=== PATIENT | female | born 1980 | race Caucasian/White ===

== ENCOUNTER 2021-11-17 14:45 | Emergency (ER) | payer BC, OTHER, SELFPAY ==
[2021-11-17 15:10] VITALS: BP 182/119; PULSE 78; RESP 16; TEMP 36.6; O2SAT 100; BMI 35.8
--- NOTE | 2021-11-17 17:30 | ED.GENADULT ---
HPI - General Adult General Time Seen by Provider: 17:30 Date Seen: 11/17/21 Chief complaint: High Blood Pressure Stated complaint: High blood pressure Time Seen by Provider: 11/17/21 17:27 Source: patient History of Present Illness HPI narrative: Kita is a 38-year-old female past medical history includes hypertension currently on spironolactone, occurred, migraine headaches, obesity, obstructive sleep apnea presents emerged department from clinic with elevated blood pressure reading. Patient was over in clinic for a gynecology appointment, patient's blood pressure was elevated, she denies any chest pain but has a mild headache which is typical for her. She denies any visual changes, no nausea vomiting or chest pain. She denies any focal weakness, numbness or tingling. She was put on spironolactone last year at 100 mg, she has not seen her primary since last year. She was tried on a diuretic and did not tolerate it. She has not seen her primary since last year, she has no cardiac or stroke history, no family history of strokes or heart attacks. She has some left lower back pain which is chronic she has had discectomy in the past. She has not had any blood work since last year. No [id number] medications, she denies any smoking or alcohol use. Related Data Home Medications Medication Instructions Recorded Confirmed cholecalciferol (vitamin D3) 25 1,000 unit PO DAILY tab 11/17/21 11/17/21 mcg (1,000 unit) tablet cyclobenzaprine 5 mg tablet 10 mg PO .Bedtime as needed PRN 11/17/21 11/17/21 tab ibuprofen 200 mg capsule 600 mg PO Q6H PRN 11/17/21 11/17/21 spironolactone 100 mg tablet mg PO DAILY 11/17/21 11/17/21 Previous Rx's Medication Instructions Recorded hydrochlorothiazide 12.5 mg tablet 12.5 mg PO DAILY #30 tab 11/17/21 Allergies Allergy/AdvReac Type Severity Reaction Status Date / Time No Known Allergies Allergy Unverified 11/17/21 13:11 Review of Systems Status of ROS: Reports: 10 or more systems reviewed and unremarkable except as noted in History and below [facility] Medical History (Updated 11/17/21 @ 20:16 by Mushtaq Loo MD) Encounter for postoperative care Mass of left side of neck Plantar fasciitis (11/13/12) Surgical History (Updated 11/15/21 @ 14:26 by Rakesh Marmolejo) History of cholecystectomy (11/13/12) History of discectomy Family History (Updated 11/02/21 @ 11:04 by Dyan Rey) Brother Hyperlipidemia Social History (Updated 11/02/21 @ 11:05 by Dyan Rey) Narrative: Does not drink alcohol Does not use illicit drugs Non-smoker Smoking Status: Never smoker Do you use any of these nicotine containing products: None Second hand tobacco smoke exposure: No How often do you have a drink containing alcohol: monthly or less How many standard drinks containing alcohol do you have on a typical day: 1 or 2 How often do you have six or more drinks on one occasion: Never AUDIT-C Alcohol total score: 1 Non-prescribed substance use: marijuana (any form) Non-prescribed substance use details: edibles Little interest or pleasure in doing things: not at all Feeling down, depressed, or hopeless: not at all service: No Exam Narrative: Exam Narrative: General: No obvious distress, sitting comfortably HEENT: Tympanic membranes within normal limits bilaterally oropharynx is clear and moist, pupils equal round reactive to light. Heart: S1-S2, regular rhythm Lungs were clear to auscultation bilaterally Abdomen: Soft nontender, bowel sounds present Muscle skeletal: +5 strength upper and lower extremities, mild tenderness to palpation in the left lower lumbar paraspinal musculature, no midline tenderness, no step-off, straight leg raise and crossover negative Neuro: Alert awake and oriented x3, cranial nerves 2-12 grossly intact, no focal deficits Psych: Mood and affect normal Const: Vital Signs, click to edit/add: Vital Signs - 24 hr 11/17/21 15:10 11/17/21 17:32 11/17/21 18:39 Temperature 97.8 F 98.4 F Pulse Rate [Right Radial] 78 75 72 Respiratory Rate 16 18 18 Blood Pressure [Ri ght Upper Arm] 182/119 H 176/113 H 151/114 H Pulse Oximetry 100 100 98 11/17/21 19:26 11/17/21 19:48 11/17/21 20:05 Temperature Pulse Rate [Right Radial] 74 78 77 Respiratory Rate Blood Pressure [Ri ght Upper Arm] 183/100 H 180/119 H 180/110 H Pulse Oximetry 100 97 100 Course Course Hospital Course: Vitals show elevated blood pressure reading 176/113, patient has no focal findings on exam, no signs of any hypertensive emergency or urgency, will obtain EKG, CBC and BMP, troponinI, may add another antihypertensive, she is maxed out on her spironolactone. Will start her back on hydrochlorothiazide 12.5 mg. Reevaluation(s) Reevaluation #1: Patient was updated on her EKG results, normal sinus rhythm, ppm 69, no ectopy or acute ST changes, no comparisons. Time: 18:44 Reevaluation #2: Troponin I negative, CBC showed mild leukocytosis otherwise normal, BMP showed a normal potassium and kidney function. Patient's blood pressure slowly lower, 176/110, she is asymptomatic at this time no signs of any hypertensive urgency or emergency, no end-organ damage, patient is under stress which could be contributing, she will be started back on her hydrochlorothiazide 12.5 mg daily with her spironolactone, followup appointment was made for Sunday after the weekend, at that time they can recheck blood pressure measurements adjust medications as needed. Return precautions given, all questions answered. She is stable for discharge Time: 20:19 Vital Signs Vital signs: Initial Vital Signs Temperature 97.8 F 11/17/21 15:10 Temperature Source Temporal Artery Scan 11/17/21 15:10 Pulse Rate 78 11/17/21 15:10 Respiratory Rate 16 11/17/21 15:10 Blood Pressure 182/119 H 11/17/21 15:10 Blood Pressure Mean 140 11/17/21 15:10 Blood Pressure Position Sitting 11/17/21 15:10 Pulse Oximetry 100 11/17/21 15:10 Oxygen Delivery Method 11/17/21 15:10 Vital Signs Temperature 97.8 F 11/17/21 15:10 Pulse Rate 78 11/17/21 15:10 Respiratory Rate 16 11/17/21 15:10 Blood Pressure 182/119 H 11/17/21 15:10 Pulse Oximetry 100 11/17/21 15:10 Temperature 98.4 F 11/17/21 18:39 Pulse Rate 77 11/17/21 20:05 Respiratory Rate 18 11/17/21 18:39 Blood Pressure 180/110 H 11/17/21 20:05 Pulse Oximetry 100 11/17/21 20:05 Medical Decision Making Lab Data Labs: Lab Results 11/17/21 11/17/21 Range/Units 18:18 18:18 WBC 11.08 H (4.50-11.00) K/uL RBC 4.31 (4.00-5.20) m/uL Hgb 13.0 (12.0-16.0) gm/dL Hct 38.3 (33.0-51.0) % MCV 89 (80-100) fL MCH 30 (26-34) pg MCHC 34 (32-36) gm/dL RDW Coeff of Real 12.8 (11.5-15.5) % Plt Count 356 (140-440) K/uL Neut % (Auto) 61.1 (42.0-72.0) % Lymph % (Auto) 29.7 (20-44) % Lamar % (Auto) 6.8 (0.0-11.0) % Eos % (Auto) 1.8 (0.0-7.0) % Baso % (Auto) 0.4 (0.0-3.0) % Neut # (Auto) 6.80 (1.7-7.0) K/uL Lymph # (Auto) 3.30 H (0.90-2.90) K/uL Lamar # (Auto) 0.80 (0.00-0.90) K/UL Eos # (Auto) 0.20 (0.00-0.50) K/uL Baso # (Auto) 0.00 (0.00-0.30) K/uL Abs Immat Gran (auto) 0.02 (0.00-0.30) K/uL Sodium 139 (135-149) mmol/L Potassium 4.2 (3.6-5.1) mmol/L Chloride 104 (96-114) mmol/L Carbon Dioxide 27 (20-32) mmol/L BUN 11 (5-24) mg/dL Creatinine 0.7 (0.5-1.5) mg/dL Estimated Creat Clear 93.25 Estimated GFR 110 ml/min Glucose 100 (60-115) mg/dL Calcium 9.3 (8.4-10.6) mg/dL Troponin I < 0.01 L (0.01-0.04) ng/mL Discharge Plan Discharge Clinical Impression: Elevated blood pressure reading, History of migraine Patient Disposition: Home, Self-Care Instructions: Hypertension (ED) Additional Instructions: To follow up with Dr. Olguin after the weekend on Sunday for blood pressure recheck and ED follow up. Return if worsening symptoms. Activity Level: Activity as Tolerated Prescriptions: New hydrochlorothiazide 12.5 mg tablet 12.5 mg PO DAILY Qty: 30 2RF No Action spironolactone 100 mg tablet PO DAILY 0RF cholecalciferol (vitamin D3) 25 mcg (1,000 unit) tablet 1,000 unit PO DAILY 0RF ibuprofen 200 mg capsule 600 mg PO Q6H PRN0RF cyclobenzaprine 5 mg tablet 10 mg PO .Bedtime as needed PRN0RF Follow Up/Referrals: Marga Olguin PA-C [Primary Care Provider] - Stand Alone Forms: appMobi Info Instructions
[2021-11-17 17:32] VITALS: BP 176/113; PULSE 75; RESP 18; O2SAT 100
[2021-11-17 18:34] LABS: Basophils Percent Auto 0.4 % (0.0-3.0); Eosinophils Percent Auto 1.8 % (0.0-7.0); Hematocrit 38.3 % (33.0-51.0); Immature Granulocytes Abs Auto 0.02 K/uL (0.00-0.30); Lymphocytes Percent Auto 29.7 % (20-44); Mean Corpuscular HGB Conc 34 gm/dL (32-36); Mean Corpuscular Hemoglobin 30 pg (26-34); Mean Corpuscular Volume 89 fL (80-100); Monocytes Percent Auto 6.8 % (0.0-11.0); Neutrophils Percent Auto 61.1 % (42.0-72.0); Platelet Count* 356 K/uL (140-440); RDW Coefficient of Variation % 12.8 % (11.5-15.5); Red Blood Count 4.31 m/uL (4.00-5.20); White Blood Count* 11.08 K/uL (4.50-11.00)
[2021-11-17 18:35] LABS: Slide Review Reflex No
[2021-11-17 18:37] LABS: Chloride* 104 mmol/L (96-114); Potassium* 4.2 mmol/L (3.6-5.1); Sodium* 139 mmol/L (135-149)
[2021-11-17 18:39] VITALS: BP 151/114; PULSE 72; RESP 18; TEMP 36.9; O2SAT 98
[2021-11-17 18:39] LABS: Creatinine* 0.7 mg/dL (0.5-1.5); Est. Creatinine Clearance* 93.25; Estimated Glomerular Filt Rate 110 ml/min
[2021-11-17 18:40] LABS: Blood Urea Nitrogen* 11 mg/dL (5-24); Calcium* 9.3 mg/dL (8.4-10.6); Carbon Dioxide* 27 mmol/L (20-32); Glucose* 100 mg/dL (60-115)
[2021-11-17 18:53] LABS: Troponin I* < 0.01 ng/mL (0.01-0.04)
[2021-11-17] MEDS: hydroCHLOROthiazide 12.5 MG CAPSULE PO (19:23)
[2021-11-17 19:26] VITALS: BP 183/100; PULSE 74; O2SAT 100
[2021-11-17 19:48] VITALS: BP 180/119; PULSE 78; O2SAT 97
[2021-11-17 20:05] VITALS: BP 180/110; PULSE 77; O2SAT 100
== END 2021-11-17 20:25 | disposition home or self-care (01) ==
PROVIDERS: Emergency Provider Student in an Organized Health Care Education/Training Program; PCP Physician Assistant Medical
DX: I10 Essential (primary) hypertension (principal)
CPT/HCPCS: 36415; 80048; 84484; 85025; 93005; 99283; A9270

== ENCOUNTER 2021-12-26 13:42 | Outpatient (CLI) | payer BC, OTHER, SELFPAY ==
--- NOTE | 2021-12-26 13:40 | CRLHL7_ITS ---
For Patients: As a result of the Century Cures Act, medical imaging exams and procedure reports are released immediately into your electronic medical record. You may view this report before your referring provider. If you have questions, please contact your health care provider. BILATERAL SCREENING MAMMOGRAM WITH COMPUTER-AIDED DETECTION AND TOMOSYNTHESIS TECHNIQUE: CC and MLO views were obtained. These mammographic images have been obtained using full-field digital technique. These mammographic images were interpreted with the benefit of computer-aided detection. Breast Tomosynthesis was used in this interpretation. COMPARISON FILM: 08/13/18. FINDINGS: There are scattered areas of fibroglandular density IMPRESSION: There is no radiographic evidence for malignancy. ASSESSMENT: BI-RADS Category 1: Negative RECOMMENDATION: Routine screening mammogram in 1 year. A lay language report of this examination will be provided to the patient. Robert Resendez M.D. Diagnostic Radiologist [email or web address] WENDI/Dictated by: Robert Resendez MD @ 12/27/2021 1:00:00 PM (Electronically Signed)
== END 2021-12-26 13:43 | disposition home or self-care (01) ==
LOC: MAMMO 13:43
PROVIDERS: PCP Physician Assistant Medical; Visit Provider Registered Nurse
DX: Z12.31 Encounter for screening mammogram for malignant neoplasm of breast
CPT/HCPCS: 77063; 77067

== ENCOUNTER 2021-12-27 14:01 | Outpatient (CLI) | payer BC, OTHER, SELFPAY ==
[2021-12-27 21:40] LABS: Chloride* 97 mmol/L (96-114); Potassium* 4.2 mmol/L (3.6-5.1); Sodium* 140 mmol/L (135-149)
[2021-12-27 21:42] LABS: Creatinine* 0.8 mg/dL (0.5-1.5); Estimated Glomerular Filt Rate 94 ml/min
[2021-12-27 21:43] LABS: Blood Urea Nitrogen* 12 mg/dL (5-24); Calcium* 10.2 mg/dL (8.4-10.6); Carbon Dioxide* 31 mmol/L (20-32); Glucose* 93 mg/dL (60-115)
== END 2021-12-27 14:02 | disposition home or self-care (01) ==
LOC: FRMREF 14:01
PROVIDERS: PCP Physician Assistant Medical; Visit Provider Physician Assistant Medical
DX: I10 Essential (primary) hypertension (principal)
CPT/HCPCS: 80048

== ENCOUNTER 2021-12-30 10:50 | Outpatient (CLI) | payer BC, OTHER, SELFPAY ==
[2021-12-30 11:09] LABS: HCG Qualitative* Negative (Negative)
== END 2021-12-30 10:51 | disposition home or self-care (01) ==
PROVIDERS: PCP Physician Assistant Medical; Visit Provider Registered Nurse
DX: N93.9 Abnormal uterine and vaginal bleeding, unspecified (principal)
CPT/HCPCS: 84443; 84703

== ENCOUNTER 2021-12-30 11:07 | Outpatient (CLI) | payer BC, OTHER, SELFPAY ==
--- NOTE | 2021-12-30 16:00 | CRLHL7_ITS ---
For Patients: As a result of the Century Cures Act, medical imaging exams and procedure reports are released immediately into your electronic medical record. You may view this report before your referring provider. If you have questions, please contact your health care provider. INDICATION: Irregular bleeding TECHNIQUE: Ultrasound pelvis transabdominal and transvaginal for better assessment or to better visualize the endometrium. Real time sonographic images with Spectral and color Doppler imaging of the ovaries were obtained. COMPARISON: None FINDINGS: Uterus: 0.7 centimeter x 4.8 centimeter 6.3 centimeter. Normal echotexture of the myometrium. No masses. Nabothian cysts. Endometrium: Transvaginal imaging was performed to better evaluate the endometrium. 13 millimeter in thickness. No sign of endometrial mass or fluid. Right ovary: 3.3 centimeter x 2.2 centimeter x 2.5 centimeter. No ovarian or adnexal masses. Normal arterial and venous blood flow. Left ovary: 0.7 centimeter x 1.8 centimeters x 2.6 centimeter. No ovarian or adnexal masses. Normal arterial and venous blood flow. Cul-de-sac: No significant free fluid. IMPRESSION: Nabothian cysts, otherwise unremarkable pelvic ultrasound. Dictated by Robert Peñaloza MD @ 12/30/2021 8:53:57 PM (Electronically Signed)
== END 2021-12-30 11:08 | disposition home or self-care (01) ==
PROVIDERS: PCP Physician Assistant Medical; Visit Provider Registered Nurse
DX: N93.9 Abnormal uterine and vaginal bleeding, unspecified (principal); N88.8 Other specified noninflammatory disorders of cervix uteri
CPT/HCPCS: 76830; 76856; 84443; 84703

== ENCOUNTER 2022-03-28 17:24 | Emergency (ER) | payer BC, OTHER, SELFPAY ==
[2022-03-28 17:55] VITALS: BP 121/74; PULSE 68; RESP 18; TEMP 36.2; O2SAT 99; BMI 33.3
--- NOTE | 2022-03-28 18:01 | CRLHL7_ITS ---
For Patients: As a result of the Cures Act, medical imaging exams and procedure reports are released immediately into your electronic medical record. You may view this report before your referring provider. If you have questions, please contact your health care provider. Indication: Fall. Technique: Left ankle, 3 views. Comparison: None. Findings: Bones: Mild cortical irregularity along the posterior tibia seen only on the lateral projection could be the result of prior trauma. Joint spaces: Unremarkable. Soft tissues: Diffuse soft tissue swelling about the ankle. Impression: Soft tissue swelling without acute fracture. Dictated by Frantz Camacho MD @ 03/28/2022 6:54:08 PM (Electronically Signed)
--- NOTE | 2022-03-28 18:02 | ED_ITS ---
HPI - Extremity Injury (Lower) General Chief Complaint: Extremity Pain/Injury, Lower Stated Complaint: Left Ankle Injury - Ice Time Seen by Provider: 03/28/22 17:38 History of Present Illness HPI Narrative: This 41-year-old female comes in with an injury to her left ankle. She slipped on some ice just prior to arrival and fell injuring her left ankle. She does not report any other injury. She did not hit her head or get knocked out. She has pain and swelling at the left ankle joint. The swelling is more on the lateral aspect. She did not ambulate on this leg after the injury. Related Data Home Medications Medication Instructions Recorded Confirmed cholecalciferol (vitamin D3) 25 1,000 unit PO DAILY 11/17/21 02/09/22 mcg (1,000 unit) tablet cyclobenzaprine 5 mg tablet 10 mg PO .Bedtime as needed PRN 11/17/21 02/09/22 ibuprofen 200 mg capsule 600 mg PO Q6H PRN 11/17/21 02/09/22 Previous Rx's Medication Instructions Recorded hydrochlorothiazide 12.5 mg tablet 12.5 mg PO DAILY #90 tabs 12/27/21 lisinopril 10 mg tablet 10 mg .Route .COMPLEX #90 tabs 12/27/21 Allergies Allergy/AdvReac Type Severity Reaction Status Date / Time No Known Allergies Allergy Verified 02/09/22 13:03 Review of Systems Status of ROS: Reports: 10 or more systems reviewed and unremarkable except as noted in History and below Narrative: Constitutional: No fevers, no weight gain or loss. Eyes: No discharge. No vision changes. HENT: No congestion, no sore throat, no ear pain. Cardiovascular: No chest pain, no palpitations. Respiratory: No shortness of breath, no wheezes, no cough. Gastrointestinal: No abdominal pain, no vomiting, no diarrhea. Genitourinary: No dysuria, no hematuria. Musculoskeletal: Left ankle injury as described above. Skin: No rashes, no pruritis. Neurological: No dizziness, weakness, sensory change, speech change. Endo/Heme/Allergies: No bruising or bleeding. No polydipsia. Pysch: no suicidality, no anxiety, no insomnia. All other systems reviewed and are negative. [facility] Medical History Mass of left side of neck Plantar fasciitis (11/13/12) Surgical History History of cholecystectomy (11/13/12) History of discectomy Family History Brother Hyperlipidemia Father High blood pressure Hyperlipidemia Social History Narrative: Does not drink alcohol Does not use illicit drugs Non-smoker Smoking Status: Never smoker Do you use any of these nicotine containing products: None Second hand tobacco smoke exposure: No How often do you have a drink containing alcohol: monthly or less How many standard drinks containing alcohol do you have on a typical day: 1 or 2 How often do you have six or more drinks on one occasion: Never AUDIT-C Alcohol total score: 1 Non-prescribed substance use: marijuana (any form) Non-prescribed substance use details: edibles Little interest or pleasure in doing things: not at all Feeling down, depressed, or hopeless: not at all service: No Exam Narrative: Exam Narrative: Constitutional: Well-developed, well-nourished, no acute distress. HEENT: Normocephalic, atraumatic. Neck: Normal range of motion. Nontender. Supple. Heart: Intact distal pulses. Lungs: No chest discomfort. No wheezes, rhonchi, or rales. Abdomen: Nontender. Back: Normal range of motion. Extremities: Left ankle has pain with swelling over the lateral malleolus. Decreased range of motion due to pain. There is no sign of instability or bruising. Skin: Intact. No rash. Warm. No erythema or pallor. Neurologic: No altered sensation. No weakness. Alert and oriented. Psychiatric: No suicidality. No anxiety or depression. No insomnia. Nursing notes and vitals signs are reviewed. Const: Vital Signs, click to edit/add: Vital Signs - 24 hr 03/28/22 17:55 Temperature 97.2 F L Pulse Rate [Right Pulse Oximeter] 68 Respiratory Rate 18 Blood Pressure [Ri ght Upper Arm] 121/74 Pulse Oximetry 99 Oxygen Delivery Me thod Room Air Course Vital Signs Vital signs: Initial Vital Signs Temperature 97.2 F L 03/28/22 17:55 Temperature Source Temporal Artery Scan 03/28/22 17:55 Pulse Rate 68 03/28/22 17:55 Respiratory Rate 18 03/28/22 17:55 Blood Pressure 121/74 03/28/22 17:55 Blood Pressure Mean 89 03/28/22 17:55 Blood Pressure Position Sitting 03/28/22 17:55 Pulse Oximetry 99 03/28/22 17:55 Oxygen Delivery Method 03/28/22 17:55 Vital Signs Temperature 97.2 F L 03/28/22 17:55 Pulse Rate 68 03/28/22 17:55 Respiratory Rate 18 03/28/22 17:55 Blood Pressure 121/74 03/28/22 17:55 Pulse Oximetry 99 03/28/22 17:55 Oxygen Delivery Method 03/28/22 17:55 Temperature 97.2 F L 03/28/22 17:55 Pulse Rate 68 03/28/22 17:55 Respiratory Rate 18 03/28/22 17:55 Blood Pressure 121/74 03/28/22 17:55 Pulse Oximetry 99 03/28/22 17:55 Oxygen Delivery Method 03/28/22 17:55 MDM - Extremity Injury (Lower) MDM Narrative Medical decision making narrative: This patient comes in with an injury to her left ankle. X-ray imaging shows no evidence of fracture. She does have an ankle sprain with some swelling on the lateral aspect of the ankle. The patient states that she does have crutches at home that can be used as needed. She does not have an unstable ankle and therefore I encouraged activity to increase as tolerated. She can use [id number] medicines as needed and directed also. Imaging Data X-ray left ankle: Radiologist's impression: Soft tissue swelling without acute fracture. Discharge Plan Discharge Clinical Impression: Left ankle sprain Patient Disposition: Home, Self-Care Condition: Stable Additional Instructions: Take [id number] medications as needed and indicated. Follow up with MD or return if worsening. Prescriptions: No Action cholecalciferol (vitamin D3) 25 mcg (1,000 unit) tablet 1,000 unit PO DAILY ibuprofen 200 mg capsule 600 mg PO Q6H PRN cyclobenzaprine 5 mg tablet 10 mg PO .Bedtime as needed PRN lisinopril 10 mg tablet 10 mg .ROUTE .COMPLEX Qty: 90 1RF Rx Instructions: 10 mg; hydrochlorothiazide 12.5 mg tablet 12.5 mg PO DAILY Qty: 90 1RF Follow Up/Referrals: Marga Olguin PA-C [Primary Care Provider] - Stand Alone Forms: [employer] Info Instructions
--- OUTSIDE RECORDS SUMMARY | 2022-03-28 18:25 | XMS_ITS | Encounter Summary ---
:1980 Author Organization [facility] Address [address] [place] [id number] Care Team Providers Name Role Phone Yomaira Gonsalves PA-C Primary Care Provider Encounter Details Date Type Department Care Team Description 10/20/2018 Travel Social History Tobacco Use Types Packs/Day Years Used Date Smoking Tobacco: Never Alcohol Use Standard Drinks/Week Comments Yes 0 (1 standard drink = 0.6 oz pure alcoho l) rarely Sex Assigned at Date Recorded Not on file documented as of this encounter Plan of Treatment Not on filedocumented as of this encounter Visit Diagnoses Not on filedocumented in this encounter Care Teams [employer] Relationship Specialty Start Date End Date Yomaira Gonsalves PA-C PCP - General Family Practice 05/13/12 05/09/20 [id number] [place] [address] documented as of this encounter
--- OUTSIDE RECORDS SUMMARY | 2022-03-28 18:25 | XMS_ITS | Encounter Summary ---
:1980 Author Organization [place] Address [address] [facility] [place] [address] Care Team Providers Name Role Phone Yomaira Gonsalves PA-C Primary Care Provider Reason for Visit Reason Comments Abdominal Pain Encounter Details Date Type Department Care Team Description 10/20/2018 Emergency [facility] Edis Singleton MD Acute abdominal pain; [facility] Hematuria, unspecified type [address] [place], [place] [address] [facility] [id number] [address] [address] [place] [address] (Wo rk) Social History Tobacco Use Types Packs/Day Years Used Date Smoking Tobacco: Never Alcohol Use Standard Drinks/Week Comments Yes 0 (1 standard drink = 0.6 oz pure alcoho l) rarely Sex Assigned at Date Recorded Not on file documented as of this encounter Last Filed Vital Signs Vital Sign Reading Time Taken Comments Blood Pressure 113/76 10/20/2018 3:43 AM CDT Pulse - - Temperature 36.3 ??C (97.4 ??F) 10/20/2018 12:48 AM CDT Respiratory Rate 18 10/20/2018 3:43 AM CDT Oxygen Saturation 100% 10/20/2018 3:43 AM CDT Inhaled Oxygen Concentration - - Weight 90.7 kg (200 lb) 10/20/2018 12:48 AM CDT Height - - Body Mass Index 33.28 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 Your evaluation today does not show the exact cause foryour pain. Your doctor today has decided that it is unlikely your pain is due to a life threatening problem, or a problem requiring surgery or hospital admission. Sometimes those problems cannot be found right away, so it is very important that you follow up as directed. Sometimes only the changes which occur over time allow the cause of your pain to be found. Return to the Emergency Department for a recheck in 8-12 hours if your pain continues. If your pain gets worse, changes in location, or feels different, return to the Emergency Department right away. ADULTS: Return to the Emergency Department right away if: You get an oral temperature above 102oF or as directed by your doctor. You have blood in your stools (bright red or black, tarry stools). You keep throwing up or can?t drink liquids. You see blood when you throw up. You can?t have a bowel movement or you can?t pass gas. Your stomach gets bloated or bigger. Your skin or the whites of your eyes look yellow. You faint. You have bloody, frequent or painful urination. You have new symptoms or anything that worries you. CHILDREN: Return to the Emergency Department right away if your child has any of the above-listed symptoms or the following: Pushes your hand away or screams/cries when his/her belly is touched. You notice your child is very fussy or weak. Your child is very tired and is too tired to eat or drink. Your child is dehydrated. Signs of dehydration can be: Your has had no wet diapers in 4-5 hours. Your older child has not passed urine in 6-8 hours. Your infant or child starts to have dry mouth and lips, or no saliva or tears. WOMEN: Return to the Emergency Department right away if you have any of the above-listed symptoms or the following: You have bleeding, leaking fluid or passing tissue from the vagina. You have worse pain or cramping, or pain in your shoulder or back. You have vomiting that will not stop. You have painful or bloody urination. You have a temperature of 100oF or more. Your baby is not moving as much as usual. You faint. You get a bad headache with or without eye problems and abdominal pain. You have a convulsion or seizure. You have unusual discharge from your vagina and abdominal pain. Abdominal pain is pretty common during . Your pain may or may not be related to your . You should follow-up closely with your OB doctor so they can evaluate you and your baby. Until you follow-up with your regular doctor, do the following: Avoid sex and do not put anything in your vagina. Drink clear fluids. Only take medications approved by your doctor. MORE INFORMATION: Appendicitis: A possible cause of abdominal pain in any person who still has their appendix is acuteappendicitis. Appendicitis is often hard to diagnose. Testing does not always rule out early appendicitis or other causes of abdominal pain. Close follow-up with your doctor and re-evaluations may be needed to figure out the reason for your abdominal pain. Follow-up: It is very important that you make an appointment with your clinic and go to the appointment. If you do not follow-up with your primary doctor, it may result in missing an important development which could result in permanent injury or disability and/or lasting pain. If there is any problemkeeping your appointment, call your doctor or return to the Emergency Department. Medications: Take your medications as directed by your doctor today. Before using [id number] medications, ask your doctor and make sure to take the medications as directed. If you have any questions about medications, ask your doctor. Diet: Resume your normal diet as much as possible, but do not eat fried, fatty or spicy foods while you have pain. Do not drink alcohol or have caffeine. Do not smoke tobacco. Probiotics: If you have been given an antibiotic, you may want to also take a probiotic pill or eat yogurt with live cultures. Probiotics have good bacteria to help your intestines stay healthy. Studies have shown that probiotics help prevent diarrhea and other intestine problems (including C. diff infection) when you take antibiotics. You can buy these without a prescription in the pharmacy section of the store. If you were given a prescription for medicine here today, be sure to read all of the information (including the package insert) that comes with your prescription. This will include important information about the medicine, its side effects, and any warnings that you need to know about. The pharmacist who fills the prescription can provide more information and answer questions you may have about the medicine. If you have questions or concerns that the pharmacist cannot address, please call or return to the Emergency Department. Opioid Medication Information Pain medications are among the most commonly prescribed medicines, so we are including this information for all our patients. If you did not receive pain medication or get a prescription for pain medicine, you can ignore it. You may have been given a prescription for an opioid (narcotic) pain medicine and/or have received apain medicine while here in the Emergency Department. These medicines can make you drowsy or impaired. You must not drive, operate dangerous equipment, or engage in any other dangerous activities whiletaking these medications. If you drive while taking these medications, you could be arrested for DUI, or driving under the influence. Do not drink any alcohol while you are taking these medications. Opioid pain medications can cause addiction. If you have a history of chemical dependency of any type, you are at a higher risk of becoming addicted to pain medications. Only take these prescribed medications to treat your pain when all other options have been tried. Take it for as short a time and asfew doses as possible. Store your pain pills in a secure place, as they are frequently stolen and provide a dangerous opportunity for children or visitors in your house to start abusing these powerful medications. We will not replace any lost or stolen medicine. As soon as your pain is better, you should flush all your remaining medication. Many prescription pain medications contain Tylenol?? (acetaminophen), including Vicodin??, Tylenol #3??, Loma??, Lortab??, and Percocet??. You should not take any extra pills of Tylenol?? if you are using these prescription medications or you can get very sick. Do not ever take more than 3000 mg of acetaminophen in any 24 hour period. All opioids tend to cause constipation. Drink plenty of water and eat foods that have a lot of fiber, such as fruits, vegetables, prune juice, apple juice and high fiber cereal. Take a laxative if you don?t move your bowels at least every other day. Miralax??, Milk of Magnesia, Colace??, or Senna?? can be used to keep you regular. Remember that you can always come back to the Emergency Department if you are not able to see your regular doctor in the amount of time listed above, if you get any new symptoms, or if there is anything that worries you. AttachmentsThe following attachments cannot be sent through Care Everywhere. Hematuria ([place] Island[place])documented in this encounter Medications at Time of Discharge Medication Sig Dispensed Refills Start Date End Date hydrochlorothiazide Take 1 tablet by 30 tablet 0 07/20/2011 (HYDRODIURIL) 25 MG mouth daily. tabletIndications: HTN (hypertension) omeprazole (PRILOSEC) 20 MG Take 20 mg by 0 capsule mouth daily. Verapamil HCl 240 MG (CO) Take by mouth. 0 TB24 ondansetron (ZOFRAN ODT) 4 MG Take 1 tablet (4 10 tablet 0 10/20/2018 10/23/2018 ODT tab mg) by mouth every 8 hours as needed for nausea trimethoprim-polymyxin b Place 1 drop 1 Bottle 0 3 07/03/2019 (POLYTRIM) ophthalmic into both eyes solutionIndications: every 4 hours. Conjunctivitis, acute documented as of this encounter ED Notes Christiana Macdonald RN - 10/20/2018 12:46 AM CDT A&Ox4. ABCs intact. Pt c/o RLQ pain that started around 2300 tonight. Called EMS. Pain 10/10, pt was in position. Received Toradol 30mg IM and Zofran 4mg PO. Pain 3/10 at this time. Denies nausea. No gall bladder, but still has her appendix. Edis Singleton MD - 10/20/2018 12:38 AM CDT History Chief Complaint: Abdominal Pain HPI Chery Osborne is a 38 year old female who presents with her to the ED for the evaluation of abdominal pain. The patient reports that at 2300 tonight she started to experience abdominal pain that she rates as a 10/10 on the pain scale causing her to lay in the position, prompting her to theED. The patient describes that she is not experiencing the abdominal pain now, but that it was very sharp and stabbing when it was present. EMS notes that the patient received 30 mg of Toradol and 4 mgof Zofran en route to the ED. The patient denies vomiting, dysuria, nausea, and other issues. Allergies: No known drug allergies Medications: Hydrodiuril Prilosec Polytrim Verpamil Past Medical History: Hypertension GERD Past Surgical History: History reviewed. No pertinent surgical history. Family History: History reviewed. No pertinent family history. Social History: Smoking status: Never Smoker Alcohol use: Yes Marital Status: [2] Review of Systems Gastrointestinal: Positive for abdominal pain. Negative for nausea and vomiting. Genitourinary: Negative for dysuria. All other systems reviewed and are negative. Physical Exam Patient Vitals for the past 24 hrs: BP Temp Temp src Heart Rate Resp SpO2 Weight 10/20/18 0343 113/76 -- -- 64 18 100 % -- 10/20/18 0048 124/82 97.4 ??F (36.3 ??C) Temporal 80 16 100 % 90.7 kg (200 lb) Physical Exam Constitutional: Oriented to person, place, and time. Well appearing. HENT: Head: Normocephalic. Mouth/Throat: Oropharynx is clear and moist. Eyes: EOM are normal. Pupils are equal, round, and reactive to light. Neck: Neck supple. Cardiovascular: Normal rate, regular rhythm and normal heart sounds. Exam reveals no gallop and no friction rub. No murmur heard. Pulmonary/Chest: Effort normal and breath sounds normal. No respiratory distress. No wheezes. No rales. No reproducible chest wall pain. Abdominal: Soft. No distension. RLQ tenderness. No rebound and no guarding. Musculoskeletal: Normal range of motion. Neurological: Alert and oriented to person, place, and time. Moves all 4 extremities spontaneously Skin: No rash noted. No pallor. Emergency Department Course Imaging: Radiographic findings were communicated with the patient and family who voiced understanding of the findings. CT Abdomen Pelvis without Contrast IMPRESSION: 1. No acute cause of pain identified. 2. Tiny nonobstructing right renal stone. As read by Radiology. Laboratory: ISTAT HCG Quantitative POCT (0150): <5.0 UA: Urineketon Trace, Bloo Moderate, RBC 36 (H), Squamous Epithelial 2 (H), Mucous Present, o/w Negative CBC: WBC 15.4 (H), WNL (HGB 12.6, PLT 353) CMP: Glucose 116 (H), WNL (Creatinine 0.75) Lipase: 182 Interventions: 0204, NS 1L IV Bolus 0204, Zofran, 4 mg, IV Emergency Department Course: Patient arrived via ambulance. Past medical records, nursing notes, and vitals reviewed. 0131: I performed an exam of the patient and obtained history, as documented above. IV inserted and blood drawn. The patient was sent for an abdomen CT while in the emergency department, findings above. 0320: Discussed with radiologist the patient's CT imaging results. I rechecked the patient. Findings and plan explained to the Patient. Patient discharged home with instructions regarding supportive care, medications, and reasons to return. The importance of close follow-up was reviewed. Impression & Plan Medical Decision Making: Chery Osborne is a 38 year old female who came in complaining of right lower quadrant abdominal pain. Differential includes renal colic, pyelonephritis, acute appendicitis, diverticulitis, ectopic , ovarian cyst, ovarian torsion, as well as other causes. Work up this far otherwise shows hematuria without obvious cause based on her CT imaging. Patient is currently pain free. My suspicion with her hematuria is that she likely passed a kidney stone. 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 There was no enlarged appendix, no inflammatory signs to suggest acute appendicitis. Symptoms would not be consistent with appendicitis. Patient was appropriate for discharge and had no pain any more. Told to continue with oral hydration and follow up with PCP. Return for any worsening abdominal pain, vomiting, or fever. Diagnosis: ICD-10-CM 1. Acute abdominal pain R10.9 2. Hematuria, unspecified type R31.9 Disposition: discharged to home Discharge Medications: Medication List Started ondansetron 4 MG ODT tab Commonly known as: ZOFRAN ODT 4 mg, Oral, EVERY 8 HOURS PRN Scribe Disclosure: Kal Bergman, am serving as a scribe at 2:32 AM on 10/20/2018 to document services personally performed by Edis Singleton MD based on my observations and the provider's statements to me. Kal Chang 10/20/2018 [facility] EMERGENCY DEPARTMENT Edis Singleton MD 10/20/18 0526 documented in this encounter Plan of Treatment Not on filedocumented as of this encounter Procedures Procedure Name Priority Date/Time Associated Comments Diagnosis CT ABDOMEN PELVIS W/O STAT 10/20/2018 2:58 AM Results for this CONTRAST CDT procedure are i n the results section. ISTAT HCG QUANTITATIVE Routine 10/20/2018 1:50 AM Results for this POCT CDT procedure are in the results section. CBC WITH PLATELETS & STAT 10/20/2018 1:44 AM R esults for this DIFFERENTIAL CDT procedure are i n the results section. ROUTINE UA WITH STAT 10/20/2018 1:44 AM Result s for this MICROSCOPIC CDT procedure are i n the results section. LIPASE STAT 10/20/2018 1:44 AM Results f or this CDT procedure are i n the results section. COMPREHENSIVE STAT 10/20/2018 1:44 AM Results for this METABOLIC PANEL CDT procedure ar e in the results section. documented in this encounter Results CT Abdomen Pelvis without Contrast (stone protocol) (10/20/2018 2:58 AM CDT) Anatomical Region Laterality Modality Abdomen/Pelvis, SUBRAD CT BODY, UMP CT ABDOMEN PELVIS, Computed Tomography RAD CT Specimen (Source) Anatomical Location Collection Method / Collectio n Time Received Time / Laterality Volume Impressions 10/20/2018 3:22 AM CDT IMPRESSION: 1. No acute cause of pain identified. 2. Tiny nonobstructing right renal stone . RAY VALDERRAMA MD Narrative 10/20/2018 3:[address] ABDOMEN/PELVIS WITHOUT CONTRAST ??10/20/2018 2:58 AM INDICATION: Right lower quadrant pain. ? ? TECHNIQUE: Thin axial images through the abdomen and pelvis without contrast. Coronal reformatted images. Ra diation dose for this scan was reduced using automated exposure control , adjustment of the mA and/or kV according to patient size, or iterati ve reconstruction technique. COMPARISON: 06/30/2010. FINDINGS: There is a 0.1 cm nonobstructi ng stone in the right mid kidney. No other renal stones or hydrone phrosis. Gallbladder is absent. Liver, spleen, pancreas, adrenal glands and kidneys are otherwise negative without contrast. Visualized lung bases are clear. Uterus is present. No suspicious adnexal masses. Adnexal surgical clip. No inflammatory changes demonstrat ed. No bowel obstruction, ascites or free air. Procedure Note Ray Valderrama MD - 10/20/2018F ormatting of this note might be different from the original. CT ABDOMEN/PELVIS WITHOUT CONTRAST 2018 2:58 AM INDICATION: Right lower quadrant pain. TECHNIQUE: Thin axial images through the abdomen and pelvis without contrast. Coronal reformatted images. Ra diation dose for this scan was reduced using automated exposure control , adjustment of the mA and/or kV according to patient size, or iterati ve reconstruction technique. COMPARISON: 06/30/2010. FINDINGS: There is a 0.1 cm nonobstructi ng stone in the right mid kidney. No other renal stones or hydrone phrosis. Gallbladder is absent. Liver, spleen, pancreas, adrenal glands and kidneys are otherwise negative without contrast. Visualized lung bases are clear. Uterus is present. No suspicious adnexal masses. Adnexal surgical clip. No inflammatory changes demonstrat ed. No bowel obstruction, ascites or free air. IMPRESSION: 1. No acute cause of pain identified. 2. Tiny nonobstructing right renal stone . RAY VALDERRAMA MD Edis Singleton MD IMG CT ORDERABLES ISTAT HCG Quantitative POCT (10/20/2018 1:50 AM CDT) athologist Signature HCG Quantitative <5.0 <5.0 IU/L 10/20/2018 POINT OF CAR E Serum 2:02 AM CDT TEST, HANDHELD METER Specimen Anatomical Collection Method Collection Time Receive d Time (Source) Location / / Volume Laterality 10/20/2018 1:50 AM 9 2:02 CDT AM CDT Edis Singleton MD LAB - BEAKER POCT Performing Organization Address City/State/ZIP Code Phon e Number [facility] POINT OF CARE TEST, HANDHELD METER POINT OF CARE TEST, HANDHELD METER (ABNORMAL) UA with Microscopic (10/20/2018 1:44 AM CDT) [facility] Method Time Signature Color Urine Yellow 10/20/2018 [facility] 2:13 AM CDT [facility] Appearance Urine Clear 10/20/2018 [facility] 2:13 AM CDT [facility] Glucose Urine Negative NEG^Negat 10/20/2018 [place] emiliano mg/dL 2:13 AM [facility] Bilirubin Urine Negative NEG^Negat 10/20/2018 [facility] emiliano 2:13 AM [facility] Ketones Urine Trace (A) NEG^Negat 10/20/2018 [place] emiliano mg/dL 2:13 AM [facility] Specific Steele 1.027 1.003 - 10/20/2018 [place] Urine 1.035 2:13 AM [facility] Blood Urine Moderate (A) NEG^Negat 10/20/2018 [facility] emiliano 2:13 AM [facility] pH Urine 7.0 5.0 - 7.0 10/20/2018 [place] pH 2:13 AM [facility] Protein Albumin 50 (A) NEG^Negat 10/20/2018 [place] Urine emiliano mg/dL 2:13 AM [facility] Urobilinogen Normal 0.0 - 2.0 10/20/2018 [place] mg/dL mg/dL 2:13 AM [facility] Nitrite Urine Negative NEG^Negat 10/20/2018 [place] emiliano 2:13 AM [facility] Leukocyte Negative NEG^Negat 10/20/2018 [place] Esterase Urine emiliano 2:13 AM [facility] Source Midstream 10/20/2018 [place] Urine 1:45 AM [facility] WBC Urine 4 0 - 5 10/20/2018 [facility] /HPF 2:13 AM [facility] RBC Urine 36 (H) 0 - 2 10/20/2018 [facility] /HPF 2:13 AM [facility] Squamous 2 (H) 0 - 1 10/20/2018 [facility] Epithelial /HPF /HPF 2:13 AM [facility] Mucous Urine Present (A) NEG^Negat 10/20/2018 [place] emiliano /LPF 2:13 AM [facility] Specimen (Source) Anatomical Collection Method Collection Time Re ceived Time Location / / Volume Laterality Examination of URINE SPECIMEN / 10/20/2018 1:44 2018 1:51 midstream urine Unknown AM [facility] specimen (procedure) Edis Singleton MD LAB - URINE ORDERABLES Performing Organization Address City/State/ZIP Code Phon e Number [facility] [address] [place], [place] [address] [facility] [address] [place], [place] [address] [phone] Lipase (10/20/2018 1:44 AM CDT) athologist Signature Lipase 182 73 - 393 10/20/[address] [facility] 2:13 AM CDT HOSPITAL Specimen Anatomical Collection Method Collection Time Receive d Time (Source) Location / / Volume Laterality Blood specimen 10/20/2018 1:44 AM 019 1:50 (specimen) CDT AM CDT Edis Singleton MD LAB - BLOOD ORDERABLES Performing Organization Address [facility] tia Colon [facility] [address] [place], [place] [address] [facility] [address] [place], [place] [address], [facility] [phone] (ABNORMAL) Comprehensive metabolic panel (10/20/2018 1:44 AM CDT) athologist Signature Sodium 137 133 - 144 10/20/2018 [facility] mmol/L 2:04 AM [facility] Potassium 3.7 3.4 - 5.3 10/20/2018 [facility] mmol/L 2:04 AM [facility] Chloride 103 94 - 109 10/20/2018 [place] mmol/L 2:04 AM [facility] Carbon Dioxide 27 20 - 32 10/20/2018 [facility] mmol/L 2:10 AM [facility] Anion Gap 7 3 - 14 10/20/2018 [facility] mmol/L 2:10 AM [facility] Glucose 116 (H) 70 - 99 10/20/2018 [place] mg/dL 2:10 AM [facility] Urea Nitrogen 15 7 - 30 10/20/2018 [place] mg/dL 2:10 AM [facility] Creatinine 0.75 0.52 - 10/20/2018 [place] 1.04 mg/dL 2:10 AM [facility] GFR Estimate >90 >60 10/20/2018 [place] mL/min/{1. 2:10 AM T [facility] 73_m2} HOSPITAL Comment: Non GFR Calc Starting 04/23/2018, serum creatinine ba sed estimated GFR (eGFR) will be calculated using the Chronic Kidney Dise [facility] Epidemiology Collaboration (CKD-EPI) equation. GFR Estimate If >90 >60 mL/min/{1.73_m2} 10/20/2018 2: 10 AM [facility] Comment: GFR Calc Starting 04/23/2018, serum creatinine ba sed estimated GFR (eGFR) will be calculated using the Chronic Kidney Dise [facility] Epidemiology Collaboration (CKD-EPI) equation. Calcium 8.8 8.5 - 10.1 mg/dL 10/20/2018 2:10 AM [facility] Bilirubin Total 0.6 0.2 - 1.3 mg/dL 10/20/2018 2:13 AM [facility] Albumin 3.9 3.4 - 5.0 g/dL 10/20/2018 2:13 AM [facility] Protein Total 8.0 6.8 - 8.8 g/dL 10/20/2018 2:[address] [facility] Alkaline Phosphatase 74 40 - 150 U/L 10/20/2018 2:13 AM [facility] ALT 44 0 - 50 U/L 10/20/2018 2:13 AM [facility] AST 38 0 - 45 U/L 10/20/2018 2:13 AM [facility] Specimen Anatomical Collection Method Collection Time Receive d Time (Source) Location / / Volume Laterality Blood specimen 10/20/2018 1:44 AM 019 1:50 (specimen) CD[facility] MD LAB - BLOOD ORDERABLES Performing Organization Address City/State/ZIP Code Phon e Number [place] [address] [address] [facility] [address] [address] [phone] (ABNORMAL) CBC with platelets differential (10/20/2018 1:44 AM CDT) Patholo gist Method Time Signature WBC 15.4 (H) 4.0 - 10/20/2018 [facility] 11.0 1:55 AM [facility] 10e9/L [facility] RBC Count 4.08 3.8 - 5.2 10/20/2018 [facility] 10e12/L 1:55 AM [facility] Hemoglobin 12.6 11.7 - 10/20/2018 [facility] 15.7 g/dL 1:55 AM [facility] Hematocrit 38.0 35.0 - 10/20/2018 [facility] 47.0 % 1:55 AM [facility] MCV 93 78 - 100 10/20/2018 [facility] fl 1:55 AM [facility] MCH 30.9 26.5 - 10/20/2018 [facility] 33.0 pg 1:55 AM [facility] MCHC 33.2 31.5 - 10/20/2018 [facility] 36.5 g/dL 1:55 AM [facility] RDW 12.9 10.0 - 10/20/2018 [facility] 15.0 % 1:55 AM [facility] Platelet Count 353 150 - 450 10/20/2018 [facility] 10e9/L 1:55 AM [facility] Diff Method Automated 10/20/2018 [facility] Method 1:55 AM [facility] % Neutrophils 72.4 % 10/20/2018 [facility] 1:55 AM [facility] % Lymphocytes 20.9 % 10/20/2018 [facility] 1:55 AM [facility] % Monocytes 5.0 % 10/20/2018 [facility] 1:55 AM [facility] % Eosinophils 0.9 % 10/20/2018 [facility] 1:55 AM [facility] % Basophils 0.3 % 10/20/2018 [facility] 1:55 AM [facility] % Immature 0.5 % 10/20/2018 [facility] Granulocytes 1:55 AM [facility] Nucleated RBCs 0 0 /100 10/20/2018 [facility] 1:55 AM [facility] Absolute 11.2 (H) 1.6 - 8.3 10/20/2018 [facility] Neutrophil 10e9/L 1:55 AM [facility] Absolute 3.2 0.8 - 5.3 10/20/2018 [facility] Lymphocytes 10e9/L 1:55 AM [facility] Absolute 0.8 0.0 - 1.3 10/20/2018 [facility] Monocytes 10e9/L 1:55 AM [facility] Absolute 0.1 0.0 - 0.7 10/20/2018 [facility] Eosinophils 10e9/L 1:55 AM [facility] Absolute 0.1 0.0 - 0.2 10/20/2018 [place] Basophils 10e9/L 1:55 AM [facility] Abs Immature 0.1 0 - 0.4 10/20/2018 [facility] Granulocytes 10e9/L 1:55 AM [facility] Absolute 0.0 10/20/2018 [facility] Nucleated RBC 1:55 AM [facility] Specimen Anatomical Collection Method Collection Time Receive d Time (Source) Location / / Volume Laterality Blood specimen 10/20/2018 1:44 AM 019 1:50 (specimen) CDT AM CDT Edis Singleton MD LAB - BLOOD ORDERABLES Performing Organization Address City/State/ZIP Code Phon e Number [place] [address] [phone] documented in this encounter Visit Diagnoses Diagnosis Acute abdominal pain Abdominal pain, unspecified site Hematuria, unspecified type documented in this encounter Administered Medications Inactive Administered Medications - up to 3 most recent administrations Medication Order MAR Action Action Date Dose Rate Site 0.9% sodium chloride BOLUS New Bag 10/20/2018 2:04 AM CDT 1,000 mLs 1000 mL/hr Intravenous, 1,000 mL, ONCE, at 1,000 mL/hr, Administer over 1 Hours, On 10/20/18 at 0135, For 1 dose ondansetron (ZOFRAN) injection 4 mg Given 10/20/2018 2:04 AM CDT 4 mg 4 mg, Intravenous, EVERY 30 MIN PRN, nausea, vomiting, Administer over 2-5 Minutes, Starting on 10/20/18 at 0134, For 3 doses, May repeat in 30 minutes as needed, up to 3 doses. Irritant. For ordered IV doses 0.1-4 mg, give IV Push undiluted over 2-5 minutes. sodium chloride 0.9% infusion at 125 mL/hr, Intravenous, CONTINUOUS, A dminister after the bolus., Starting on 10/20/18 at 0135, Until 10/20/18 at 0543 documented in this encounter Active and Recently Administered Medications Times are shown in CDT. Scheduled Medication Order 10/18/2018 10/19/2018 10/20/2018 0.9% sodium chloride BOLUS (COMPLETED) 0204 (New Bag - Provider: Arley De Souza, [id number] (Stopped - Provider: Arley De Souza RN) Intravenous, 1,000 mL, ONCE, at 1,000 mL /hr, Administer over 1 Hours, On 10/20/18 at 0135, For 1 dose Continuous Medication Order 10/18/2018 10/19/2018 10/20/2018 sodium chloride 0.9% infusion 01 35 (Canceled Entry - Provider: Orders Generic Provider - Comment: Automatically canceled at discontinue of medication order) at 125 mL/hr, Intravenous, CONTINUOUS, A dminister after the bolus., Starting 10/20/18 at 0135, Until 10/20/18 at 0543 PRN Medication Order 10/18/2018 10/19/2018 10/20/2018 ondansetron (ZOFRAN) injection 4 mg 0204 (Given - Provider: Arley De Souza RN) 4 mg, Intravenous, EVERY 30 MIN PRN, yolie sea, vomiting, Administer over 2-5 Minutes, Starting 10/20/18 at 0134, For 3 doses, May repeat in 30 minutes as needed, up to 3 doses. Irritant. For ordered IV doses 0.1-4 mg, give IV Push undiluted over 2-5 minutes. documented in this encounter Care Teams Plant Biology Professor Relationship Specialty Start Date End Date Fatmata-Yomaira Brito PA-C PCP - General Family Practice 05/13/12 05/09/20 [address] [place] [address] documented as of this encounter
--- OUTSIDE RECORDS SUMMARY | 2022-03-28 18:25 | XMS_ITS | Encounter Summary ---
:1980 Author Organization [place] Address [address] [facility] [place] [address] Care Team Providers Name Role Phone Joseluis Chao Reese Primary Care Provider Reason for Visit [facility] Physical Therapy (Routine) - Closed Specialty Diagnoses / Procedures Referred By Contact Refer red To Contact Physical Therapist / Diagnoses Spinal decompression DOS 03/23/20 /strengthening/ Dr Lam [facility] Sp[facility] Physical Therapy Procedures [facility] [address] [place] [address] Phone: Fax: Referral ID Status Reason Start Date Expiration Date Visits Requ ested Visits Authorized [id number] Closed 05/10/2020 05/06/2021 40 40 Encounter Details Date Type Department Care Team Description 05/24/2020 Therapy Visit [facility] Juan Teran, Status post lumbar Rehabilitation Services PT spine surgery [place] [address] [place] [address] [facility] [address] [place] [address] [phone] Social History Tobacco Use Types Packs/Day Years Used Date Smoking Tobacco: Never Alcohol Use Standard Drinks/Week Comments Yes 0 (1 standard drink = 0.6 oz pure alcoho l) rarely Sex Assigned at Date Recorded Not on file COVID-19 Exposure Response Date Recorded In the last month, have you been in contact with No / Unsure 05/24/2020 11:33 AM GUM MAKER someone who was confirmed or suspected to have Coronavirus / COVID-19? documented as of this encounter Progress Notes Juan Teran, PT - 05/24/2020 11:20 AM CST Subjective: HPI Physical Exam Objective: System Physical Exam General ROS Assessment/Plan: SUBJECTIVE Subjective changes as noted by pt: Pt reports pain is moving out of the leg up to the hip Current pain level: 3/10 Current Pain level: 3/10 Changes in function: Pt reported some pain last week walking with heavy boots. Pt usually does not have pain if using regular shoes. Adverse reaction to treatment or activity: None OBJECTIVE Changes in objective findings: Pt demonstrates improved hamstring flexibility and lower abdominal strength. ASSESSMENT Chery continues to require intervention to meet STG and LTG's: PT Patient's symptoms are resolving. Response to therapy has shown an improvement in flexibility and strength Progress made towards STG/LTG? Yes, PLAN Current treatment program is being advanced to more complex exercises. SATELLITE INSTRUCTION FACILITATOR/ATC plan: N/A Please refer to the daily flowsheet for treatment today, total treatment time and time spent performing 1:1 timed codes. MAKER Juan Teran, PT - 05/24/2020 11:20 AM CST Subjective:SUBJECTIVE Subjective changes as noted by pt: Pt reports pain is moving out of the leg up to the hip Current pain level: 3/10 Current Pain level: 3/10 Changes in function: Pt reported some pain last week walking with heavy boots. Pt usually does not have pain if using regular shoes. Adverse reaction to treatment or activity: None ?? OBJECTIVE Changes in objective findings: Pt demonstrates improved hamstring flexibility and lower abdominal strength. HPI Physical Exam Objective: System Physical Exam General ROS Assessment/Plan: ASSESSMENT/PLAN Updated problem list and treatment plan: Diagnosis 1: Post op lumbar Pain - hot/cold therapy, self management, education and home program Decreased ROM/flexibility - therapeutic exercise, therapeutic activity and home program Decreased strength - therapeutic exercise, therapeutic activities and home program Progress toward STG/LTGs have been made: Yes, Assessment of Progress: The patient's condition is improving. Self Management Plans: Patient has been instructed in a home treatment program. I have re-evaluated this patient and find that the nature, scope, duration and intensity of the therapy is appropriate for the medical condition of the patient. Chery continues to require the following intervention to meet STG and LT's: PT Recommendations: Pt has not returned for treatment since 05-24-20. Pt discharged at this time. Please refer to the daily flowsheet for treatment today, total treatment time and time spent performing 1:1 timed codes. MAKER documented in this encounter Plan of Treatment Not on filedocumented as of this encounter Procedures Procedure Name Priority Date/Time Associated Diagnosis Comme nts AR NEUROMUSCULAR Routine 05/24/2020 1:41 PM Status post lumbar REEDUCATION,1+ AREAS, EA GUM MAKER spine surgery fo r 15 MIN decompression of spinal cord AR THERAPEUTIC Routine 05/24/2020 1:41 PM Status post lumbar EXERCISES. EA 15 MIN GUM MAKER spine surgery for decompression of spinal cord documented in this encounter Visit Diagnoses Diagnosis Status post lumbar spine surgery for dec ompression of spinal cord documented in this encounter Care Teams Icu Staff Nurse Relationship Specialty Start Date End Date Chao Huggins PCP - General Family Medicine 05/10/20 [place] [address] documented as of this encounter
--- OUTSIDE RECORDS SUMMARY | 2022-03-28 18:25 | XMS_ITS | Encounter Summary ---
:1980 Author Organization [place] Address [address] [facility] [place] [address] Care Team Providers Name Role Phone Chao Huggins Primary Care Provider Encounter Details Date Type Department Care Team Description 05/10/2020 Travel Social History Tobacco Use Types Packs/Day Years Used Date Smoking Tobacco: Never Alcohol Use Standard Drinks/Week Comments Yes 0 (1 standard drink = 0.6 oz pure alcoho l) rarely Sex Assigned at Date Recorded Not on file COVID-19 Exposure Response Date Recorded In the last month, have you been in contact with No / Unsure 05/10/2020 8:01 AM HOUSEKEEPING LEAD someone who was confirmed or suspected to have Coronavirus / COVID-19? documented as of this encounter Plan of Treatment Not on filedocumented as of this encounter Visit Diagnoses Not on filedocumented in this encounter Care Teams Instructor Knitting Relationship Specialty Start Date End Date Chao Huggins PCP - General Family Medicine 05/10/[address] [address] documented as of this encounter
--- OUTSIDE RECORDS SUMMARY | 2022-03-28 18:25 | XMS_ITS | Clinical Summary ---
:1980 Author Organization [place] Address [address] [facility] [place] [address] Care Team Providers Name Role Phone Chao Huggins Primary Care Provider Allergies No known active allergies Medications Medication Sig Dispensed Refills Start Date End Date Status Verapamil HCl 240 MG (CO) Take by 0 Active TB24 mouth. omeprazole (PRILOSEC) 20 MG Take 20 mg by 0 Active capsule mouth daily. hydrochlorothiazide Take 1 tablet 30 tablet 0 07/20/2011 Active (HYDRODIURIL) 25 MG by mouth tabletIndications: HTN daily. (hypertension) Active Problems Problem Noted Date HTN (hypertension) 05/13/2012 GERD (gastroesophageal reflux disease) 05/13/2012 CARDIOVASCULAR SCREENING; LDL GOAL LESS THAN 130 05/13 Resolved Problems Problem Noted Date Resolved Date Status post lumbar spine surgery for decompression of spinal 05/10/2020 07/14/2020 cord Immunizations Name Administration Dates Next Due Influenza (IIV3) PF 01/12/2012 Family History Medical History Relation Comments Family History Negative Father Family History Negative Mother Relation Status Comments Father Alive Maternal Grandfather Maternal Grandmother Alive Mother Alive Paternal Grandfather Paternal Grandmother Social History Tobacco Use Types Packs/Day Years Used Date Smoking Tobacco: Never Alcohol Use Standard Drinks/Week Comments Yes 0 (1 standard drink = 0.6 oz pure alcoho l) rarely Sex Assigned at Date Recorded Not on file Last Filed Vital Signs Vital Sign Reading Time Taken Comments Blood Pressure 142/82 07/03/2019 6:04 AM TRACK LINER OPERATOR Pulse 72 07/03/2019 6:04 AM TRACK LINER OPERATOR Temperature 36.6 ??C (97.8 ??F) 07/03/2019 3:05 AM TRACK LINER OPERATOR Respiratory Rate 18 07/03/2019 3:05 AM TRACK LINER OPERATOR Oxygen Saturation 98% 07/03/2019 6:04 AM TRACK LINER OPERATOR Inhaled Oxygen Concentration - - Weight 90.7 kg (200 lb) 07/03/2019 3:05 AM TRACK LINER OPERATOR Height 167.6 cm (5' 6) 07/03/2019 3:05 AM TRACK LINER OPERATOR Body Mass Index 32.28 07/03/2019 3:05 AM TRACK LINER OPERATOR Plan of Treatment Health Maintenance Due Date Last Done Comments ADVANCE CARE PLANNING 1980 ANNUAL REVIEW OF HM ORDERS 1980 HEPATITIS B IMMUNIZATION (1 1978 of 3 - 3-dose series) YEARLY PREVENTIVE VISIT 1980 COVID-19 Vaccine (#1) 1980 HIV SCREENING 1993 HEPATITIS C SCREENING 1996 DTAP/TDAP/TD IMMUNIZATION 2003 (1 - Tdap) PHQ-2 (once per calendar 05/07/2021 year) PAP 07/12/2021 07/12/2018, 04/15/2012 INFLUENZA VACCINE (#1) 2022 02/07/2016, 02/22/2015, 02/11/2013, Additional history exists IPV IMMUNIZATION Aged Out No longer eligi ble based on patient 's age to complete this topic MENINGITIS IMMUNIZATION Aged Out No longe r eligible based on patient 's age to complete this topic Pneumococcal Vaccine: Aged Out No longer eligible Pediatrics (0 to 5 Years) based on patient's age and At-Risk Patients (6 to to co mplete this topic 64 Years) Insurance Payer Benefit Plan / Subscriber ID Effective Phone Address T ype Group Dates [place] [id number] 2017-Prese [phone] [address] [address] HMO ADVANTAGE nt [address] [place] [address] [place] [id number] 2018-Prese [phone] [place] [id number] [address] [place] [address] Care Teams Rehab Care Assistant Relationship Specialty Start Date End Date Chao Huggins PCP - General Family Medicine 05/10/20 [place] [address] [place] [address]
--- OUTSIDE RECORDS SUMMARY | 2022-03-28 18:25 | XMS_ITS | Encounter Summary ---
:1980 Author Organization [place] Address [address] [place] [address] Care Team Providers Name Role Phone Yomaira Gonsalves PA-C Primary Care Provider Reason for Visit Reason Comments Headache Encounter Details Date Type Department Care Team Description 07/03/2019 Emergency [facility] Escobar Sal MD Migraine without [place] Emergency Dep t [facility] status migrainosus, [address] [place] not intractable, [place], [place] [address] unspecified migraine [id number] [place] [address] type [phone] (Wo rk) Social History Tobacco Use Types Packs/Day Years Used Date Smoking Tobacco: Never Alcohol Use Standard Drinks/Week Comments Yes 0 (1 standard drink = 0.6 oz pure alcoho l) rarely Sex Assigned at Date Recorded Not on file documented as of this encounter Last Filed Vital Signs Vital Sign Reading Time Taken Comments Blood Pressure 142/82 07/03/2019 6:04 AM MEDICAL SECRETARY TEACHER Pulse 72 07/03/2019 6:04 AM MEDICAL SECRETARY TEACHER Temperature 36.6 ??C (97.8 ??F) 07/03/2019 3:05 AM MEDICAL SECRETARY TEACHER Respiratory Rate 18 07/03/2019 3:05 AM MEDICAL SECRETARY TEACHER Oxygen Saturation 98% 07/03/2019 6:04 AM MEDICAL SECRETARY TEACHER Inhaled Oxygen Concentration - - Weight 90.7 kg (200 lb) 07/03/2019 3:05 AM MEDICAL SECRETARY TEACHER Height 167.6 cm (5' 6) 07/03/2019 3:05 AM MEDICAL SECRETARY TEACHER Body Mass Index 32.28 07/03/2019 3:05 AM MEDICAL SECRETARY TEACHER documented in this encounter Discharge Instructions Discharge InstructionsEscobar Sal MD - 07/03/2019 3:31 AM CST Discharge Instructions Migraine You were seen today for a headache that your provider thinks is likely a migraine. At this time yourprovider does not find that your headache is a sign of anything dangerous or life-threatening. However, sometimes the signs of serious illness do not show up right away. Generally, every Emergency Department visit should have a follow-up clinic visit with either a primary or a specialty clinic/provider. Please follow-up as instructed by your emergency provider today. Return to the Emergency Department if: You get a fever of 100.4??F or higher. You get a stiff neck with your headache. You get a new headache that is different or worse than headaches you have had before. You are vomiting (throwing up) and cannot keep food or water down. You have blurry or double vision or other problems with your eyes. You have a new weakness on one side of your body. You have difficulty with balance which is new. You or your family thinks you are confused. You have a seizure. Treatment: Often, treatment for your migraine will take some time to make you headache stop. Going home to sleep can be very effective. Use your medications as directed; overuse of medications can actually cause headaches. Once your headache has gone away, avoid triggers such as certain foods, skipping meals, bright lights, changes in sleep, exercise and stress. Migraine headaches can have symptoms before the pain starts, like vision changes, funny smells/tastes, dizziness or other symptoms. Treating a headache as soon as the first symptoms come on is very important and gives the best chance of stopping the headache. If headaches are severe or frequent, you may need to start daily medication to prevent the headaches. Carbon monoxide can cause headaches, so not burning things in your home is important. Also get a carbon monoxide detector. Some medications for migraines may raise your blood pressure, so use with caution if you have high blood pressure or heart problems. If you were given a prescription for [...] call or return to the Emergency Department. Remember that you can always come back to the Emergency Department if you are not able to see your regular provider in the amount of time listed above, if you get any new symptoms, or if there is anything that worries you. CAL SECRETARY TEACHER documented in this encounter Medications at Time of Discharge Medication Sig Dispensed Refills Start Date End Date hydrochlorothiazide Take 1 tablet by 30 tablet 0 07/20/2011 (HYDRODIURIL) 25 MG mouth daily. tabletIndications: HTN (hypertension) omeprazole (PRILOSEC) 20 MG Take 20 mg by 0 capsule mouth daily. Verapamil HCl 240 MG (CO) TB24 Take by mouth. 0 documented as of this encounter ED Notes Jeanette De La Cruz RN - 07/03/2019 5:04 AM CST Pt reports she feels very sleepy and would like to sleep and metabolize medications for a bit beforegoing home. MD aware CAL SECRETARY TEACHER Arley De Souza RN - 07/03/2019 3:04 AM CST Here for migraine headache started around 11pm associated lightheadedness, light sensitivity, and nausea. Took zofran and ibuprofen at 11pm and not helping. ABCs intact. CAL SECRETARY TEACHER Escobar Sal MD - 07/03/2019 3:02 AM CST History Chief Complaint: Headache HPI Chery Osborne is a 39 year old female with a history of migraine who presents with headache. The patient developed a headache last night at 2300 that feels like her typical migraine that she gets every 6months. She reports having associated photophobia, sound sensitivity, and nausea. She denies any fevers, vomiting, or head trauma. Allergies: No Known Allergies Medications: hydrochlorothiazide omeprazole Verapamil HCl Past Medical History: GERD (gastroesophageal reflux disease) HTN (hypertension) Migraine Past Surgical History: Cholecystectomy Pilonidal cyst removal Family History: Family history reviewed. No pertinent family history. Social History: Smoking Status: Never Smoker Alcohol Use: Yes Drug Use: No PCP: Yomaira Gonsalves Review of Systems Constitutional: Negative for fever. Eyes: Positive for photophobia. Gastrointestinal: Positive for nausea. Negative for vomiting. Neurological: Positive for headaches. All other systems reviewed and are negative. Physical Exam Patient Vitals for the past 24 hrs: BP Temp Temp src Heart Rate Resp SpO2 Height Weight 07/03/19 0425 -- -- -- -- -- 100 % -- -- 07/03/19 0305 166/113 97.8 ??F (36.6 ??C) Oral 77 18 99 % 1.676 m (5' 6) 90.7 kg (200 lb) Physical Exam Nursing note and vitals reviewed. Constitutional: Cooperative. HENT: Mouth/Throat: Mucous membranes are normal. No neck rigidity. Cardiovascular: Normal rate, regular rhythm and normal heart sounds. No murmur. Pulmonary/Chest: Effort normal and breath sounds normal. No respiratory distress. No wheezes. Abdominal: Normal appearance Neurological: Alert. Oriented x4. Skin: Skin is warm and dry. Psychiatric: Normal mood and affect. Emergency Department Course Interventions: 0344 0.9% sodium chloride BOLUS 1000 mL IV 0345 Benadryl 25 mg IV 0346 Toradol 15 mg IV 0348 Decadron 10 mg IV 0351 reglan 10 mg IV Emergency Department Course: Past medical records, nursing notes, and vitals reviewed. 0327 I performed an exam of the patient as documented above. 0445 Patient rechecked and updated. She states that she is feeling a lot better and ready to go home. Findings and plan explained to the Patient. Patient discharged home with instructions regarding supportive care, medications, and reasons to return. The importance of close follow-up was reviewed. Impression & Plan Medical Decision Making: Chery Osborne is a 39 year old female who presents to the emergency department today with a headache consistent with her normal migraine. Evaluation in the emergency department has been negative. The patient has not had any fever, weakness, numbness, paresthesia, neck stiffness or confusion. Meningitis, subarachnoid hemorrhage, NIGHT MONITOR tumor, and stroke are considered as part of the differential, and considered unlikely. The patient's symptoms greatly improved with medication interventions as seen above. The patient should follow-up with her primary physician within 3 days. If the headache continues or the frequency increases, consultation with neurology will be indicated. Return if increasing pain, fever, vomiting, neck stiffness, syncope, or weakness. All questions were answered prior to the patient's discharge. She is in agreement with the plan stated above. Discharge Diagnosis: ICD-10-CM 1. Migraine without status migrainosus, not intractable, unspecified migraine type G43.909 Disposition: The patient is discharged to home. Scribe Disclosure: Mau Bergman am serving as a scribe at 3:27 AM on 07/03/2019 to document services personally performed by Escobar Sal MD based on my observations and the provider's statements to me. 07/03/2019 Escobar Sal MD Amdahl, John, MD 07/03/19 0517 CAL SECRETARY TEACHER documented in this encounter Plan of Treatment Not on filedocumented as of this encounter Visit Diagnoses Diagnosis Migraine without status migrainosus, not intractable, unspecified migraine type documented in this encounter Administered Medications Inactive Administered Medications - up to 3 most recent administrations Medication Order MAR Action Action Date Dose Rate Site 0.9% sodium chloride BOLUS New Bag 07/03/2019 3:44 AM MEDICAL SECRETARY TEACHER 1,000 mLs 1000 mL/hr Intravenous, 1,000 mL, ONCE, at 1,000 mL/hr, Administer over 1 Hours, On Pauline 07/03/19 at 0331, For 1 dose dexamethasone PF (DECADRON) injection 10 mg Given 07/03/2019 3:48 AM MEDICAL SECRETARY TEACHER 10 mg 10 mg, Intravenous, ONCE, Administer over 1 Minutes, On Pauline 07/03/19 at 0331, For 1 dose, For IV doses 1-20 mg, give IV Push undiluted over 1 minute. diphenhydrAMINE (BENADRYL) injection 25 mg Given 07/03/2019 3:45 AM MEDICAL SECRETARY TEACHER 25 mg 25 mg, Intravenous, ONCE, On Pauline 07/03/19 at 0331, For 1 dose, For ordered IV doses 1-50 mg, give IV Push undiluted. Give each 25mg over a minimum of 1 minute. Extend in non-emergency ketorolac (TORADOL) injection 15 mg Given 07/03/2019 3:46 AM MEDICAL SECRETARY TEACHER 15 mg 15 mg, Intravenous, ONCE, On Pauline 07/03/19 at 0331, For 1 dose, Can cause pain on injection. If ordered intravenously (IV) : administer through a running maintenance fluid over 1 minute followed by a flush. If patient complains of pain on injection, may dilute 15-30 mg in 5 mL and push over 1 to 2 minutes. metoclopramide (REGLAN) injection 10 mg Given 07/03/2019 3:51 AM MEDICAL SECRETARY TEACHER 10 mg 10 mg, Intravenous, Administer over 2 Minutes, ONCE, On Pauline 07/03/19 at 0331, For 1 dose, Avoid use if patient has full bowel obstruction or perforation. Irritant. For ordered IV doses 1-10 mg, give IV Push undiluted over 2 minutes. documented in this encounter Active and Recently Administered Medications Times are shown in MEDICAL SECRETARY TEACHER. Scheduled Medication Order 07/01/2019 07/02/2019 07/03/2019 0.9% sodium chloride BOLUS (COMPLETED) 034 (New Bag - Provider: Chao Londono RN)0450 (Stopped - Provider: Jeanette De La Cruz RN) Intravenous, 1,000 mL, ONCE, at 1,000 mL /hr, Administer over 1 Hours, Pauline 07/03/19 at 0331, For 1 dose dexamethasone PF (DECADRON) injection 10 mg (COMPLETED) 034 (Given - Provider: Chao Londono RN) 10 mg, Intravenous, ONCE, Administer ove r 1 Minutes, Pauline 07/03/19 at 0331, For 1 dose, For IV doses 1-20 mg, give IV Push undiluted over 1 minute. diphenhydrAMINE (BENADRYL) injection 25 mg (COMPLETED) 034 (Given - Provider: Chao Londono RN) 25 mg, Intravenous, ONCE, Pauline 07/03/19 at 0331, For 1 dose, For ordered IV doses 1-50 mg, give IV Push undiluted. Give each 25mg over a minimum of 1 minute. Extend in non-emergency ketorolac (TORADOL) injection 15 mg (COMPLETED) 034 (Given - Provider: Chao Londono, RN) 15 mg, Intravenous, ONCE, Pauline 07/03/19 at 0331, For 1 dose, Can cause pain on injection. If ordered intravenously (IV) : administer through a running maintenance fluid over 1 minute followed by a flush. If patient complains of pain on injectio n, may dilute 15-30 mg in 5 mL and push over 1 to 2 minutes. metoclopramide (REGLAN) injection 10 mg (COMPLETED) 350 (Given - Provider: Chao Londono RN) 10 mg, Intravenous, Administer over 2 Mi nutes, ONCE, Pauline 07/03/19 at 0331, For 1 dose, Avoid use if patient has full bowel obstruction or perforation. Irritant. For ordered IV doses 1-10 mg, give IV Push undiluted over 2 minutes. documented in this encounter Care Teams Gore Maker Relationship Specialty Start Date End Date Fatmata-Yomaira Brito PA-C PCP - General Family Practice 05/13/12 05/09/20 [address] [place] [address] documented as of this encounter
--- OUTSIDE RECORDS SUMMARY | 2022-03-28 18:25 | XMS_ITS | Encounter Summary ---
:1980 Author Organization [place] Address [address] [facility] [place] [address] Care Team Providers Name Role Phone Chao Huggins Primary Care Provider Encounter Details Date Type Department Care Team Description 05/17/2020 Travel Social History Tobacco Use Types Packs/Day Years Used Date Smoking Tobacco: Never Alcohol Use Standard Drinks/Week Comments Yes 0 (1 standard drink = 0.6 oz pure alcoho l) rarely Sex Assigned at Date Recorded Not on file COVID-19 Exposure Response Date Recorded In the last month, have you been in contact with No / Unsure 05/17/2020 8:07 AM PLATER HOT DIP someone who was confirmed or suspected to have Coronavirus / COVID-19? documented as of this encounter Plan of Treatment Not on filedocumented as of this encounter Visit Diagnoses Not on filedocumented in this encounter Care Teams Baggage Security Checker Relationship Specialty Start Date End Date Chao Huggins PCP - General Family Medicine 05/10/[address] [address] documented as of this encounter
--- OUTSIDE RECORDS SUMMARY | 2022-03-28 18:25 | XMS_ITS | Encounter Summary ---
:1980 Author Organization [place] Address [address] [place] [address] Care Team Providers Name Role Phone Chao Huggins Primary Care Provider Encounter Details Date Type Department Care Team Description 05/24/2020 Travel Social History Tobacco Use Types Packs/Day Years Used Date Smoking Tobacco: Never Alcohol Use Standard Drinks/Week Comments Yes 0 (1 standard drink = 0.6 oz pure alcoho l) rarely Sex Assigned at Date Recorded Not on file COVID-19 Exposure Response Date Recorded In the last month, have you been in contact with No / Unsure 05/24/2020 11:33 AM CONSULTING SOFTWARE ENGINEER someone who was confirmed or suspected to have Coronavirus / COVID-19? documented as of this encounter Plan of Treatment Not on filedocumented as of this encounter Visit Diagnoses Not on filedocumented in this encounter Care Teams Application Dba Relationship Specialty Start Date End Date Chao Huggins PCP - General Family Medicine 05/10/[address] [address] documented as of this encounter
--- OUTSIDE RECORDS SUMMARY | 2022-03-28 18:25 | XMS_ITS | Encounter Summary ---
:1980 Author Organization [place] Address [address] [facility] [place] [address] Care Team Providers Name Role Phone Joseluis Chao Reese Primary Care Provider Reason for Visit [facility]OTR Physical Therapy (Routine) - Closed Specialty Diagnoses / Procedures Referred By Contact Refer red To Contact Physical Therapist / Diagnoses Spinal decompression DOS 03/23/20 /strengthening/ Dr Lam TC [facility] Physical Therapy Procedures [facility] [address] [place] [address] Phone: Fax: Referral ID Status Reason Start Date Expiration Date Visits Requ ested Visits Authorized [id number] Closed 05/10/2020 05/06/2021 40 40 Encounter Details Date Type Department Care Team Description 05/17/2020 Therapy Visit [facility] Juan Teran, Status post lumbar Rehabilitation Services PT spine surgery [place] [address] [place] [address] [facility] [address] [place] [address] [phone] Social History Tobacco Use Types Packs/Day Years Used Date Smoking Tobacco: Never Alcohol Use Standard Drinks/Week Comments Yes 0 (1 standard drink = 0.6 oz pure alcoho l) rarely Sex Assigned at Date Recorded Not on file COVID-19 Exposure Response Date Recorded In the last month, have you been in contact with No / Unsure 05/17/2020 8:07 AM OUTBOUND CALL CENTER REPRESENTATIVE someone who was confirmed or suspected to have Coronavirus / COVID-19? documented as of this encounter Plan of Treatment Not on filedocumented as of this encounter Procedures Procedure Name Priority Date/Time Associated Diagnosis Comme nts WA NEUROMUSCULAR Routine 05/17/2020 4:05 PM Status post lumbar REEDUCATION,1+ AREAS, EA OUTBOUND CALL CENTER REPRESENTATIVE spine surgery fo r 15 MIN decompression of spinal cord WA THERAPEUTIC Routine 05/17/2020 4:05 PM Status post lumbar EXERCISES. EA 15 MIN OUTBOUND CALL CENTER REPRESENTATIVE spine surgery for decompression of spinal cord documented in this encounter Visit Diagnoses Diagnosis Status post lumbar spine surgery for dec ompression of spinal cord documented in this encounter Care Teams Ore Puncher Relationship Specialty Start Date End Date Chao Huggins PCP - General Family Medicine 05/10/20 [place] [id number] documented as of this encounter
--- OUTSIDE RECORDS SUMMARY | 2022-03-28 18:25 | XMS_ITS | Encounter Summary ---
:1980 Author Organization [place] Address [address] [facility] [place] [address] Care Team Providers Name Role Phone Joseluis Chao Reese Primary Care Provider Reason for Visit [facility]OTR Physical Therapy (Routine) - Closed Specialty Diagnoses / Procedures Referred By Contact Refer red To Contact Physical Therapist / Diagnoses Spinal decompression DOS 03/23/20 /strengthening/ Dr Lam TC Spine [facility] Physical Therapy Procedures [facility] [address] [place] [address] Phone: Fax: Referral ID Status Reason Start Date Expiration Date Visits Requ ested Visits Authorized [id number] Closed 05/10/2020 05/06/2021 40 40 Encounter Details Date Type Department Care Team Description 05/10/2020 Therapy Visit [facility] Juan Teran, Status post lumbar Rehabilitation Services PT spine surgery [place] [address] [place] [address] [facility] [address] [place] [address] [phone] Social History Tobacco Use Types Packs/Day Years Used Date Smoking Tobacco: Never Alcohol Use Standard Drinks/Week Comments Yes 0 (1 standard drink = 0.6 oz pure alcoho l) rarely Sex Assigned at Date Recorded Not on file COVID-19 Exposure Response Date Recorded In the last month, have you been in contact with No / Unsure 05/10/2020 8:01 AM FUNERAL PRE NEED CONSULTANT someone who was confirmed or suspected to have Coronavirus / COVID-19? documented as of this encounter Progress Notes Juan Teran, PT - 05/10/2020 8:00 AM CST [facility] Initial Evaluation Subjective: History of lumbar pain since 2013. Pt had previous surgery to the lumbar spine in 2013. Pt saw limited improvement with initial surgery. 03-23-2020 L5-S1 decompression surgery. The history is provided by the patient. No planner/scheduler was used. Therapist Generated HPI Evaluation Type of problem: Lumbar. This is a chronic condition. Condition occurred with: Insidious onset. Where condition occurred: for unknown reasons. Patient reports pain: Lumbar spine left. Pain is described as aching and burning and is intermittent. Pain radiates to: Gluteals left, thigh left, knee left, lower leg left and foot left. Pain is worse during the day. Since onset symptoms are gradually improving. Associated symptoms: Loss of motion/stiffness and loss of strength. Symptoms are exacerbated by sitting, standing, walking, lifting, bending and twisting and relieved by rest and muscle relaxants. Special tests included: X-ray and MRI. Previous treatment includes surgery (2013). There was mild improvement following previous treatment. Restrictions due to condition include: Working in normal job without restrictions. Barriers include: None as reported by patient. Patient Health History Pertinent medical history includes: high blood pressure, overweight and sleep disorder/apnea. Red flags: Severe headaches. Surgeries include: Orthopedic surgery (04/07/19 & 03/23 20). Current medications: High blood pressure medication and muscle relaxants (spironolactone 50 mg, flexerol at night). 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 Primary job tasks include: Computer work and prolonged sitting. Objective: Flexibility/Screens: Lower Extremity: Decreased left lower extremity flexibility:Hip Flexors and Hamstrings Decreased right lower extremity flexibility: Hip Flexors and Hamstrings Lumbar/SI Evaluation ROM: AROM Lumbar: Flexion: Moderate loss Ext: Maximum loss Side Bend: Left: Moderate loss Right: Moderate loss Rotation: Left: Right: Side Pimento: Left: Right: Strength: weak lower abdominals and pelvic stabilizers Neural Tension/Mobility: Left side: SLR positive. Right side: SLR positive. Lumbar Palpation: Palpation (lumbar): point tenderness L5 spinous process and adjacent lumbar paraspinals General ROS Assessment/Plan: Patient is a 40 year old female with lumbar complaints. Patient has the following significant findings with corresponding treatment plan. Diagnosis 1: Post op lumbar decompression L5-S1 Pain - hot/cold therapy, self management, education,directional preference exercise and home program Decreased ROM/flexibility - therapeutic exercise, therapeutic activity and home program Decreased joint mobility - therapeutic exercise, therapeutic activity and home program Decreased strength - therapeutic exercise, therapeutic activities and home program Therapy Evaluation Codes: 1) History comprised of: Personal factors that impact the plan of care: Time since onset of symptoms. Comorbidity factors that impact the plan of care are: High blood pressure, Migraines/headaches, Overweight and Sleep disorder/apnea. Medications impacting care: High blood pressure and Muscle relaxant. 2) Examination of Body Systems comprised of: Body structures and functions that impact the plan of care: Lumbar spine. Activity limitations that impact the plan of care are: Bathing, Bending, Lifting, Sitting, Standing, Walking and Sleeping. 3) Clinical presentation characteristics are: Stable/Uncomplicated. 4) Decision-Making Low complexity using standardized patient assessment instrument and/or measureable assessment of functional outcome. Cumulative Therapy Evaluation is: Low complexity. Previous and current functional limitations: (See Goal Flow Sheet for this information) Short term and retirement goals: (See Goal Flow Sheet for this information) Communication ability: Patient appears to be able to clearly communicate and understand verbal and written communication and follow directions correctly. Treatment Explanation - The following has been discussed with the patient: RX ordered/plan of care Anticipated outcomes Possible risks and side effects This patient would benefit from PT intervention to resume normal activities. Rehab potential is good. Frequency: 1 X week, once daily Duration: for 12 weeks Discharge Plan: Achieve all LTG. Independent in home treatment program. Reach maximal therapeutic benefit. Please refer to the daily flowsheet for treatment today, total treatment time and time spent performing 1:1 timed codes. RAL PRE NEED CONSULTANT documented in this encounter Plan of Treatment Not on filedocumented as of this encounter Procedures Procedure Name Priority Date/Time Associated Diagnosis Comme nts LA THERAPEUTIC Routine 05/10/2020 6:17 PM Status post lumbar s pine EXERCISES. EA 15 MIN FUNERAL PRE NEED CONSULTANT surgery for decompression of spinal cord documented in this encounter Visit Diagnoses Diagnosis Status post lumbar spine surgery for dec ompression of spinal cord documented in this encounter Care Teams Mechanical Systems Designer Relationship Specialty Start Date End Date Chao Huggins PCP - General Family Medicine 05/10/[address] [address] documented as of this encounter
--- OUTSIDE RECORDS SUMMARY | 2022-03-28 18:26 | XMS_ITS | Encounter Summary ---
:1980 Author Organization [place] Address [address] [facility] [place] [address] Care Team Providers Name Role Phone Yomaira Gonsalves PA-C Primary Care Provider [phone] Reason for Visit Reason Comments Conjunctivitis both eyes - crusty - since y Encounter Details Date Type Department Care Team Description 05/13/2012 Office Visit [facility] Nidhi Gonsalves (Primary Dx); [facility] [place] Yomaira Marsh PA-C Lipid screening; [address] Screening for unspecified disorder of bl ood and blood-forming organs; [place], [place] Screening for diabetes mellitus; [id number] HTN (hypertension); [phone] Viral illness; (Work) Conjunctivitis, acute Social History Tobacco Use Types Packs/Day Years Used Date Smoking Tobacco: Never Alcohol Use Standard Drinks/Week Comments Yes 0 (1 standard drink = 0.6 oz pure alcoho l) rarely Sex Assigned at Date Recorded Not on file documented as of this encounter Last Filed Vital Signs Vital Sign Reading Time Taken Comments Blood Pressure 118/78 05/13/2012 4:39 PM DIE CASTING MACHINE OPERATOR Pulse 73 05/13/2012 4:39 PM DIE CASTING MACHINE OPERATOR Temperature 36.7 ??C (98.1 ??F) 05/13/2012 4:39 PM DIE CASTING MACHINE OPERATOR Respiratory Rate - - Oxygen Saturation 99% 05/13/2012 4:39 PM DIE CASTING MACHINE OPERATOR Inhaled Oxygen Concentration - - Weight 91.7 kg (202 lb 3.2 oz) 05/13/2012 4:39 PM DIE CASTING MACHINE OPERATOR Height 165.1 cm (5' 5) 05/13/2012 4:39 PM DIE CASTING MACHINE OPERATOR Body Mass Index 33.65 05/13/2012 4:39 PM DIE CASTING MACHINE OPERATOR documented in this encounter Patient Instructions Patient InstructionsYomaira Gonsalves PA-C - 05/13/2012 5:02 PM DIE CASTING MACHINE OPERATOR Viral URI: The patient is advised to push fluids, rest, gargle warm salt water, use vaporizer or mist needed , use acetaminophen, ibuprofen as needed and Return office visit if symptoms persist or worsen. Also recommend saline nasal wash (Neti pot or SinuCleanse) Conjunctivitis What is eye inflammation? The clear membrane that lines the inside of the eyelids and covers the white of the eye (conjunctiva) can get red and swollen. This is called conjunctivitis. How does it occur? Conjunctivitis can be caused by many things, including infection by viruses or bacteria. Many kinds of bacteria can cause conjunctivitis. These include bacteria that cause strep, staph, and STD infections. Conjunctivitis caused by a virus is sometimes called pink eye. It can be spread easily to other people. The same viruses that cause the common cold can cause viral conjunctivitis. Viruses can be spreadby coughing or sneezing and can get in your eyes through contact with infected: hands washcloths or towels cosmetics false eyelashes soft contact lenses Avoid unnecessary contact with others so that you do not spread the disease. What are the symptoms? Symptoms may include: itchy or scratchy eyes redness painful sensitivity to light swelling of eyelids matting of eyelashes watery or pus discharge How is it diagnosed? Your healthcare provider will ask about your medical history and if you have been near someone who has conjunctivitis. Your provider will examine your eyes. He or she will also check for enlarged lymphnodes near your ear and jaw. Your provider may get lab tests of a sample of the pus to see what typeof germs are present. How is it treated? Like a cold, viral conjunctivitis will usually go away on its own without treatment. However, your healthcare provider may prescribe eyedrops to help control your symptoms. Antihistamine pills may alsorelieve the itching and redness. If you have bacterial conjunctivitis, your healthcare provider will prescribe antibiotic eyedrops. You can also help your eyes get better by washing them gently to remove any pus or crusts. Then dry them gently with a clean towel. For very severe forms of conjunctivitis, antibiotics may need to be given by mouth or with a shot olivia IV. If you wear contact lenses, you will need to stop wearing them until your eyes are healed. The combination of contacts and conjunctivitis may damage your cornea (the clear outer layer on the front of your eye) and cause severe vision problems. Your provider may ask you to throw away your current contact lenses and lens case. How long will the effects last? Viral conjunctivitis usually gets worse 5 to 7 days after the first symptoms. It can get better in 10 days to 1 month. If only one eye is affected at first, the other eye may become infected up to 2 weeks later. Usually, if both eyes are affected, the first eye has worse conjunctivitis than the second. Bacterial conjunctivitis should improve within 2 days after you begin using antibiotics. If your eyes are not better after 3 days of antibiotics, call your healthcare provider. How can I prevent conjunctivitis? To keep from getting conjunctivitis from someone who has it, or to keep from spreading it to others,follow these guidelines: Wash your hands often. Do not touch or rub your eyes. Never share eye makeup or cosmetics with anyone. When you have conjunctivitis, throw out eye makeup you have been using. Never use eye medicine that has been prescribed for someone else. Do not share towels, washcloths, pillows, or sheets with anyone. If one of your eyes is affected butnot the other, use a separate towel for each eye. Avoid swimming in swimming pools if you have conjunctivitis. Avoid close contact with people until your symptoms improve. Depending on your job, you may be askedto take some time off from work. When should I call my healthcare provider? Call your provider if: You have any severe eye pain. Your symptoms do not improve after you have used your medicine for 3 days (if you have bacterial conjunctivitis). Your symptoms do not improve after 2 weeks (if you have viral conjunctivitis). Your eyes get very sensitive to light, even after the redness is gone. Reviewed for medical accuracy by faculty at the [facility]. Web site: [email or web address] CASTING MACHINE OPERATOR documented in this encounter Progress Notes Yomaira Gonsalves PA-C - 05/13/2012 4:43 PM CST Images from the original note were not included. SUBJECTIVE: Chery Osborne is a 32 year old female who presents with the following concerns; Symptoms: cc Present Absent Comment Fever/Chills x unsure Fatigue x Muscle Aches x Eye Irritation x [place] eye Sneezing x Nasal Mark/Drg x Sinus Pressure/Pain x Loss of smell x Dental pain x Left side Sore Throat x Swollen Glands x Ear Pain/Fullness x Cough x rarely Wheeze x Chest Pain x Shortness of breath x Rash x Other Symptom duration: sore throat for 6 days Sympom severity: Treatments tried: Sudafed ibuprofen Contacts: Medications updated and reviewed. Past, family and surgical history is updated and reviewed in the record. ROS: Other than noted above, general, HEENT, respiratory, cardiac and gastrointestinal systems are negative. OBJECTIVE: GENERAL: Alert, no acute distress EYES: PERRL, EOM normal, conjunctiva and lids normal, crusting, mattering present bilateral HEENT: Ears and TMs normal, oral mucosa and posterior oropharynx normal RESP: Lungs clear to auscultation. CV: normal rate, regular rhythm, no murmur or gallop. Pharyngitis (primary encounter diagnosis) Comment: Plan: Strep, Rapid Screen, Beta strep group A culture Lipid screening Comment: Plan: Lipid panel reflex to direct LDL Screening for unspecified disorder of blood and blood-forming organs Comment: Plan: CBC with platelets Screening for diabetes mellitus Comment: Plan: Comprehensive metabolic panel HTN (hypertension) Comment: Plan: Comprehensive metabolic panel Viral illness Comment: Plan: The patient is advised to push fluids, rest, gargle warm salt water, use vaporizer or mist needed , use acetaminophen, ibuprofen, use OTC nasal saline spray two times a day for a week as needed and Return office visit if symptoms persist or worsen. Conjunctivitis, acute Comment: Plan: trimethoprim-polymyxin b (POLYTRIM) ophthalmic solution Patient Instructions Viral URI: The patient is advised to push fluids, rest, gargle warm salt water, use vaporizer or mist needed , use acetaminophen, ibuprofen as needed and Return office visit if symptoms persist or worsen. Also recommend saline nasal wash (Neti pot or SinuCleanse) Conjunctivitis What is eye inflammation? The clear membrane that lines the inside of the eyelids and covers the white of the eye (conjunctiva) can get red and swollen. This is called conjunctivitis. How does it occur? Conjunctivitis can be caused by many things, including infection by viruses or bacteria. Many kinds of bacteria can cause conjunctivitis. These include bacteria that cause strep, staph, and STD infections. Conjunctivitis caused by a virus is sometimes called pink eye. It can be spread easily to other people. The same viruses that cause the common cold can cause viral conjunctivitis. Viruses can be spreadby coughing or sneezing and can get in your eyes through contact with infected: hands washcloths or towels cosmetics false eyelashes soft contact lenses Avoid unnecessary contact with others so that you do not spread the disease. What are the symptoms? Symptoms may include: itchy or scratchy eyes redness painful sensitivity to light swelling of eyelids matting of eyelashes watery or pus discharge How is it diagnosed? Your healthcare provider will ask about your medical history and if you have been near someone who has conjunctivitis. Your provider will examine your eyes. He or she will also check for enlarged lymphnodes near your ear and jaw. Your provider may get lab tests of a sample of the pus to see what typeof germs are present. How is it treated? Like a cold, viral conjunctivitis will usually go away on its own without treatment. However, your healthcare provider may prescribe eyedrops to help control your symptoms. Antihistamine pills may alsorelieve the itching and redness. If you have bacterial conjunctivitis, your healthcare provider will prescribe antibiotic eyedrops. You can also help your eyes get better by washing them gently to remove any pus or crusts. Then dry them gently with a clean towel. For very severe forms of conjunctivitis, antibiotics may need to be given by mouth or with a shot olivia IV. If you wear contact lenses, you will need to stop wearing them until your eyes are healed. The combination of contacts and conjunctivitis may damage your cornea (the clear outer layer on the front of your eye) and cause severe vision problems. Your provider may ask you to throw away your current contact lenses and lens case. How long will the effects last? Viral conjunctivitis usually gets worse 5 to 7 days after the first symptoms. It can get better in 10 days to 1 month. If only one eye is affected at first, the other eye may become infected up to 2 weeks later. Usually, if both eyes are affected, the first eye has worse conjunctivitis than the second. Bacterial conjunctivitis should improve within 2 days after you begin using antibiotics. If your eyes are not better after 3 days of antibiotics, call your healthcare provider. How can I prevent conjunctivitis? To keep from getting conjunctivitis from someone who has it, or to keep from spreading it to others,follow these guidelines: Wash your hands often. Do not touch or rub your eyes. Never share eye makeup or cosmetics with anyone. When you have conjunctivitis, throw out eye makeup you have been using. Never use eye medicine that has been prescribed for someone else. Do not share towels, washcloths, pillows, or sheets with anyone. If one of your eyes is affected butnot the other, use a separate towel for each eye. Avoid swimming in swimming pools if you have conjunctivitis. Avoid close contact with people until your symptoms improve. Depending on your job, you may be askedto take some time off from work. When should I call my healthcare provider? Call your provider if: You have any severe eye pain. Your symptoms do not improve after you have used your medicine for 3 days (if you have bacterial conjunctivitis). Your symptoms do not improve after 2 weeks (if you have viral conjunctivitis). Your eyes get very sensitive to light, even after the redness is gone. Reviewed for medical accuracy by faculty at the [facility]. Web site: [email or web address] CASTING MACHINE OPERATOR documented in this encounter Nursing Notes 05/13/2012 4:30 PM CST >> [place] Mon May 13, 2012 4:44 PM Patient presents with: Conjunctivitis - both eyes - crusty - since yesterday Initial BP 118/78 Pulse 73 Temp(Src) 98.1 ??F (36.7 ??C) (Oral) Ht 5' 5 (1.651 m) Wt 202 lb3.2 oz (91.717 kg) BMI 33.65 kg/m2 SpO2 99% Estimated Body mass index is 33.65 kg/(m^2) as calculated from the following: Height as of this encounter: 5' 5(1.651 m). Weight as of this encounter: 202 lb 3.2 oz(91.717 kg).. BP completed using cuff size: large .T[place] CMA Health maintenance Pt. Had pap done at [facility] for pap apr 2012 [place] CMA documented in this encounter Plan of Treatment Not on filedocumented as of this encounter Procedures Procedure Name Priority Date/Time Associated Diagnosis Comme nts RAPID STREP SCREEN Routine 05/13/2012 4:48 PM Pharyngitis Res ults for this THROAT SWAB DIE CASTING MACHINE OPERATOR procedure are i n the results section. BETA HEMOLYTIC Routine 05/13/2012 4:48 PM Pharyngitis Results for this STREP GROUP A DIE CASTING MACHINE OPERATOR procedure are in CULTURE the results section. documented in this encounter Results Beta strep group A culture (05/13/2012 4:48 PM DIE CASTING MACHINE OPERATOR) Component Value Ref Test Analysis Performed At [facility] Range Method Time Signature Specimen Throat [facility] Culture Micro No Beta [place] Streptococcus [facility] Micro Report FINAL 05/15/2012 [place] Status [facility] Specimen Anatomical Collection Method Collection Time Receive d Time (Source) Location / / Volume Laterality Specimen from 05/13/2012 4:48 PM 05/13/19 13 4:54 throat DIE CASTING MACHINE OPERATOR PM DIE CASTING MACHINE OPERATOR (specimen) Yomaira Gonsalves PA-C LAB - MICRO GENERAL OR DERABLES Performing Organization Address City/State/ZIP Code Phon e Number [facility] [id number] [place] [address] [facility] Strep, Rapid Screen (05/13/2012 4:48 PM DIE CASTING MACHINE OPERATOR) Component Value Ref [facility] Method Time Signature Specimen Throat [facility] Rapid Strep A NEGATIVE: No Group A strepto coccal antigen detected by immunoassay, await [place] Screen culture report. [facility] Micro Report FINAL 05/13/2012 [place] Status [facility] Specimen Anatomical Collection Method Collection Time Receive d Time (Source) Location / / Volume Laterality Specimen from 05/13/2012 4:48 PM 05/13/19 13 4:54 throat DIE CASTING MACHINE OPERATOR PM DIE CASTING MACHINE OPERATOR (specimen) Yomaira Gonsalves PA-C LAB - MICRO GENERAL OR DERABLES Performing Organization Address City/State/ZIP Code Phon e Number [facility] [id number] [place] [address] [facility] documented in this encounter Visit Diagnoses Diagnosis Pharyngitis - Primary Acute pharyngitis Lipid screening Screening for lipoid disorders Screening for unspecified disorder of bl ood and blood-forming organs Screening for diabetes mellitus HTN (hypertension) Unspecified essential hypertension Viral illness Unspecified viral infection, in conditio ns classified elsewhere and of unspecified site Conjunctivitis, acute Acute conjunctivitis, unspecified documented in this encounter Care Teams Lamination Operator Relationship Specialty Start Date End Date Yomaira Gonsalves PA-C PCP - General Family Practice 05/13/12 05/09/20 [id number] [place] [address] documented as of this encounter
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
--- OUTSIDE RECORDS SUMMARY | 2022-03-28 18:26 | XMS_ITS | Encounter Summary ---
:1980 Author Organization [facility] Address [address] [facility] [place] [address] Care Team Providers Name Role Phone Doctor, None Primary Care Provider Unavailable Encounter Details Date Type Department Care Team Description 02/19/2008 Emergency room [facility] Shyam Rehman MD Hospital Results EMERG[facility]Y [facility] [address] [place], [place] [address] (Wo rk) Social History Tobacco Use Types Packs/Day Years Used Date Smoking Tobacco: Never Alcohol Use Standard Drinks/Week Comments Not Asked 0 (1 standard drink = 0.6 oz pure alcoho l) Sex Assigned at Date Recorded Not on file documented as of this encounter Progress Notes Shyam Rehman - 02/20/2008 4:13 PM CDT FINAL CHIEF COMPLAINT: Migraine. HISTORY OF PRESENT ILLNESS: Chery Mathis is a 27-year-old white female with a history of migraine who comes in for evaluation. She said this is her usual typical migraine. She has had about 5 days intermittently. She uses ibuprofen, Benadryl. She states she had it off and on, and does not really seem tostart until later in the afternoon. At around 1:00 p.m. she had it come on suddenly and on the left side mainly, but now it is generalized on the right side. She is photophobic, but no neck stiffness, has some nausea but no vomiting. She was given Imitrex today by a family friend, but she said it did not work. She said usually a lot of noise and humidity could make it act up. [place] with [place], there was a lot of noise, and she thinks that is what happened. She does not feel this is an unusual headache for her. She was unable to keep down the ibuprofen, so that is the reason why she is here. Otherwise, she describes it as 8/10 currently. REVIEW OF SYSTEMS: Please see HPI, all other systems negative. ALLERGIES: None. MEDICATIONS: Protonix, control. PAST MEDICAL PROBLEMS: Migraine. PAST SURGICAL HISTORY: None. SOCIAL HISTORY: She denies smoking, drugs or alcohol. She is . PHYSICAL EXAMINATION: VITAL SIGNS: Blood pressure 160/112, pulse 90, respirations 16, temperature 98, O2 sat 100% on roomair. GENERAL: The patient is alert and oriented x3. GCS 15. She is lying in a dark room quietly. SKIN: Normal, no rashes or petechia seen. HEENT: Normal. NECK: Soft and supple, no lymphadenopathy. LUNGS: Clear to auscultation bilaterally. HEART: Regular rate and rhythm, no murmurs, rubs or gallops. ABDOMEN: Soft, nontender, nondistended, good bowel sounds. EXTREMITIES: 2+ pulses, warm and well perfused. NEUROLOGIC: Cranial nerves II through XII intact. Strength is 5/5 in all 4 extremities. Gait is steady and normal. EMERGENCY DEPARTMENT EVALUATION: The patient did describe this as her usual headache with no unusual features and basically states that she has done well in the past with just Toradol, Compazine and Benadryl. I do not find any abnormal features on her exam at this point to suggest this is other than her usual migraine. She had an IV started, was given a liter of fluid over 30 minutes. She was also given 10 mg IV Compazine, 30 mg IV Toradol, 25 IV Benadryl and 20 of IV Decadron. Her headache subsided to be 1 to 2. When I rechecked on her, she was sitting up and doing much better. She was wanting togo home. She says she did not really want any medicine at home, since ibuprofen would usually take care of it. I asked her to start taking that and push fluids and follow up with her doctor as well. She had a little bit of high blood pressure which, in reviewing her previous records, she has had in her previous ER visits. She is not on any current medicines, so she was informed of this finding and asked to follow up with her doctor as well. Otherwise, if she has any worsening symptoms, severe intractable pain, vomiting, fever, then she needs to come back. EMERGENCY DEPARTMENT DIAGNOSIS: Acute migraine exacerbation. Electronically signed on 02/20/2008 16:12 by SHYAM REHMAN MD MT: [id number] Name: CHERY MATHIS MRN: [id number] Account: [id number] : 1980 Visit Date: 02/19/2008 Document: [id number] documented in this encounter Plan of Treatment Not on filedocumented as of this encounter Visit Diagnoses Not on filedocumented in this encounter Care Teams High Speed Operator Relationship Specialty Start Date End Date Doctor, MD Nigel PCP - General 06/21/01 07/19/11 documented as of this encounter
--- OUTSIDE RECORDS SUMMARY | 2022-03-28 18:26 | XMS_ITS | Encounter Summary ---
:1980 Author Organization [facility] Address [address], [place] [address] Care Team Providers Name Role Phone Unavailable Primary Care Provider Unavailable Reason for Visit Reason Comments BACK PAIN, LOW Encounter Details Date Type Department Care Team Description 12/09/2019 Notes/Orders Physicians Neck and Kim Jimenez, PT Mechanical low back pain (Primary Dx); [facility] Howie weber [address] [place] [address] [place] [address] [address] [place] [address] Social History Tobacco Use Types Packs/Day Years Used Date Smoking Tobacco: Never Assessed Sex Assigned at Date Recorded Not on file documented as of this encounter Progress Notes Kim Jimenez, PT - 12/09/2019 6:11 PM CDT Physical Therapy Discharge Summary Discharge Date: 12/09/19 Discharge type: informal Discharge Plans: Patient did not return for follow up to complete plan of care The patient has not returned to [facility] since COVID. Kim Jimenez PT 12/09/2019, 6:12 PM documented in this encounter Plan of Treatment Not on filedocumented as of this encounter Visit Diagnoses Diagnosis Mechanical low back pain - Primary Lumbago Weakness Other malaise and fatigue documented in this encounter
--- OUTSIDE RECORDS SUMMARY | 2022-03-28 18:26 | XMS_ITS | Encounter Summary ---
:1980 Author Organization [facility] Address [address] [facility] [place] [address] Care Team Providers Name Role Phone Yomaira Gonsalves PA-C Primary Care Provider [phone] Encounter Details Date Type Department Care Team Description 05/13/2012 Orders Only [facility] Major, Finesse ing for [facility] [place]omair[place] [address] [facility] [id number] [place] [address] the cervix (Primary [place], [place] Dx) [id number] Social History Tobacco Use Types Packs/Day Years Used Date Smoking Tobacco: Never Alcohol Use Standard Drinks/Week Comments Yes 0 (1 standard drink = 0.6 oz pure alcoho l) rarely Sex Assigned at Date Recorded Not on file documented as of this encounter Plan of Treatment Not on filedocumented as of this encounter Procedures Procedure Name Priority Date/Time Associated Diagnosis Comme nts PAP IMAGED THIN LAYER Routine 04/15/2012 Screening for Resul ts for this SCREEN malignant neoplasm of proced ure are in the the cervix results section . documented in this encounter Results PAP imaged thin layer screen (04/15/2012) P athologist Signature PAP Date MISYS PAP nil MISYS Comment: historical Specimen (Source) Anatomical Location Collection Method Collection Time Received Time / Laterality / Volume Cytologic material (specimen) Narrative This result has an attachment that is no t available. Yomaira Gonsalves PA-C LAB - [facility] Performing Organization Address City/State/ZIP Code Phon e Number MISYS documented in this encounter Visit Diagnoses Diagnosis Screening for malignant neoplasm of the cervix - Primary documented in this encounter Care Teams Buffer Chrome Relationship Specialty Start Date End Date Yomaira Gonsalves PA-C PCP - General Family Practice 05/13/12 05/09/20 [address] [place] [address] documented as of this encounter
--- OUTSIDE RECORDS SUMMARY | 2022-03-28 18:26 | XMS_ITS | Encounter Summary ---
:1980 Author Organization [place] Address [address] [place] [address] Care Team Providers Name Role Phone Trenton Motley MD Primary Care Provider Reason for Visit Reason Comments Chest Pain oonset of 5 minute episodes of epigastric/chest pain x 3 this am. No more episodes this afternoon. Encounter Details Date Type Department Care Team Description 03/03/2012 Emergency [facility] Emil Sharpe MD Chest pain, atypical [facility] (Primary Dx) [address] [place], [place] [address] [facility] [id number] [address] [place] [address] [place], [place] [id number] (Wo rk) Social History Tobacco Use Types Packs/Day Years Used Date Smoking Tobacco: Never Alcohol Use Standard Drinks/Week Comments No 0 (1 standard drink = 0.6 oz pure alcoho l) Sex Assigned at Date Recorded Not on file documented as of this encounter Last Filed Vital Signs Vital Sign Reading Time Taken Comments Blood Pressure 100/72 03/03/2012 3:21 PM CDT Pulse 64 03/03/2012 3:21 PM CDT Temperature 36.6 ??C (97.9 ??F) 03/03/2012 1:59 PM CDT Respiratory Rate 16 03/03/2012 3:21 PM CDT Oxygen Saturation 99% 03/03/2012 3:21 PM CDT Inhaled Oxygen Concentration - - Weight - - Height - - Body Mass Index - - documented in this encounter Discharge Instructions Discharge InstructionsPrabhu Sharpe MD - 03/03/2012 2:57 PM CDT Discharge Instructions Chest Pain You have been seen today for chest pain or discomfort. At this time, your doctor has found no signs that your chest pain is due to a serious or life-threatening condition, (or you have declined more testing and/or admission to the hospital). However, sometimes there is a serious problem that does not show up right away. Your evaluation today may not be complete and you may need further testing and evaluation. You need to follow-up with your regular doctor within 3 days. Return to the Emergency Department if: Your chest pain changes, gets worse, starts to happen more often, or comes with less activity. You are short of breath. You get very weak or tired. You pass out or faint. You have any new symptoms, like fever, cough, numb legs, or you cough up blood You have anything else that worries you. Until you follow-up with your regular doctor please do the following: Take one aspirin daily unless you have an allergy or are told not to by your doctor. If a stress test appointment has been made, go to the appointment. If you have questions, contact your regular doctor. If your doctor today has told you to follow-up with your regular doctor, it is very important that you make an appointment with your clinic and go to the appointment. If you do not follow-up with your primary doctor, it may result in missing an important development which could result in permanent injury or disability and/or lasting pain. If there is any problem keeping your appointment, call your doctor or return to the Emergency Department. Remember that you can always come back to the Emergency Department if you are not able to see your regular doctor in the amount of time listed above, if you get any new symptoms, or if there is anything that worries you. Take 600mg ibuprofen three times daily x 5 days Increase omeprazole to 40mg daily x 7 days AttachmentsThe following attachments cannot be sent through Care Everywhere. CHEST WALL PAIN, COSTOCHONDRITIS (MALDIVIAN)documented in this encounter Medications at Time of Discharge Medication Sig Dispensed Refills Start Date End Date hydrochlorothiazide Take 1 tablet by 30 tablet 0 07/20/2011 (HYDRODIURIL) 25 MG mouth daily. tabletIndications: HTN (hypertension) omeprazole (PRILOSEC) 20 MG Take 20 mg by 0 capsule mouth daily. Verapamil HCl 240 MG (CO) Take by mouth. 0 TB24 CEPHALEXIN 500 MG OR 1 tab po qid 28 0 02/26/2004 TABSIndications: Onychia and paronychia of toe hydrochlorothiazide Take 1 tablet by 90 tablet 3 07/20/2011 05/13/2012 (HYDRODIURIL) 25 MG mouth daily. tabletIndications: HTN (hypertension) hydrochlorothiazide Take 12.5 mg by 0 05/13/2012 (MICROZIDE) 12.5 MG capsule mouth daily. documented as of this encounter ED Notes Prabhu Sharpe MD - 03/03/2012 2:00 PM CDT History Chief Complaint: Chest Pain HPI Chery Osborne is a 31 year old female with a history of hypertension and esophageal reflux who presents to the ED for evaluation of chest pain. The patient states at 0600 this morning, while camping and laying on her back on a thin mat, she developed left sided cheat heaviness pain at a maximum severityof 7/10. She states this pain lasted for approximately four minutes then returned ten minutes later and has been intermittent since. The patient states her pain is now improved at a current severity of2/10 and this feels more like indigestion. She states the pain does radiate mildly to her right shoulder, but notes that she often has right shoulder pain so is unsure if this is related or not. The patient states her pain does worsen with deep breathing and therefore she feels she is breathing more shallow. She states she did take Aspirin at home with no relief. The patient states she has never had similar pain in the past. She notes that she has had a mid cough for four weeks which has improved, as well as had a few episodes of diarrhea three days ago, but none since. The patient states she did have two alcoholic drinks last night. The patient denies any diaphoresis, lightheadedness, shortness of breath, nausea, leg swelling or pain, or any other complications or concerns. Of note, the patient reports she had a negative stress test three years ago. Cardiac/PE/DVT Risk Factors: The patient has a history of hypertension, but no history of hyperlipidemia, diabetes, or smoking. She reports no family history of heart disease. The patient denies any personal or familial history ofPE, DVT, or clotting disorder. The patient reports no recent travel, surgery, or other immobilizations. Allergies: No Known Allergies Medications: Verapamil Microzide Prilosec Hydrodiuril Cephalexin Past Medical History: Hypertension Past Surgical History: Pilonidal Cyst Removal Laparoscopic Cholecystectomy Family History: The patient denies any family history of heart disease or blood clots. Social History: The patient was accompanied to the ED by her . Smoking Status: Never smoker Alcohol Use: No Marital Status: Review of Systems Constitutional: Negative for diaphoresis. Respiratory: Positive for cough. Negative for shortness of breath. Positive for shallow breathing. Cardiovascular: Positive for chest pain. Negative for leg swelling. Gastrointestinal: Positive for diarrhea (now resolved). Negative for nausea. Musculoskeletal: Positive for right shoulder pain. Negative for calf pain. Neurological: Negative for light-headedness. All other systems reviewed and are negative. Physical Exam First Vitals: BP: 121/91 mmHg Pulse: 68 Temp: 97.9 ??F (36.6 ??C) Resp: 18 SpO2: 100 % Physical Exam Constitutional: She is oriented to person, place, and time. HENT: Mouth/Throat: Oropharynx is clear and moist. Eyes: Conjunctivae and EOM are normal. Pupils are equal, round, and reactive to light. Cardiovascular: Normal rate, regular rhythm and normal heart sounds. Pulmonary/Chest: Effort normal and breath sounds normal. No respiratory distress. She has no wheezes. She has no rhonchi. She has no rales. Mild reproducible tenderness in the left costochondral junction. Abdominal: Soft. Bowel sounds are normal. There is no tenderness. There is no rebound and no guarding. Musculoskeletal: Normal range of motion. She exhibits no edema. No evidence of calf tenderness or swelling. Neurological: She is oriented to person, place, and time. She has normal strength. No sensory deficit. Skin: Skin is warm and dry. No rash noted. Emergency Department Course ECG read at 1402: Rate 64 bpm. NE interval 172. QRS duration 94. QT/QTc 410/422. P-R-T axes 23 18 15. Normal sinus rhythm with sinus arrhythmia. Imaging: CXR 2 Views: No acute cardiopulmonary process. Read by Dr. Sharpe. Laboratory: CBC: WNL (WBC 8.5, HGB 12.7, Platelets 367) BMP: WNL (Creatinine 0.74) D-Dimer: 0.5 Troponin POCT: 0.06 Interventions: 1415 GI Cocktail 30 mL PO 1506 Tramadol 30 mg IV Emergency Department Course: Examined the patient and discussed the plan of care. IV inserted and blood drawn. The patient was placed on oxygen via nasal cannula and continuous cardiac monitoring and pulse oximetry. The patient was sent for a chest x-ray while in the emergency department, results above. The patient reported good relief after the above interventions. Rechecked the patient, findings and plan explained to the patient. Patient discharged home, status improved, with instructions regarding supportive care, medications, and reasons to return as well as the importance of close follow-up was reviewed. Impression & Plan Medical Decision Making: The patient is a pleasant 31 year old female who presents to the emergency department with intermittent sternal chest pain since 0600 this morning. On examination she has no specific findings to suggest an obvious cause for her pain, except she did have mild tenderness to the costochondral area along the left sternal boarder where she described her pain. She had no reproducible epigastric or abdominal pulsatile mass noted. I did obtained a chest x-ray that was unremarkable as well as an ECG, d-dimer, and troponin that were all within normal limits. GI Cocktail was tried to see if this would help her symptoms. It did not really seem to change much. She was also given Tramadol for likely musculoskeletal pain. I suspect the way she slept last night, as she does tend to sleep on her side, on the ground while camping, this is likely more of a chest wall costochondral inflammation type pain. She has had no recent exertional chest pain or shortness of breath that would suggest an anginal equivalent. With the negative troponin after several hours of intermittent pain and normal ECG, I felt it is very unlikely she has acute coronary artery disease causing her symptoms. However, if she developed exertional chest pain, shortness of breath, or worsening pain she is to return here for reevaluation. Otherwise, follow up with her primary care provider in two days. She is to use Ibuprofen 600 mg three times per day for five days and increase her Omeprazole from 20 mg to 40 mg for the next week. She understands the plan and has no questions. She understands the reasons to return. Diagnosis: 1. Chest wall pain. I, Nena Mobleyjuliocesarcha, am serving as a scribe on 03/03/2012 at 2:00 PM to personally document services performed by Dr. Sharpe based on my observations and the provider's statements to me. Prabhu Sharpe MD 03/03/12 1532 Lela Yuen - 03/03/2012 1:58 PM CDT Alert and oriented x 3. ABCD intact. Pt states she has had recent indigestion and diarrhea starting Sunday. documented in this encounter Plan of Treatment Not on filedocumented as of this encounter Procedures Procedure Name Priority Date/Time Associated Comments Diagnosis XR CHEST 2 VIEWS STAT 03/03/2012 2:34 PM Resul ts for this CDT procedure are i n the results section. TROPONIN POCT Routine 03/03/2012 2:18 PM Results for this CDT procedure are i n the results section. CBC WITH PLATELETS & STAT 03/03/2012 2:13 PM R esults for this DIFFERENTIAL CDT procedure are i n the results section. D DIMER QUANTITATIVE STAT 03/03/2012 2:13 PM R esults for this CDT procedure are i n the results section. BASIC METABOLIC PANEL STAT 03/03/2012 2:13 PM Results for this CDT procedure are i n the results section. EKG 12-LEAD, TRACING STAT 03/03/2012 2:00 PM R esults for this ONLY CDT procedure are i n the results section. HIM ECG SCAN STAT 03/03/2012 documented in this encounter Results X-ray Chest 2 vws* (03/03/2012 2:34 PM CDT) Anatomical Region Laterality Modality Chest Other Specimen (Source) Anatomical Collection Method Collection Time Re ceived Time Location / / Volume Laterality 03/03/2012 2:34 PM CDT Impressions 03/03/2012 2:41 PM CDT CHEST TWO VIEWS ?? 03/03/2012 2:34 PM HISTORY: ??Chest pain. COMPARISON: ??None. FINDINGS: ??The heart size is normal. No mediastinal pathology is seen. The lungs are clear. The pulmonary vasculature is normal. No pneumothorax or pleural effusion is seen . IMPRESSION: ??Unremarkable chest. Authorizing Provider Result Frank Sharpe MD IMG DIAGNOSTIC IMAGING ORDER AYANNA Troponin POCT (03/03/2012 2:18 PM CDT) athologist Signature Troponin I 0.06 0.00 - 0.10 POINT OF CARE ug/L TEST, HANDHELD METER Specimen Anatomical Collection Method Collection Time Receive d Time (Source) Location / / Volume Laterality 03/03/2012 2:18 PM 2 2:45 CDT PM CDT Prabhu Sharpe MD LAB - ENTER/EDIT POCT Performing Organization Address City/[facility]/ZIP Code Phon e Number [facility] POINT OF CARE TEST, HANDHELD METER POINT OF CARE TEST, HANDHELD METER D dimer quantitative (03/03/2012 2:13 PM CDT) athologist Signature D Dimer 0.5 0.0 - 0.50 [facility] ug/ml [facility] LAB Specimen Anatomical Collection Method Collection Time Receive d Time (Source) Location / / Volume Laterality Blood specimen 03/03/2012 2:13 PM 012 2:24 (specimen) CDT PM CDT Authorizing Provider Result Frank Sharpe MD LAB - BLOOD ORDERABLES Performing Organization Address City/[facility]/ZIP [facility] Phon e Number [facility] [address] [address] [facility] Basic metabolic panel (03/03/2012 2:13 PM CDT) athologist Signature Sodium 136 133 - 144 [place] mmol/L [facility] LAB Potassium 3.5 3.4 - 5.3 [place] mmol/L [facility] Chloride 97 94 - 109 [place] mmol/L [facility] Carbon Dioxide 31 20 - 32 [place] mmol/L [facility] Anion Gap 8 6 - 17 [place] mmol/L [facility] Glucose 86 60 - 99 [place] mg/dL [facility] Urea Nitrogen 9 5 - 24 [place] mg/dL [facility] Creatinine 0.74 0.52 - [facility] 1.04 mg/dL [facility] LAB GFR Estimate >90 >60 [place] mL/min/[address] [place] [address] LAB GFR Estimate If >90 >60 [place] Black mL/min/1.[address] [place] [address] LAB Calcium 9.1 8.5 - 10.4 [place] mg/dL [facility] LAB Specimen Anatomical Collection Method Collection Time Receive d Time (Source) Location / / Volume Laterality Blood specimen 03/03/2012 2:13 PM 012 2:24 (specimen) CDT PM CDT Prabhu Sharpe MD LAB - BLOOD ORDERABLES Performing Organization Address City/State/ZIP Code Phon e Number [address] [place] [address] [address] [place], [place] [address] [facility] LAB CBC with platelets differential (03/03/2012 2:13 PM CDT) [facility] gist Method Time Signature WBC 8.5 4.0 - [place] 11.0 [facility] 10e9/L [facility] LAB RBC Count 4.24 3.8 - 5.2 [place] 10e12/L [facility] Hemoglobin 12.7 11.7 - [place] 15.7 g/dL [facility] LAB Hematocrit 38.1 35.0 - [place] 47.0 % [facility] MCV 90 78 - 100 [facility] LAB MCH 30.0 26.5 - [place] 33.0 pg [facility] LAB MCHC 33.3 31.5 - [place] 36.5 g/dL [facility] LAB RDW 13.5 10.0 - [facility] 15.0 % [facility] Platelet Count 367 150 - 450 [place] 10e9/L [facility] LAB Diff Method Automated [facility] LAB % Neutrophils 57.8 40 - 75 % [facility] LAB % Lymphocytes 33.3 20 - 48 % [facility] % Monocytes 7.3 0 - 12 % [facility] % Eosinophils 1.2 0 - 6 % [facility] % Basophils 0.2 0 - 2 % [facility] % Immature 0.2 0 - 0.4 % [place] Granulocytes [facility] Absolute 4.9 1.6 - 8.3 [place] Neutrophil 10e9/L [facility] Absolute 2.8 0.8 - 5.3 [place] Lymphocytes 10e9/L [facility] Absolute 0.6 0.0 - 1.3 [place] Monocytes 10e9/L [facility] Absolute 0.1 0.0 - 0.7 [place] Eosinophils 10e9/L [facility] Absolute 0.0 0.0 - 0.2 [place] Basophils 10e9/L [facility] Abs Immature 0.0 0 - 0.03 [place] Granulocytes 10e/[facility] LAB Specimen Anatomical Collection Method Collection Time Receive d Time (Source) Location / / Volume Laterality Blood specimen 03/03/2012 2:13 PM 012 2:24 (specimen) CDT PM CDT Prabhu Sharpe MD LAB - BLOOD ORDERABLES Performing Organization Address City/State/ZIP Code Phon e Number [facility] [address] [address] [facility] LAB EKG 12 lead (03/03/2012 2:00 PM CDT) Component Value Ref Range Test Analysis Performed Pathologis t Method Time At Signature Ventricular Rate 64 BPM RADIOLOGY RESULTS Atrial Rate 64 BPM RADIOLOGY RESULTS NE Interval 172 ms RADIOLOGY RESULTS QRS Duration 94 ms RADIOLOGY RESULTS QT 410 ms RADIOLOGY RESULTS QTc 422 ms RADIOLOGY RESULTS P [place] 23 degrees RADIOLOGY RESULTS R AXIS 18 degrees RADIOLOGY RESULTS T [place] 15 degrees RADIOLOGY RESULTS Interpretation Sinus rhythm with RADIOLO GY ECG sinus arrhythmia RESULTS Interpretation Normal ECG RADIOLOGY ECG RESULTS Interpretation Unconfirmed report - interpr etation of this ECG is computer generated - see RADIOLOGY ECG medical record for final interpretation RESULTS Specimen (Source) Anatomical Collection Method Collection Time Re ceived Time Location / / Volume Laterality 03/03/2012 2:00 PM CDT Prabhu Sharpe MD ECG ORDERABLES Performing Organization Address City/State/ZIP Code Phon e Number RADIOLOGY RESULTS ECG - HIM ECG Scan (03/03/2012) Narrative This result has an attachment that is no t available. Prabhu Sharpe MD ECG ORDERABLES documented in this encounter Visit Diagnoses Diagnosis Chest pain, atypical - Primary Other chest pain documented in this encounter Administered Medications Inactive Administered Medications - up to 3 most recent administrations Medication Order MAR Action Action Date Dose Rate Site alum & mag hydroxide-simethicone Given 03/03/2012 2:15 PM CDT 15 mLs (MYLANTA ES/MAALOX ES) suspension 15 mL 15 mL, Oral, ONCE, On 03/03/12 at 1415, For 1 dose, Mix 15 mL Maalox ES with 15 mL viscous Lidocaine 2%. ketorolac (TORADOL) injection 30 mg Given 03/03/2012 3:06 PM CDT 30 mg 30 mg, Intravenous, ONCE, On 03/03/12 at 1500, For 1 dose lidocaine (XYLOCAINE) 2 % mouth solution 15 Given 03/03/2012 2:15 PM CDT 15 mLs mL 15 mL, Mouth/Throat, ONCE, On 03/03/12 at 1415, For 1 dose, Mix 15 mL Maalox ES with 15 mL viscous Lidocaine 2%. documented in this encounter Active and Recently Administered Medications Times are shown in CDT. Scheduled Medication Order 03/01/2012 03/02/2012 03/03/2012 alum & mag hydroxide-simethicone (MYLANT A ES/MAALOX ES) suspension 15 mL (COMPLETED) 1415 (Given - Provid er: Dane Sanchez RN) 15 mL, Oral, ONCE, 03/03/12 at 1415, For 1 dose, Mix 15 mL Maalox ES with 15 mL viscous Lidocaine 2%. ketorolac (TORADOL) injection 30 mg (COMPLETED) 1506 (Given - Provider: Dane Sanchez RN) 30 mg, Intravenous, ONCE, 03/03/12 at 1500, For 1 dose lidocaine (XYLOCAINE) 2 % mouth solution 15 mL (COMPLETED) 1415 (Given - Provider: Dane Sanchez RN) 15 mL, Mouth/Throat, ONCE, 03/03/12 at 1415, For 1 dose, Mix 15 mL Maalox ES with 15 mL viscous Lidocaine 2%. documented in this encounter Care Teams Investment Strategist Relationship Specialty Start Date End Date Trenton Motley MD PCP - General Internal Medicine 03/03/12 05/12/[address] [address] documented as of this encounter
--- OUTSIDE RECORDS SUMMARY | 2022-03-28 18:26 | XMS_ITS | Encounter Summary ---
:1980 Author Organization [place] Address [facility] [place] [place] [address] Care Team Providers Name Role Phone Trenton Motley MD Primary Care Provider Reason for Visit Reason Comments Hypertension Encounter Details Date Type Department Care Team Description 07/20/2011 Office Visit Consultants-Internal Trenton Motley HT N (hypertension) Medicine (Primary Dx) [address] MED[facility] [address] [place] [address] [place] [address] [place] [address] Social History Tobacco Use Types Packs/Day Years Used Date Smoking Tobacco: Never Alcohol Use Standard Drinks/Week Comments No 0 (1 standard drink = 0.6 oz pure alcoho l) Sex Assigned at Date Recorded Not on file documented as of this encounter Last Filed Vital Signs Vital Sign Reading Time Taken Comments Blood Pressure 132/94 07/20/2011 4:26 PM CDT Pulse - - Temperature - - Respiratory Rate - - Oxygen Saturation - - Inhaled Oxygen Concentration - - Weight 93.4 kg (206 lb) 07/20/2011 4:26 PM CDT Height - - Body Mass Index - - documented in this encounter Progress Notes Trenton Motley MD - 07/20/2011 4:40 PM CDT Chery presents today for her bp fu. BP 132/94 Wt 93.441 kg (206 lb) 401.9AE HTN (hypertension) (primary encounter diagnosis) Comment: at this point, i would increase hctz to 25, fu prn, go to 50 if need be. Plan: hydrochlorothiazide (HYDRODIURIL) 25 MG tablet, hydrochlorothiazide (HYDRODIURIL) 25 MG tablet documented in this encounter Plan of Treatment Not on filedocumented as of this encounter Visit Diagnoses Diagnosis HTN (hypertension) - Primary Unspecified essential hypertension documented in this encounter Care Teams Conservation Engineer Relationship Specialty Start Date End Date Trenton Motley MD PCP - General Internal Medicine 07/20/11 03/02/[address] [address] documented as of this encounter
--- OUTSIDE RECORDS SUMMARY | 2022-03-28 18:26 | XMS_ITS | Encounter Summary ---
:1980 Author Organization [place] Address [address] [place] [address] Care Team Providers Name Role Phone Doctor, None MD Primary Care Provider Unavailable Encounter Details Date Type Department Care Team Description 06/30/2010 Emergency room [facility] Results EMERGENCY PHYSI [facility] [place] [address] [place], [place] [address] Social History Tobacco Use Types Packs/Day Years Used Date Smoking Tobacco: Never Alcohol Use Standard Drinks/Week Comments Not Asked 0 (1 standard drink = 0.6 oz pure alcoho l) Sex Assigned at Date Recorded Not on file documented as of this encounter Progress Notes Interface, Incident Response Engineer - 06/30/2010 6:28 AM ASSISTANT SOFTBALL COACH FINAL Chief Complaint - History of Present Illness - MD Time:: 03:16 - Chief Complaint: Abdominal pain - HPI: Chery Osborne is a 30 y. o. female who presents at 0044 to the ED for evaluation of abdominal pain. The patient states she developed a constant right lower abdominal pain that was sudden in onset at approximately 1700 this evening. She explains the pain becomes sharp with movement or deep inspiration and radiates around to the right side of her back. Upon her examination here in the emergency department the patient also reports a subjective fever and chills. She denies any nausea, vomiting, diarrhea or other physical complaints. Medications - Medications: Verapamil HCTZ Omeprazole Minocycline Allergies No Known Drug; None Past Medical/Family History - PMH is positive for: Hypertension, GERD - Family History: No family history of health problems in her parents or siblings. Social History - Is positive for Alcohol use, Socially - Is negative for Tobacco use, Illicit drug use Review of Systems - - All other systems negative except - General Positive for fever, Positive for chills, Negative for malaise/fatigue - Gastrointestinal Negative for nausea, Negative for vomiting, Positive for abdominal pain, Negative for diarrhea - Musculoskeletal Negative for back pain Vital Signs-Triage Temp F: 97.5 degrees F Temp C: 36.3 degrees C Temp site: Oral Heart Rate: 99 bpm Resp Rate: 16 Pulse Oximetry: 99 Cuff Systolic BP mmH Cuff Diastolic BP mmH Physical Exam - HENT atraumatic, right external ear normal, left external ear normal, nose normal - Eyes pupils equal, round, and reactive to light, conjunctiva normal, extraocular movements normal, no scleral icterus present - Neck range of motion normal - Cardiovascular normal rate, regular rhythm, heart sounds normal - Pul/Chest Wall breath sounds normal, no wheezes present, no rales present, no chest tenderness present - Abdominal soft, no distention present, no mass present, tenderness across the low abdomen without guarding, no organomegaly - Musculoskeletal normal range of motion, no deformity present, no edema present - Neurologic alert, oriented x3, no cranial nerve deficit present, normal strength, normal sensory - Skin warm, dry, no rash present, normal color present - Psychiatric not suicidal, homicidal, psychotic or delusional, affect normal, judgment normal - Heme/Lymph no lymphadenopathy Laboratory information - -: CBC: WBC 15.5 high, o/w WNL (HGB 11.7, Platelets 323) BMP: WNL (Creatinine 0.74) Type: A Positive Antibody Screen: Negative UA: Protein 10, Blood moderate, LE moderate, WBC 3 high, RBC's 34 high, Bacteria few, Epithelial 8 high, Mucus present, o/w Negative UPT: Negative Diagnostic information - -: Imaging: US Pelvic with Transvaginal: 5.5 cm right ovarian cyst. No ovarian torsion. IUD in place. No free fluid, per radiology. CT Abdomen & Pelvis: Pending ED Course: Interventions/Consultations/Procedures - -: Interventions: Gastroview 10 ml PO Gastroview 5 ml PO ED Course: IV inserted and blood drawn. The patient was placed on continuous blood pressure monitoring and pulse oximetry. The patient was sent for a pelvic US and CT of her abd/pelvis while in the emergency department, findings above. Medical Decision Making - -: 30 year old female with low abdominal pain, which was fairly abrupt in onset. In the end this may be secondary to moderate sized right sided ovarian cyst, but the ultrasound is showing no evidence of apparent rupture. I've elected to proceed with further evaluation via CT scan of the abdomen and pelvis with IV and oral contrast. This would certainly be a highly atypical presentation for appendicitis. The tenderness argues against kidney stone. Diverticulitis and other GI pathology would also be a bit unusual with the abrupt onset. Her care will be signed over to my colleague to follow up and appropriately dispositioned pending CT report. I would anticipate that should that be negative she will be able to go home with a prescription for pain medication and follow up with PUBLIC AFFAIRS DIRECTOR. Diagnosis - -: 1. Abdominal pain. 2. 5.5 right sided ovarian cyst. Scribe Disclosure I, Christiana Arana, am serving as a scribe to document services personally performed by Dr. Sarmiento, based on my observations and the provider's statements to me. Electronically signed on 06/30/2010 06:28 by DIPTI SARMIENTO MD As dictated by CHRISTIANA ARANA MT: MS Name: CHERY OSBORNE MRN: [id number] Account: [id number] : 1980 Visit Date: 06/30/2010 Document: [id number] STANT SOFTBALL COACH documented in this encounter Plan of Treatment Not on filedocumented as of this encounter Visit Diagnoses Not on filedocumented in this encounter Care Teams Electric Welder Relationship Specialty Start Date End Date Nigel Myers MD PCP - General 06/21/01 07/19/11 documented as of this encounter
--- OUTSIDE RECORDS SUMMARY | 2022-03-28 18:26 | XMS_ITS | Encounter Summary ---
:1980 Author Organization [place] Address [address] [facility] [place] [address] Care Team Providers Name Role Phone Doctor, None MD Primary Care Provider Unavailable Encounter Details Date Type Department Care Team Description 11/24/2009 Results Only [facility] Robert Rogel MD Hospital Results [address] [place], [place] [address] (Wo rk) Social History Tobacco Use Types Packs/Day Years Used Date Smoking Tobacco: Never Alcohol Use Standard Drinks/Week Comments Not Asked 0 (1 standard drink = 0.6 oz pure alcoho l) Sex Assigned at Date Recorded Not on file documented as of this encounter Plan of Treatment Not on filedocumented as of this encounter Procedures Procedure Name Priority Date/Time Associated Diagnosis Comme [facility] US ABDOMEN Routine 11/24/2009 9:35 AM Results for this LIMITED CDT procedure are i n the results section. documented in this encounter Results SONO ABDOMEN LIMITED (11/24/2009 9:35 AM CDT) Anatomical Region Laterality Modality Other Specimen (Source) Anatomical Collection Method Collection Time Re ceived Time Location / / Volume Laterality 11/24/2009 9:35 AM CDT Impressions 11/24/2009 10:31 AM CDT US ABDOMEN LIMITED Nov 24, 2009 9:35:00 AM CLINICAL INFORMATION: Lithiasis. ? FINDINGS: ?? Liver: ??Normal. ?? Biliary system: ??No biliary dilitation. ? Gallbladder: ??There are multiple shadow ing gallstones in the gallbladder. No gallbladder wall thicken ing. No sonographic Reyes's sign. Pancreas: ??Visualized portions are norm al. Kidneys: ??The right kidney is normal. Visualized proximal aorta and IVC within normal limits. ?? IMPRESSION: ??Gallstones without cholecy stitis. Robert Rogel MD SPECIAL IMAGING STUDIES documented in this encounter Visit Diagnoses Not on filedocumented in this encounter Care Teams Merchandiser Retail Representative Relationship Specialty Start Date End Date Doctor, None, PCP - General 06/21/01 07/19/11 documented as of this encounter
--- OUTSIDE RECORDS SUMMARY | 2022-03-28 18:26 | XMS_ITS | Encounter Summary ---
:1980 Author Organization [place] Address [address] [facility] [place] [address] Care Team Providers Name Role Phone Doctor, None Primary Care Provider Unavailable Encounter Details Date Type Department Care Team Description 12/01/2009 Operative Report [facility] Hattie Jameson MD (Repairer Auto Clocks) [facility] [address] [facility] Results [address] [place] [address] (Wo rk) Social History Tobacco Use Types Packs/Day Years Used Date Smoking Tobacco: Never Alcohol Use Standard Drinks/Week Comments Not Asked 0 (1 standard drink = 0.6 oz pure alcoho l) Sex Assigned at Date Recorded Not on file documented as of this encounter Progress Notes Hattie Jameson - 12/21/2009 4:33 PM CDT FINAL PREOPERATIVE DIAGNOSIS: Cholelithiasis. POSTOPERATIVE DIAGNOSIS: Cholelithiasis. PROCEDURE: Cholecystectomy (laparoscopic). SURGEON: Hattie Jameson MD ASSET CARD CLERK: Yolanda Reynoso INTRAOPERATIVE CONSULTATION: Babs Lugo MD INDICATION: Chery Osborne is a 29-year-old female with episodic upper abdominal pain consistent with biliary colic. Ultrasound reveals gallstones and normal ducts. She now presents for cholecystectomy after discussion of the procedure, its risks, benefits, complications, convalescence, postop limitations, the risk of bleeding, infection with post-cholecystectomy syndromes and their treatment as well as the possibility that her symptoms will not be relieved by the surgery. All her questions have been answered and she is ready to proceed. DESCRIPTION OF PROCEDURE: The patient was brought to the operating room, placed supine on the tableand after induction of anesthetic, the abdomen was prepped and draped in sterile manner. As she has had a previous panniculectomy surgery, transverse incision was made slightly above the umbilicus to avoid any injury to its blood supply. The incision is extended down to the midline fascia. Four sutures were identified, presumably from plication/imbrication of the midline at the time of her panniculectomy. The midline fascia was carefully traversed into the preperitoneal fat. The peritoneum was opened. Nickie trocar was inserted, gas was insufflated, 10 mm straight-viewing laparoscope was advanced and secondary trocars were placed with laparoscopic guidance. There was no evidence for underlying bowel or tissue injuries. The patient was placed in reverse Trendelenburg position. The fundus of the gallbladder was grasped and retracted cephalad. A second grasper was placed near the infundibulum. The fatty tissue was stripped from the region of the cystic duct gallbladder junction. The cystic artery appears to run on the anterior surface of the gallbladder and cystic duct, presumably from a replacedright hepatic artery. This was carefully dissected. This tethering by the artery produced an atypical fold at the junction of the cystic duct and the gallbladder. This area was completely dissected. The region behind the infundibulum was also completely dissected and there were no aberrant ducts. The cystic duct and common hepatic duct junction was identified as well. Dr. Lugo was available and alsoconcurred in the identification of the ducts. The cystic duct was then milked retrograde towards thegallbladder and a clip placed on the infundibulum. Two additional clips were placed on the cystic duct and the cystic duct was divided. Prior to this, the cystic artery was clipped and divided as well.There was a very small artery behind the cystic duct and this was also clipped with a single clip and then divided. The gallbladder was then removed from its hepatic fossa, placed in an Endocatch pouchand removed through the supraumbilical incision without spillage of bile or stones. The operative site was inspected and hemostasis was complete with all clips in place. Marcaine was placed for postop pain control and the trocars were sequentially removed and viewed from within to be sure no bleeding was present. The final (supraumbilical) trocar was then removed after venting as much gas as possiblefrom the abdomen and the fascia was specifically closed with 0 Vicryl sutures. Subcuticular skin closure was then performed at each site followed by placement of Steri-Strips and sterile dressings. The patient was returned to the recovery room in excellent condition with all sponge and needle counts correct, having tolerated the procedure well. Intraoperative findings include mild to moderate chronic cholecystitis, normal- appearing liver and anterior wall of the stomach and duodenum, normal-appearing appendix, terminal ileum and all other visible portions of large and small bowel. Electronically signed on 12/21/2009 16:32 by HATTIE JAMESON MD MT: [id number] Name: CHERY OSBORNE MRN: [id number] Account: [id number] : 1980 Procedure Date: 12/01/2009 Document: [id number] documented in this encounter Plan of Treatment Not on filedocumented as of this encounter Visit Diagnoses Not on filedocumented in this encounter Care Teams Pulpwood Buyer Relationship Specialty Start Date End Date Nigel Myers MD PCP - General 06/21/01 07/19/11 documented as of this encounter
--- OUTSIDE RECORDS SUMMARY | 2022-03-28 18:26 | XMS_ITS | Encounter Summary ---
:1980 Author Organization [place] Address [address] [facility] [place] [address] Care Team Providers Name Role Phone Doctor, None MD Primary Care Provider Unavailable Encounter Details Date Type Department Care Team Description 12/01/2009 Hospital Pathology [facility] Damien Jameson MD [facility] Results [address] [place], [place] [address] (Wo rk) Social History [...] Name Priority Date/Time Associated Diagnosis Comme nts CL AFF SURGICAL Routine 12/01/2009 12:00 AM Resul ts for this PATHOLOGY CDT procedure are i n the results section. documented in this encounter Results Hospital - SURGICAL PATHOLOGY (12/01/2009 12:00 AM CDT) Component Value Ref Test Analysis Performed At [facility] Range Method Time Signature Copath Report Patient Name: CHERY OSBORNE MR#: [id number] Specimen #: [id number] Collected: 12/01/2009 Received: 12/01/2009 Reported: 12/02/2009 14:11 Ordering Phy(s): HATTIE JAMESON SPECIMEN(S): Gallbladder and contents FINAL DIAGNOSIS: Gallbladder, cholecystectomy - Chronic cholecystitis. ??Chol esterolosis. Cholelithiasis. ??No evidence of dysplasia or malignancy. Electronically signed out by: Honorio Collins M.D. CLINICAL HISTORY: Cholelithiasis. GROSS: The specimen is labeled gallbladder and contents and it co nsists of an 8 x 4 cm gallbladder. ??The serosal surface is smooth. ??the wall is uniform ranging from 0.2 to 0.1 cm in thickness. ??The mucos a is smooth. Cholesterolosis is present. ??No suspicious masses are ident ified. ??There are numerous yellow cholesterol stones present aggregating t o 3.5 x 3 x 1 cm. ??Tobacco Cutter sections submitted. ??SADE/herson MICROSCOPIC: Microscopic evaluation was performed. SADE/herson 12-02-09 TESTING LAB LOCATION: [address] ??[id number] COLLECTION SITE: Client: [facility] Location: SDS (R) Specimen (Source) Anatomical Collection Method Collection Time Re ceived Time Location / / Volume Laterality 12/01/2009 12/01/2009 12:3 6 PM CDT Hattie Jameson MD LABORATORY Performing Organization Address City/State/ZIP Code Phon e Number COPATH documented in this encounter Visit Diagnoses Not on filedocumented in this encounter Care Teams Dog Day Care Attendant Relationship Specialty Start Date End Date Doctor, Nigel, PCP - General 06/21/01 07/19/11 documented as of this encounter
--- OUTSIDE RECORDS SUMMARY | 2022-03-28 18:26 | XMS_ITS | Encounter Summary ---
:1980 Author Organization [place] Address [address] [facility] [place] [address] Care Team Providers Name Role Phone Doctor, None Primary Care Provider Unavailable Encounter Details Date Type Department Care Team Description 09/08/2005 Delivery Summary Audie Douglas MD (Housing Installer) [facility] [address] [facility] [address] [address] [address] [place], [place] [phone] (Wo rk) Social History Tobacco Use Types Packs/Day Years Used Date Smoking Tobacco: Never Alcohol Use Standard Drinks/Week Comments Not Asked 0 (1 standard drink = 0.6 oz pure alcoho l) Sex Assigned at Date Recorded Not on file documented as of this encounter Progress Notes Audie Douglas MD - 09/09/2005 9:26 AM CDT PRELIMINARY HISTORY: Chery Osborne is a 25-year-old, 2, para 1-0-0-1, at 39+4 weeks, who presented to Laborand Delivery on the morning of 09/08/2005 for elective induction of labor. The patient's has been followed by myself, Dr. Douglas, and has been uncomplicated. The patient's labs are all within normal limits, and her group B strep status is negative. FIRST STAGE OF LABOR: The patient was admitted to the hospital on the morning of 09/08/2005. Initially, the patient's cervix was 2 cm dilated. Pitocin was started intravenously for augmentation of contractions. The patient's membranes were eventually artificially ruptured at 1100 with clear fluid. The patient's cervix was 3 cm at that time. The patient received an epidural for pain control, and reached complete cervical dilatation at 1320. SECOND STAGE OF LABOR: The patient's second stage of labor lasted a total of 46 minutes. The patient only pushed for approximately the last 15 minutes. The patient delivered a viable female infant from an OA position. Once the head was delivered, the mouth and nares were bulb suctioned. A nuchal cordwas noticed, and clamped and cut. The remainder of the was delivered and placed on the maternal abdomen. The infant's weight was 8 pounds 0 ounces, and Apgars were 8 and 9. THIRD STAGE OF LABOR: The placenta was delivered intact with a three-vessel cord at 1408. There wasa small second-degree laceration that was just inside the vagina, and this was repaired with 3-0 Vicryl in the usual standard fashion. There was also a skin laceration on the right labia, but this was hemostatic and was not repaired. Estimated blood loss was less than 500 cc, and there were no complications. FINAL DIAGNOSES: 1.Normal spontaneous vaginal delivery of a viable female on 09/08/2005. 2.Elective inductionof labor. 3.Epidural anesthesia. AUDIE DOUGLAS JR, MD MT: gena Name: CHERY OSBORNE MRN: [id number] Account: [id number] : 1980 Delivery Date: 09/08/2005 Document: [id number] documented in this encounter Plan of Treatment Not on filedocumented as of this encounter Visit Diagnoses Not on filedocumented in this encounter Care Teams Interior Design Consultant Relationship Specialty Start Date End Date Nigel Myers MD PCP - General 06/21/01 07/19/11 documented as of this encounter
--- OUTSIDE RECORDS SUMMARY | 2022-03-28 18:26 | XMS_ITS | Encounter Summary ---
:1980 Author Organization [place] Address [facility] [facility] [place] [address] Care Team Providers Name Role Phone Doctor, None Primary Care Provider Unavailable Reason for Visit Reason Comments Foot Problems toe pain Encounter Details Date Type Department Care Team Description 02/26/2004 Office Visit [facility] Maciel hernandez ToensBrandyn de MD ONYCHIA OF TOE; [address] [place] [address] [place] [address] (Wo rk) Social History Tobacco Use Types Packs/Day Years Used Date Smoking Tobacco: Never Alcohol Use Standard Drinks/Week Comments Not Asked 0 (1 standard drink = 0.6 oz pure alcoho l) Sex Assigned at Date Recorded Not on file documented as of this encounter Last Filed Vital Signs Vital Sign Reading Time Taken Comments Blood Pressure 104/70 02/26/2004 2:26 PM CDT Pulse 58 02/26/2004 2:26 PM CDT Temperature - - Respiratory Rate - - Oxygen Saturation - - Inhaled Oxygen Concentration - - Weight 92.5 kg (204 lb) 02/26/2004 2:26 PM CDT Height - - Body Mass Index - - documented in this encounter Progress Notes 02/26/2004 2:00 PM CDT SUBJECTIVE: Chery Osborne, a 23 year old female, presents for evaluation of pain in the great toe of the left foot. She had stubbed her toe several weeks ago and broken the nail. She has had increasing pain in the great toe over that time. She now has pain with walking and a very tender just on the tip of the great toe. There is redness and swelling on the tip of the toe and along the lateral surface. OBJECTIVE: M/SKEL: there is no bony tenderness of the feet or toes. FROM of all joints on the left foot SKIN: the great toe on the left is ingrowing; along the lateral edge of the nail bed there is redness, swelling and tenderness that extends to the tip of the toe ASSESSMENT/PLAN: 681.11 ONYCHIA OF TOE Plan: CEPHALEXIN 500 MG OR TABS 703.0 INGROWING NAIL Note: Patient instructed on trimming techniques to minimize ingrowth. Brandyn Dela Cruz MD documented in this encounter Nursing Notes 02/26/2004 2:00 PM CDT >> OLIVA POLO 02/26/2004 2:26 pm Chery Osborne presents for toe pain. Initial BP 104/70 Pulse 58 Wt 204 lbs (92.5kg). BP completed using cuff size: large. documented in this encounter Plan of Treatment Not on filedocumented as of this encounter Visit Diagnoses Diagnosis Onychia and paronychia of toe Ingrowing nail documented in this encounter Care Teams Cement Finisher Apprentice Relationship Specialty Start Date End Date Doctor, Nigel, PCP - General 06/21/01 07/19/11 documented as of this encounter
--- OUTSIDE RECORDS SUMMARY | 2022-03-28 18:26 | XMS_ITS | Encounter Summary ---
:1980 Author Organization [place] Address [address] [facility] [place] [address] Care Team Providers Name Role Phone DoctorNigel MD Primary Care Provider Unavailable Reason for Visit Reason Comments Refill Request Encounter Details Date Type Department Care Team Description 05/20/2002 Refill [facility] Anabela Almeida MD Refill Request [place] [address] [facility] [address] [place] [address] [place] [address] [phone] Social History Tobacco Use Types Packs/Day Years Used Date Smoking Tobacco: Never Assessed Sex Assigned at Date Recorded Not on file documented as of this encounter Miscellaneous Notes Telephone Encounter - 05/20/2002 11:59 PM TRAINMAN >> SARINA Carpenter May 22, 2002 9:19 AM 2nd request. The chart has been requested. >> SARINA Bedoya May 20, 2002 8:33 AM >> CALL RECEIVED. Contact: documented in this encounter Plan of Treatment Not on filedocumented as of this encounter Visit Diagnoses Not on filedocumented in this encounter Care Teams Inside Sales Advisor Relationship Specialty Start Date End Date Nigel Myers MD PCP - General 06/21/01 07/19/11 documented as of this encounter
--- OUTSIDE RECORDS SUMMARY | 2022-03-28 18:26 | XMS_ITS | Encounter Summary ---
:1980 Author Organization [facility] Address [address] [place] [address] Care Team Providers Name Role Phone Unavailable Primary Care Provider Unavailable Reason for Visit Reason Comments Patient Care Coordination home treatments Encounter Details Date Type Department Care Team Description 07/29/2019 Telephone Physicians Jaison and Ananth Orourke, PT Patient Care Back [address] Coordination ([place], [place], [place] treatment s) [address] [address] [place], [place] [id number] Social History Tobacco Use Types Packs/Day Years Used Date Smoking Tobacco: Never Assessed Sex Assigned at Date Recorded Not on file documented as of this encounter Nursing Notes Ananth Orourke, PT - 07/30/2019 2:47 PM CDT Called patient to discuss home exercise program while sheltering in place d/t COVID-19 pandemic. Email containing details sent with patient's consent. Ananth Orourke, PT 07/30/2019, 2:49 PM Sonam Venegas - 07/29/2019 2:59 PM CDT Patient would like to have information sent to her for home exercises. Please contact patient. Will send to Ananth Orourke PT documented in this encounter Plan of Treatment Not on filedocumented as of this encounter Visit Diagnoses Not on filedocumented in this encounter
--- OUTSIDE RECORDS SUMMARY | 2022-03-28 18:26 | XMS_ITS | Encounter Summary ---
:1980 Author Organization [place] Address [address] [facility] [place] [address] Care Team Providers Name Role Phone Doctor, Nigel CASILLAS Primary Care Provider Unavailable Encounter Details Date Type Department Care Team Description 10/22/2001 [facility] [place] [address] (Primary Dx) Laboratory [address] [place], [place] [address] [place], [place] [phone] (Wo rk) [id number] [phone] Social History Tobacco Use Types Packs/Day Years Used Date Smoking Tobacco: Never Assessed Sex Assigned at Date Recorded Not on file documented as of this encounter Plan of Treatment Not on filedocumented as of this encounter Visit Diagnoses Diagnosis DIAGNOSIS NOT YET DEFINED - Primary documented in this encounter Care Teams Fitness Professional Relationship Specialty Start Date End Date Nigel Myers MD PCP - General 06/21/01 07/19/11 documented as of this encounter
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
--- OUTSIDE RECORDS SUMMARY | 2022-03-28 18:26 | XMS_ITS | Encounter Summary ---
:1980 Author Organization [place] Address formerly [facility] [place] [address] Care Team Providers Name Role Phone DoctorNigel MD Primary Care Provider Unavailable Encounter Details Date Type Department Care Team Description 07/09/2006 Historic Results INTERFACED REPORT Brandyn Silva MD [facility] [address] [place] [address] (Wo rk) Social History Tobacco [...] Procedure Name Priority Date/Time Associated Comments Diagnosis HCG QUALITATIVE STAT 07/09/2006 7:00 PM Result s for this FOLDING MACHINE OPERATOR procedure are i n the results section. documented in this encounter Results HCG qualitative (07/09/2006 7:00 PM FOLDING MACHINE OPERATOR) [facility] gist Method Time Signature HCG Qualitative Negative NEG MISYS Serum Specimen Anatomical Collection Method Collection Time Receive d Time (Source) Location / / Volume Laterality 07/09/2006 7:00 PM 7 6:55 FOLDING MACHINE OPERATOR PM FOLDING MACHINE OPERATOR Brandyn Silva MD LAB - BLOOD ORDERABLES Performing Organization Address City/State/ZIP Code Phon e Number MISYS documented in this encounter Visit Diagnoses Not on filedocumented in this encounter Care Teams Behavior Interventionist Relationship Specialty Start Date End Date Nigel Myers MD PCP - General 06/21/01 07/19/11 documented as of this encounter
--- OUTSIDE RECORDS SUMMARY | 2022-03-28 18:26 | XMS_ITS | Encounter Summary ---
:1980 Author Organization [place] Address [address] [facility] [place] [address] Care Team Providers Name Role Phone Doctor, None Primary Care Provider Unavailable Encounter Details Date Type Department Care Team Description 11/24/2003 Delivery Summary [facility] OB Transcripti on Audie Douglas (Inspector Timers) [address] [facility] [place] [address] FREDI ESCOBEDO WRESTLING COACH [phone] CLINIC [address] [facility] [address] [place] [address] (Wo rk) Social History Tobacco Use Types Packs/Day Years Used Date Smoking Tobacco: Never Assessed Sex Assigned at Date Recorded Not on file documented as of this encounter Miscellaneous Notes L&D Delivery Note - Audie Douglas MD - 11/24/2003 12:00 AM CDT HISTORY: Chery Osborne is a 23-year-old, 1, para 0, at 40+5 weeks, who was admitted the evening prior to delivery, on 11/23/2003, with -induced hypertension. The patient has been followed by myself, Dr. Douglas. Her has been complicated by elevated blood pressures over the last two weeks of her . Her preeclamptic labs were all within normal limits on 11/20/2003. On her most recent visit, her blood pressure was still up, and with her nearing postdates gestation, we decided to proceed with induction of labor. HOSPITAL COURSE: The patient was admitted to the hospital on the evening of 11/23/2003, and her cervix was 2 cm dilated. She received one dose of Cytotec overnight, and was julio too actively for any further doses. On the morning of 11/24/2003, artificial rupture of membranes was performed with clear fluid at 7:45 a.m. The patient's cervix at that time was 21/2 cm dilated. The patient received Pitocin augmentation for her labor. She eventually received an epidural for pain control. The patient made quick progress to complete dilatation at 11:30 a.m. The patient's second stage of labor lasted a total of 1 hour 40 minutes. Towards the end of her second stage of labor, there was no further progress of the station. The station was at approximately +3. At this point, vacuum-assisted delivery was discussed with the patient, and she agreed to proceed. The Mity I mushroom vacuum was placed, and over six minutes, with no popoffs, a viable male was delivered at 1:10 p.m. A midline episiotomy had been performed with slight extension. Once the head was delivered, the mouth and nares were bulb suctioned. There was a nuchal cord that was clamped and cut. The remainder of the was then delivered and placed on the maternal abdomen. The Apgars were 8 and 9, and weight was 7 pounds 12 ounces. The placenta was delivered intact with a three-vessel cord at 1:24 p.m. The vaginal laceration was repaired with 3-0 Vicryl in the usual standard fashion. There were no complications. Estimated blood loss was less than 500 cc. FINAL DIAGNOSES: 1. Vacuum-assisted vaginal delivery of a viable male on 11/24/2003. 2. Epidural anesthesia. 3. Induction of labor for -induced hypertension. AUDIE DOUGLAS MD MT: sb Document: [id number] [place], [place] Name: CHERY OSBORNE DELIVERY SUMMARY Page 2 of 2 LCN: OB DSC: [place], [place] Name: CHERY OSBORNE MR#: : Delivery Date: -59 1980 11/24/2003 Doctor: AUDIE DOUGLAS MD DELIVERY SUMMARY Page 1 of 2 documented in this encounter Plan of Treatment Not on filedocumented as of this encounter Visit Diagnoses Not on filedocumented in this encounter Care Teams Strategic Buyer Relationship Specialty Start Date End Date Doctor, None, PCP - General 06/21/01 07/19/11 documented as of this encounter
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
--- OUTSIDE RECORDS SUMMARY | 2022-03-28 18:26 | XMS_ITS | Encounter Summary ---
:1980 Author Organization [place] Address [facility] [facility] [place] [address] Care Team Providers Name Role Phone Nigel Myers MD Primary Care Provider Unavailable Encounter Details Date Type Department Care Team Description 12/01/2009 Historic Results INTERFACED REPORT Robert Rogel MD [address] [place], [place] [address] (Wo rk) Social History [...] Name Priority Date/Time Associated Diagnosis Comme nts POTASSIUM Routine 12/01/2009 10:30 AM Results for this CDT procedure are i n the results section . documented in this encounter Results Potassium (12/01/2009 10:30 AM CDT) P athologist Signature Potassium 4.2 3.4 - 5.3 MISYS mmol/L Specimen Anatomical Collection Method Collection Time Receive d Time (Source) Location / / Volume Laterality 12/01/2009 10:30 12/01/2009 AM CDT 10:40 AM CDT Robert Rogel MD LAB - BLOOD ORDERABLES Performing Organization Address City/State/ZIP Code Phon e Number MISYS documented in this encounter Visit Diagnoses Not on filedocumented in this encounter Care Teams Inspector Boiler Relationship Specialty Start Date End Date Nigel Myers MD PCP - General 06/21/01 07/19/11 documented as of this encounter
--- OUTSIDE RECORDS SUMMARY | 2022-03-28 18:26 | XMS_ITS | Clinical Summary ---
:1980 Author Organization [facility] Address [address] [place] [address] Care Team Providers Name Role Phone Unavailable Primary Care Provider Unavailable Source Comments You are receiving this document as you are listed as the primary care provider,follow-up provider, or the patient has been referred to you for consultation.This is in compliance with the Medicare and Medicaid EHR Incentive Program,which states Providers who transition their patient to another setting of careor provider of care or refers their patient to another provider of care shouldprovide summarycare record for each transition of care or referral. Waterfall Medications Medication Sig Dispensed Refills Start Date End Date Status cyclobenzaprine Take 1 Tab by 30 Tab 1 10/24/2017 Active (FLEXERIL) 5 MG mouth at bedtime tabletIndications: as needed for Lumbar radiculitis Muscle Spasms. Resolved Problems Problem Noted Date Resolved Date Mechanical low back pain 06/11/2019 12/09/2019 Weakness 06/11/2019 12/09/2019 Lumbar radiculopathy 09/03/2017 12/10/2017 Social History Tobacco Use Types Packs/Day Years Used Date Smoking Tobacco: Never Assessed Sex Assigned at Date Recorded Not on file Plan of Treatment Health Maintenance Due Date Last Done Comments Cervical Cancer Screening 1980 Due Hep C Screening (Preventive 1980 Services) HepB (1) 1980 COVID-19 Vaccine (#1) 1980 HIV Screening (Preventive 1994 Services) Adult Preventive Visit 1996 Influenza (#1) 2022 03/18/2019, 02/10/2019, 02/07/2016, Additional history exists Zoster/Shingles (1 of 2) 2028 DTaP/Tdap/Td (3 - Tdap) 08/27/2028 08/27/2018, 03/31/2008 HPV Vaccine Aged Out No longer eligib le based on patient 's age to complete this topic HepA Aged Out No longer eligib le based on patient 's age to complete this topic Hib Aged Out No longer eligib le based on patient 's age to complete this topic IPV (Polio) Aged Out No longer eligib le based on patient 's age to complete this topic MCV4 Aged Out No longer eligib le based on patient 's age to complete this topic Pneumococcal Aged Out No longer eligib le based on patient 's age to complete this topic Insurance Payer Benefit Plan / Subscriber ID Effective Phone Address T ype Group Dates BCBS BCBS BLUE [id number] 2017-Pres [address] [employer] COMMERCIAL 1 ent [id number] [place] [address] SHEET METAL SHEET METAL [id number] 2017-Pres [phone] PO [id number] 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
--- OUTSIDE RECORDS SUMMARY | 2022-03-28 18:26 | XMS_ITS | Encounter Summary ---
:1980 Author Organization [place] Address [address] [facility] [place] [address] Care Team Providers Name Role Phone Doctor, None Primary Care Provider Unavailable Encounter Details Date Type Department Care Team Description 07/09/2006 Emergency room Edna Silva MD EMERGENCY PHYSIC [facility] [address] [place], [place] [id number] (Wo rk) Social History Tobacco Use Types Packs/Day Years Used Date Smoking Tobacco: Never Alcohol Use Standard Drinks/Week Comments Not Asked 0 (1 standard drink = 0.6 oz pure alcoho l) Sex Assigned at Date Recorded Not on file documented as of this encounter Progress Notes Interface, Physician Ophthalmologist - 08/24/2006 10:01 AM CDT FINAL CHIEF COMPLAINT: Having a headache. HISTORY OF PRESENT ILLNESS: 26-year-old woman comes to emergency department complaining of headachethat she says is like her previous headaches. It is the worst that she has had in quite a while. It began around noon and got much worse around 4. 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 This is one of her triggers from before. In the past she has also dealt a lot with just regular tension headaches. She says it has been quite a while since her last migraine. Yesterday she had slight headache, today it is bifrontal, left greater than right, does not change with position. She denies any trauma, no fevers, no runny nose. It is worse with light and noise and with rapid movements. It slightly decreased with Motrin, no change with Tylenol. She rates an 8/10 and is severe achy pain and she has had some nausea with dry heaving. No other complaints. No concerns for , she has been on Nova Ring for about 3 weeks, does not remember a hormonal component previously. MEDICATIONS: Tylenol, ibuprofen, Nova Ring. ALLERGIES: None. PAST MEDICAL HISTORY: Unremarkable. FAMILY HISTORY: Noncontributory. No reported aneurysms. SOCIAL HISTORY: Stable. REVIEW OF SYSTEMS: As discussed above pertinent things. All other systems are negative. PHYSICAL EXAMINATION: VITAL SIGNS: Blood pressure 154/100, pulse is 76, respiratory rate 12, temperature 96.1, sats 100%,recheck blood pressure 122/69. GENERAL: She is alert, oriented, in [id number] amount of distress when I see her, covering her eyes. HEENT: Her pupils are equal round and react to light. Extraocular movements are full and intact. There is no icterus or pallor. Nose, mouth and oropharynx normal. Sinus is nontender. TMs and teeth are normal. NECK, SPINE AND BACK: Without meningeal signs and no stridor or adenopathy. CHEST: Rise equal. LUNGS: Sounds are clear. HEART: Sounds normal S1, S2. I do not hear any murmurs, rubs or gallops. Pulses are symmetric and strong. ABDOMEN: Soft and nontender. Bowel sounds are present. There is no mass or organomegaly. GENITOURINARY AND RECTAL: Not examined. EXTREMITIES: Extremities x4 normal. NEUROLOGIC: Moves everything equally. PSYCHIATRIC/SKIN: Normal. LYMPH: Normal. NEUROLOGIC: Includes normal and symmetric cranial nerves. No pronator drift. Good fine motor skillsand normal neurologic exam. EMERGENCY DEPARTMENT COURSE: A 26-year-old woman with a history migraines and tension headaches presents now with one of her migraine headaches. Differential included infection or aneurysm which I think is all unlikely based on her history and presentation. In the department she has Reglan, Benadryl,Depacon and Toradol given. Depacon and Toradol are second line medications and the combination results in much decreased headache and currently her pain is a 2/10. She should follow with primary care in the next couple of days if not improving and Neurology as needed. She has seen a neurologist beforebeen on atenolol but went off this and has been having good luck with a body work for her tension typ e headaches. EMERGENCY DEPARTMENT DISPOSITION: To home. Return if worse. Follow with primary as needed in 2-3 days if not better. Follow up with the neurologist as needed, Motrin, Tylenol and migraine headache information is given. EMERGENCY DEPARTMENT FINAL IMPRESSION: Headache, acute exacerbation migraine. Electronically signed on 08/24/2006 10:01 by EDNA SILVA MD MT: KARLEN[facility]#[id number] Name: CHERY OSBORNE Account: [id number] : 1980 Visit Date: 07/09/2006 Document: [id number] documented in this encounter Plan of Treatment Not on filedocumented as of this encounter Visit Diagnoses Not on filedocumented in this encounter Care Teams Staff Technologist Relationship Specialty Start Date End Date Doctor, Nigel, PCP - General 06/21/01 07/19/11 documented as of this encounter
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
--- OUTSIDE RECORDS SUMMARY | 2022-03-28 18:26 | XMS_ITS | Encounter Summary ---
:1980 Author Organization [place] Address [address] [facility] [place] [address] Care Team Providers Name Role Phone Doctor, None MD Primary Care Provider Unavailable Encounter Details Date Type Department Care Team Description 06/30/2010 Historic Results INTERFACED REPORT Maria Teresa Adam MD EMERGENCY PHYSIC [facility] [address] [place] [address] (Wo rk) Social History Tobacco Use Types Packs/Day Years Used Date Smoking Tobacco: Never Alcohol Use Standard Drinks/Week Comments Not Asked 0 (1 standard drink = 0.6 oz pure alcoho l) Sex Assigned at Date Recorded Not on file documented as of this encounter Plan of Treatment Not on filedocumented as of this encounter Procedures Procedure Name Priority Date/Time Associated Comments Diagnosis CBC WITH PLATELETS & STAT 06/30/2010 1:00 AM R esults for this DIFFERENTIAL STRUCTURAL WELDER procedure are i n the results section. ABO/RH TYPE AND STAT 06/30/2010 1:00 AM Result s for this SCREEN STRUCTURAL WELDER procedure are i n the results section. BASIC METABOLIC PANEL STAT 06/30/2010 1:00 AM Results for this STRUCTURAL WELDER procedure are i n the results section. HCG QUALITATIVE URINE STAT 06/30/2010 12:53 Re sults for this AM STRUCTURAL WELDER procedure are i n the results section. ROUTINE UA WITH STAT 06/30/2010 12:53 Results for this MICROSCOPIC AM STRUCTURAL WELDER procedure are i n the results section. documented in this encounter Results (ABNORMAL) CBC with platelets differential (06/30/2010 1:00 AM STRUCTURAL WELDER) Patholo gist Method Time Signature MCV 86 78 - 100 [facility] fl MCH 28.9 26.5 - [facility] 33.0 pg MCHC 33.5 31.5 - [facility] 36.5 g/dL RDW 13.9 10.0 - [facility] 15.0 % WBC 15.5 (H) 4.0 - [facility] 11.0 10e9/L RBC Count 4.05 3.8 - 5.2 [facility] 10e12/L Hemoglobin 11.7 11.7 - M[facility] 15.7 g/dL Hematocrit 34.9 (L) 35.0 - M[facility] 47.0 % % Neutrophils 72.0 40 - 75 % MIS[facility] % Lymphocytes 23.3 20 - 48 % MIS[facility] % Monocytes 3.8 0 - 12 % MIS[facility] % Eosinophils 0.7 0 - 6 % [facility] % Basophils 0.2 0 - 2 % [facility] Platelet Count 323 150 - 450 [facility] 10e9/L Absolute 11.1 (H) 1.6 - 8.3 [facility] Neutrophil 10e9/L Absolute 3.6 0.8 - 5.3 [facility] Lymphocytes 10e9/L Absolute 0.6 0.0 - 1.3 [facility] Monocytes 10e9/L Absolute 0.1 0.0 - 0.7 [facility] Eosinophils 10e9/L Absolute 0.0 0.0 - 0.2 [facility] Basophils 10e9/L Diff Method Automated [facility] Method Specimen Anatomical Collection Method Collection Time Receive d Time (Source) Location / / Volume Laterality 06/30/2010 1:00 AM 1 1:08 STRUCTURAL WELDER AM STRUCTURAL WELDER James Adam MD LAB - BLOOD ORDERABLES Performing Organization Address City/State/ZIP Code Phon e Number [facility] Basic metabolic panel (06/30/2010 1:00 AM STRUCTURAL WELDER) P athologist Signature Sodium 139 133 - 144 [facility] mmol/L Potassium 3.8 3.4 - 5.3 [facility] mmol/L Chloride 104 94 - 109 [facility] mmol/L Carbon Dioxide 26 20 - 32 [facility] mmol/L Glucose 92 60 - 99 [facility] mg/dL Urea Nitrogen 13 5 - 24 [facility] mg/dL Creatinine 0.74 0.52 - 1.04 [facility] mg/dL Comment: New IDMS-traceable calibration beginning 09/05/07 GFR Estimate >90 >60 mL/min/1.7m2 [facility] GFR Estimate If Black >90 >60 mL/min/1.7m2 [facility] Calcium 9.1 8.5 - 10.4 mg/dL [facility] Anion Gap 9 6 - 17 mmol/L [facility] Specimen Anatomical Collection Method Collection Time Receive d Time (Source) Location / / Volume Laterality 06/30/2010 1:00 AM 1 1:08 STRUCTURAL WELDER AM STRUCTURAL WELDER James Adam MD LAB - BLOOD ORDERABLES Performing Organization Address City/State/ZIP Code Phon e Number [facility] ABO/Rh type and screen (06/30/2010 1:00 AM STRUCTURAL WELDER) Analysis Performed At Patho logist Time Signature ABO A [facility] RH(D) Pos [facility] Antibody Neg [facility] Screen Specimen 07/03/2010 [facility] Expires Specimen Anatomical Collection Method Collection Time Receive d Time (Source) Location / / Volume Laterality 06/30/2010 1:00 AM 1 1:08 STRUCTURAL WELDER AM STRUCTURAL WELDER James Adam MD LAB - BLOOD BANK TEST ORDER Performing Organization Address City/State/ZIP Code Phon e Number [facility] (ABNORMAL) Routine UA with microscopic (06/30/2010 12:53 AM STRUCTURAL WELDER) Patholo gist Method Time Signature Source Midstream [facility] Urine Color Urine Yellow [facility] Appearance Urine Clear [facility] Glucose Urine Negative NEG mg/dL [facility] Bilirubin Urine Negative NEG [facility] Ketones Urine Negative NEG mg/dL [facility] Specific [place] 1.017 1.003 - [facility] Urine 1.035 Blood Urine Moderate (A) NEG [facility] pH Urine 7.0 5.0 - 7.0 [facility] pH Protein Albumin 10 (A) NEG mg/dL [facility] Urine Urobilinogen 2.0 0.0 - 2.0 [facility] mg/dL mg/dL Nitrite Urine Negative NEG [facility] Leukocyte Moderate (A) NEG [facility] Esterase Urine WBC Urine 3 (H) 0 - 2 [facility] /HPF RBC Urine 34 (H) 0 - 2 [facility] /HPF Squamous 8 (H) 0 - 1 [facility] Epithelial /HPF /HPF Urine Bacteria Urine Few (A) NEG /HPF [facility] Mucous Urine Present (A) NEG /LPF [facility] Specimen Anatomical Collection Method Collection Time Receive d Time (Source) Location / / Volume Laterality 06/30/2010 12:53 06/30/2010 1:08 AM STRUCTURAL WELDER AM STRUCTURAL WELDER James Adam MD LAB - URINE ORDERABLES Performing Organization Address City/State/ZIP Code Phon e Number M[facility] HCG qualitative urine (06/30/2010 12:53 AM STRUCTURAL WELDER) P athologist Signature HCG Qual Urine Negative NEG [facility] Specimen Anatomical Collection Method Collection Time Receive d Time (Source) Location / / Volume Laterality 06/30/2010 12:53 06/30/2010 1:08 AM STRUCTURAL WELDER AM STRUCTURAL WELDER James Adam MD LAB - URINE ORDERABLES Performing Organization Address City/State/ZIP Code Phon e Number M[facility] documented in this encounter Visit Diagnoses Not on filedocumented in this encounter Care Teams Roll Forger Relationship Specialty Start Date End Date Doctor, Nigel, PCP - General 06/21/01 07/19/11 documented as of this encounter
--- OUTSIDE RECORDS SUMMARY | 2022-03-28 18:26 | XMS_ITS | Encounter Summary ---
:1980 Author Organization [place] Address [address] [facility] [place] [address] Care Team Providers Name Role Phone DoctorNigel MD Primary Care Provider Unavailable Encounter Details Date Type Department Care Team Description 05/21/2002 Abstract M [facility] [place], Samra [address] [place] [address] Social History Tobacco Use Types Packs/Day Years Used Date Smoking Tobacco: Never Assessed Sex Assigned at Date Recorded Not on file documented as of this encounter Plan of Treatment Not on filedocumented as of this encounter Procedures Procedure Name Priority Date/Time Associated Diagnosis Comme nts ABSTRACT [facility] REPORT Routine 05/21/2002 documented in this encounter Results ABSTRACT [facility] REPORT (05/21/2002) Narrative This result has an attachment that is no t available. [facility] documented in this encounter Visit Diagnoses Not on filedocumented in this encounter Care Teams Quality Measurement Specialist Relationship Specialty Start Date End Date Nigel Myers MD PCP - General 06/21/01 07/19/11 documented as of this encounter
--- OUTSIDE RECORDS SUMMARY | 2022-03-28 18:26 | XMS_ITS | Encounter Summary ---
:1980 Author Organization [place] Address [address] [facility] [place] [address] Care Team Providers Name Role Phone Doctor, None MD Primary Care Provider Unavailable Encounter Details Date Type Department Care Team Description 06/30/2010 Results Only [facility] James Mcnamara MD Hospital Results EM[facility]ENCY [facility] [address] [place] [address] (Wo rk) Social History Tobacco [...] Date/Time Associated Comments Diagnosis CT ABDOMEN PELVIS W Routine 06/30/2010 6:07 AM Re sults for this CONTRAST BLUEPRINT ENGINEER procedure are i n the results section. US PELVIC Routine 06/30/2010 4:11 AM Results f or this TRANSABDOMINAL AND BLUEPRINT ENGINEER procedure are in TRANSVAGINAL the results section. documented in this encounter Results CT Abdomen pelvis w contrast* (06/30/2010 6:07 AM BLUEPRINT ENGINEER) Anatomical Region Laterality Modality Abdomen/Pelvis, SUBRAD CT BODY, UMP CT ABDOMEN PELVIS Computed Tomography Specimen (Source) Anatomical Collection Method Collection Time Re ceived Time Location / / Volume Laterality 06/30/2010 6:07 AM BLUEPRINT ENGINEER Impressions 07/01/2010 4:[address] ABDOMEN AND PELVIS WITH CONTRAST ??Fe b 2010 6:07 AM HISTORY: Midabdominal pain. History of g allbladder surgery. TECHNIQUE: Volumetric acquisition throug h abdomen and pelvis with oral and IV contrast. 100 mL of Optiray 350. COMPARISON: None. FINDINGS: The liver and spleen are negat emiliano. The gallbladder is absent. The pancreas, adrenal glands and kidneys are negative. No hydronephrosis. The uterus is present. There is an IUD i n place. Right adnexal/ovarian cyst measuring 5.9 x 4.7 x 6.2 cm. There is also a small left ovarian cyst measuring 1.2 cm which is likely ph ysiologic. No free fluid, bowel obstruction or other acute finding s. No evidence of appendicitis. IMPRESSION: 1. Approximately 6 cm right ovarian/adne xal cyst. This could be further characterized with ultrasound. 2. At a minimum, short-term followup ult rasound in 2 months is recommended to ensure resolution. 3. No other acute findings. Cholecystect sofia. A preliminary report was relayed to refe rring physician by radiologist electrical automation engineer. James Adam MD IMG CT ORDERABLES US Pel W/Trans* (06/30/2010 4:11 AM BLUEPRINT ENGINEER) Anatomical Region Laterality Modality Abdomen/Pelvis Other Specimen (Source) Anatomical Collection Method Collection Time Re ceived Time Location / / Volume Laterality 06/30/2010 4:11 AM BLUEPRINT ENGINEER Impressions 06/30/2010 10:33 PM BLUEPRINT ENGINEER PELVIC ULTRASOUND WITH TRANSVAGINAL IMAG ING ? Jun 30, 2010 4:11:00 AM HISTORY: Abdominal pain. TECHNIQUE: Transvaginal images were perf ormed to better evaluate the patient's uterus, ovaries and endometria l stripe. COMPARISON: None. FINDINGS: The uterus is measured at 9.7 x 6 x 4.7 cm. No fibroids are evident. An IUD appears to be in good po sition within the endometrial cavity. Endometrial stripe is not well s een due to the presence of the IUD, but measures up to 1.4 cm. The righ t ovary contains a simple-appearing cyst measuring 5.5 cm. The right ovary itself is measured at 6 x 5.3 x 5.3 cm. The left o vary is seen transabdominally only, due to its lateral positioning. Th e left ovary appears unremarkable where seen, and is measured at 2.3 x 2 x 1.6 cm. No solid adnexal masses are identified. No free p elvic fluid is present. The right ovary demonstrates normal color Do ppler flow. Color Doppler flow was not attempted on the transabdominal views of the left ovary. IMPRESSION: 1. Simple-appearing right ovarian cyst m easures 5.5 cm. Followup ultrasound could be performed in 3-6 mon ths to ensure resolution. 2. IUD appears to be in good position wi thin the endometrial cavity. 3. The endometrium is not well seen, but measures up to 1.4 cm in thickness. The preliminary report was provided by Douglas Hobson at 4:15 a.m. James Adam MD IMG US ORDERABLES documented in this encounter Visit Diagnoses Not on filedocumented in this encounter Care Teams Golf Course Assistant Relationship Specialty Start Date End Date Doctor, None, PCP - General 06/21/01 07/19/11 documented as of this encounter
--- OUTSIDE RECORDS SUMMARY | 2022-03-28 18:26 | XMS_ITS | Encounter Summary ---
:1980 Author Organization [facility] Address [address] [facility] [place] [address] Care Team Providers Name Role Phone Doctor, None Primary Care Provider Unavailable Encounter Details Date Type Department Care Team Description 12/01/2009 Admission [facility] Juan Moon (Informatics Consultant) [facility] MD Royce Results [address] [facility] [address] [place], [place] [id number] Social History Tobacco Use Types Packs/Day Years Used Date Smoking Tobacco: Never Alcohol Use Standard Drinks/Week Comments Not Asked 0 (1 standard drink = 0.6 oz pure alcoho l) Sex Assigned at Date Recorded Not on file documented as of this encounter Progress Notes Juan Moon - 12/03/2009 8:40 AM CDT FINAL CHIEF COMPLAINT: Chery Osborne is a very pleasant 29-year-old female scheduled for laparoscopic cholecystectomy. I have been asked to see her and clear her for the procedure. HISTORY OF PRESENT ILLNESS: The patient notes feeling of GI upset that has been going on for quite some time. I saw her on 10/12/2009 at which time she noted a feeling of the stomach material on the back of her throat for some time. Prior to this in August of this year she had an upper GI endoscopy that was normal with a biopsy that was done showing question of celiac disease. She was placed on a proton pump inhibitor and noted to be better but still some complaints. When I saw on 10/12/2009 she noted epigastric discomfort, few episodes off and on. It would last 5 hours and nothing would effect it including antacids. She would go to bed and then she would be fine. Prior evaluation for hypertensionshowed an MRA that showed gallstones. She was not having weight loss. She also felt bloated and gassy. At that time it was my recommendation that she see GI again if they agree to see surgery for gallstone removal. She did not see GI but saw Dr. Rogel and is now scheduled for laparoscopic cholecystectomy. PAST MEDICAL HISTORY: 1. Abdominal discomfort with upper endoscopy and biopsy as noted above. 2. Pilonidal cyst resection and college. 3. Benign microhematuria. 4. Hypertension. 5. Prior MRA renogram 2008 showing gallstones and otherwise normal. 6. Migraines. 7. Tummy tuck 2008. MEDICATIONS: 1. Verapamil 240 a day. 2. Hydrochlorothiazide 12.5 a day. 3. Omeprazole. 4. Minocycline for acne. ALLERGIES: None. HABITS: Smoke: never. Alcohol: 1 a week. SOCIAL HISTORY: The patient is , two kids. 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 FAMILY HISTORY: No history of bleeding difficulty or difficulty with anesthesia or blood clots. REVIEW OF SYSTEMS: The patient herself has no history of bleeding difficulty, difficulty with anesthesia or blood clots. HEENT: Negative. CARDIOVASCULAR: Negative. RESPIRATORY: Negative. GASTROINTESTINAL: Occasional indigestion, gurgly stomach. No nausea, vomiting. No diarrhea. Bowel movements are normal. No fevers or unexplained weight loss. GENITOURINARY: Negative. GENERAL AND NEUROLOGIC: All negative. She did have some low back pain for the last 24 hours on the left side, not radiating. No leg symptoms. PHYSICAL EXAMINATION: VITAL SIGNS: Blood pressure 110/82, pulse and respirations normal. SKIN: Normal. HEENT: Mouth is normal. Eyes are normal. NECK: Normal. Thyroid not enlarged, no supraclavicular, cervical or axillary nodes. LUNGS: Clear. CARDIOVASCULAR: Regular rate and rhythm, no murmur, rub or gallop. No jugular venous pressure or edema. Carotids are normal, no bruits. ABDOMEN: Soft, nontender, no masses. LABORATORY DATA: None were done, I would not have had any results back by the time of surgery. ASSESSMENT: 1. Intermittent abdominal discomfort, possibly gallstone but certainly cannot say for sure and the patient understands this. 2. Hypertension, good control on therapy. Chemistries in March were normal. 3. Musculoskeletal back pain. RECOMMENDATIONS: 1. Proceed with procedure as planned. 2. The patient to take her pills with a small sip of water. Electronically signed on 12/03/2009 08:39 by JUAN MOON MD MT: [id number] Name: CHERY OSBORNE Account: [id number] : 1980 Admitted: [id number] Document: [id number] cc: Robert Rogel MD documented in this encounter Plan of Treatment Not on filedocumented as of this encounter Visit Diagnoses Not on filedocumented in this encounter Care Teams Day Care Aide Relationship Specialty Start Date End Date Doctor, Nigel, PCP - General 06/21/01 07/19/11 documented as of this encounter
--- OUTSIDE RECORDS SUMMARY | 2022-03-28 18:26 | XMS_ITS | Encounter Summary ---
:1980 [facility] Address [address], [place] [address] Care Team Providers Name Role Phone Unavailable Primary Care Provider Unavailable Reason for Visit Reason Comments BACK PAIN, LOW Consult/Transfer Care (Routine) - Closed Specialty Diagnoses / Procedures Referred By Contact Refer red To Contact Physical Therapy Diagnoses LOW BACK PAIN L5-S1 Dakota Butler MD [address] [place] [address] Phone: Fax: Referral ID Status Reason Start Date Expiration Date Visits Requ ested Visits Authorized [id number] Closed 06/06/2019 09/04/[phone] Encounter Details Date Type Department Care Team Description 07/09/2019 Therapy [facility] and Kim Jimenez, PT Mechanical low back pain (Primary Dx); Back Center [address] [place] [address] Drive,[address] [place] [address] [phone] Social History Tobacco Use Types Packs/Day Years Used Date Smoking Tobacco: Never Assessed Sex Assigned at Date Recorded Not on file documented as of this encounter Progress Notes Kim Jimenez PT - 07/09/2019 10:00 AM CST 07/09/2019 Visit # 8 Protocol: Back and Disc Start: 10:15am End: 10:53am (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 Cervical Not performed today. Objective Tests & Measures: 80% LExt d/t c/o increase LAZARO following heavy Lext days. No increase aux d/t recent c/o HAs. Tests performed today (see [facility] for score and outcomes): : Range of Motion See daily exercise. Warm Up: Movement Specific Training: Completed Treadmill: Minutes 5 Intensity walk ICE: Back Lumbar Lumbar & Torso 07/09/2019 Set 1 Ext % Max 80 Set 1 Ext ROM 0-42 Set 1 Ext Wgt 80 Set 1 Ext Reps 30 Set 1 Ext Tul 151 Set 1 Ext Zina RPE 5 Set 2 Ext % Max 80 Set 2 Ext ROM 0-42 Set 2 Ext Wgt 80 Set 2 Ext Reps 20 Set 2 Ext Tul 89 Set 2 Zina RPE 10 cramping Left Rot % Max 60 Left Rot ROM 30 Left Rot Wgt 30 Left Rot Reps 30 Left Rot Abilio RPE 3 Right Rot % Max 60 Right Rot ROM 30 Right Rot Wgt 30 Right Rot Reps 30 Right Rot Zina RPE 3 Therapeutic Exercise (29 min): Patient performed isolated lumbar extension exercise and auxillary exercises to improve muscle strength, to improve muscle endurance and to improve range of motion to increase tolerance for sitting, standing, walking and lifting PT set-up of all exercises. Monitored for symptoms, tolerance, and technique. Cues for position withGH - required for improved muscle performance and recruitment. good follow-through with cueing. Neuromuscular Re-Education (9 min): Patient performed isolated torso rotation to improve coordination and movement quality and decrease substitution patterns and normalize movement patterns to increase tolerance for personal care tasks, household tasks and work activities. PT set-up of all exercises. Monitored for symptoms, tolerance, and technique. No cues required today- good form noted with exercise(s). Auxillary Auxillary 07/09/2019 Abs Wgt Set 1 70 Abs Reps Set 1 30 Abs Wgt Set 2 70 Abs Reps Set 2 20 Glute Wgt Set 1 120 Glute Reps Set 1 28 Glute Wgt Set 2 120 Glute Reps Set 2 29 Leg Press Wgt Set 1 260 Leg Press Reps Set 1 25 Leg Press Wgt Set 2 260 Leg Press Reps Set 2 30 Other - HEP - Therapeutic Activities (0 min): Not performed today. Patient Education: Plan for today. Reviewed pt's strength gains - wt progression, progression towards target goals, or visual graph. Good understanding of info provided today. Assessment: The patient tolerated today's session well with no adverse effects. Good fatigue on Lext- higher fatigue than anticipated. No c/o increase LAZARO following session. Pt was encouraged to use ice, move, and utilize passive treatment as she sees fit for her HAs - and if does not improve, she maybe a candidate for PT here for her neck. Minimal-no improvement in LE symptoms thus far - anticipated slower progress, but pt may schedule f/u with surgeon soon to discuss lack of progress. Goals: Target Weight Goals: 120-150ft# per PT [...] stand >??20 minutes without increase symptoms. ?? Nurse Manager Goals (>6 weeks): 1. Patient will be [...] Fitness; planning to return to her boot [employer] classes; possibly buying a Jovany Chair for home use. ?? [employer] access code: [email or web address] - previous code ?? Precautions/Other Information:??Disc. ??L [...] at80% until LAZARO symptoms have improved. Recommendations/Communication: 80-90% Troto; 60% LExt; increase aux as tolerated. 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
--- OUTSIDE RECORDS SUMMARY | 2022-03-28 18:26 | XMS_ITS | Encounter Summary ---
:1980 Author Organization [facility] Address [facility] [place] [address] Care Team Providers Name Role Phone Trenton Motley MD Primary Care Provider Reason for Visit Reason Onset Date Comments Refill Request 01/16/2012 verapamil Encounter Details Date Type Department Care Team Description 01/16/2012 Refill [facility] Trenton Motley MD Refill Request [facility] (verapamil) [address] [facility] [address] [place] [phone] [place], [place] [address] (Wo rk) Social History Tobacco Use Types Packs/Day Years Used Date Smoking Tobacco: Never Alcohol Use Standard Drinks/Week Comments No 0 (1 standard drink = 0.6 oz pure alcoho l) Sex Assigned at Date Recorded Not on file documented as of this encounter Miscellaneous Notes Telephone Encounter - Concepción Cintron - 01/18/2012 12:10 PM CDT Unable to fill per standing order. Routed to Jessica Guerra. Reason: Patient has never been seen at our clinic. Mindy Cintron RN, BS, PHN documented in this encounter Plan of Treatment Not on filedocumented as of this encounter Visit Diagnoses Not on filedocumented in this encounter Care Teams Boom Operator Relationship Specialty Start Date End Date Trenton Motley MD PCP - General Internal Medicine 07/20/11 03/02/[address] [address] documented as of this encounter
--- OUTSIDE RECORDS SUMMARY | 2022-03-28 18:27 | XMS_ITS | Encounter Summary ---
:1980 Author Organization [facility] Address [address] [place] [address] Care Team Providers Name Role Phone Unavailable Primary Care Provider Unavailable Reason for Visit Reason Comments BACK PAIN, LOW Consult/Transfer Care (Routine) - Closed Specialty Diagnoses / Procedures Referred By Contact Refer red To Contact Physical Therapy Diagnoses LOW BACK PAIN Chao Huggins, [employer] [facility] [address] [place] [address] [address] [place] [address] [place] [address] Fax: Referral ID Status Reason Start Date Expiration Date Visits Requ ested Visits Authorized [id number] Closed 08/30/2017 11/29/2018 40 40 Encounter Details Date Type Department Care Team Description 10/03/2017 Therapy [facility] Back Halie Burks PTA [facility] [place] [address] [place] [address],[address] [place] [address] Social History Tobacco Use Types Packs/Day Years Used Date Smoking Tobacco: Never Assessed Sex Assigned at Date Recorded Not on file documented as of this encounter Progress Notes Halie Burks PTA - 10/03/2017 10:00 AM CDT 10/03/2017 Visit # 7 Protocol: Back Start: 10:20 End: 10:53 (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 Increased sx after mowing lawn. Rode bike x 12 miles without increased sx. Sleeping about 6 hrs/ PM now. Cervical Not performed today. Objective Tests & Measures: + 12 ft lbs with L-ext to 90 ft lbs Tests performed today (see reviewflowsheet for score and outcomes): : None Performed Today Warm Up: Movement Specific Training: Completed Treadmill: Minutes 5 Intensity mod ICE: Back Lumbar Lumbar & Torso 10/03/2017 Set 1 Ext % Max 100% Set 1 Ext ROM 0-42 Set 1 Ext Wgt 90 Set 1 Ext Reps 23 Set 1 Ext Tul 101 Set 1 Ext Zina RPE 7 Set 2 Ext % Max 100% Set 2 Ext ROM 0-42 Set 2 Ext Wgt 90 Set 2 Ext Reps 20 Set 2 Ext Tul 90 Set 2 Zina RPE 8 Left Rot % Max 60% Left Rot ROM 30 Left Rot Wgt 26 Left Rot Reps 20 Left Rot Abilio RPE 3 Right Rot % Max 60% Right Rot ROM 30 Right Rot Wgt 26 Right Rot Reps 20 Right Rot Zina RPE 3 Therapeutic Exercise (23 min): Patient performed isolated lumbar extension exercise, auxillary exercises and movement specific training to improve muscle strength, to improve muscle endurance and to strengthen postural muscles to decrease stresses on the spine to increase tolerance for sitting, sleeping and commute to/ from work. Verbal cues given to ensure slow & controlled mvmt through full ROM. Reminders for breathing given. Assessed and progressed wts with aux ex to more fatiguing level Neuromuscular Re-Education (10 min): Patient performed movement specific training and isolated torso rotation to retrain muscles for proper sequencing and decrease substitution patterns and normalize movement patterns to increase tolerance for sitting, sleeping and commute to/ from work. Reminded pt to pull back vs push with T-roto. Auxillary Auxillary 10/03/2017 Abs Wgt Set 1 55 Abs Reps Set 1 20 Abs Wgt Set 2 55 Abs Reps Set 2 20 Glute Wgt Set 1 100 Glute Reps Set 1 20 Glute Wgt Set 2 110 Glute Reps Set 2 20 Leg Press Wgt Set 1 210 Leg Press Reps Set 1 20 Leg Press Wgt Set 2 220 Leg Press Reps Set 2 20 HEP - Therapeutic Activities ( min): Not performed today. Patient Education: Patient was instructed in pain/time scale to increase their understanding of the benefits related tocompleting the PNBC Rehab program POC for rx today Assessment: Max fatigue with L-ext. Min fatigue with T-roto. Increased aux ex/wts felt challenging. STG #1 met subjectively. Progressing toward LTG #2. Cont to make good obj gains with strengthening. Pt would benefit from further strengthening to achieve unmet goals. Appropriate for cont strengtheningto improve strength deficits that decrease functional activity levels. Worked hard with rx Goals: Short Term Goals (4-6 weeks): 1. Pt will report able to have improved sleep, without need for medication sleep 6-7 hours without interruption of back/le symptoms MET 10/03/17 2. Pt will report able to have improved mobility in morning no left le symptoms while getting out bed to walk/stand most mornings 3. Pt will report commute tolerance improved, able to drive to/from work with no greater than mild le/low back symptoms ? Longterm Goals (>6 weeks): 1. Patient will be independent with home exercise program after discontinued from Physical Therapy. 2. Pt will be able to ride her bike 15 miles/1hour without any low back or le symptoms other than slight Progressing 12 miles 10/03/17 3. Pt will bel able to sit in her car 1-2 hours with no greater than slight symptoms 4. Pt will be able to sleep uninterrupted by low back le symptoms other than slight and infrequentlyless often than weekly Precautions/Other Information: disc monitor left le symptoms ? Recommendations/Communication: Try 95 ft lbs with next 100% L-ext. Try to slow rep speed as able. Work with bill chair as time permits Total timed code min: 33 Total treatment time: 33 Halie Burks PTA 10/03/2017, 10:59 AM documented in this encounter Plan of Treatment Not on filedocumented as of this encounter Visit Diagnoses Diagnosis Lumbar radiculopathy Thoracic or lumbosacral neuritis or radi culitis, unspecified documented in this encounter
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
--- OUTSIDE RECORDS SUMMARY | 2022-03-28 18:27 | XMS_ITS | Encounter Summary ---
:1980 Author Organization [employer] Address [address] [place] [address] Care Team Providers Name Role Phone Unavailable Primary Care Provider Unavailable Reason for Visit Reason Onset Date Comments BACK PAIN 08/31/2017 Consult/Transfer Care (Routine) - Closed Specialty Diagnoses / Procedures Referred By Contact Refer red To Contact Physical Therapy Diagnoses LOW BACK PAIN Chao Huggins, [employer] P[facility] CASILLAS [address] [place] [address] BRAEDEN VILLAR [facility],[address] [place] [address] [place] [address] Fax: Referral ID Status Reason Start Date Expiration Date Visits Requ ested Visits Authorized [id number] Closed 08/30/2017 11/29/2018 40 40 Encounter Details Date Type Department Care Team Description 08/31/2017 Office Visit Physicians Neck and Twin Syed Lumb ar radiculitis; Back Center Muscular decond itions[place] [address] [place] [address],[address] [place] [address] Social History Tobacco Use Types Packs/Day Years Used Date Smoking Tobacco: Never Assessed Sex Assigned at Date Recorded Not on file documented as of this encounter Progress Notes Twin Syed MD - 08/31/2017 1:26 PM CDT History The patient is here for initial evaluation of back pain with pain in the left leg to the ankle. Symptoms been present since December 05, 2013. Patient reports having MRI scan reportedly showing disc pressing on a nerve root. No history of spinal surgery. She has tried passive treatments. 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 She is working without restrictions. Oswestry score 24, pain scale 4. She is otherwise healthy. Exam All range of motion measurements done with inclinometer. Posture upright, body habitus slightly overweight. No kyphosis or scoliosis. No pelvis her shoulder deformity. Patient moves about the room without difficulty. Toe and heel walking normal without increased symptoms. Skin warm and dry. Respiratory no shortness of breath at rest or with exertion. Affect normal. Alert and oriented ??3. No lymphadenopathy. Lumbar range of motion flexion 50??, extension 30??, bending symmetric 44??, right straight leg raise 82??, left straight leg raise 92??. Motor, sensation and reflex examinations symmetric and normal lower extremities. Maximal tenderness lumbar spine. Negative nonorganic findings. Assessment Left lumbar radiculitis Deconditioning syndrome I recommend standard lumbar disc protocol twice a week for estimated 18-24 sessions with follow up after 12 sessions Plan History was reviewed with the patient. Physical exam performed. I reviewed the imaging findings,where available, with the patient in detail. I explained the anatomy and pathophysiology using the spine model. I explained the program in detail We discussed the difference between active and passive treatment.I outlined the natural course of treatment. I reviewed the treatment plan. We discussed the benefit\necessity of a home maintenance program after completion of active rehab.I answered questions. Information packet given.given the history and physical exam the patient likely has a deconditioning syndrome. Therefore, a short-term, active rehabilitation program is recommended. Average time for completion 18-24 sessions. A program of progressive resistance and mobility exercises combined with aerobic conditioning and body mechanics instruction will be used. Instruction in a maintenance home exercise program will be given. Treatment will continue until maximal medical improvement from therapy have been met. I spent 45 minutes on patient care over half of which was spent on counseling and education. Twin Syed MD 08/31/2017 1:26 PM Voice recognition software was used to create this note, please excuse any small errors that occur while using this. documented in this encounter Plan of Treatment Not on filedocumented as of this encounter Visit Diagnoses Diagnosis Lumbar radiculitis Thoracic or lumbosacral neuritis or radi culitis, unspecified Muscular deconditioning Muscular wasting and disuse atrophy, not elsewhere classified documented in this encounter
--- OUTSIDE RECORDS SUMMARY | 2022-03-28 18:27 | XMS_ITS | Encounter Summary ---
:1980 Author Organization [facility] Address [address] [place] [address] Care Team Providers Name Role Phone Unavailable Primary Care Provider Unavailable Reason for Visit Outpatient (Routine) - Closed Specialty Diagnoses / Procedures Referred By Contact Refer red To Contact Otorhinolaryngology Diagnoses Kumar Milan M.D. [facility] [address] [place] [phone] Referral ID Status Reason Start Date Expiration Date Visits Requ ested Visits Authorized [id number] Closed 08/17/2020 08/17/2021 1 1 Encounter Details Date Type Department Care Team Description 10/05/2020 Office Visit Department of Kumar Milan Salivary Gland Otorhinolaryngology alaina Pace M.D. (Primary Dx) [place], [place] [address] [place] [address] [place] [phone] Social History Tobacco Use Types Packs/Day Years Used Date Smoking Tobacco: Never Smokeless Tobacco: Never Alcohol Use Standard Drinks/Week Comments Never 0 (1 standard drink = 0.6 oz pure alcoho l) Alcohol Habits Answer Date Recorded How often do you have a drink containing alcohol? Monthly or less 10/01/2020 How many drinks containing alcohol do you have on a 1 or 2 10/01/2020 typical day when you are drinking? How often do you have six or more drinks on one Never 10/01/2020 occasion? Social Isolation Answer Date Recorded In a typical week, how many times do you More than three augustine es a week 10/01/2020 talk on the phone with family, friends, or neighbors? How often do you get together with friends Three times a wee k 10/01/2020 or relatives? How often do you attend scientology or Never 2020 zoroastrian services? Do you belong to any clubs or Yes 10/01/2020 organizations such as scientology groups, unions, fraternal or athletic groups, or school groups? How often do you attend meetings of the More than 4 times pe r year 10/01/2020 clubs or organizations you belong to? Are you now , , , 10/01/2020 , never or living with a partner? Physical Activity Answer Date Recorded On average, how many days per week do you engage in moderate to 5 days 10/01/2020 strenuous exercise (like walking fast, running, jogging, dancing, swimming, biking, or other activities that cause a light or heavy sweat)? On average, how many minutes do you engage in exercise at th is 40 min 10/01/2020 level? Stress Answer Date Recorded Do you feel stress - tense, restless, nervous, or anxious, N ot at all 10/01/2020 or unable to sleep at night because your mind is troubled all the time - these days? Financial Resource Strain Answer Date Recorded How hard is it for you to pay for the very basics like Not h k[place] at all 10/01/2020 food, housing, medical care, and heating? Food Insecurity Answer Date Recorded Within the past 12 months, you worried that your food would Never true 10/01/2020 run out before you got money to buy more. Within the past 12 months, the food you bought just didn't N ever true 10/01/2020 last and you didn't have money to get more. Transportation Needs Answer Date Recorded In the past 12 months, has lack of transportation kept you f rom No 10/01/2020 medical appointments or from getting medications? In the past 12 months, has lack of transportation kept you f rom No 10/01/2020 meetings, work, or getting things needed for daily living? Housing Stability Answer Date Recorded In the last 12 months, was there a time when you were not ab le No 10/01/2020 to pay the mortgage or rent on time? In the last 12 months, how many places have you lived? 1 10/01/2020 In the last 12 months, was there a time when you did not hav e a No 10/01/[address] or slept in a fci (including now)? Education Answer Date Recorded What is the highest level of Professional school degree (e.g ., , 10/01/2020 school you have completed or the DDS, DVM, LUDA) highest degree you have received? Sex Assigned at Date Recorded Not on file documented as of this encounter Progress Notes Kumar Milan M.D. - 10/05/2020 8:15 AM CDT CHIEF COMPLAINT/REASON FOR VISIT Followup lymph node. HISTORY OF PRESENT ILLNESS Ms. Osborne returns today for followup of her submandibular submental lymph node. She has not noted anysignificant change in this. We had previously biopsied this, and it was consistent with a reactive lymph node. OBJECTIVE PHYSICAL EXAMINATION General: Ms. Osborne is awake, alert, oriented, appropriate. She is in no acute distress. ENT: Palpation of the parotid, neck, and thyroid reveals a persistent left submental lymph node which is mobile. DIAGNOSTICS I reviewed the imaging, compared it to her previous February imaging, as well as confirmed pathology. ASSESSMENT / PLAN #1 Followup lymph node PLAN: Discussed again our findings and options. I think it would be reasonable to remove this node, thoughit has been present for several years. It certainly is outside the normal morphology and size range but that may be in part related to multiple procedures. All of her questions we answered to the best of my ability. documented in this encounter Plan of Treatment Not on filedocumented as of this encounter Visit Diagnoses Diagnosis Mass Salivary Gland - Primary documented in this encounter Additional Health Concerns Infection Onset Date Last Indicated Resolved Time COVID19 Pending 10/05/2020 10/05/2020 10/05/2020 1:16 PM CDT documented as of this encounter
--- OUTSIDE RECORDS SUMMARY | 2022-03-28 18:27 | XMS_ITS | Encounter Summary ---
:1980 Author Organization [employer] Address [address] [place] [address] Care Team Providers Name Role Phone Unavailable Primary Care Provider Unavailable Reason for Visit Reason Comments BACK PAIN, LOW Consult/Transfer Care (Routine) - Closed Specialty Diagnoses / Procedures Referred By Contact Refer red To Contact Physical Therapy Diagnoses LOW BACK PAIN Chao Huggins, [employer] Paz CASILLAS [address] [facility],[address] [place] [address] [place] [address] Fax: Referral ID Status Reason Start Date Expiration Date Visits Requ ested Visits Authorized [id number] Closed 08/30/2017 11/29/2018 40 40 Encounter Details Date Type Department Care Team Description 11/02/2017 Therapy Physicians Neck and Back William Mandujano, PT Lumbar radiculopathy [place] [address] [address] [facility],[address] [address] [place], [place] [id number] [phone] Social History Tobacco Use Types Packs/Day Years Used Date Smoking Tobacco: Never Assessed Sex Assigned at Date Recorded Not on file documented as of this encounter Progress Notes Dennis Mandujano, PT - 11/02/2017 12:00 PM CDT 11/02/2017 Visit # 14 Protocol: Back and Disc Start: 12:11 End: 12:50 (VISUAL PRESENTATION MANAGER Visit # 2 Subjective: Pt reports overall improvements in back/LE pain and function. She reports she is recovering from her recent flare up and symptoms are improving. Cervical Not performed today. Objective Tests & Measures: Kept L-ext weight the same because pt did not make it to 20 reps on last hard day Tests performed today (see reviewfloweet for score and outcomes): : None Performed Today Warm Up: Movement Specific Training: Completed Mat Exercises Completed Bike: Minutes 5 Intensity ICE: Declined Lumbar Lumbar & Torso 11/02/2017 Set 1 Ext % Max 100 Set 1 Ext ROM 0-42 Set 1 Ext Wgt 100 Set 1 Ext Reps 20 Set 1 Ext Tul 121 Set 1 Ext Zina RPE 8 Set 2 Ext % Max 100 Set 2 Ext ROM 0-42 Set 2 Ext Wgt 100 Set 2 Ext Reps 20 Set 2 Ext Tul 109 Set 2 Zina RPE 9 Left Rot % Max 60 Left Rot ROM 30 Left Rot Wgt 30 Left Rot Reps 20 Left Rot Abilio RPE 2 Right Rot % Max 60 Right Rot ROM 30 Right Rot Wgt 30 Right Rot Reps 20 Right Rot Zina RPE 2 Therapeutic Exercise (31 min): Pt performed L-ext and AUX to improve functional strength and endurance to improve ability to sleep,get out of bed, drive, bike, sit in car painfree. Verbal cues provided on L-ext to control eccentricphase, on Abs to contract abs, Neuromuscular Re-Education (8 min): Pt performed TROTO to improve muscle activation patterning to improve ability to sleep, get out of bed, drive, bike, sit in car painfree. Verbal cues provided on TROTO to exercise through full ROM. Auxillary Auxillary 11/02/2017 Abs Wgt Set 1 65 Abs Reps Set 1 20 Abs Wgt [...] 20 Other - HEP - Therapeutic Activities ( min): Not performed today. Patient Education: POC Assessment: Pt reports overall improvements in back/LE Pain and function. She tolerated all interventions without adverse effects. She can benefit from further PT to improve functional deficits. She reports being able to sleep painfree. She still has pain driving and sitting for prolonged periods. Shecan bike painfree. Goals: Short Term Goals (4-6 weeks): 1. Pt will report able to have improved sleep, without need for medication sleep 6-7 hours without interruption of back/LE??symptoms MET 10/03/17 2. Pt will report able to have improved mobility in morning no left LE??symptoms while getting out bed to walk/stand most mornings (overall improved 20% but still not consistant 10-26-17) 3. Pt will report commute tolerance improved, able to drive to/from work with no greater than mild LE/low back symptoms Improving again 10/23/17 ? Senior Living Goals (>6 weeks): 1. Patient will be independent with home exercise program after discontinued from Physical Therapy 2. Pt will be able to ride her bike 15 miles/1hour without any low back or LE??symptoms other than slight??Progressing 10-15 miles 3. Pt will shan able to sit in her car 1-2 hours with no greater than slight symptoms Can tolerate 10-15 min and then pain increases; 10/12/17 4. Pt will be able to sleep uninterrupted by low back/LE??symptoms other than slight and less often than weekly Precautions/Other Information: Disc monitor left le symptoms. ??Flare 10/15 Recommendations/Communication: 60% L-ext, 100% TROTO, progress AUX as tolerated, review bill chair when able Total timed code min: 39 Total treatment time: 39 Dennis Mandujano, PT 11/02/2017, 12:56 PM documented in this encounter Plan of Treatment Not on filedocumented as of this encounter Visit Diagnoses Diagnosis Lumbar radiculopathy Thoracic or lumbosacral neuritis or radi culitis, unspecified documented in this encounter
--- OUTSIDE RECORDS SUMMARY | 2022-03-28 18:27 | XMS_ITS | Encounter Summary ---
:1980 Author Organization [facility] Address [address] [place] [address] Care Team Providers Name Role Phone Unavailable Primary Care Provider Unavailable Encounter Details Date Type Department Care Team Description 08/17/2020 Ancillary Procedure Department of Otorhinolaryngology Social History Tobacco Use Types Packs/Day Years [...] or relatives? How often do you attend jewish or Never 2020 pentecostalism services? Do you belong to any clubs or Yes 10/01/2020 organizations such as jewish groups, unions, fraternal or athletic groups, or [...] place to sleep or slept in a skilled nursing (including now)? Education Answer Date Recorded What is the highest level of school Master's degree (e.g., M A, MS, 08/17/2020 you have completed or the highest Elmer, MEd, CULTURE MEDIA LABORATORY ASSISTANT, MARIE) degree you have received? Sex Assigned at Date Recorded Not on file documented as of this encounter Plan of Treatment Not on filedocumented as of this encounter Procedures Procedure Name Priority Date/Time Associated Comments Diagnosis OTORHINOLARYNGOLOGY IMAGE Routine 08/17/2020 9:00 Results for this EXAM AM CDT procedure are i n the results section. documented in this encounter Results Direct Laryngoscopy-Otorhinolaryngology Image Exam (08/17/2020 9:00 AM CDT) Specimen (Source) Anatomical Collection Method Collection Time Re ceived Time Location / / Volume Laterality 08/17/2020 8:57 AM CDT Narrative [facility] - 08/17/2020 9:31 AM CDT This order has been created and auto-finalized to support the import of images acquired without order. The clini elder documentation to support these images can be found on the encounter ruben t produced images. Provider Not In System IMG NON RAD IMAGING PROCEDUR ES Performing Organization Address City/State/ZIP Code Phon e Number IINC IINC NA documented in this encounter Visit Diagnoses Not on filedocumented in this encounter Additional Health Concerns Infection Onset Date Last Indicated Resolved Time COVID19 Pending 08/17/2020 08/17/2020 08/17/2020 11:18 AM CDT documented as of this encounter
--- OUTSIDE RECORDS SUMMARY | 2022-03-28 18:27 | XMS_ITS | Encounter Summary ---
:1980 [facility] Address [address], [place] [address] Care Team Providers Name Role Phone Unavailable Primary Care Provider Unavailable Reason for Visit Reason Comments BACK PAIN, LOW Consult/Transfer Care (Routine) - Closed Specialty Diagnoses / Procedures Referred By Contact Refer red To Contact Physical Therapy Diagnoses LOW BACK PAIN L5-S1 Dakota Butler MD [address] [place] [address] [address] [place] [address] Phone: Fax: Referral ID Status Reason Start Date Expiration Date Visits Requ ested Visits Authorized [id number] Closed 06/06/2019 09/04/2020 999 [id number] Encounter Details Date Type Department Care Team Description 06/11/2019 Therapy Physicians Neck and Kim Jimenez PT Mechanical low back pain (Primary Dx); [facility] [address] [place] [address] [address] [place], [place] [id number] [phone] Social History Tobacco Use Types Packs/Day Years Used Date Smoking Tobacco: Never Assessed Sex Assigned at Date Recorded Not on file documented as of this encounter Progress Notes Kim Jimenez PT - 06/11/2019 12:00 PM CST PHYSICAL THERAPY EVALUATION Referring Provider: Dakota Butler MD Eval and treat - L5-S1 decompression - surgery date 04/08/19 Patient Report Symptoms: L buttock pain to calf; buzzing sensation in heel (new since surgery) Onset: Original onset 12/2013; surgery 04/07/19 Previous PNBC - 2018 Imaging: None in record. Hx: None. No current facility-administered medications for this visit. Medications reviewed with patient: yes No past medical history on file. No past surgical history on file. 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 Exercise habits: Walking, yoga; wants to get back to [employer] classes FUNCTION Oswestry Disability Index: 32% Personal Care: Stiffness/tightness with getting ready in AM Lifting: Okay with groceries/laundry Walkin/2-1 mile - will feel worse the next day Sittin minutes is the most she would want to sit - but able to go longer Standing: Wouldn't want to stand longer than 10 minutes - but able to go longer; increase pain with cooking/dishes Sleeping: Usually only sleeps 6 hours - then gets pretty stiff Driving: Spends 2-3 hours in car everyday to get to/from work - knows she will be worse after driving any distance Other Limitations: Would like to return to [employer] type classes; is able to do most things in yoga, but sometimes less balance noted on the L leg - some weakness Pain Characteristics: See patient PAIN DIAGRAM and PAIN CHARACTERISTICS on QUESTIONNAIRE form. Pain Level: Pain at worst in the last 48 hours: 4/10 Improved by: Yoga, stretching, massage Aggravated by: Sitting, standing Description/Quality: Achy and Buzzing EXAMINATION: Tests and measures: Lumbar ROM Lumbar ROM 06/11/2019 Flexion WFL - feels good/strtech/tight Extension Min dec Side Bend Left Min dec Side Bend Right Min-mod dec - stiffness Trunk Rotation Left Mod dec Trunk Rotation Right Mod dec Neurologic Testing: Dermatomes LLE RLE L2-S2 Intact to light touch Intact to light touch Myotomes LLE RLE L2:Hip Flex 4+/5 and discomfort 5/5 L3:Knee Ext Knee Flex 5/5 5/5 5/5 5/5 L4:Dorsiflexion 5/5 5/5 L5:Toe Ext 5/5 5/5 S1:Plantarflexion 5/5 5/5 Reflexes not tested: Not indicated. Special Testing: Lumbar Special Test Result RAYMUNDO R:Negative L: Negative Passive SLR R: Negative L: Positive FADIR R:Negative L: Negative Prone PA Not Tested Pain with passive hip flexion L - pain in low back - Slump testing - no pain in slumped position, pain with extended position Posture: Min-moderate RSFH; normal lumbar lordosis Palpation: Tenderness to L gluteals Mobility: Nil-mild guarding Gait: Dec trunk rotation Heel Walk: Okay Toe Walk: Okay Other: Mild dec hamstring and hip flexibility P.T. DIAGNOSIS: ICD-10-CM 1. Mechanical low back pain (HRC) M54.5 2. Weakness R53.1 PROGNOSIS: good Risk factors/potential barriers: None ASSESSMENT The patient presents to PT with symptoms of L LE pain. Dec ROM, pain with ROM, and dec strength (likely decrease d/t decrease in activity level, lack of focused exercise and noted [facility]) - limiting function. The patient will benefit from PT services to address deficits and promote improved pain and function. PLAN OF CARE Frequency: 2 visits/week. Duration: 90 days (90 days max for Medicare and [place] patients). Target Weight Goals: 120-150ft# per PT (2018 was able to get to 120ft#) Short Term Goals (4-6 weeks): 1. The patient will be able to report she no longer has stiffness/tightness when getting ready in AMs. 2. The patient will be able to walk > 1 mile without increase pain during or following. 3. The patient will be able to sit > 20 minutes without increase symptoms. 4. The patient will be able to stand > 20 minutes without increase symptoms. Making Department Preparer Goals (>6 weeks): 1. Patient will be [...] boot camp with no increase in symptoms. Anticipate normal progression per typical PNBC protocol (16-24 visits). 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 [email or web address] access code: [email or web address] - previous code Planned Interventions: Therapeutic Exercise for increase AROM, strength and endurance; NeuromuscularRe-Education for increase muscle activation and sequencing; Therapeutic Activity for improved ADL performance and tolerance. Discharge Plan: [place] in strength maintenance home exercise program TODAY'S INTERVENTIONS: See daily note. Kim Jimenez, PT 06/11/2019, 12:59 PM FERING MACHINE OPERATOR Kim Jimenez, PT - 06/11/2019 12:00 PM CST 06/11/2019 Visit # 1 Protocol: Back and Disc Start: 12:07pm End: 1:00pm (CORRECTIONAL NURSE Visit # 0 Subjective: See eval. Cervical Not performed today. Objective Tests & Measures: See eval. Started aux and Lext at 60% - for improved strength and fatigue; per protocol. Adjusted ROM for comfort and per protocol. Tests performed today (see reviewflowsheet for score and outcomes): : Oswestry and Range of Motion Warm Up: Movement Specific Training: Completed Treadmill: Minutes 5 Intensity walk ICE: Declined Lumbar Lumbar & Torso 06/11/2019 Set 1 Ext % Max 60 Set 1 Ext ROM 0-42 Set 1 Ext Wgt 60 Set 1 Ext Reps 30 Set 1 Ext Tul 180 Set 1 Ext Zina RPE 2-3 Set 2 Ext % Max - Set 2 Ext ROM - Set 2 Ext Wgt - Set 2 Ext Reps - Set 2 Ext Tul - Set 2 Zina RPE - Left Rot % Max 60 Left Rot ROM 30 Left Rot Wgt 25 Left Rot Reps 20 Left Rot Abilio RPE 3-4 Right Rot % Max 60 Right Rot ROM 30 Right Rot Wgt 25 Right Rot Reps 20 Right Rot Zina RPE 3-4 Therapeutic Exercise (9 min): Patient performed auxillary exercises to improve muscle strength, to improve muscle endurance and toimprove range of motion to increase tolerance for personal care tasks, household tasks and work activities Reviewed instruction and set-up of aux with cues for proper performance and speed. Monitored for symptoms, tolerance, and technique. good follow-through with cueing. Neuromuscular Re-Education (28 min): Patient performed movement specific training, isolated lumbar extension and isolated torso rotation to improve coordination and movement quality and decrease substitution patterns and normalize movement patterns to increase tolerance for sitting, standing, walking and lifting. Reviewed instruction and set-up of Lext and Troto with cues for proper performance and speed. Monitored for symptoms, tolerance, and technique. good follow-through with cueing. Brief review of previous movement specific training exercises. Auxillary Auxillary 06/11/2019 Abs Wgt Set 1 45 Abs Reps Set 1 20 Abs Wgt Set 2 - Abs Reps Set 2 - Glute Wgt Set 1 90 Glute Reps Set 1 20 Glute Wgt Set 2 - Glute Reps Set 2 - Leg Press Wgt Set 1 200 Leg Press Reps Set 1 20 Leg Press Wgt Set 2 - Leg Press Reps Set 2 - Other - HEP [id number] - previous code - reviewed MSTs Therapeutic Activities (0 min): Not performed today. Patient Education: Plan for today. Reviewed protocol, DOMS. Good understanding of info provided today. Assessment: See eval. The patient tolerated today's session well with no adverse effects. Goals: Target Weight Goals: 120-150ft# per PT (2018 was able to get to 120ft#) Short Term Goals (4-6 weeks): 1. The patient will be able to report she no longer has stiffness/tightness when getting ready in AMs. 2. The patient will be able to walk > 1 mile without increase pain during or following. 3. The patient will be able to sit > 20 minutes without increase symptoms. 4. The patient will be able to stand > 20 minutes without increase symptoms. Residential Goals (>6 weeks): 1. Patient will be [...] boot camp with no increase in symptoms. Anticipate normal progression per typical PNBC protocol (16-24 visits). 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 [email or web address] access code: [email or web address] - previous code Precautions/Other Information: Disc. L LE symptoms > back. PNBC 2018 - surgery (L5-S1 decompression) 04/07/19. Direct referral - PT Kim. Recommendations/Communication: 80% LExt; increase aux as tolerated; add 2nd set. Total timed code min: 37 Total treatment time: 53 Kim Jimenez, PT 06/12/2019, 12:49 PM FERING MACHINE OPERATOR documented in this encounter Plan of Treatment Not on filedocumented as of this encounter Visit Diagnoses Diagnosis Mechanical low back pain - Primary Lumbago Weakness Other malaise and fatigue documented in this encounter
--- OUTSIDE RECORDS SUMMARY | 2022-03-28 18:27 | XMS_ITS | Encounter Summary ---
:[address] [facility] Address [address] [place] [address] Care Team Providers Name Role Phone Unavailable Primary Care Provider Unavailable Reason for Referral Outpatient (Routine) - Modified Order Specialty Diagnoses / Procedures Referred By Contact Refer red To Contact Diagnoses Mass Salivary Gland Kumar Milan M.D. [facility] Procedures US Superficial Tissue Fine Needle Aspiration US Lymph Node Biopsy [address] [place] [address] Referral ID Status Reason Start Date Expiration Date Visits V isits Requested Authorized [id number] Modified 08/17/2020 08/16/2021 1 1 Order utpatient (Routine) - Closed Specialty Diagnoses / Procedures Referred By Contact Refer austin To Contact Otorhinolaryngology Diagnoses Kumar Milan M.D. [facility] [address] [place] [address] Referral ID Status Reason Start Date Expiration Date Visits Requ ested Visits Authorized [id number] Closed 08/17/2020 08/17/2021 1 1 Reason for Visit Outpatient (Routine) - Closed Specialty Diagnoses / Procedures Referred By Contact Refer red To Contact Otorhinolaryngology Diagnoses Mass Salivary Gland Tanner White [place] M.D. [address] [place] [address] Referral ID Status Reason Start Date Expiration Date Visits Requ ested Visits Authorized [id number] Closed 08/03/2020 08/03/2021 1 1 Encounter Details Date Type Department Care Team Description 08/17/2020 Comprehensive Visit Department of Eugene Milan Sa Otorhinolaryngology in [place], [place] [address] [place] [address] [place] [address] Social History Tobacco Use Types Packs/Day Years [...] or relatives? How often do you attend anabaptism or Never 2020 jewish services? Do you belong to any clubs or Yes 10/01/2020 organizations such as anabaptism groups, unions, fraternal or athletic groups, or [...] place to sleep or slept in a alf (including now)? Education Answer Date Recorded What is the highest level of school Master's degree (e.g., M A, MS, 08/17/2020 you have completed or the highest Elmer, MEd, CRISIS MENTAL HEALTH THERAPIST, MARIE) degree you have received? Sex Assigned at Date Recorded Not on file documented as of this encounter Consult Notes Amy Valverde APRN, C.N.P. - 08/17/2020 8:30 AM CDT REF PROVIDER: Tanner Boyd M.D. [address], [place] [address] CHIEF COMPLAINT/PURPOSE OF VISIT: 1. Lump left submandibular palpable lump 2. Left throat globus sensation 3. Left ear pressure/fullness HISTORY OF PRESENT ILLNESS: Ms. Osborne is a 40-year-old female who presents to the clinic with the following history. She reports in 2016 she saw her dentist who noted a lump in the left submandibular region. She was then seen and evaluated by Dr. White who completed CT imaging of the neck and was concerned regarding lymphadenopathy. He took her to the operating room December 29, 2016 and removed part of her subman dibular gland and noted no abnormal lymphadenopathy in the OR. Pathology revealed submandibular gland tissue without abnormality. No lymph node tissue identified. In the summer she saw her dentist again who noted a lump in the left side of the neck. She was seen by Dr. White in the fall who obtain CT imaging without any significant findings,per her recollection. She continued to endorse a lump in the left neck and developed halitosis, and a globus sensation in her left throat. She return to Dr. White who completed CT imaging in July,. He referred her to [facility] for further evaluation. She obtained a left deltoid COVID vaccine July 18, 2020 and noted edema of the left neck following the vaccine that has since subsided. In the past few weeks she has also identified left ear pressure/fullness She denies sore throat, dysphagia, odynophagia, hemoptysis or hematemesis. She denies dysphonia. She is a lifelong nonsmoker, no tobacco use, and rarely consumes alcohol. She works for the [employer] she has 2 teenage children and is . CURRENT MEDICATIONS: Reviewed and updated in the EMR. ALLERGIES: No Known Allergies. PAST MEDICAL HISTORY: Past Medical History: Diagnosis Date ??? Gallbladder Disorder Removed ??? Headache Unspecified ??? Hypertension NOS 2009 ??? Migraine Headache 1994 ??? Sleep Apnea 2009 SURGICAL HISTORY: Past Surgical History: Procedure Laterality Date ??? GALLBLADDER SURGERY ? ? SPINE SURGERY 04/2019,& 03/2020 SOCIAL HISTORY: Social History Socioeconomic History ??? Marital status: Spouse name: Not on file ??? Number of children: Not on file ??? Years of education: Not on file ??? Highest education level: Master's degree (e.g., MA, MS, Elmer, MEd, CRISIS MENTAL HEALTH THERAPIST, MARIE) Occupational History ??? Not on file Social Needs ??? Financial resource strain: Not hard at all ??? Food insecurity Worry: Never true Inability: Never true ??? Transportation needs Medical: No Non-medical: No Tobacco Use ??? Smoking status: Never Smoker ??? Smokeless tobacco: Never Used Substance and Sexual Activity ??? Alcohol use: Never Frequency: Monthly or less Drinks per session: 1 or 2 Binge frequency: Never ??? Drug use: Never ??? Sexual activity: Yes Partners: Male control/protection: Vasectomy Lifestyle ??? Physical activity Days per week: 3 days Minutes per session: 30 min ??? Stress: Only a little Relationships ??? Social connections Talks on phone: More than three times a week Gets together: Once a week Attends jewish service: Never Active member of club or organization: Yes Attends meetings of clubs or organizations: More than 4 times per year Relationship status: ??? Intimate partner violence Fear of current or ex partner: Not on file Emotionally abused: Not on file Physically abused: Not on file Forced sexual activity: Not on file Other Topics Concern ??? Not on file Social History Narrative ??? Not on file FAMILY HISTORY: Family History Problem Relation Age of Onset ??? Hyperlipidemia Father ??? Migraines Mother PHYSICAL EXAM: General: 40 y.o. year old female, in no acute distress. Skin warm and dry. Breathing easy and unlabored. Ears: Bilateral external auditory canals and TM's normal, no cerumen or middle ear effusion Nose: Marydel and moist. Septum midline Oral Cavity: Marydel and moist. Tongue protrudes midline. Soft palate rises symmetrically.[place] dentition noted. Clear saliva from bilateral Stensen's ducts and Meena's ducts. Bimanual examination of the bilateral submandibular glands reveals no significant pain. Can not palpate a lymph node anterior to the submandibular gland on the left side. The left submandibular gland does feel more firm than the right. Neck: Firmness in the left submandibular gland compared to the right. Palpable node anterior to the submandibular gland appreciated. PROCEDURE NOTE Procedure: Flexible laryngoscopy, fiberoptic, diagnostic Details: After verbal consent obtained, topical anesthesia with lidocaine and phenylephrine was applied. The flexible laryngoscope was inserted on the right side. The nasal cavity, nasopharynx, oropharynx, and hypopharynx were normal. At the level of the larynx, the epiglottis, false vocal folds, true vocal folds, arytenoids, and pyriform sinuses are without masses or lesions. The true vocal folds move freelybilaterally. The patient tolerated the procedure well. DIAGNOSTICS: I reviewed the imaging studies and the interpretation as recorded. I reviewed the pertinent laboratory and diagnostic data. Dr. Milan and I reviewed the CT imaging from February 2020 and July 2020. reviewed the imaging with the patient and showed her lymph node that was identified anterior to the submandibular gland. IMPRESSION/ REPORT/ PLAN: #1 Left neck lymphadenopathy anterior to the left submandibular gland #2 Left throat globus sensation #3 Left ear pressure/fullness x2 weeks Plan: Dr. Milan and I had a thorough in thoughtful discussion with the patient. We recommend proceeding with an ultrasound-guided biopsy of the lymph node identified near the submandibular gland on theleft side. We will call her with results. If the lymph node is identified as a benign lymph node, which we suspect, we will reassess somewhere in the range of 6-12 weeks due to symptomatology. She thought this was a reasonable plan. I will call her with results of the ultrasound-guided FNA after it is completed. It is our pleasure to be involved in the care of Ms. Osborne . PATIENT EDUCATION Ready to learn, no apparent learning barriers were identified; learning preferences include listening. Explained diagnosis and treatment plan; patient expressed understanding of the content. Associated attestation - Kumar Milan M.D. - 08/17/2020 10:02 AM CDT This is a supervisory note of Amy Valverde. I have reviewed her history, physical and impression, report and plan and agree. In addition I have interviewed and examined the patient. Ms. Osborne is incredibly nice and has an enlarged but relatively stable submandibular node. We will get an US guided lymph node biopsy. I suspect it will be benign - we reviewed the CT and while large, is has only grown minimally and has a fatty hilum. If benign we discussed potential next steps. Conside ration could be given to submandibular gland removal - I don't see clear pathology, but it is firm. documented in this encounter Plan of Treatment Scheduled Referrals Name Type Priority Associated Order Schedule Diagnoses Otorhinolaryngology office Outpatient Routine E xpected: visit (clinic) Referral 09/28/2020 (Approximate), Expires: 08/18/2023 documented as of this encounter Results US Superficial Tissue Fine Needle Aspiration (08/30/2020 8:48 AM CDT) Anatomical Region Laterality Modality Body, Ultrasound RST LOS, Musculoskeletal ARZ LOS, Ultrasoun d N/A Ultrasound ARZ LOS, Ultrasound FLA LOS, Procedure FLA LOS, Muskuloskele josee FLA LOS, Abdominal FLA LOS, Procedural Specimen (Source) Anatomical Collection Method Collection Time Re ceived Time Location / / Volume Laterality 08/30/2020 10:08 AM CDT Impressions 08/30/2020 10:09 AM CDT Ultrasound-guided left level 1 submandibular lymph node FNA. NR Narrative 08/30/2020 10:09 AM CDT EXAM: US SUPERFICIAL TISSUE FINE NEEDLE ASPIRATION PRE-PROCEDURE: Patient seen and evaluate d. Allergies, pertinent medications, and history reviewed. Discussed risks, benef its, alternatives for procedure, and obtained informed consent. Patient under stands information and questions answered. Immediately prior to starting the procedure, in the presence of the assisting personnel, procedural pause wa s conducted to verify correct patient identity and verification of procedure t o be performed, and as applicable, correct side and site, correct patient p osition, availability of implants, special equipment, or special requiremen ts, and all image and specimen identification data. The roles and respo nsibilities of care team members, residents, and fellows were discussed. TECHNIQUE: Sterile. 1% lidocaine for loc al anesthesia. Location: Left level 1 submandibular lym ph node. Needle size: 25-gauge Number of passes: 6 Complication: None. Blood loss: None. PATIENT INSTRUCTIONS: Patient may be dis missed from the radiology department when dismissal criteria met. POST-PROCEDURE DIAGNOSIS: Prominent left level 1 submandibular lymph node. Procedure Note Gavin Gray M.D. - 08/30/2020Fo rmatting of this note might be different from the original. EXAM: US SUPERFICIAL TISSUE FINE NEEDLE ASPIRATION PRE-PROCEDURE: Patient seen and evaluate d. Allergies, pertinent medications, and history reviewed. Discussed risks, benef its, alternatives for procedure, and obtained informed consent. Patient under stands information and questions answered. Immediately prior to starting the procedure, in the presence of the assisting personnel, procedural pause wa s conducted to verify correct patient identity and verification of procedure t o be performed, and as applicable, correct side and site, correct patient p osition, availability of implants, special equipment, or special requiremen ts, and all image and specimen identification data. The roles and respo nsibilities of care team members, residents, and fellows were discussed. TECHNIQUE: Sterile. 1% lidocaine for loc al anesthesia. Location: Left level 1 submandibular lym ph node. Needle size: 25-gauge Number of passes: 6 Complication: None. Blood loss: None. PATIENT INSTRUCTIONS: Patient may be dis missed from the radiology department when dismissal criteria met. POST-PROCEDURE DIAGNOSIS: Prominent left level 1 submandibular lymph node. IMPRESSION: Ultrasound-guided left level 1 submandib ular lymph node FNA. NR Kumar Milan M.D. [facility] US PROCEDURES documented in this encounter Visit Diagnoses Diagnosis Mass Salivary Gland Mass Salivary Gland documented in this encounter Additional Health Concerns Infection Onset Date Last Indicated Resolved Time COVID19 Pending 08/17/2020 08/17/2020 08/17/2020 11:18 AM CDT documented as of this encounter
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
--- OUTSIDE RECORDS SUMMARY | 2022-03-28 18:27 | XMS_ITS | Encounter Summary ---
:1980 Author Organization [employer] Address [address] [place] [address] Care Team Providers Name Role Phone Unavailable Primary Care Provider Unavailable Reason for Visit Reason Comments BACK PAIN, LOW Consult/Transfer Care (Routine) - Closed Specialty Diagnoses / Procedures Referred By Contact Refer red To Contact Physical Therapy Diagnoses LOW BACK PAIN Chao Huggins, [facility] [facility] [address] [facility] [address] [place] [address] [place] [address] Fax: Referral ID Status Reason Start Date Expiration Date Visits Requ ested Visits Authorized [id number] Closed 08/30/2017 11/29/2018 40 40 Encounter Details Date Type Department Care Team Description 10/12/2017 Therapy Physicians Neck and Back Rosalie Camp, PT Lumbar radiculopathy [facility] [address] [place] [address] [address] [place] [address] [place] [address] [phone] Social History Tobacco Use Types Packs/Day Years Used Date Smoking Tobacco: Never Assessed Sex Assigned at Date Recorded Not on file documented as of this encounter Progress Notes Rosalie Camp, PT - 10/12/2017 12:30 PM CDT 10/12/2017 Visit # 9 Protocol: Back and Disc Start: 12:45 End: 1:16 (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 Left leg symptoms have gotten a little worse this week after increased driving. Pt gets pain after riding in car 10-15 minutes. Bike rides up to 12 miles going good Pt gets increased pain after 10-15 min of sitting. She hopes to get a sit/stand desk s oon. Cervical Not performed today. Objective Tests & Measures: 100% L-Ext and 60% T-Roto Tests performed today (see reviewfloweet for score and outcomes): : None Performed Today Warm Up: Movement Specific Training: Completed Treadmill: Minutes 5 Intensity mod ICE: Back Lumbar Lumbar & Torso 10/12/2017 Set 1 Ext % Max 100 Set 1 Ext ROM 0-45 Set 1 Ext Wgt 96 Set 1 Ext Reps 21 Set 1 Ext Tul 109 Set 1 Ext Zina RPE 8 Set 2 Ext % Max 100 Set 2 Ext ROM 0-45 Set 2 Ext Wgt 96 Set 2 Ext Reps 20 Set 2 Ext Tul 99 Set 2 Zina RPE 10 Left Rot % Max 60 Left Rot ROM 30 Left Rot Wgt 24 Left Rot Reps 20 Left Rot Abilio RPE 3 Right Rot % Max 60 Right Rot ROM 30 Right Rot Wgt 24 Right Rot Reps 20 Right Rot Zina RPE 3 Therapeutic Exercise (16 min): Patient performed isolated lumbar extension exercise and auxillary exercises to improve muscle strength, to improve muscle endurance and to improve muscle flexibility to increase tolerance for sitting,sleeping and bed mobility Verbal cues for correct breathing on L-Ext Neuromuscular Re-Education (7 min): Patient performed postural exercises and isolated torso rotation to decrease substitution patterns present with chronic pain, to retrain muscles for proper sequencing and improve muscle recruitment patterns to increase tolerance for sitting, sleeping, bed mobility and ride bike and commute to/from work. Verbal cues for postural correction of low back Auxillary Auxillary 10/12/2017 Abs Wgt Set 1 60 Abs Reps Set 1 34 Abs Wgt Set 2 - Abs Reps Set 2 - Glute Wgt Set 1 110 Glute Reps Set 1 30 Glute Wgt Set 2 - Glute Reps Set 2 - Leg Press Wgt Set 1 230 Leg Press Reps Set 1 30 Leg Press Wgt Set 2 - Leg Press Reps Set 2 - HEP - Therapeutic Activities (8 min): Therapeutic Activities 10/12/2017 SITTING POSTURE Independent STANDING POSTURE Independent SLEEP POSTURE Independent BASE OF SUPPORT Independent WEIGHT SHIFT Independent PIVOT VS TWIST Independent OBJECT CLOSE VS FAR AWAY Independent PUSH VS PULL Independent SQUAT Independent LIFT FROM FLOOR Needs further training LIFT OVERHEAD Needs further training CORE EDUCATION Independent OTHER ACTIVITY Instructed pt in proper body mechanics with the following activities (verbal and visual cues given for correct form): lifting 20 #'s from floor to waist and back to floor; golfer's pick-up; sitting and standing postures; brushing teeth; sweeping; vac uuming; CORE education Patient Education: Patient was instructed in specific review of patients progress to increase their understanding of the benefits related to completing the [facility] Rehab program Assessment: Max fatigue L-ext. No target goal set yet for Med X weight. Min fatigue T-Roto. Good fatigue on aux machines. Good objective strength gains. Pt having some increased symptoms in LB and L leg. Goals: Short Term Goals (4-6 weeks): 1. Pt will report able to have improved sleep, without need for medication sleep 6-7 hours without interruption of back/LE symptoms MET 10/03/17 2. Pt will report able to have improved mobility in morning no left LE symptoms while getting out bed to walk/stand most mornings Improving 10/12/17 3. Pt will report commute tolerance improved, able to drive to/from work with no greater than mild LE/low back symptoms Improving 10/08 ? [facility] Goals (>6 weeks): 1. Patient will be independent with home exercise program after discontinued from Physical Therapy. 2. Pt will be able to ride her bike 15 miles/1hour without any low back or LE symptoms other than slight??Progressing 12 miles 10/03/17 3. Pt will shan able to sit in her car 1-2 hours with no greater than slight symptoms (can tolerate 10-15 min and then pain increases; 10/12/17) 4. Pt will be able to sleep uninterrupted by low back/LE symptoms other than slight and less often than weekly ? Precautions/Other Information: disc monitor left le symptoms Recommendations/Communication: 60% L-Ext and 100% T-Roto. Advance aux wts as tolerated. Total timed code min: 31 Total treatment time: 31 Rosalie Camp, PT 10/12/2017, 1:14 PM documented in this encounter Plan of Treatment Not on filedocumented as of this encounter Visit Diagnoses Diagnosis Lumbar radiculopathy Thoracic or lumbosacral neuritis or radi culitis, unspecified documented in this encounter
--- OUTSIDE RECORDS SUMMARY | 2022-03-28 18:27 | XMS_ITS | Encounter Summary ---
:1980 Author Organization [facility] Address [address] [place] [address] Care Team Providers Name Role Phone Unavailable Primary Care Provider Unavailable Reason for Visit Reason Comments BACK PAIN, LOW Consult/Transfer Care (Routine) - Closed Specialty Diagnoses / Procedures Referred By Contact Refer red To Contact Physical Therapy Diagnoses LOW BACK PAIN L5-S1 Dakota Butler MD [facility] [address] [address] [place], [place] [address] [place] [address] Phone: Fax: Referral ID Status Reason Start Date Expiration Date Visits Requ ested Visits Authorized [id number] Closed 06/06/2019 09/04/[phone] Encounter Details Date Type Department Care Team Description 06/20/2019 Therapy Physicians Jaison and Amy Billingsley low back pain (Primary Dx); Back Center Howie Pace [facility] 3050 [facility] [address] [place] [address] [place] [address] [phone] Social History Tobacco Use Types Packs/Day Years Used Date Smoking Tobacco: Never Assessed Sex Assigned at Date Recorded Not on file documented as of this encounter Progress Notes Amy Billingsley PTA - 06/20/2019 2:15 PM CST 06/20/2019 Visit # 3 Protocol: Back and Disc Start: 232 End: 306 (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 Pt thinks all the reps she did with the heavier weight may have irritated her leg Cervical Not performed today. Objective Tests & Measures: Monitored pt's ROM and increased/decreased as appropriate, 60% weights Tests performed today (see reviewfloweet for score and outcomes): : None Performed Today Warm Up: Movement Specific Training: Completed Mat Exercises Completed Treadmill: Minutes 5 Intensity mod ICE: Back Lumbar Lumbar & Torso 06/20/2019 Set 1 Ext % Max 60% Set [...] Left Rot Wgt 25 Left Rot Reps 30 Left Rot Abilio RPE 4 Right Rot % Max 60% Right Rot ROM 30 Right Rot Wgt 25 Right Rot Reps 30 Right Rot Zina RPE 4 Therapeutic Exercise (26 min): Aux wts to improve walking sitting standing by increasing strength and endurance of ancillary muscles. Pt was monitored for speed and form and given verbal cues for safe and effective reps. Neuromuscular Re-Education (8 min): ROM was assessed and machines were set specifically for pt for 60% workout Isolated lumbar and thoracic spine exercises to improve movement patterns of the lumbar and thoracicspine and to improve disc hydration. Pt was monitored for speed and form with lumbar extension and thoracic rotation and given verbal cues for safe and effective reps. Auxillary Auxillary 06/20/2019 Abs Wgt Set 1 50 Abs Reps Set 1 30 Abs Wgt Set 2 55 Abs Reps Set 2 20 Glute Wgt Set 1 100 Glute Reps Set 1 20 Glute Wgt Set 2 100 Glute Reps Set 2 20 Leg Press Wgt Set 1 220 Leg Press Reps Set 1 30 Leg Press Wgt Set 2 220 Leg Press Reps Set 2 30 Other [...] Rehab program Assessment: pt tolerated the 60% weights well. No change in the leg sx today. tolerted all the increases well. Pt denies any changes in her functional goals. Pt would benefit from further [...] stand > 20 minutes without increase symptoms. ?? [facility] Goals (>6 weeks): 1. Patient will be [...] patient will be able to return to [employer] with no increase in symptoms. ?? Anticipate normal progression per typical [facility] protocol (16-24 visits). ?? 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 ?? [facility] access code: [email or web address] - previous code ?? Precautions/Other Information: Disc. L LE symptoms > back. PN 2018 - surgery (L5-S1 decompression) 04/07/19. Direct referral - PT Kim. Recommendations/Communication: 100% lext, 60% troto Continue to follow PT plan of care, home programinstruct/ review when appropriate. Total timed code min: 34 Total treatment time: 34 Amy Billingsley PTA 06/20/2019, 6:19 PM HAND documented in this encounter Plan of Treatment Not on filedocumented as of this encounter Visit Diagnoses Diagnosis Mechanical low back pain - Primary Lumbago Weakness Other malaise and fatigue documented in this encounter
--- OUTSIDE RECORDS SUMMARY | 2022-03-28 18:27 | XMS_ITS | Encounter Summary ---
:1980 Author Organization [facility] Address [address] [place] [address] Care Team Providers Name Role Phone Unavailable Primary Care Provider Unavailable Reason for Visit Reason Comments BACK PAIN, LOW LEG PAIN Consult/Transfer Care (Routine) - Closed Specialty Diagnoses / Procedures Referred By Contact Refer red To Contact Physical Therapy Diagnoses LOW BACK PAIN Chao Huggins, [employer] [facility] [address] [facility],[address] [place] [address] [place] [address] Fax: Referral ID Status Reason Start Date Expiration Date Visits Requ ested Visits Authorized [id number] Closed 08/30/2017 11/29/2018 40 40 Encounter Details Date Type Department Care Team Description 09/12/2017 Therapy Physicians Neck and Back William Mandujano PT Lumbar radiculopathy [place] [address] [address] [facility],[address] [address] [place] [address] [phone] Social History Tobacco Use Types Packs/Day Years Used Date Smoking Tobacco: Never Assessed Sex Assigned at Date Recorded Not on file documented as of this encounter Progress Notes Dennis Mandujano, PT - 09/12/2017 12:15 PM CDT 09/12/2017 Visit # 3 Protocol: Back and Disc Start: 12:33 End: 1:04 (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 Cervical Not performed today. Objective Tests & Measures: Started TROTO at 60% Tests performed today (see reviewflowsheet for score and outcomes): : None Performed Today Warm Up: Movement Specific Training: Completed Mat Exercises Completed Treadmill: Minutes 5 Intensity ICE: Declined Lumbar Lumbar & Torso 09/12/2017 Set 1 Ext % Max 60 Set 1 Ext ROM 0-42 Set 1 Ext Wgt 50 Set 1 Ext Reps 30 Set 1 Ext Tul 142 Set 1 Ext Zina RPE 3 Set 2 Ext % Max - Set 2 Ext ROM - Set 2 Ext Wgt - Set 2 Ext Reps - Set 2 Ext Tul - Set 2 Zina RPE - Left Rot % Max 60 Left Rot ROM 30 Left Rot Wgt 20 Left Rot Reps 20 Left Rot Abilio RPE 4 Right Rot % Max 60 Right Rot ROM 30 Right Rot Wgt 20 Right Rot Reps 22 Right Rot Zina RPE 5 Therapeutic Exercise (8 min): Pt performed AUX to improve functional strength and endurance to improve ability to sleep, walk/stand, drive, ride her bike, and sit in car painfree. Verbal cues provided on Abs to contract abs, on G/Hto push through heels, on leg press to slow pace Neuromuscular Re-Education (23 min): Pt performed L-ext and TROTO to improve muscle activation patterning to improve ability to sleep, walk/stand, drive, ride her bike, and sit in car painfree. Verbal cues provided on L-ext to control eccentric phase, on TROTO to exercise through full ROM Auxillary Auxillary 09/12/2017 Abs Wgt Set 1 40 Abs Reps Set 1 20 Abs Wgt Set 2 40 Abs Reps Set 2 20 Glute Wgt Set 1 70 Glute Reps Set 1 20 Glute Wgt Set 2 80 Glute Reps Set 2 20 Leg Press Wgt Set 1 160 Leg Press Reps Set 1 20 Leg Press Wgt Set 2 170 Leg Press Reps Set 2 20 HEP PT reviewed bill chair in sagittal plane. PT demo'd proper technique. Pt performed bill chair in sagittal plane for 1 set, 15 reps, without UE support. Therapeutic Activities ( min): Not performed today. Patient Education: POC, DOMS, ice Assessment: Pt reports no recent significant changes in back/LE pain or function. She tolerated all interventions without adverse effects. She can benefit from further PT to improve functional deficits. She reports being able to lift painfree and walk mostly painfree. She reports having occasional pain with sleeping and has muscle relaxants. She reports having the most pain with sitting. Goals: Short Term Goals (4-6 weeks): 1. Pt will report able to have improved sleep, without need for medication sleep 6-7 hours without interruption of back/le symptoms 2. Pt will report able to have improved mobility in morning no left le symptoms while getting out bed to walk/stand most mornings 3. Pt will report commute tolerance improved, able to drive to/from work with no greater than mild le/low back symptoms ? Custodial Goals (>6 weeks): 1. Patient will be independent with home exercise program after discontinued from Physical Therapy. 2. Pt will be able to ride her bike 15 miles/1hour without any low back or le symptoms other than slight 3. Pt will bel able to sit in her car 1-2 hours with no greater than slight symptoms 4. Pt will be able to sleep uninterrupted by low back le symptoms other than slight and infrequentlyless often than weekly ? Precautions: disc monitor left le symptoms Recommendations/Communication: 100% L-ext, 60% TROTO, progress AUX as tolerated Total timed code min: 31 Total treatment time: 31 Dennis Mandujano, PT 09/12/2017, 1:06 PM documented in this encounter Plan of Treatment Not on filedocumented as of this encounter Visit Diagnoses Diagnosis Lumbar radiculopathy Thoracic or lumbosacral neuritis or radi culitis, unspecified documented in this encounter
--- OUTSIDE RECORDS SUMMARY | 2022-03-28 18:27 | XMS_ITS | Encounter Summary ---
:1980 Author Organization [employer] Address [address] [place] [address] Care Team Providers Name Role Phone Unavailable Primary Care Provider Unavailable Reason for Visit Reason Comments BACK PAIN, LOW Consult/Transfer Care (Routine) - Closed Specialty Diagnoses / Procedures Referred By Contact Refer red To Contact Physical Therapy Diagnoses LOW BACK PAIN Chao Huggins, Pnbc Paz CASILLAS [address] [facility],[address] [place] [address] [place] [address] Fax: Referral ID Status Reason Start Date Expiration Date Visits Requ ested Visits Authorized [id number] Closed 08/30/2017 11/29/2018 40 40 Encounter Details Date Type Department Care Team Description 11/30/2017 Therapy Physicians Neck and Back Jenn Shaffer, LIVIA Lumbar radiculopathy [address] [place] [address] [address] [place] [address] [phone] Social History Tobacco Use Types Packs/Day Years Used Date Smoking Tobacco: Never Assessed Sex Assigned at Date Recorded Not on file documented as of this encounter Progress Notes Jenn Shaffer PTA - 11/30/2017 7:30 AM CDT 11/30/2017 Visit # 20 Protocol: Back and Disc Start: 738 End: 812 (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 When she sits it bothers her immediately.Her left hip feels stiffer.Sitting and driving increases her Sx's.She feels in the last week she has gone backwards a bit. Cervical Not performed today. Objective Tests & Measures: Tests performed today (see reviewflowsheet for score and outcomes): : Oswestry 28% Warm Up: Movement Specific Training: Completed Treadmill: Minutes 5 Intensity 3.5 ICE: Back Lumbar Lumbar & Torso 11/28/2017 Set 1 Ext % Max 100 Set 1 Ext ROM 0-42 Set 1 Ext Wgt 120 Set 1 Ext Reps 21 Set 1 Ext Tul 85 Set 1 Ext Zina RPE 8 Set 2 Ext % Max 100 Set 2 Ext ROM 0-42 Set 2 Ext Wgt 120 Set 2 Ext Reps 14 Set 2 Ext Tul 63 Set 2 Zina RPE 10 Left Rot % Max 60 Left Rot ROM 30 Left Rot Wgt 36 Left Rot Reps 20 Left Rot Abilio RPE 3 Right Rot % Max 60 Right Rot ROM 30 Right Rot Wgt 36 Right Rot Reps 21 Right Rot Zina RPE 3 Therapeutic Exercise (11 min): Patient performed auxillary exercises to improve muscle strength, to improve muscle endurance, to improve muscle flexibility and to improve range of motion to increase tolerance for sitting, lifting, driving and work activities Verbal cues to push thru her heels on Glutes/Hams. Neuromuscular Re-Education (23 min): Patient performed movement specific training, isolated lumbar extension and isolated torso rotation to retrain muscles for proper sequencing, improve muscle recruitment patterns and decrease substitution patterns and normalize movement patterns to increase tolerance for sitting, lifting, driving and work activities.Verbal cues for pace in L-Ext today.Press-ups with legs shifted for left leg Sx's today Auxillary Auxillary 11/28/2017 Abs Wgt Set 1 70 Abs Reps Set 1 30 Abs Wgt Set 2 70 Abs Reps Set 2 30 Glute Wgt Set 1 130 Glute Reps Set 1 30 Glute Wgt Set 2 130 Glute Reps Set 2 30 Leg Press Wgt Set 1 250 Leg Press Reps Set 1 30 Leg Press Wgt Set 2 270 Leg Press Reps Set 2 30 Other - HEP declined bill chair review Therapeutic Activities (0 min): Not performed today. Patient Education: Patient was instructed in pain/time scale to increase their understanding of the benefits related tocompleting the [facility] Rehab program Assessment:Held too sub weight in T-Roto due 2 increased leg Sx's this week. Pt. Will benefit from further supervised therapy to achieve goals for increased spinal strength and daily function. Load andROM were adjusted today as needed to improve motion and muscle fatigue. Goals: Short Term Goals (4-6 weeks): 1. Pt will report able to have improved sleep, without need for medication sleep 6-7 hours without interruption of back/LE??symptoms Not met, uses meds 11/28 2. Pt will report able to have improved mobility in morning no left LE??symptoms while getting out bed to walk/stand most mornings Partially MET 11/28 3. Pt will report commute tolerance improved, able to drive to/from work with no greater than mild LE/low back symptoms Was better, now has leg pain 11/28 ? Transition Of Care Specialist Goals (>6 weeks): 1. Patient will be independent with home exercise program after discontinued from Physical Therapy Core trial and then bill chair at the gym or home 11/28 2. Pt will be able to ride her bike 15 miles/1hour without any low back or LE??symptoms other than slight?? Met 11/28 3. Pt will able to sit in her car 1-2 hours with no greater than slight symptoms Can tolerate 20' 11/28/17 4. Pt will be able to sleep uninterrupted by low back/LE??symptoms other than slight and less often than weekly Sleeping and taking Flexeril; doesn't wake up 11/28 ? Precautions/Other Information: Disc monitor left LE??symptoms. ??Flare 10/15 Recommendations/Communication:100% L-Ext and 60% T-Roto next Rx.increase auxiliaries as patient tolerates.Increase T-Roto back to 100% next week if leg Sx's are getting better. Total timed code min: 34 Total treatment time: 34 Jenn Shaffer PTA 11/30/2017, 7:32 AM documented in this encounter Plan of Treatment Not on filedocumented as of this encounter Visit Diagnoses Diagnosis Lumbar radiculopathy Thoracic or lumbosacral neuritis or radi culitis, unspecified documented in this encounter
--- OUTSIDE RECORDS SUMMARY | 2022-03-28 18:27 | XMS_ITS | Encounter Summary ---
:1980 Author Organization [facility] Address [address] [address] Care Team Providers Name Role Phone Unavailable Primary Care Provider Unavailable Reason for Visit Reason Comments BACK PAIN, LOW Consult/Transfer Care (Routine) - Closed Specialty Diagnoses / Procedures Referred By Contact Refer red To Contact Physical Therapy Diagnoses LOW BACK PAIN L5-S1 Dakota Butler MD [address] [place] [address] Phone: Fax: Referral ID Status Reason Start Date Expiration Date Visits Requ ested Visits Authorized [id number] Closed 06/06/2019 09/04/2020 999 [id number] Encounter Details Date Type Department Care Team Description 06/24/2019 Therapy Physicians Neck and Kim Jimenez, PT Mechanical low back pain (Primary Dx); Back Center [address] [place] [address] Drive,[address] [place], [place] [address] [phone] Social History Tobacco Use Types Packs/Day Years Used Date Smoking Tobacco: Never Assessed Sex Assigned at Date Recorded Not on file documented as of this encounter Progress Notes Kim Jimenez PT - 06/24/2019 12:15 PM CST 06/24/2019 Visit # 4 Protocol: Back and Disc Start: 12:37pm End: 1:14pm (SUPERVISOR BIT AND SHANK DEPARTMENT Visit # 1 Subjective: [place] okay after last session. A little tired from a busy weekend. Cervical Not performed today. Objective Tests & Measures: Inc LExt to 90%; increase GH 10#; increase abs 5#; increase leg press 10#+10# - for improved strength and fatigue; per protocol. Adjusted ROM for comfort and per protocol. Tests performed today (see reviewfloweet for score and outcomes): : Range of Motion See daily exercise. Warm Up: Movement Specific Training: Completed Treadmill: Minutes 5 Intensity walk ICE: Back Lumbar Lumbar & Torso 06/24/2019 Set 1 Ext % Max 90 Set 1 Ext ROM 0-42 Set 1 Ext Wgt 90 Set 1 Ext Reps 30 Set 1 Ext Tul 136 Set 1 Ext Zina RPE 8 Set 2 Ext % Max 90 Set 2 Ext ROM 0-42 Set 2 Ext Wgt 90 Set 2 Ext Reps 21 Set 2 Ext Tul 115 Set 2 Zina RPE 10 Left Rot % Max 60 Left Rot ROM 30 Left Rot Wgt 25 Left Rot Reps 30 Left Rot Abilio RPE 3 Right Rot % Max 60 Right Rot ROM 30 Right Rot Wgt 25 Right Rot Reps 30 Right Rot Zina RPE 3 Therapeutic Exercise (28 min): Patient performed isolated lumbar extension exercise and auxillary exercises to improve muscle strength, to improve muscle endurance and to improve range of motion to increase tolerance for sitting, standing, walking and lifting PT set-up of all exercises. Monitored for symptoms, tolerance, and technique. Cues for speed with Lext; cues for technique with GH, abs - required for improved muscle performance [...] good form noted with exercise(s). Auxillary Auxillary 06/24/2019 Abs Wgt Set 1 55 Abs Reps Set 1 30 Abs Wgt Set 2 60 Abs Reps Set 2 20 Glute Wgt Set 1 100 Glute Reps Set 1 30 Glute Wgt Set 2 110 Glute Reps Set 2 23 Leg Press Wgt Set 1 230 Leg Press Reps Set 1 30 Leg Press Wgt Set 2 240 Leg Press Reps Set 2 20 Other - HEP - Therapeutic Activities (0 min): Not performed today. Pt independent. Patient Education: Plan for today. Reviewed pt's strength gains - wt progression, progression towards target goals, or visual graph. Good understanding of info provided today. Assessment: The patient tolerated today's session well with no adverse effects. Some soreness of LE on leg press today during initial set - kept to 20 reps for 2nd set to improve tolerance. Good restart to program. Goals: Target Weight Goals: 120-150ft# per PT [...] stand >??20 minutes without increase symptoms. ?? Cleaner Industrial Goals (>6 weeks): 1. Patient will be [...] Fitness; planning to return to her [employer] classes; possibly buying a Jovany Chair for home use. ?? [email or web address] access code: [email or web address] - previous code ?? Precautions/Other Information:??Disc. ??L LE symptoms >??back. ??PNBC 2018 - surgery (L5-S1 decompression) 04/07/19. ??Direct referral - PT Kim. Recommendations/Communication: 80% Troto; 60% LExt; increase aux as tolerated. How did pt feel aftertoday's session? - had increase leg pain following last heavier LExt day - unsure if it will become a pattern - if so, may need to be more cautious with Lext increases. Total timed code min: 37 Total treatment time: 37 Kim Jimenez, PT 06/24/2019, 1:13 PM OMER ENGAGEMENT REPRESENTATIVE documented in this encounter Plan of Treatment Not on filedocumented as of this encounter Visit Diagnoses Diagnosis Mechanical low back pain - Primary Lumbago Weakness Other malaise and fatigue documented in this encounter
--- OUTSIDE RECORDS SUMMARY | 2022-03-28 18:27 | XMS_ITS | Encounter Summary ---
:1980 Author Organization [employer] Address [address] [place] [address] Care Team Providers Name Role Phone Unavailable Primary Care Provider Unavailable Reason for Visit Reason Comments BACK PAIN, LOW Consult/Transfer Care (Routine) - Closed Specialty Diagnoses / Procedures Referred By Contact Refer red To Contact Physical Therapy Diagnoses LOW BACK PAIN Chao Huggins, Pnbc Paz CASILLAS [address] [facility],[address] [place] [address] [place] [address] Fax: Referral ID Status Reason Start Date Expiration Date Visits Requ ested Visits Authorized [id number] Closed 08/30/2017 11/29/2018 40 40 Encounter Details Date Type Department Care Team Description 09/18/2017 Therapy Physicians Neck and Back Sil Sesay PTA Lumbar radiculopathy [address] [place] [address] [place] [address] [phone] Social History Tobacco Use Types Packs/Day Years Used Date Smoking Tobacco: Never Assessed Sex Assigned at Date Recorded Not on file documented as of this encounter Progress Notes Sil Sesay PTA - 09/18/2017 11:45 AM CDT 09/18/2017 Visit # 4 Protocol: Back and Disc Start: 1200 End: 1240 (TESTER ARMATURE OR FIELDS Visit # 2 Subjective: slightly less less LE sx since last rx, felt good p last rx Cervical Not performed today. Objective Tests & Measures: +10% wts in L-ext Tests performed today (see reviewflowsheet for score and outcomes): : None Performed Today Warm Up: Movement Specific Training: Completed Mat Exercises Completed Treadmill: Minutes 5 Intensity 3.8 ICE: Back Lumbar Lumbar & Torso 09/18/2017 Set 1 Ext % Max 100 Set 1 Ext ROM 0-42 Set 1 Ext Wgt 71 Set 1 Ext Reps 22 Set 1 Ext Tul 118 Set 1 Ext Zina RPE 4 Set 2 Ext % Max 100 Set 2 Ext ROM 0-42 Set 2 Ext Wgt 71 Set 2 Ext Reps 27 Set 2 Ext Tul 152 Set 2 Zina RPE 4-5 Left Rot % Max 60 Left Rot ROM 30 Left Rot Wgt 20 Left Rot Reps 20 Left Rot Abilio RPE 3 Right Rot % Max 60 Right Rot ROM 30 Right Rot Wgt 20 Right Rot Reps 20 Right Rot Zina RPE 4 Therapeutic Exercise (24 min): Patient performed isolated lumbar extension exercise and auxillary exercises to improve muscle strength, to improve muscle endurance and increase strength and endurance levels of supporting spinal muscle groups to increase tolerance for functional goals listed below VC to go slow, use full ROM and work MM to fatigue in L-ext, use belt and push with heels in GHs, Neuromuscular Re-Education (8 min): Patient performed isolated torso rotation to improve ability to direct and regulate movement with decreased compensation to increase tolerance for functional goals listed below. VC to go slow and use full ROM in t-roto Auxillary Auxillary 09/18/2017 Abs Wgt Set 1 40 Abs Reps Set 1 30 Abs Wgt Set 2 - Abs Reps Set 2 - Glute Wgt Set 1 80 Glute Reps Set 1 30 Glute Wgt Set 2 - Glute Reps Set 2 - Leg Press Wgt Set 1 170 Leg Press Reps Set 1 30 Leg Press Wgt Set 2 - Leg Press Reps Set 2 - HEP - Therapeutic Activities (8 min): Therapeutic Activities 09/18/2017 SITTING POSTURE Independent SLEEP POSTURE - CORE EDUCATION Needs further training OTHER ACTIVITY Verbal and visual instructions for proper sitting posture and computer height, takingbreak from sitting every hour to walk and do shoulder rolls to the back for spine alignment. Correctsitting posture in car and getting in and out of car using SCHUYLER. Pt declined written info in sitting posture and car posture/getting in and out of car. Discuss COREprogram. Pt verbalized understanding of info provided Patient Education: Sitting posture and getting in and out of car, 3 for Free at CORE Assessment: pt ethan rx well, good fatigue, good control, pt cont to make objective progress and wouldbenefit from further rehab for increase strength and decrease functional limitations Goals: Short Term Goals (4-6 weeks): 1. [...] greater than mild le/low back symptoms ? 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 Patient will be [...] Precautions: disc monitor left le symptoms Recommendations/Communication: 60% L-ext, 100% t-roto, increase aux as pt ethan Total timed code min: 40 Total treatment time: 40 Sil Sesay PTA 09/18/2017, 1:13 PM documented in this encounter Plan of Treatment Not on filedocumented as of this encounter Visit Diagnoses Diagnosis Lumbar radiculopathy Thoracic or lumbosacral neuritis or radi culitis, unspecified documented in this encounter
--- OUTSIDE RECORDS SUMMARY | 2022-03-28 18:27 | XMS_ITS | Encounter Summary ---
:1980 Author Organization [facility] Address [address] [place] [address] Care Team Providers Name Role Phone Unavailable Primary Care Provider Unavailable Reason for Visit Reason Comments BACK PAIN, LOW Consult/Transfer Care (Routine) - Closed Specialty Diagnoses / Procedures Referred By Contact Refer red To Contact Physical Therapy Diagnoses LOW BACK PAIN Chao Huggins, Pnbc Paz CASILLAS [address] [address] [address] [place] [address] [place] [address] Fax: Referral ID Status Reason Start Date Expiration Date Visits Requ ested Visits Authorized [id number] Closed 08/30/2017 11/29/2018 40 40 Encounter Details Date Type Department Care Team Description 11/21/2017 Therapy Physicians Neck and Back Macy Curiel , Lumbar radiculopathy Center [facility] [address] [facility],[address] [place] [address] Social History Tobacco Use Types Packs/Day Years Used Date Smoking Tobacco: Never Assessed Sex Assigned at Date Recorded Not on file documented as of this encounter Progress Notes Macy Curiel, SITE ACQUISITION MANAGER - 11/21/2017 1:30 PM CDT 11/21/2017 Visit # 18 Protocol: Back and Disc Start: 1:46 End: 2:34 (SITE ACQUISITION MANAGER Visit # 6 sent Subjective: Sx's persist overall, per pt. Cervical Not performed today. Objective Tests & Measures: Increased wt to 115# on L-ext. No change in ROM today. Tests performed today (see reviewflowsheet for score and outcomes): : None Performed Today Warm Up: Movement Specific Training: Completed Treadmill: Minutes 5 Intensity mod ICE: Back Lumbar Lumbar & Torso 11/21/2017 Set 1 Ext % Max 100 Set 1 Ext ROM 0-42 Set 1 Ext Wgt 112 Set 1 Ext Reps 30 Set 1 Ext Tul 148 Set 1 Ext Zina RPE 7 Set 2 Ext % Max 100 Set 2 Ext ROM 0-42 Set 2 Ext Wgt 115 Set 2 Ext Reps 24 Set 2 Ext Tul ---- Set 2 Zina RPE 9 Left Rot % Max 60 Left Rot ROM 30 Left Rot Wgt 30 Left Rot Reps 20 Left Rot Abilio RPE 3-4 Right Rot % Max 60 Right Rot ROM 30 Right Rot Wgt 30 Right Rot Reps 20 Right Rot Zina RPE 3-4 Therapeutic Exercise (37 min): Patient performed isolated lumbar extension exercise and auxillary exercises to improve muscle strength and to improve muscle endurance to increase tolerance for sitting, sleeping, personal care tasks and household tasks. Monitored for safe rep speed and proper form on all exercises. No cues needed today. Neuromuscular Re-Education (11 min): Patient performed isolated torso rotation decrease substitution patterns and normalize movement patterns and to improve movement patterns in an isolated plane to increase tolerance for personal care tasks. Max assist required for shell machine operator to ensure proper isolation of torso rotators. Auxillary Auxillary 11/21/2017 Abs Wgt Set 1 70 Abs Reps Set 1 25 Abs Wgt Set 2 70 Abs Reps Set 2 27 Glute Wgt Set 1 130 Glute Reps Set 1 30 Glute Wgt Set 2 130 Glute Reps Set 2 30 Leg Press Wgt Set 1 240 Leg Press Reps Set 1 30 Leg Press Wgt Set 2 240 Leg Press Reps Set 2 30 Other - HEP - Therapeutic Activities (0 min): Not performed today. Patient Education: Patient was instructed in POC. Assessment: Sleeping through the night with Flexeril. Good fatigue on L-ext. Pt will benefit from further supervised therapy to achieve goals for increased spinal strength and daily function. Goals: Short Term Goals (4-6 weeks): ? 1. Pt will report able to have improved sleep, without need for medication sleep 6-7 hours without interruption of back/LE??symptoms MET 10/03/17 2. Pt will report able to have improved mobility in morning no left LE??symptoms while getting out bed to walk/stand most mornings Overall improved 20% but still not consistant 10-26-17 3. Pt will report commute tolerance improved, able to drive to/from work with no greater than mild LE/low back symptoms Improving again 10/23/17 ? Grounding Engineer Goals (>6 weeks): ? 1. Patient will be independent with home exercise program after discontinued from Physical Therapy 2. Pt will be able to ride her bike 15 miles/1hour without any low back or LE??symptoms other than slight??Progressing 12-20 miles 11/14/17 3. Pt will able to sit in her car 1-2 hours with no greater than slight symptoms Can tolerate 20' 11/21/17 4. Pt will be able to sleep uninterrupted by low back/LE??symptoms other than slight and less often than weekly Sleeping and taking Flexeril 11/21/17 ? Precautions/Other Information: Disc monitor left LE symptoms. ??Flare 10/15 Recommendations/Communication: 100% T-roto, 60% L-ext. HEP as needed. Total timed code min: 48 Total treatment time: 48 Macy Curiel PTA 11/21/2017, 2:56 PM Associated attestation - Kim Jimenez, PT - 11/21/2017 3:44 PM CDT HEP review soon. Update STGs soon. Observed treatment. Goals/Plan of Care discussed with SITE ACQUISITION MANAGER. Treatment progressing and appropriate. documented in this encounter Plan of Treatment Not on filedocumented as of this encounter Visit Diagnoses Diagnosis Lumbar radiculopathy Thoracic or lumbosacral neuritis or radi culitis, unspecified documented in this encounter
--- OUTSIDE RECORDS SUMMARY | 2022-03-28 18:27 | XMS_ITS | Encounter Summary ---
:1980 Author Organization [facility] Address [address], [place] [address] Care Team Providers Name Role Phone Unavailable Primary Care Provider Unavailable Reason for Visit Reason Comments BACK PAIN, LOW LEG PAIN Consult/Transfer Care (Routine) - Closed Specialty Diagnoses / Procedures Referred By Contact Refer red To Contact Physical Therapy Diagnoses LOW BACK PAIN Chao Huggins, Pnbc Paz CASILLAS [address] [place] [address] [facility],[address] [place] [address] [place] [address] Fax: Referral ID Status Reason Start Date Expiration Date Visits Requ ested Visits Authorized [id number] Closed 08/30/2017 11/29/2018 40 40 Encounter Details Date Type Department Care Team Description 09/24/2017 Therapy Physicians Neck and Back William Mandujano PT Lumbar radiculopathy [address] [address] [address] [facility],[address] [address] [place] [address] [phone] Social History Tobacco Use Types Packs/Day Years Used Date Smoking Tobacco: Never Assessed Sex Assigned at Date Recorded Not on file documented as of this encounter Progress Notes Interface, In Hp Conv Problem List - 09/24/2017 12:15 PM CDT Visit For: Screening Exam For Malignant Neoplasm Cervix; Screening for malignant neoplasm of the cervix documented in this encounter Plan of Treatment Not on filedocumented as of this encounter Visit Diagnoses Diagnosis Lumbar radiculopathy Thoracic or lumbosacral neuritis or radi culitis, unspecified documented in this encounter
--- OUTSIDE RECORDS SUMMARY | 2022-03-28 18:27 | XMS_ITS | Encounter Summary ---
:1980 Author Organization [facility] Address [address] [place] [address] Care Team Providers Name Role Phone Unavailable Primary Care Provider Unavailable Reason for Visit Reason Comments BACK PAIN, LOW Consult/Transfer Care (Routine) - Closed Specialty Diagnoses / Procedures Referred By Contact Refer red To Contact Physical Therapy Diagnoses LOW BACK PAIN Chao Huggins, Pnbc Paz CASILLAS [address] [place] [address] [place] [address] Fax: Referral ID Status Reason Start Date Expiration Date Visits Requ ested Visits Authorized [id number] Closed 08/30/2017 11/29/2018 40 40 Encounter Details Date Type Department Care Team Description 11/12/2017 Therapy Physicians Neck and Back Jenn Shaffer PTA Lumbar radiculopathy [address] [address] [address] [place] [address] [address] [place] [address] [phone] Social History Tobacco Use Types Packs/Day Years Used Date Smoking Tobacco: Never Assessed Sex Assigned at Date Recorded Not on file documented as of this encounter Progress Notes Jenn Shaffer PTA - 11/12/2017 12:45 PM CDT 11/12/2017 Visit # 16 Protocol: Back and Disc Start: 1 End:1 43 (TIG WELDER Visit # 4 Subjective: Pt states she is doing well with the Rx's. She has not had much muscle soreness after the workouts. Cervical Not performed today. Objective Tests & Measures: Repeated T-Roto weight due 2 a long while Tests performed today (see reviewflowsheet for score and outcomes): : None Performed Today Warm Up: Movement Specific Training: Completed Treadmill: Minutes 5 Intensity 4 ICE: Back Lumbar Lumbar & Torso 11/12/2017 Set 1 Ext % Max 60 Set 1 Ext ROM 0-42 Set 1 Ext Wgt 60 Set 1 Ext Reps 21 Set 1 Ext Tul 130 Set 1 Ext Zina RPE 3 Set 2 Ext % Max - Set 2 Ext ROM - Set 2 Ext Wgt - Set 2 Ext Reps - Set 2 Ext Tul - Set 2 Zina RPE - Left Rot % Max 100 Left Rot ROM 30 Left Rot Wgt 48 Left Rot Reps 20/20 Left Rot Abilio RPE 4/6 Right Rot % Max 100 Right Rot ROM 30 Right Rot Wgt 48 Right Rot Reps 20/20 Right Rot Zina RPE 5/8 Therapeutic Exercise (33 min): Patient performed isolated torso rotation exercise and auxillary exercises to improve muscle strength, to improve muscle endurance, to improve muscle flexibility and to improve range of motion to increase tolerance for sitting, sleeping, bed mobility and drivingVerbal cues for not using her hands to help push from side to side in T-Roto. Neuromuscular Re-Education 10 min): Patient performed movement specific training and isolated lumbar extension to retrain muscles for proper sequencing, improve muscle recruitment patterns and decrease substitution patterns and normalizemovement patterns to increase tolerance for sitting, sleeping, bed mobility, lifting and work activit ies.Verbal cues for pace in L-Ext Auxillary Auxillary 11/12/2017 Abs Wgt Set 1 70 Abs Reps Set 1 30 Abs Wgt Set 2 70 Abs Reps Set 2 25 Glute Wgt Set 1 130 Glute Reps Set 1 30 Glute Wgt Set 2 130 Glute Reps Set 2 30 Leg Press Wgt Set 1 240 Leg Press Reps Set 1 20 Leg Press Wgt Set 2 240 Leg Press Reps Set 2 20 Other - HEP - Therapeutic Activities (0 min): Patient Education: Patient was instructed in pain/time scale to increase their understanding of the benefits related tocompleting the PNBC Rehab program Assessment: Sitting in her car this morning increased her left leg Sx's.Biking has been tolerated well. Sleep is fairly Good. Sitting at work can increase her Sx's.Moderate fatigue in T-Roto today. Goals: Short Term Goals (4-6 weeks): ?? 1. Pt will report able to have [...] LE/low back symptoms Improving again 10/23/17 ? Facility Coordinator Goals (>6 weeks): ?? 1. Patient will be independent with home [...] less often than weekly ? Precautions/Other Information: Disc monitor left le symptoms. ??Flare 10/15 Recommendations/Communication: 100% L-Ext and 60% T-Roto next Rx.Increase auxiliaries as patient tolerates. Total timed code min: 43 Total treatment time: 43 Jenn Shaffer PTA 11/12/2017, 1:43 PM documented in this encounter Plan of Treatment Not on filedocumented as of this encounter Visit Diagnoses Diagnosis Lumbar radiculopathy Thoracic or lumbosacral neuritis or radi culitis, unspecified documented in this encounter
--- OUTSIDE RECORDS SUMMARY | 2022-03-28 18:27 | XMS_ITS | Encounter Summary ---
:1980 Author Organization [facility] Address [address] [place] [address] Care Team Providers Name Role Phone Unavailable Primary Care Provider Unavailable Reason for Visit Reason Comments BACK PAIN, LOW Consult/Transfer Care (Routine) - Closed Specialty Diagnoses / Procedures Referred By Contact Refer red To Contact Physical Therapy Diagnoses LOW BACK PAIN Chao Huggins, Pnbc [place] MD [address] [facility] [address] [place] [address] [place] [address] Fax: Referral ID Status Reason Start Date Expiration Date Visits Requ ested Visits Authorized [id number] Closed 08/30/2017 11/29/2018 40 40 Encounter Details Date Type Department Care Team Description 10/26/2017 Therapy Physicians Neck and Back Luis Billingsley, Lumbar radiculopathy [facility] [address] [facility] [address] [facility],[address] [place] [address] [place] [address] [phone] Social History Tobacco Use Types Packs/Day Years Used Date Smoking Tobacco: Never Assessed Sex Assigned at Date Recorded Not on file documented as of this encounter Progress Notes Amy Billingsley, HEAD GIRLS GOLF COACH - 10/26/2017 12:00 PM CDT 10/26/2017 Visit # 13 Protocol: Back and Disc Start: 1219 End: 1256 (HEAD GIRLS GOLF COACH Visit # 2 Subjective: pt reports last session was tough. Had a bit of a flair up session but feeling better. Pt can tell the weihgts are getting heavier.Overall about 50% better Cervical Not performed today. Objective Tests & Measures: Kept lumbar and thoracic weights at 60%, monitored ROM Tests performed today (see [facility] for score and outcomes): : None Performed Today Warm Up: Movement Specific Training: Completed Mat Exercises Completed Treadmill: Minutes 5 Intensity mod ICE: Back Lumbar Lumbar & Torso 10/26/2017 Set 1 Ext % Max 60% Set [...] Right Rot Zina RPE 4 Therapeutic Exercise (21 min): Aux wts to improve sitting, standing, walking and sleep and getting up in the morningsby increasing strength and endurance of ancillary muscles. Pt was monitored for speed and form and given verbal cues for safe and effective reps. Neuromuscular Re-Education (16 min): Isolated lumbar and thoracic spine exercises to improve movement patterns of the lumbar and thoracicspine and to improve disc hydration. Pt was monitored for speed and form with lumbar extension and thoracic rotation and given verbal cues for safe and effective reps. Auxillary Auxillary 10/26/2017 Abs Wgt Set 1 65 Abs Reps Set 1 25 Abs Wgt Set 2 65 Abs Reps Set 2 30 Glute Wgt Set 1 120 Glute Reps Set 1 20 Glute Wgt Set 2 120 Glute Reps Set 2 20 Leg Press Wgt Set 1 260 Leg Press Reps Set 1 20 Leg Press Wgt Set 2 260 Leg Press Reps Set 2 20 Other - HEP - Therapeutic Activities (0min): Not performed today. Patient Education: Pt was advised on using ice, mst ex's for symptom management. Pt advised on progression of program. Patient was instructed in correlation of strength and function to increase their understanding of the benefits related to completing the PNBC Rehab program Assessment: pt feels she is mostly recovered from the flair up she had last session. Did well with the 60%, opted to keep the rotation at 60% for motion today Goals: Short Term Goals (4-6 weeks): 1. [...] LE/low back symptoms Improving again 10/23/17 ? Jail Goals (>6 weeks): 1. Patient will be [...] Disc monitor left le symptoms. ??Flare 10/15 ?? Recommendations/Communication: 100% lext and 60% troto per disc protocol, continue to monitor leg sx Total timed code min: 33 Total treatment time: 33 Amy Billingsley PTA 10/26/2017, 12:49 PM documented in this encounter Plan of Treatment Not on filedocumented as of this encounter Visit Diagnoses Diagnosis Lumbar radiculopathy Thoracic or lumbosacral neuritis or radi culitis, unspecified documented in this encounter
--- OUTSIDE RECORDS SUMMARY | 2022-03-28 18:27 | XMS_ITS | Encounter Summary ---
:1980 Author Organization [employer] Address [address] [place] [address] Care Team Providers Name Role Phone Unavailable Primary Care Provider Unavailable Reason for Visit Reason Comments BACK PAIN, LOW Consult/Transfer Care (Routine) - Closed Specialty Diagnoses / Procedures Referred By Contact Refer red To Contact Physical Therapy Diagnoses LOW BACK PAIN Chao Huggins, Pnbc Paz CASILLAS [address] [place] [address] [address] [place] [address] [place] [address] Fax: Referral ID Status Reason Start Date Expiration Date Visits Requ ested Visits Authorized [id number] Closed 08/30/2017 11/29/2018 40 40 Encounter Details Date Type Department Care Team Description 11/09/2017 Therapy Physicians Neck and Back Jai Darden PTA Lumbar radiculopathy [facility] [place] [address] [place] [address],[address] [place] [address] Social History Tobacco Use Types Packs/Day Years Used Date Smoking Tobacco: Never Assessed Sex Assigned at Date Recorded Not on file documented as of this encounter Progress Notes Jai Darden PTA - 11/09/2017 2:45 PM CDT 11/09/2017 Visit # 15 Protocol: Back and Disc Start: 3:05 End: 3:44 (HUMAN RESOURCES COMPLIANCE MANAGER Visit # 3 Subjective: Pt reports ethan last Tx without ill effect, no change with function, compliant with HEP Cervical Not performed today. Objective Tests & Measures: Increased wt with L-EXTN, T-ROTO, abs, LP Tests performed today (see reviewflowsheet for score and outcomes): : None Performed Today Warm Up: Movement Specific Training: Completed Treadmill: Minutes 5 Intensity 4 mph ICE: Back Lumbar Lumbar & Torso 11/09/2017 Set 1 Ext % Max 100 Set 1 Ext ROM 0-42 Set 1 Ext Wgt 110 Set 1 Ext Reps 20 Set 1 Ext Tul 0 Set 1 Ext Zina RPE 7 Set 2 Ext % Max 100 Set 2 Ext ROM 0-42 Set 2 Ext Wgt 110 Set 2 Ext Reps 16 Set 2 Ext Tul 87 Set 2 Zina RPE 10 Left Rot % Max 60 Left Rot ROM 30 Left Rot Wgt 33 Left Rot Reps 20 Left Rot Abilio RPE 3 Right Rot % Max 60 Right Rot ROM 30 Right Rot Wgt 33 Right Rot Reps 20 Right Rot Zina RPE 3 Therapeutic Exercise (31 min): HUMAN RESOURCES COMPLIANCE MANAGER monitored pt L-Extn for correct rep speed, ROM, form, for strengthening lumbar spine to increase function with sleeping. Pt demos proper technique (No VC required), 7/10 and 10/10 RPE, making obj improvement with strength. Post extension cues given for postural correction HUMAN RESOURCES COMPLIANCE MANAGER monitored pt auxiliary exercises for correct rep speed, ROM, form, for strengthening LE, AB muscles to facilitate increased function with all STG/LTG functional activities. Pt required VC for: Pt used seatbelt on G/H for safety Neuromuscular Re-Education (8 min): HUMAN RESOURCES COMPLIANCE MANAGER supervised patient T-Roto for correct rep speed, ROM, form, for neuro movement training of thoracic spine to increase function with sleeping. Pt demos proper technique (No VC required), 3/10 RPE, making objective improvement with strength. Auxillary Auxillary 11/09/2017 Abs Wgt Set 1 70 Abs Reps Set 1 30 Abs Wgt Set 2 70 Abs Reps Set 2 30 Glute Wgt Set 1 130 Glute Reps Set 1 30 Glute Wgt Set 2 130 Glute Reps Set 2 24 Leg Press Wgt Set 1 270 Leg Press Reps Set 1 30 Leg Press Wgt Set 2 270 Leg Press Reps Set 2 30 Other - HEP - Therapeutic Activities (0 min): Not performed today. Patient Education: Patient was instructed in specific review of patients progress to increase their understanding of the benefits related to completing the PNBC Rehab program POC, post extn postural correction, max mm fatigue. Pt vocalizes and demos understanding of info Assessment: Pt tolerated all progressions without ill effect, making progress with both strength andfunction. See goals below. Goals: Short Term Goals (4-6 weeks): 1. [...] LE/low back symptoms Improving again 10/23/17 ? Front Desk Administrator Goals (>6 weeks): 1. Patient will be [...] than slight and less often than weekly ?? Precautions/Other Information: Disc monitor left le symptoms. ??Flare 10/15 ?Recommendations/Communication: L-EXTN 60%, T-ROTO 100%, increase wt with all aux total timed code min: 39 Total treatment time: 39 Jai Darden PTA 11/09/2017, 3:44 PM documented in this encounter Plan of Treatment Not on filedocumented as of this encounter Visit Diagnoses Diagnosis Lumbar radiculopathy Thoracic or lumbosacral neuritis or radi culitis, unspecified documented in this encounter
--- OUTSIDE RECORDS SUMMARY | 2022-03-28 18:27 | XMS_ITS | Encounter Summary ---
:1980 Author Organization [facility] Address [address] [place] [address] Care Team Providers Name Role Phone Unavailable Primary Care Provider Unavailable Reason for Visit Auth/Cert Specialty Diagnoses / Procedures Referred By Contact Refer red To Contact Diagnoses Mass Salivary Gland Procedures US LYMPH NODE BIOPSY OP Referral ID Status Reason Start Date Expiration Date Visits Requ ested Visits Authorized [id number] 1 1 Encounter Details Date Type Department Care Team Description 08/30/2020 Hospital Encounter Department of [place], Kumar Pace M.D. [address] [place] [phone] Mass Salivary Gland Radiology, Gavin Rodriguez M.D. [address] [place] [phone] [facility], in [place], [place] [address] [place] [address] Social History Tobacco Use Types Packs/Day Years [...] or relatives? How often do you attend rastafari or Never 2020 latter day services? Do you belong to any clubs or Yes 10/01/2020 organizations such as rastafari groups, unions, fraternal or athletic groups, or [...] place to sleep or slept in a correction (including now)? Education Answer Date Recorded What is the highest level of school Master's degree (e.g., Anabela Mock , 08/17/2020 you have completed or the highest Elmer, MEd, FARM MACHINERY [employer]SEMBLER, MARIE) degree you have received? Sex Assigned at Date Recorded Not on file documented as of this encounter Medications at Time of Discharge Medication Sig Dispensed Refills Start Date End Date cholecalciferol, vitamin D3, Daily 0 25 mcg (1,000 Unit) tablet cyclobenzaprine (FLEXERIL) 5 Bedtime as needed 0 10/24/2017 mg tablet hydroCHLOROthiazide Take 25 mg by 0 07/20/2011 (HYDRODIURIL) 25 mg tablet mouth. ibuprofen (ADVIL,MOTRIN) 600 Every 6 Hours as 0 mg tablet needed multivitamin capsule Daily 0 omeprazole (PriLOSEC) [address] Daily 0 12/16 capsule spironolactone (ALDACTONE) 100 Daily 0 09/02 mg tablet documented as of this encounter Miscellaneous Notes Result Encounter Note - Kumar Milan M.D. - 08/31/2020 8:36 AM CDT Called, discussed. Will follow up as planned documented in this encounter Plan of Treatment Not on filedocumented as of this encounter Procedures Procedure Name Priority Date/Time Associated Comments Diagnosis US SUPERFICIAL RAD - Routine 08/30/2020 8:48 Mass Salivary Results for this TISSUE FINE NEEDLE (most inpatients AM CDT Gland proce dure are in ASPIRATION and all the results outpatients) section. CYTOLOGY FINE Timed 08/30/2020 8:19 Results for this NEEDLE ASPIRATION AM CDT procedure are in (INCLUDES CORE the results BIOPSIES section. documented in this encounter Results US Superficial Tissue Fine [...] lymph node FNA. NR Kumar Milan M.D. IMG US PROCEDURES Cytology Fine Needle Aspiration (including core biopsies) (08/30/2020 8:19 AM CDT) Component Value Ref Test Analysis Performed At [facility] gist Range Method Time Signature 08/30/2020 DTL 1:57 PM CDT Report Charley Howard M.D. [id number] 08/30/2020 DTL electronically 1:57 PM CDT signed by I verify that I have examined all relevant slides/materials for the specimen(s) and rendered or confirmed the diagnosis. Seen in consultation with: ??Hilda Quinones M.D. [id number] Gross Description Received 12 08/30/2020 DTL alcohol-fixed 1:57 PM CDT smears. Source A. Lymph node, 08/30/2020 DTL Left 1:57 PM CDT submandibular, fine needle aspiration Interpretation A. Lymph node, Left submandibular, fine needle aspir ation 08/30/2020 DTL (smears): ??Negative for malignancy. ??Mixed lymphoid 1:57 PM CDT population, most consistent with reactive lymph node. Specimen Anatomical Collection Method Collection Time Receive d Time (Source) Location / / Volume Laterality Varies (Lymph 08/30/2020 8:19 AM 08/31/19 21 Node) CDT 11:49 AM CDT Narrative This result has an attachment that is no t available. Kumar Milan M.D. LAB SURG PATH ORDERABLES Performing Organization Address City/State/ZIP Code Phon e Number [facility] - [address] [place], [place] [address] [facility] [place] [address] [facility] [address] documented in this encounter Visit Diagnoses Diagnosis Mass Salivary Gland documented in this encounter Administered Medications Inactive Administered Medications - up to 3 most recent administrations Medication Order MAR Action Action Date Dose Rate Site lidocaine 10 mg/mL (1 %) Given 08/30/2020 8:38 AM CDT 2 mL Left Neck injection (XYLOCAINE) Code/trauma/sedation medication, Starting on Sun08/30/20 at 0838 documented in this encounter Active and Recently Administered Medications Times are shown in CDT. PRN Medication Order 08/28/2020 08/29/2020 08/30/2020 lidocaine 10 mg/mL (1 %) injection (XYLOCAINE) (CANCELED) 0838 (Given - Provider: Gavin Gray M.D.) Code/trauma/sedation medication, Starting on Sun08/30/20 at 0838 documented in this encounter
--- OUTSIDE RECORDS SUMMARY | 2022-03-28 18:27 | XMS_ITS | Encounter Summary ---
:1980 Author Organization [employer] Address [address] [place] [address] Care Team Providers Name Role Phone Unavailable Primary Care Provider Unavailable Reason for Visit Reason Comments BACK PAIN, LOW Consult/Transfer Care (Routine) - Closed Specialty Diagnoses / Procedures Referred By Contact Refer red To Contact Physical Therapy Diagnoses LOW BACK PAIN Chao Huggins, Pnbc Paz CASILLAS [address] [facility] [address] [facility],[address] [place] [address] [place] [address] Fax: Referral ID Status Reason Start Date Expiration Date Visits Requ ested Visits Authorized [id number] Closed 08/30/2017 11/29/2018 40 40 Encounter Details Date Type Department Care Team Description 10/17/2017 Therapy Physicians Neck and Back Leidy Stuart, Lumbar radiculopathy Center [facility] [address] [place] [address] [place] [address] [phone] (Wo rk) Social History Tobacco Use Types Packs/Day Years Used Date Smoking Tobacco: Never Assessed Sex Assigned at Date Recorded Not on file documented as of this encounter Progress Notes Jackie Stuart, LIGHTING FIXTURE INSTALLER - 10/17/2017 12:00 PM CDT 10/17/2017 Visit # 11 Protocol: Back and Disc Start: 12:05 End: 12:54 (LIGHTING FIXTURE INSTALLER Visit # 6 Subjective: Pt states that her right glut iszinging. Cervical Not performed today. Objective Tests & Measures: Tests performed today (see reviewflowsheet for score and outcomes): : None Performed Today Warm Up: Movement Specific Training: Completed Mat Exercises Completed Treadmill: Minutes 5 Intensity mod ICE: Back Lumbar Lumbar & Torso 10/17/2017 Set 1 Ext % Max 100% Set 1 Ext ROM 0-42 Set 1 Ext Wgt 96 Set 1 Ext Reps 20 Set 1 Ext Tul 125 Set 1 Ext Zina RPE 9 Set 2 Ext % Max 100% Set 2 Ext ROM 0-42 Set 2 Ext Wgt 96 Set 2 Ext Reps 14 Set 2 Ext Tul 103 Set 2 Zina RPE 10 p Left Rot % Max 60 Left Rot ROM 30 Left Rot Wgt 26 Left Rot Reps 25 Left Rot Abilio RPE 4 Right Rot % Max 60 Right Rot ROM 30 Right Rot Wgt 26 Right Rot Reps 25 Right Rot Zina RPE 4 Therapeutic Exercise 31 min): Patient performed isolated lumbar extension exercise and auxillary exercises to improve muscle strength, to improve muscle endurance, to improve muscle flexibility, to improve range of motion and increase strength and endurance levels of supporting spinal muscle groups to increase tolerance for sitting, sleeping and driving Analyzed data from previous treatment to determine changes in range of motion and weight capacity for today's RX. Cued pt for correct body alignment and form during the exercises. Advised on optimal pace to achieve most benefits of the exercise. See Daily Exercise flow sheet for numeric details. Neuromuscular Re-Education (10 min): Patient performed isolated torso rotation to retrain muscles for proper sequencing and improve muscle recruitment patterns to increase tolerance for sitting, sleeping and driving. Analyzed data from previous treatment to determine changes in range of motion and weight capacity for today's RX. Cued pt for correct body alignment and form during the exercises. Advised on optimal pace to achieve most benefits of the exercise. See Daily Exercise flow sheet for numeric details. Auxillary Auxillary 10/17/2017 Abs Wgt Set 1 60 Abs Reps Set 1 30 Abs Wgt Set 2 65 Abs Reps Set 2 20 Glute Wgt Set 1 120 Glute Reps Set 1 25 Glute Wgt Set 2 130 Glute Reps Set 2 20 Leg Press Wgt Set 1 250 Leg Press Reps Set 1 20 Leg Press Wgt Set 2 250 Leg Press Reps Set 2 20 Other Instruction in prone directional preference exercise. HEP - Therapeutic Activities (8 min): Therapeutic Activities 10/17/2017 SITTING POSTURE Independent STANDING POSTURE - SLEEP POSTURE - BASE OF SUPPORT - WEIGHT SHIFT - PIVOT VS TWIST - OBJECT CLOSE VS FAR AWAY - PUSH VS PULL - SQUAT - LIFT FROM FLOOR - LIFT OVERHEAD - CORE EDUCATION - OTHER ACTIVITY Instruction as it relates to seated car positioning. Use of lumbar roll adjusting seat postions. Patient Education: Patient was instructed in specific review of patients progress to increase their understanding of the benefits related to completing the [facility] Rehab program Assessment: Because of persistent flare, 0pted to repeat last max lumbar ex weight of 96# Reached full muscle fatilure on 2nd set with some pain so stoppped and pain resolved. Able to perform all exercises per plan of care today without exacerbation of Sx. Gave prone directional preference exercise instruction and discussed sitting posture in car. Goals: Short Term Goals (4-6 weeks): 1. Pt will report able to have improved sleep, without need for medication sleep 6-7 hours without interruption of back/LE??symptoms MET 10/03/17 2. Pt will report able to have improved mobility in morning no left LE??symptoms while getting out bed to walk/stand most mornings Improving 10/12/17 Worse 10/17 3. Pt will report commute tolerance improved, able to drive to/from work with no greater than mild LE/low back symptoms Improving 10/08 worse 10/17 ? Custodial Goals (>6 weeks): 1. Patient will be independent with home exercise program after discontinued from Physical Therapy. 2. Pt will be able to ride her bike 15 miles/1hour without any low back or LE??symptoms other than slight??Progressing 12 miles 10/03/17 3. Pt will shan able to sit in her car 1-2 hours with no greater than slight symptoms (can tolerate 10-15 min and then pain increases; 10/12/17) 4. Pt will be able to sleep uninterrupted by low back/LE??symptoms other than slight and less often than weekly ? Precautions/Other Information: disc monitor left le symptoms. Flare 10/15 Recommendations/Communication: 60% Lumbar Ext 60-80% T-roto depending on right glut sx. Total timed code min: 49 Total treatment time: 49 Jackie Stuart PTA 10/17/2017, 2:04 PM Associated attestation - Dennis Mandujano, PT - 10/19/2017 11:30 AM CDT Observed treatment. Goals/Plan of Care discussed with LIGHTING FIXTURE INSTALLER. Treatment progressing and appropriate. Dennis Mandujano, PT 10/19/2017, 11:30 AM documented in this encounter Plan of Treatment Not on filedocumented as of this encounter Visit Diagnoses Diagnosis Lumbar radiculopathy Thoracic or lumbosacral neuritis or radi culitis, unspecified documented in this encounter
--- OUTSIDE RECORDS SUMMARY | 2022-03-28 18:27 | XMS_ITS | Encounter Summary ---
:1980 Author Organization [facility] Address [address] [place] [address] Care Team Providers Name Role Phone Unavailable Primary Care Provider Unavailable Reason for Visit Reason Comments BACK PAIN, LOW Consult/Transfer Care (Routine) - Closed Specialty Diagnoses / Procedures Referred By Contact Refer red To Contact Physical Therapy Diagnoses LOW BACK PAIN Chao Huggins, Pnbc Paz CASILLAS [address] [place] [address] [place] [address] Fax: Referral ID Status Reason Start Date Expiration Date Visits Requ ested Visits Authorized [id number] Closed 08/30/2017 11/29/2018 40 40 Encounter Details Date Type Department Care Team Description 12/07/2017 Therapy Physicians Neck and Back Jessica Tirado PTA Lumbar radiculopathy [place] [address] [address] [place] [address] [place] [address] [phone] Social History Tobacco Use Types Packs/Day Years Used Date Smoking Tobacco: Never Assessed Sex Assigned at Date Recorded Not on file documented as of this encounter Progress Notes Jessica Tirado PTA - 12/07/2017 12:45 PM CDT 12/07/2017 Visit # 22 Protocol: Back and Disc Start: 1:00 End: 1:43 (PROMOTIONS COORDINATOR Visit # 4 Subjective: Patient reports she can sleep well but still takes Flexeril. Sitting tolerance has not changed since starting program. Cervical Not performed today. Objective Tests & Measures: 90% T-roto for one set only since she hadn't had a heavy load for a few weeks. Tests performed today ([facility] score and outcomes): : None Performed Today Warm Up: Movement Specific Training: Completed Mat Exercises Completed Treadmill: Minutes 5 Intensity mod ICE: Back Lumbar Lumbar & Torso 12/07/2017 Set 1 Ext % Max 60 Set 1 Ext ROM 0-42 Set 1 Ext Wgt 72 Set 1 Ext Reps 30 Set 1 Ext Tul 140 Set 1 Ext Zina RPE 3 Set 2 Ext % Max - Set 2 Ext ROM - Set 2 Ext Wgt - Set 2 Ext Reps - Set 2 Ext Tul - Set 2 Zina RPE - Left Rot % Max 100 Left Rot ROM 30 Left Rot Wgt 45 Left Rot Reps 30 Left Rot Abilio RPE 5 Right Rot % Max 100 Right Rot ROM 30 Right Rot Wgt 45 Right Rot Reps 30 Right Rot Zina RPE 5 Therapeutic Exercise (32 min): Patient performed isolated torso rotation exercise and auxillary exercises to improve muscle strength and to improve muscle endurance to increase tolerance for goals listed below. Cues given to slow pace and to exercise through full ROM. Neuromuscular Re-Education (11 min): Patient performed isolated lumbar extension to decrease substitution patterns present with chronic pain to increase tolerance for goals listed below. Patient needed max assist for set up of equipment today. Monitored patient for safe, effective reps. Demo and had patient practice bill chair in extension, rotation and lateral flexion. Cues given forkeeping hips relaxed, to limit pelvic motion and to limit motion to lumbar spine. Auxillary Auxillary 12/07/2017 Abs Wgt Set 1 75 Abs Reps Set 1 25 Abs Wgt Set 2 75 Abs Reps Set 2 25 Glute Wgt Set 1 130 Glute Reps Set 1 30 Glute Wgt Set 2 130 Glute Reps Set 2 30 Leg Press Wgt Set 1 270 Leg Press Reps Set 1 30 Leg Press Wgt Set 2 270 Leg Press Reps Set 2 30 Other - HEP bill chair in all planes Therapeutic Activities (0 min): Not performed today. Patient Education: Patient was instructed in specific review of patients progress and correlation of strength and function to increase their understanding of the benefits related to completing the [facility] program. Patient educated in plan for today. Patient verbalized understanding of plan. Instructed in bill chair use for home maintenance of spinal strength. Assessment: Patient had moderate fatigue with T-roto today. Loads and range of motion were adjusted today as needed to improve technique and increase level of muscular fatigue. Goals were addressed andchanges documented under Goal section as needed. Goals: Short Term Goals (4-6 weeks): 1. Pt will report able to have improved sleep, without need for medication sleep 6-7 hours without interruption of back/LE??symptoms Partially met 8/3 2. Pt will report able to have improved mobility in morning no left LE??symptoms while getting out bed to walk/stand most mornings Partially MET 8/3 3. Pt will report commute tolerance improved, able to drive to/from work with no greater than mild LE/low back symptoms Not met 8/3 ? Retirement Goals (>6 weeks): 1. Patient will be independent with home exercise program after discontinued from Physical Therapy Core trial and then bill chair at the gym or home 12/07 2. Pt will be able to ride her bike 15 miles/1hour without any low back or LE??symptoms other than slight?? MET 8/3 3. Pt will able to sit in her car 1-2 hours with no greater than slight symptoms Not met /3 4. Pt will be able to sleep uninterrupted by low back/LE??symptoms other than slight and less often than weekly Met /3 ? Precautions/Other Information: Disc monitor left LE??symptoms. ??Flare 10/15 Recommendations/Communication: Patient plans to transition to Core program for now and may get a bill chair for home. Jessica Tirado PTA 12/07/2017, 1:42 PM Riana Singh, PT - 12/07/2017 12:45 PM CDT Physical Therapy Discharge Summary Discharge Date: 12/07/17 Discharge type: formal Patient completed 22 sessions of physical therapy from 09/03/17 to 12/07/17. Short Term Goals (4-6 weeks): 1. Pt will report able to have improved sleep, without need for medication sleep 6-7 hours without interruption of back/LE??symptoms Partially met 8/3 2. Pt will report able to have improved mobility in morning no left LE??symptoms while getting out bed to walk/stand most mornings Partially MET 12/07 3. Pt will report commute tolerance improved, able to drive to/from work with no greater than mild LE/low back symptoms Not met 12/07 ? Retirement Goals (>6 weeks): 1. Patient will be independent with home exercise program after discontinued from Physical Therapy Core trial and then bill chair at the gym or home 12/07 2. Pt will be able to ride her bike 15 miles/1hour without any low back or LE??symptoms other than slight?? MET??12/07 3. Pt will able to sit in her car 1-2 hours with no greater than slight symptoms Not met 12/07 4. Pt will be able to sleep uninterrupted by low back/LE??symptoms other than slight and less often than weekly Met atient has been instructed in and demonstrated proficiency and safe body mechanics with the following tasks: Neutral sitting position Standing posture Full and partial squat/half kneel/golfer's lift Wide base of support Weight shift Pivot vs twist Hold object close vs away Floor <> waist lift Other status update/follow up recommendations: f/u with primary provider for other options as pt notas improved as expected Discharge Plans: CORE Riana Singh, MARINA 12/10/2017, 9:34 AM documented in this encounter Plan of Treatment Not on filedocumented as of this encounter Visit Diagnoses Diagnosis Lumbar radiculopathy Thoracic or lumbosacral neuritis or radi culitis, unspecified documented in this encounter
--- OUTSIDE RECORDS SUMMARY | 2022-03-28 18:27 | XMS_ITS | Encounter Summary ---
:1980 Author Organization [facility] Address [address] [place] [address] Care Team Providers Name Role Phone Unavailable Primary Care Provider Unavailable Reason for Visit Reason Comments BACK PAIN, LOW Consult/Transfer Care (Routine) - Closed Specialty Diagnoses / Procedures Referred By Contact Refer red To Contact Physical Therapy Diagnoses LOW BACK PAIN Chao Huggins, Pnbc Paz CASILLAS [address] [address] [address] [place] [address] [place] [address] Fax: Referral ID Status Reason Start Date Expiration Date Visits Requ ested Visits Authorized [id number] Closed 08/30/2017 11/29/2018 40 40 Encounter Details Date Type Department Care Team Description 11/14/2017 Therapy Physicians Neck and Back Macy Curiel , Lumbar radiculopathy Center [facility] [address] [facility],[address] [place] [address] Social History Tobacco Use Types Packs/Day Years Used Date Smoking Tobacco: Never Assessed Sex Assigned at Date Recorded Not on file documented as of this encounter Progress Notes Macy Curiel, CONSULTING PRACTICE DIRECTOR - 11/14/2017 12:45 PM CDT 11/14/2017 Visit # 17 Protocol: Back and Disc Start: 1:07 End: 1:48 (CONSULTING PRACTICE DIRECTOR Visit # 5 Subjective: No new sx's, per pt, it is constant. Sx's in hip and butt - not down leg, per pt. Cervical Not performed today. Objective Tests & Measures: Increased wt by 2# on L-ext. Tests performed today (see reviewflowsheet for score and outcomes): : None Performed Today Warm Up: Movement Specific Training: Completed Treadmill: Minutes 5 Intensity mod ICE: Back Lumbar Lumbar & Torso 11/14/2017 Set 1 Ext % Max 100 Set 1 Ext ROM 0-42 Set 1 Ext Wgt 112 Set 1 Ext Reps 20 Set 1 Ext Tul 105 Set 1 Ext Zina RPE 8 Set 2 Ext % Max 100 Set 2 Ext ROM 0-42 Set 2 Ext Wgt 112 Set 2 Ext Reps 22 Set 2 Ext Tul 109 Set 2 Zina RPE 10 Left Rot % Max 60 Left Rot ROM 30 Left Rot Wgt 30 Left Rot Reps 20 Left Rot Abilio RPE 3 Right Rot % Max 60 Right Rot ROM 30 Right Rot Wgt 30 Right Rot Reps 20 Right Rot Zina RPE 3 Therapeutic Exercise (31 min): Patient performed isolated lumbar extension exercise and auxillary exercises to improve muscle strength and to improve muscle endurance to increase tolerance for sitting, sleeping, personal care tasks and household tasks. Monitored for safe rep speed and proper form on all exercises. No cues needed today. Neuromuscular Re-Education (10 min): Patient performed isolated torso rotation decrease substitution patterns and normalize movement patterns to increase tolerance for personal care tasks. 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 Auxillary Auxillary 11/14/2017 Abs Wgt Set 1 70 Abs Reps Set 1 30 Abs Wgt Set 2 70 Abs Reps Set 2 30 Glute Wgt Set 1 130 Glute Reps Set 1 25 Glute Wgt Set 2 130 Glute Reps Set 2 20 Leg Press Wgt Set 1 240 Leg Press Reps Set 1 20 Leg Press Wgt Set 2 240 Leg Press Reps Set 2 20 Other - HEP - Therapeutic Activities (0 min): Not performed today. Patient Education: Patient was instructed in POC. Assessment: Sx's remain constant overall, but do not go down leg now (in hip and glut). Pt challenged on L-ext today. Pt will benefit from further supervised therapy [...] LE/low back symptoms Improving again 10/23/17 ? 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 1. Patient will be independent with home exercise program after discontinued from Physical Therapy 2. Pt will be able to ride her bike 15 miles/1hour without any low back or LE??symptoms other than slight??Progressing 12-20 miles 11/14/17 3. Pt will shan able to sit in her car 1-2 hours with no greater than slight symptoms Can tolerate 10-15 min and then pain increases 10/12/17 4. Pt will be able to sleep uninterrupted by low back/LE??symptoms other than slight and less often than weekly ? Precautions/Other Information: Disc monitor left le symptoms. ??Flare 10/15 Recommendations/Communication: 100% T-roto, 60% L-ext. HEP as needed. Total timed code min: 41 Total treatment time: 41 Macy Curiel PTA 11/14/2017, 2:29 PM documented in this encounter Plan of Treatment Not on filedocumented as of this encounter Visit Diagnoses Diagnosis Lumbar radiculopathy Thoracic or lumbosacral neuritis or radi culitis, unspecified documented in this encounter
--- OUTSIDE RECORDS SUMMARY | 2022-03-28 18:27 | XMS_ITS | Clinical Summary ---
:1980 Author Organization [facility] Address [address] [place] [address] Care Team Providers Name Role Phone Unavailable Primary Care Provider Unavailable Source Comments Patient records contain information from all sites at [facility]. For routine questions regarding patient records, call [phone] during business hours, M-F 8:00 AM - 5:00 PM Central Time. Record requests for emergency care only can be directed to [phone] at any time.[facility] Allergies No known active allergies Medications Medication Sig Dispensed Refills Start Date End Date Status ibuprofen (ADVIL,MOTRIN) Every 6 Hours 0 Active 600 mg tablet as needed cholecalciferol, vitamin Daily 0 Active D3, 25 mcg (1,000 Unit) tablet spironolactone (ALDACTONE) Daily 0 09/03/2019 Active 100 mg tablet omeprazole (PriLOSEC) 40 Daily 0 12/17/[address] capsule multivitamin capsule Daily 0 Active cyclobenzaprine (FLEXERIL) Bedtime as 0 10/24/2017 Active 5 mg tablet needed hydroCHLOROthiazide Take 25 mg by 0 07/20/2011 Active (HYDRODIURIL) 25 mg tablet mouth. Family History Medical History Relation Name Comments Hyperlipidemia Father Robert Migraines Mother Melba Relation Name Status Comments Father Robert Mother Melba Social History Tobacco Use Types Packs/Day Years [...] or relatives? How often do you attend gnosticism or Never 2020 temple services? Do you belong to any clubs or Yes 10/01/2020 organizations such as gnosticism groups, unions, fraternal or athletic groups, or [...] place to sleep or slept in a care home (including now)? Education Answer Date Recorded What is the highest level of Professional school degree (e.g ., , 10/01/2020 school you have completed or the DDS, DVM, LUDA) highest degree you have received? Sex Assigned at Date Recorded Not on file Plan of Treatment Health Maintenance Due Date Last Done Comments Cervical Cancer Screening 1980 HIV Screening 1980 Hepatitis B Vaccines (1 of 1980 3 - 3-dose series) Hepatitis C Screening 1980 Lipid (Cholesterol) 1980 Screening Mammogram 1980 Creatinine Level 10/21/2019 10/20/2018 Potassium Level 10/21/2019 10/20/2018 Sodium Level 10/21/2019 10/20/2018 COVID-19 Vaccine (3 - 10/17/2020 08/22/2020, 07/25/2020 Booster for Moderna series) Depression Screening 05/07/2021 (Annual PHQ-2) DTaP,Tdap,and Td Vaccines 08/27/2028 08/27/2018, 03/31/2008 (3 - Td or Tdap) Influenza Vaccine Completed 12/28/2021, 06/26/2021, 03/18/2019, Additional history exists Pneumococcal vaccine (0-64 Aged Out No lo nger eligible years) based on patient 's age to complete this topic Insurance Payer Benefit Plan / Subscriber ID Effective Phone Address T ype Group Dates [employer]UE [employer] BLUE BCBS [facility] [id number] 2017-Pre [phone] HMO SHIELD ADVANTAGE SEGIP sent 1999 [id number] [address] [id number] [facility] [id number] 2020-Pr [phone] PPO ACHIEVE esent [id number] [place] G[place] [id number]
--- OUTSIDE RECORDS SUMMARY | 2022-03-28 18:27 | XMS_ITS | Encounter Summary ---
:1980 Author Organization [employer] Address [address], [place] [address] Care Team Providers Name Role Phone Unavailable Primary Care Provider Unavailable Reason for Visit Reason Comments BACK PAIN, LOW Consult/Transfer Care (Routine) - Closed Specialty Diagnoses / Procedures Referred By Contact Refer red To Contact Physical Therapy Diagnoses LOW BACK PAIN L5-S1 Dakota Butler MD [address] [facility] [address] [place] [address] [place] [address] Phone: Fax: Referral ID Status Reason Start Date Expiration Date Visits Requ ested Visits Authorized [id number] Closed 06/06/2019 09/04/[phone] Encounter Details Date Type Department Care Team Description 06/16/2019 Therapy Physicians Neck and Ananth Orourke, PT Mechanical low back pain (Primary Dx); Back Center [address] [place] [address] [address] [place], [place] [id number] [phone] Social History Tobacco Use Types Packs/Day Years Used Date Smoking Tobacco: Never Assessed Sex Assigned at Date Recorded Not on file documented as of this encounter Progress Notes Ananth Orourke, PT - 06/16/2019 12:00 PM CST 06/16/2019 Visit # 2 Protocol: Back and Disc Start: 1214 End: 1243 (ARCHITECT NAVAL Visit # 0) Subjective: Patient reports no issues after last session, actually felt a little better leaving. Home exercise program going well. Cervical Not performed today. Objective Tests & Measures: Increased L-Ext to 80ft#, abs to 50#, GH to 100#, leg press to 220# Tests performed today (see [facility] for score and outcomes): : None Performed Today Warm Up: Movement Specific Training: Not Completed Mat Exercises Completed Treadmill: Minutes 7' Intensity min ICE: Back Lumbar Lumbar & Torso 06/16/2019 Set 1 Ext % Max 80 Set 1 Ext ROM 0-42 Set 1 Ext Wgt 80 Set 1 Ext Reps 30 Set 1 Ext Tul 116 Set 1 Ext Zina RPE 7 Set 2 Ext % Max 80 Set 2 Ext ROM 0-42 Set 2 Ext Wgt 80 Set 2 Ext Reps 30 Set 2 Ext Tul 124 Set 2 Zina RPE 8 Left Rot % Max - Left Rot ROM - Left Rot Wgt - Left Rot Reps - Left Rot Abilio RPE - Right Rot % Max - Right Rot ROM - Right Rot Wgt - Right Rot Reps - Right Rot Zina RPE - Therapeutic Exercise (21 min): Patient performed isolated lumbar extension exercise and auxillary exercises to improve muscle strength, to improve muscle endurance and to improve range of motion to increase tolerance for sitting, standing, walking and household tasks with cues for posture and technique with abs and to reach full ROM with GH and L-Ext. Neuromuscular Re-Education (0 min): None performed today. Auxillary Auxillary 06/16/2019 Abs Wgt Set 1 45 Abs Reps Set 1 30 Abs Wgt Set 2 50 Abs Reps Set 2 30 Glute Wgt Set 1 90 Glute Reps Set 1 30 Glute Wgt Set 2 100 Glute Reps Set 2 30 Leg Press Wgt Set 1 200 Leg Press Reps Set 1 30 Leg Press Wgt Set 2 220 Leg Press Reps Set 2 30 Other body mechanics training HEP - Therapeutic Activities (8 min): Therapeutic Activities 06/16/2019 SITTING POSTURE - STANDING POSTURE - SLEEP POSTURE - BASE OF SUPPORT Independent WEIGHT SHIFT Independent PIVOT VS TWIST Independent OBJECT CLOSE VS FAR AWAY Independent PUSH VS PULL Independent SQUAT Independent LIFT FROM FLOOR Independent LIFT OVERHEAD - CORE EDUCATION - OTHER ACTIVITY 20# crate-good technique from previous training Pt given demo with instruction of proper body mechanics with lifting objects floor to waist using squat, golfer's lift, and half kneel techniques to decrease risk of injury while lifting with return demo by pt and cues for technique and posture. Educated pt on importance of maintaining alignment of spine with shoveling and vacuuming. Patient Education: rehab protocols, goals, HEP, ice DOMS, POC, benefits of exercising to fatigue Assessment: Patient tolerated treatment well, excellent effort to push herself with exercises today.No adverse effects with rehab. Good start to therapy. Goals: Target Weight Goals: 120-150ft# per [...] > 20 minutes without increase symptoms. ?? 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 Patient will be [...] patient will be able to return to [employer] with no increase in symptoms. ?? Anticipate normal progression per typical [facility] protocol (16-24 visits). ?? Strength Maintenance Plan: Has membership to [employer]; planning to return to her [employer] classes; possibly buying a Jovany Chair for home use. ?? [employer] access code: [email or web address] - previous code ?? Precautions/Other Information: Disc. L LE symptoms > back. PN 2018 - surgery (L5-S1 decompression) 04/07/19. Direct referral - PT Kim. 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
--- OUTSIDE RECORDS SUMMARY | 2022-03-28 18:27 | XMS_ITS | Encounter Summary ---
:1980 Author Organization [employer] Address [address] [place] [address] Care Team Providers Name Role Phone Unavailable Primary Care Provider Unavailable Reason for Visit Reason Comments BACK PAIN, LOW Consult/Transfer Care (Routine) - Closed Specialty Diagnoses / Procedures Referred By Contact Refer red To Contact Physical Therapy Diagnoses LOW BACK PAIN Chao Huggins, [facility] [facility] [address] [place] [address] [place] [address] Fax: Referral ID Status Reason Start Date Expiration Date Visits Requ ested Visits Authorized [id number] Closed 08/30/2017 11/29/2018 40 40 Encounter Details Date Type Department Care Team Description 11/28/2017 Therapy Physicians Neck and Back Jessica Tirado PTA Lumbar radiculopathy [address] [address] [address] [place] [address] [place] [address] [phone] Social History Tobacco Use Types Packs/Day Years Used Date Smoking Tobacco: Never Assessed Sex Assigned at Date Recorded Not on file documented as of this encounter Progress Notes Jessica Tirado PTA - 11/28/2017 12:45 PM CDT 11/28/2017 Visit # 19 Protocol: Back and Disc Start: 12:55 End: 1:36 (ENT PHYSICIAN Visit # 1) Subjective: Patient states her left hip is sore today. Cervical Not performed today. Objective Tests & Measures: Increased L-ext load 5 ft#. Tests performed today (see reviewflowsheet for score and outcomes): : None Performed Today Warm Up: Movement Specific Training: Completed Mat Exercises Completed Treadmill: Minutes 5 Intensity mod ICE: Back Lumbar Lumbar & Torso 11/28/2017 [...] Right Rot Zina RPE 3 Therapeutic Exercise (33 min): Patient performed isolated lumbar extension exercise and auxillary exercises to improve muscle strength and to improve muscle endurance to increase tolerance for goals listed below. Cues given to slow pace and to exercise through full ROM. Neuromuscular Re-Education (8 min): Patient performed isolated torso rotation to decrease substitution patterns present with chronic pain to increase tolerance for goals listed below. Cues given to slow pace and to exercise through full ROM. Auxillary Auxillary 11/28/2017 Abs Wgt Set 1 [...] min): Not performed today. Patient Education: Patient educated in plan for today. Patient verbalized understanding of plan. Assessment: Patient had very good fatigue with exercises today. Loads and range of motion were adjusted today as needed to improve technique and increase level of muscular fatigue. Goals were addressedand changes documented under Goal section as needed. Would benefit from continued supervised therapyto improve spinal strength and overall function. Goals: Short Term Goals (4-6 weeks): 1. [...] better, now has leg pain 11/28 ? Halfway Goals (>6 weeks): 1. Patient will be [...] 11/28 ? Precautions/Other Information: Disc monitor left LE symptoms. ??Flare 10/15 Recommendations/Communication: 100% Rivka-ariana. Practice bill chair as needed. Jessica Tirado PTA 11/28/2017, 1:36 PM documented in this encounter Plan of Treatment Not on filedocumented as of this encounter Visit Diagnoses Diagnosis Lumbar radiculopathy Thoracic or lumbosacral neuritis or radi culitis, unspecified documented in this encounter
--- OUTSIDE RECORDS SUMMARY | 2022-03-28 18:27 | XMS_ITS | Encounter Summary ---
:1980 Author Organization [facility] Address [address] [place] [address] Care Team Providers Name Role Phone Unavailable Primary Care Provider Unavailable Reason for Visit Reason Comments Core Initial Visit Encounter Details Date Type Department Care Team Description 12/12/2017 Education Physicians Neck and Back Center [facility] [address] [facility],[address] [place] [address] Social History Tobacco Use Types Packs/Day Years Used Date Smoking Tobacco: Never Assessed Sex Assigned at Date Recorded Not on file documented as of this encounter Progress Notes Darline Gonzalez - 12/12/2017 1:15 PM CDT Member was instructed in exercise program today. Please see scanned exercise flow sheet for machines and exercise parameters. Member understood education as demonstrated by her ability to perform exercises with moderate cues Member unable to perform exercises due na. Member struggled with na. Recommend member start core membership. Darline Gonzalez 12/12/2017, 3:22 PM documented in this encounter Plan of Treatment Not on filedocumented as of this encounter Visit Diagnoses Not on filedocumented in this encounter
--- OUTSIDE RECORDS SUMMARY | 2022-03-28 18:27 | XMS_ITS | Encounter Summary ---
:1980 Author Organization [facility] Address [address] [place] [address] Care Team Providers Name Role Phone Unavailable Primary Care Provider Unavailable Reason for Visit Reason Comments BACK PAIN, LOW Consult/Transfer Care (Routine) - Closed Specialty Diagnoses / Procedures Referred By Contact Refer red To Contact Physical Therapy Diagnoses LOW BACK PAIN Chao Huggins, [employer] [facility] [address] [place] [address] [place] [address] Fax: Referral ID Status Reason Start Date Expiration Date Visits Requ ested Visits Authorized [id number] Closed 08/30/2017 11/29/2018 40 40 Encounter Details Date Type Department Care Team Description 10/15/2017 Therapy Physicians Neck and Back Jessica Tirado PTA Lumbar radiculopathy [address] [address] [address] [place] [address] [place] [address] [phone] Social History Tobacco Use Types Packs/Day Years Used Date Smoking Tobacco: Never Assessed Sex Assigned at Date Recorded Not on file documented as of this encounter Progress Notes Jessica Tirado PTA - 10/15/2017 12:00 PM CDT 10/15/2017 Visit # 10 Protocol: Back and Disc Start: 12:22 End: 1:00 (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 More sore in herback. Yesterday she spent at a baseball tournament and was more sore by the night. Did not have timeto ice her back. Cervical Not performed today. Objective Tests & Measures: Increased T-roto load 8 ft#. Tests performed today (see [facility] for score and outcomes): : Oswestry 4 points improved Warm Up: Movement Specific Training: Completed Mat Exercises Completed Treadmill: Minutes 5 Intensity mod ICE: Back Lumbar Lumbar & Torso 10/15/2017 Set 1 Ext % Max 60 Set 1 Ext ROM 0-45 Set 1 Ext Wgt 60 Set 1 Ext Reps 20 Set 1 Ext Tul 138 Set 1 Ext Zina RPE 3 Set 2 Ext % Max - Set 2 Ext ROM - Set 2 Ext Wgt - Set 2 Ext Reps - Set 2 Ext Tul - Set 2 Zina RPE - Left Rot % Max 100 Left Rot ROM 30 Left Rot Wgt 48 Left Rot Reps 30/22 Left Rot Abilio RPE 5/10 Right Rot % Max 100 Right Rot ROM 30 Right Rot Wgt 48 Right Rot Reps 30/13 Right Rot Zina RPE 7/10 Therapeutic Exercise (30 min): Patient performed isolated torso rotation exercise and auxillary exercises to improve muscle strength and to improve muscle endurance to increase tolerance for goals listed below. Cued to loosen machine coil assembler on handles with T-roto and push with scapular area. Neuromuscular Re-Education (8 min): Patient performed isolated lumbar extension to decrease substitution patterns present with chronic pain to increase tolerance for goals listed below. Cues given to slow pace and to exercise through full ROM. Auxillary Auxillary 10/15/2017 Abs Wgt Set 1 60 Abs Reps Set 1 20 Abs Wgt Set 2 60 Abs Reps Set 2 20 Glute Wgt Set 1 120 Glute Reps Set 1 20 Glute Wgt Set 2 120 Glute Reps Set 2 20 Leg Press Wgt Set 1 24 Leg Press Reps Set 1 25 Leg Press Wgt Set 2 240 Leg Press Reps Set 2 20 HEP - Therapeutic [id number] (0 min): Not performed today. Patient Education: Patient was instructed in plan for today. Assessment: Patient had very good fatigue with T-roto today. No changes with goals. Loads and range of motion were adjusted today as needed to improve technique and increase level of muscular fatigue. Would benefit from continued supervised therapy to improve spinal strength and overall function. Goals: [...] mild LE/low back symptoms Improving 10/08 ? Nursing Home Goals (>6 weeks): 1. Patient will [...] Information: disc monitor left le symptoms Recommendations/Communication: 100% L-ext if able. Advance loads with auxiliary exercises as needed/able. Jessica Tirado PTA 10/15/2017, 1:02 PM documented in this encounter Plan of Treatment Not on filedocumented as of this encounter Visit Diagnoses Diagnosis Lumbar radiculopathy Thoracic or lumbosacral neuritis or radi culitis, unspecified documented in this encounter
--- OUTSIDE RECORDS SUMMARY | 2022-03-28 18:27 | XMS_ITS | Encounter Summary ---
:1980 Author Organization [employer] Address [address] [place] [address] Care Team Providers Name Role Phone Unavailable Primary Care Provider Unavailable Reason for Visit Reason Comments BACK PAIN, LOW Consult/Transfer Care (Routine) - Closed Specialty Diagnoses / Procedures Referred By Contact Refer red To Contact Physical Therapy Diagnoses LOW BACK PAIN Chao Huggins, [employer] [facility] [address] [place] [address] [place] [address] Fax: Referral ID Status Reason Start Date Expiration Date Visits Requ ested Visits Authorized [id number] Closed 08/30/2017 11/29/2018 40 40 Encounter Details Date Type Department Care Team Description 10/08/2017 Therapy Physicians Neck and Back Jessica Tirado PTA Lumbar radiculopathy [address] [place] [address] [address] [place] [address] [place] [address] [phone] Social History Tobacco Use Types Packs/Day Years Used Date Smoking Tobacco: Never Assessed Sex Assigned at Date Recorded Not on file documented as of this encounter Progress Notes Jessica Tirado PTA - 10/08/2017 12:00 PM CDT 10/08/2017 2 Visit # 8 Protocol: Back and Disc Start: 12:16 End: 1:00 (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 Also credits muscle relaxers. She ran out of pills and noted increased discomfort. Notes she can walk and bike without as much discomfort lately. Cervical Not performed today. Objective Tests & Measures: Increased T-roto load 5 ft#. Tests performed today (see reviewflowsheet for score and outcomes): : None Performed Today Warm Up: Movement Specific Training: Completed Mat Exercises Completed Treadmill: Minutes 5 Intensity mod ICE: Back Lumbar Lumbar & Torso 10/08/2017 Set 1 Ext % Max 60 Set 1 Ext ROM 0-45 Set 1 Ext Wgt 54 Set 1 Ext Reps 30 Set 1 Ext Tul 227 Set 1 Ext Zina RPE 3 Set 2 Ext % Max - Set 2 Ext ROM - Set 2 Ext Wgt - Set 2 Ext Reps - Set 2 Ext Tul - Set 2 Zina RPE - Left Rot % Max 100 Left Rot ROM 30 Left Rot Wgt 40 Left Rot Reps 30/30 Left Rot Abilio RPE 5/10 Right Rot % Max 100 Right Rot ROM 30 Right Rot Wgt 40 Right Rot Reps 30/30 Right Rot Zina RPE 10/10 Therapeutic Exercise (36 min): Patient performed isolated torso rotation exercise and auxillary exercises to improve muscle strength and to improve muscle endurance to increase tolerance for work activities goals listed below. Cues given to slow pace and to exercise through full ROM. Cued to loosen stumper feller on handles with T-roto. Neuromuscular Re-Education (8 min): Patient performed isolated lumbar extension to decrease substitution patterns present with chronic pain to increase tolerance for goals listed below. Patient needed max assist for set up of equipment today. Monitored patient for safe, effective reps. Auxillary Auxillary 10/08/2017 Abs Wgt Set 1 55 Abs Reps Set 1 30 Abs Wgt Set 2 55 Abs Reps Set 2 26 Glute Wgt Set 1 110 Glute Reps Set 1 30 Glute Wgt Set 2 110 Glute Reps Set 2 30 Leg Press Wgt Set 1 230 Leg Press Reps Set 1 30 Leg Press Wgt Set 2 230 Leg Press Reps Set 2 30 HEP - Therapeutic Activities (0 min): Not performed today. Patient Education: Patient was instructed in plan for today. Assessment: Patient had very good fatigue with above exercises. Goals: Short Term Goals (4-6 weeks): 1. Pt will report able to have improved sleep, without need for medication sleep 6-7 hours without interruption of back/LE symptoms MET 10/03/17 2. Pt will report able to have improved mobility in morning no left LE symptoms while getting out bed to walk/stand most mornings Improving 10/08 3. Pt will report commute tolerance improved, able to drive to/from work with no greater than mild LE/low back symptoms Improving 10/08 ? Assisted Goals (>6 weeks): 1. Patient will be independent with home exercise program after discontinued from Physical Therapy. 2. Pt will be able to ride her bike 15 miles/1hour without any low back or LE symptoms other than slight Progressing 12 miles 10/03/17 3. Pt will shan able to sit in her car 1-2 hours with no greater than slight symptoms 4. Pt will be able to sleep uninterrupted by low back/LE symptoms other than slight and less often than weekly ?? Precautions/Other Information: disc monitor left le symptoms Recommendations/Communication: 100% L-ext next time. Jessica Tirado PTA 10/08/2017, 1:01 PM documented in this encounter Plan of Treatment Not on filedocumented as of this encounter Visit Diagnoses Diagnosis Lumbar radiculopathy Thoracic or lumbosacral neuritis or radi culitis, unspecified documented in this encounter
--- OUTSIDE RECORDS SUMMARY | 2022-03-28 18:27 | XMS_ITS | Encounter Summary ---
:1980 Author Organization [facility] Address [address] [place] [address] Care Team Providers Name Role Phone Unavailable Primary Care Provider Unavailable Reason for Visit Reason Comments BACK PAIN, LOW Consult/Transfer Care (Routine) - Closed Specialty Diagnoses / Procedures Referred By Contact Refer red To Contact Physical Therapy Diagnoses LOW BACK PAIN Chao Huggins, [employer] [facility] [facility] [address] [address] [address] [place] [address] [place] [address] Fax: Referral ID Status Reason Start Date Expiration Date Visits Requ ested Visits Authorized [id number] Closed 08/30/2017 11/29/2018 40 40 Encounter Details Date Type Department Care Team Description 10/23/2017 Therapy Physicians Neck and Back Macy Curiel , Lumbar radiculopathy Center [facility] [address] [facility],[address] [place] [address] Social History Tobacco Use Types Packs/Day Years Used Date Smoking Tobacco: Never Assessed Sex Assigned at Date Recorded Not on file documented as of this encounter Progress Notes 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 Riding bike more. She does feel like sx's will still increase if she sits too long, per pt. Cervical Not performed today. Objective Tests & Measures: Opted 100% wt on L-ext d/t 6 days since last Rx. Tests performed today (see reviewflowsheet for score and outcomes): : None Performed Today Warm Up: Movement Specific Training: Completed Treadmill: Minutes 5 Intensity mod ICE: Back Lumbar Lumbar & Torso 10/23/2017 Set 1 Ext % Max 100 Set 1 Ext ROM 0-42 Set 1 Ext Wgt 100 Set 1 Ext Reps 20 Set 1 Ext Tul 114 Set 1 Ext Zina RPE 10 Set 2 Ext % Max 100 Set 2 Ext ROM 0-42 Set 2 Ext Wgt 100 Set 2 Ext Reps 13 Set 2 Ext Tul 84 Set 2 Zina RPE 10 Left Rot % Max 60 Left Rot ROM 30 Left Rot Wgt 26 Left Rot Reps 20 Left Rot Abilio RPE 3 Right Rot % Max 60 Right Rot ROM 30 Right Rot Wgt 26 Right Rot Reps 20 Right Rot Zina RPE 3 Therapeutic Exercise (30 min): Patient performed isolated lumbar extension exercise and auxillary exercises to improve muscle strength and to improve muscle endurance to increase tolerance for sitting, sleeping, driving and personalcare tasks. Monitored for safe rep speed and proper form on all exercises. Cued heel push on g/h forform. Neuromuscular Re-Education (10 min): Patient performed isolated torso rotation decrease substitution patterns and normalize movement patterns to increase tolerance for personal care tasks. 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 Auxillary Auxillary 10/23/2017 Abs Wgt Set 1 65 Abs Reps Set 1 30 Abs Wgt Set 2 65 Abs Reps Set 2 30 Glute Wgt Set 1 120 Glute Reps Set 1 30 Glute Wgt Set 2 120 Glute Reps Set 2 30 Leg Press Wgt Set 1 250 Leg Press Reps Set 1 30 Leg Press Wgt Set 2 250 Leg Press Reps Set 2 30 Other - HEP - Therapeutic Activities (0 min): Not performed today. Patient Education: Patient was instructed in POC. Assessment: STG's 2 and 3 improving again, as pt is mostly recovered from recent flare. Very good fatigue on L-ext. No LE or glut sx's today. Pt will benefit from further supervised [...] out bed to walk/stand most mornings Improving again 10/23/17 3. Pt will report commute tolerance improved, able to drive to/from work with no greater than mild LE/low back symptoms Improving again 10/23/17 ? [facility] Goals (>6 weeks): 1. Patient [...] Precautions/Other Information: Disc monitor left le symptoms. Flare 10/15 Recommendations/Communication: Consider light wts on T-roto d/t pt flared up after 100% wts on it, and monitor LE sx's. 60% L-ext. Total timed code min: 40 Total treatment time: 40 Macy Curiel PTA 10/23/2017, 2:30 PM documented in this encounter Plan of Treatment Not on filedocumented as of this encounter Visit Diagnoses Diagnosis Lumbar radiculopathy Thoracic or lumbosacral neuritis or radi culitis, unspecified documented in this encounter
--- OUTSIDE RECORDS SUMMARY | 2022-03-28 18:27 | XMS_ITS | Encounter Summary ---
:1980 Author Organization [employer] Address [address] [place] [address] Care Team Providers Name Role Phone Unavailable Primary Care Provider Unavailable Reason for Visit Reason Comments BACK PAIN, LOW Consult/Transfer Care (Routine) - Closed Specialty Diagnoses / Procedures Referred By Contact Refer red To Contact Physical Therapy Diagnoses LOW BACK PAIN Chao Huggins, Pnbc Paz CASILLAS [address] [place] [address] [place] [address] Fax: Referral ID Status Reason Start Date Expiration Date Visits Requ ested Visits Authorized [id number] Closed 08/30/2017 11/29/2018 40 40 Encounter Details Date Type Department Care Team Description 09/05/2017 Therapy Physicians Neck and Back Jenn Shaffer PTA Lumbar radiculopathy [address] [address] [address] [place] [address] [address] [place] [address] [phone] Social History Tobacco Use Types Packs/Day Years Used Date Smoking Tobacco: Never Assessed Sex Assigned at Date Recorded Not on file documented as of this encounter Progress Notes Jenn Shaffer PTA - 09/05/2017 7:30 AM CDT 09/05/2017 Visit # 2 Protocol: Back and Disc Start: 740 End: 825 (SCOOPER Visit # 1 Subjective: Pt states she tolerated the last Rx well. No increased Sx's. Low back and left leg Sx's continue. Cervical Not performed today. Objective Tests & Measures: 1st Max L-Ext for low back strengthening Tests performed today (see reviewflowsheet for score and outcomes): : None Performed Today Warm Up: Movement Specific Training: Completed Treadmill: Minutes 5 Intensity 3 ICE: Back Lumbar Lumbar & Torso 09/05/2017 Set 1 Ext % Max 100 Set 1 Ext ROM 0-42 Set 1 Ext Wgt 65 Set 1 Ext Reps 20 Set 1 Ext Tul 149 Set 1 Ext Zina RPE 3 Set 2 Ext % Max 100 Set 2 Ext ROM 0-42 Set 2 Ext Wgt 65 Set 2 Ext Reps 20 Set 2 Ext Tul 129 Set 2 Zina RPE 4 Therapeutic Exercise (35 min): Patient performed isolated lumbar extension exercise and auxillary exercises to improve muscle strength, to improve muscle endurance, to improve muscle flexibility and to improve range of motion to increase tolerance for sitting, sleeping, bed mobility, lifting and drivingVerbal cues for pace in L-Ext today.Verbal cues for form on all auxiliaries today. Neuromuscular Re-Education (0 min): None performed today. Auxillary Auxillary 09/05/2017 Abs Wgt Set 1 35 Abs Reps Set 1 20 Abs Wgt Set 2 40 Abs Reps Set 2 20 Glute Wgt Set 1 70 Glute Reps Set 1 20 Glute Wgt Set 2 70 Glute Reps Set 2 20 Leg Press Wgt Set 1 140 Leg Press Reps Set 1 20 Leg Press Wgt Set 2 160 Leg Press Reps Set 2 20 Therapeutic Activities (10 min): Therapeutic Activities 09/05/2017 SLEEP POSTURE Independent Educated patient in sleep postures back and side for ease in nightly sleep.Educated on log roll, getting in/out of bed and pillow placement.No verbal cues needed today. Patient Education: Patient was instructed in pain/time scale to increase their understanding of the benefits related tocompleting the [facility] Rehab program Assessment:Pt states she has a lot of trouble sitting for extended amounts of time. She has a long commute and sitting in her car increases her Sx's.Getting out of bed in the morning causes some soreness. Sleep can be disturbed. Goals: Short Term Goals (4-6 weeks): 1. [...] greater than mild le/low back symptoms ? 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 Patient will be [...] left le symptoms Recommendations/Communication: 60% L-Ext and initial T-Roto next Rx.Increase auxiliaries as patient tolerates. Total timed code min: 45 Total treatment time: 45 Jenn Shaffer PTA 09/05/2017, 8:24 AM documented in this encounter Plan of Treatment Not on filedocumented as of this encounter Visit Diagnoses Diagnosis Lumbar radiculopathy Thoracic or lumbosacral neuritis or radi culitis, unspecified documented in this encounter
--- OUTSIDE RECORDS SUMMARY | 2022-03-28 18:27 | XMS_ITS | Encounter Summary ---
:1980 Author Organization [facility] Address [address] [place] [address] Care Team Providers Name Role Phone Unavailable Primary Care Provider Unavailable Reason for Visit Reason Comments BACK PAIN, LOW Consult/Transfer Care (Routine) - Closed Specialty Diagnoses / Procedures Referred By Contact Refer red To Contact Physical Therapy Diagnoses LOW BACK PAIN Chao Huggins, Pnb[employer] Paz CASILLAS [address] [facility] [address] [facility],[address] [place] [address] [place] [address] Fax: Referral ID Status Reason Start Date Expiration Date Visits Requ ested Visits Authorized [id number] Closed 08/30/2017 11/29/2018 40 40 Encounter Details Date Type Department Care Team Description 09/03/2017 Therapy Physicians Neck and Riana Singh radiculopathy Back Center Howie Peñaloza PT (Primary Dx) [address] [facility] [address] [facility],[address] [place] [address] [place], [place] [id number] [phone] Social History Tobacco Use Types Packs/Day Years Used Date Smoking Tobacco: Never Assessed Sex Assigned at Date Recorded Not on file documented as of this encounter Progress Notes Riana Singh PT - 09/03/2017 11:00 AM CDT PHYSICAL THERAPY EVALUATION Patient Report Symptoms: primary left le to ankle achyness, low back pain left sided Onset: dec 2013 intermittent then persistent again for one year No current facility-administered medications for this visit. Medications reviewed with patient: yes No past medical history on file. No past surgical history on file. 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: HP#NDISCORE% Personal Care:pretty normal, move a little slower Lifting: ok during, and doesn't think is a problem , lifts her nephew 20 lbs other than that doesn'thave to do much lifting for work or home life Walking: feels good to walk Sitting: Every 1/2 hour switches sitting standing Standing: more comfortable than sitting, more than 1/2 hour would increase, moves around a lot Sleeping: Needs all sorts of pillows to fall asleep, can't sleep more than 4-5 hours at a time le pain nightly before starting medication Driving: increased le symptoms in the car Other Limitations: avoiding riding back last summer due pain during and hasn't gotten bike out yet this year Pain Characteristics: See patient PAIN DIAGRAM and PAIN CHARACTERISTICS on QUESTIONNAIRE form. Improved by: walking feels good, medication Aggravated by: sitting, sleeping and prolonged standing Description/Quality: Achy and constant mild underlying, notices to moderate in the car and sometime it hurts a lot , mostly sitting EXAMINATION: Tests and measures: Posture: grossly upright, no shift noted today Cervical ROM Lumbar ROM No flowsheet data found. No flowsheet data found. Mobility: grossly wfl Gait: grossly step past continuous pattern Feels like she limps getting out of bed and car , feels like takes awhile to straighten her leg Functional Testing: Oswestry Other: noticeable left le 90/90 knee ext tighter than right and increased motion with less ankle df,possible nerve adhesion, pt feels lumbar extension standing uncomfortably, prone press up limited inlumbar extension and pelvic compensation Directional Preference: none noted P.T. DIAGNOSIS: ICD-10-CM 1. Lumbar radiculopathy M54.16 PROGNOSIS: good Risk factors/potential barriers: disc ASSESSMENT 37 year old female presenting with functional impairments related to lumbar radiculopathy symptoms ,pain, stiffness, weakness/deconditioning in lumbar pelvic region PLAN OF CARE Frequency: 2 visits/week. Duration: 90 days (90 days max for [place] and [place] patients). Short Term Goals (4-6 weeks): 1. 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 Patient will be [...] than slight and infrequentlyless often than weekly Planned Interventions: Therapeutic Exercise, Therapeutic Activity and Neuromuscular re-education PT provided assist of set up of equipment today per skilled protocol and when appropriate resistanceand range of motion were adjusted to pt's tolerance and verbal cues given to allow pt to have good technique and increase level of muscular fatigue to meet this pt's functional goals. Discharge Plan: [place] in strength maintenance home exercise program TODAY'S INTERVENTIONS: see daily Riana Singh, MARINA 09/03/2017, 11:30 AM Riana Singh PT - 09/03/2017 11:00 AM CDT 09/03/2017 Visit # 1 Protocol: Back and Disc Start: 1109 End: 1156 (INGOT STRIPPER Visit # 0 Subjective: see PT eval Cervical Not performed today. Objective Tests & Measures: Tests performed today (see reviewflowsheet for score and outcomes): : Oswestry and Range of Motion See results in flowsheet Warm Up: Movement Specific Training: Completed Mat Exercises Completed Treadmill: Minutes 5 Intensity mod ICE: Back Lumbar Lumbar & Torso 09/03/2017 Set 1 Ext % Max 60 Set 1 Ext ROM 0-42 Set 1 Ext Wgt 40 Set 1 Ext Reps 20 Set 1 Ext Tul 155 Set 1 Ext Zina RPE 3 Therapeutic Exercise (0 min): None performed today. Neuromuscular Re-Education (37 min): Patient performed movement specific training and isolated lumbar extension to decrease substitution patterns present with chronic pain, improve muscle recruitment patterns and to improve coordination and movement quality to increase tolerance for functional goals stated below. PT taught and Pt performed for HEP/Warm up movement specific exercises with instructions given as follows Hooklying Single Knee to Chest Stretch - 5 reps - 5s hold - 2x daily - 7x weekly Supine Double Knee to Chest - 5 reps - 5s hold - 2x daily - 7x weekly Hooklying Active Knee Extension with Hand Support - 5 reps - 5s hold - 2x daily - 7x weekly Lower Trunk Rotations - 5 reps - 5s hold - 2x daily - 7x weekly Supine Figure 4 Piriformis Stretch - 5 reps - 5s hold - 2x daily - 7x weekly Prone Press Up on Elbows - 5 reps - 5s hold - 7x weekly Prone Press Up with Arms Straight - 5 reps - 5s hold - 7x weekly Standing Lumbar Extension - 5 reps - 1 sets - 5 hold - 2x daily - 7x weekly Standing Sidebends - 5 reps - 5s hold - 2x daily - 7x weekly PT taught pt technique /purpose/pace of isolated extension machine, see flowsheet Auxillary Not performed today. Therapeutic Activities (0 min): Not performed today. Patient Education: Patient was instructed in pain/time scale and correlation of strength and function to increase theirunderstanding of the benefits related to completing the [facility] Rehab program PT taught pt program protocol/objectives, concepts of ups/downs of rehab, use of ice, DOMS, importance of warm up, penitentiary effects of conditioning/rehab, gradual resumption of activities that have been held as tolerated Assessment: see PT eval Tolerated well today, I can Feel it is working something Goals: Short Term Goals (4-6 weeks): 1. [...] no greater than mild le/low back symptoms Senior Care Goals (>6 weeks): 1. Patient will be [...] than slight and infrequentlyless often than weekly Precautions: disc monitor left le symptoms Recommendations/Communication: 100 Lext , add aux Riana Singh, PT 09/03/2017, 12:08 PM documented in this encounter Plan of Treatment Not on filedocumented as of this encounter Visit Diagnoses Diagnosis Lumbar radiculopathy - Primary Thoracic or lumbosacral neuritis or radi culitis, unspecified documented in this encounter
--- OUTSIDE RECORDS SUMMARY | 2022-03-28 18:27 | XMS_ITS | Encounter Summary ---
:1980 Author Organization [facility] Address [address] [address] Care Team Providers Name Role Phone Unavailable Primary Care Provider Unavailable Reason for Visit Reason Onset Date Comments LEG PAIN 12/07/2017 BACK PAIN 12/07/2017 Encounter Details Date Type Department Care Team Description 12/07/2017 Office Visit Physicians Neck and Twin Syed Lumb ar discogenic pain Back Center Howie weber MD syndrome (Primary Dx) [address] [facility],[address] [place] [address] Social History Tobacco Use Types Packs/Day Years Used Date Smoking Tobacco: Never Assessed Sex Assigned at Date Recorded Not on file documented as of this encounter Progress Notes Twin Syed MD - 12/07/2017 12:46 PM CDT The patient is here for follow-up rehabilitation visit 21. Subjectively about the same. Objectively the patient is making good with plateau in progress. The patient is now generating toward equal to 120 foot pounds lumbar extension. At the start of rehabilitation, the patient could generate torque equal to 40. 120 We discussed options. We reviewed discharge information, final Oswestry questionnaire and satisfaction survey. I answered questions. We discussed the benefit\necessity of continuing home maintenance plan. Patient plans to use core program. Recommend follow up primary care provider for next options. Discharge. Patient agreeable with plan. 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
--- OUTSIDE RECORDS SUMMARY | 2022-03-28 18:27 | XMS_ITS | Encounter Summary ---
:1980 Author Organization [employer] Address [address] [place] [address] Care Team Providers Name Role Phone Unavailable Primary Care Provider Unavailable Reason for Visit Reason Onset Date Comments LEG PAIN 10/24/2017 improving left leg s ymptoms BACK PAIN 10/24/2017 Consult/Transfer Care (Routine) - Closed Specialty Diagnoses / Procedures Referred By Contact Refer red To Contact Physical Therapy Diagnoses LOW BACK PAIN Chao Huggins, Pnbc Paz CASILLAS [address] [address] [address] [address] [place] [address] [place] [address] Fax: Referral ID Status Reason Start Date Expiration Date Visits Requ ested Visits Authorized [id number] Closed 08/30/2017 11/29/2018 40 40 Encounter Details Date Type Department Care Team Description 10/24/2017 Office Visit Physicians Jaison and Danielle Pederson Lu mbar radiculitis Back Center Howie weber MD (Primary Dx) [address] [facility],[address] [place] [address] Social History Tobacco Use Types Packs/Day Years Used Date Smoking Tobacco: Never Assessed Sex Assigned at Date Recorded Not on file documented as of this encounter Progress Notes Danielle Pederson MD - 10/24/2017 2:00 PM CDT Chery has completed 12 therapy visits. She reports her radicular left leg pain has improved now, overthe last few days. She reports continued back pain with getting in and out of cars and increased sitting, but reports her back pain is overall improved. She denies leg weakness and is able to work. Sheis taking Flexeril at night to help with night time discomfort and requests a refill. She would liketo continue therapy. On exam: Chery appears comfortable, alert and oriented x 3 , with nonlabored breathing. The gait is normal. She is able to walk on her toes and heels. Lumbar flexion is 60 degrees. (Nl equals 60-70) Lumbar extension is 20 degrees. (Nl 15-20) Range of motion is not limited by pain. Sensation in the right leg is normal. Sensation in the left leg is normal. Strength Motor exam is normal. Big toe flexion (S1) is 5/5 bilaterally. Big toe extension (L5) is 5/5 bilaterally. Ankle plantar flexion (S1) is 5/5 bilaterally. Ankle dorsiflexion (L5) is 5/5 bilaterally. Knee flexion (S1-S2) is 5/5 bilaterally. Knee extension (L2-3-4) is 5/5 bilaterally. Psoas flexion (L1) is 5/5 bilaterally. Straight leg raise on the right is 80 degrees. Straight leg raise on the left is 80 degrees. The patient today is able to get from a supine to sitting position. PLAN: Chery is working hard in therapy and reports her back and left leg pain are improving. Flexerilis refilled for her. I would recommend another 6 therapy visits, then follow up with Dr. Syed for recheck. She is agreeable with this plan. I spent 15 minutes with the patient today, with greater than half spent on counseling and education including review of the therapy plan and progress. documented in this encounter Plan of Treatment Not on filedocumented as of this encounter Visit Diagnoses Diagnosis Lumbar radiculitis - Primary Thoracic or lumbosacral neuritis or radi culitis, unspecified documented in this encounter
--- OUTSIDE RECORDS SUMMARY | 2022-03-28 18:27 | XMS_ITS | Encounter Summary ---
:1980 Author Organization [employer] Address [address] [place] [address] Care Team Providers Name Role Phone Unavailable Primary Care Provider Unavailable Reason for Visit Reason Comments BACK PAIN, LOW Consult/Transfer Care (Routine) - Closed Specialty Diagnoses / Procedures Referred By Contact Refer red To Contact Physical Therapy Diagnoses LOW BACK PAIN Chao Huggins, Pnbc Paz [place] [address] [facility] [address] [place] [address],[address] [place] [address] [place] [address] Fax: Referral ID Status Reason Start Date Expiration Date Visits Requ ested Visits Authorized [id number] Closed 08/30/2017 11/29/2018 40 40 Encounter Details Date Type Department Care Team Description 09/21/2017 Therapy Physicians Neck and Back Amanda Singh, Lumbar radiculopathy [facility] [place] [facility] [address] [place] [address] [facility],[address] [place] [address] [place] [address] [phone] Social History Tobacco Use Types Packs/Day Years Used Date Smoking Tobacco: Never Assessed Sex Assigned at Date Recorded Not on file documented as of this encounter Progress Notes Riana Singh, PT - 09/21/2017 12:15 PM CDT 09/21/2017 Visit # 5 Protocol: Back and Disc Start: 1235 End: 107 (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 Le symptoms less frequently sometimes doesn't hurt Denies problems tolerating P T Cervical Not performed today. Objective Tests & Measures: +10-15 ft lbs Lext Increase all aux Tests performed today (see [facility]flowok [facility] [place] for score and outcomes): : None Performed Today Warm Up: Movement Specific Training: Completed Mat Exercises Completed Treadmill: Minutes 5 Intensity 4mph ICE: Back Lumbar Lumbar & Torso 09/21/2017 Set 1 Ext % Max 60 Set 1 Ext ROM 0-42 Set 1 Ext Wgt 30 Set 1 Ext Reps 20 Set 1 Ext Tul 93 Set 1 Ext Zina RPE 3 Set 2 Ext % Max - Set 2 Ext ROM - Set 2 Ext Wgt - Set 2 Ext Reps - Set 2 Ext Tul - Set 2 Zina RPE - Left Rot % Max 100 Left Rot ROM 30 Left Rot Wgt 30/35 Left Rot Reps 21/20 Left Rot Abilio RPE 3/4 Right Rot % Max 100 Right Rot ROM 30 Right Rot Wgt 30/35 Right Rot Reps 20/20 Right Rot Zina RPE 3/4 Therapeutic Exercise (24min): Patient performed isolated torso rotation exercise and auxillary exercises to improve muscle strength, to improve muscle endurance and increase strength and endurance levels of supporting spinal musclegroups to increase tolerance for functional goals stated below PT provided assist of set up of equipment today per skilled protocol and when appropriate resistanceand range of motion were adjusted to pt's tolerance and verbal cues given to allow pt to have good technique and increase level of muscular fatigue to meet this pt's functional goals. Cues for positioning on g/h Neuromuscular Re-Education (8min): Patient performed isolated lumbar extension improve muscle recruitment patterns and to improve coordination and movement quality to increase tolerance for functional goals stated below. PT provided assist of set up of equipment today per skilled protocol and when appropriate resistanceand range of motion were adjusted to pt's tolerance and verbal cues given to allow pt to have good technique and increase level of muscular fatigue to meet this pt's functional goals. Auxillary Auxillary 09/21/2017 Abs Wgt Set 1 50 Abs Reps Set 1 20 Abs Wgt Set 2 50 Abs Reps Set 2 20 Glute Wgt Set 1 90 Glute Reps Set 1 20 Glute Wgt Set 2 90 Glute Reps Set 2 25 Leg Press Wgt Set 1 190 Leg Press Reps Set 1 30 Leg Press Wgt Set 2 190 Leg Press Reps Set 2 30 HEP - Therapeutic Activities (0 min): Not performed today. Patient Education: Patient was instructed in pain/time scale and correlation of strength and function to increase theirunderstanding of the benefits related to completing the [facility] program PT POC Assessment: increased weight and/or reps today facilitated by PT to ensure effective progression to optimal function ; pt tolerates treatment today as expected, limited in reps by fatigue Goals: Short Term Goals (4-6 weeks): 1. [...] greater than mild le/low back symptoms ? 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 Patient will be [...] ? Precautions: disc monitor left le symptoms ? Recommendations/Communication: 100 Lext 60 troto Consider Increase leg press Riana Singh, PT 09/21/2017, 1:32 PM documented in this encounter Plan of Treatment Not on filedocumented as of this encounter Visit Diagnoses Diagnosis Lumbar radiculopathy Thoracic or lumbosacral neuritis or radi culitis, unspecified documented in this encounter
--- OUTSIDE RECORDS SUMMARY | 2022-03-28 18:27 | XMS_ITS | Encounter Summary ---
:1980 Author Organization [facility] Address [address] [place] [address] Care Team Providers Name Role Phone Unavailable Primary Care Provider Unavailable Reason for Visit Reason Comments BACK PAIN, LOW Consult/Transfer Care (Routine) - Closed Specialty Diagnoses / Procedures Referred By Contact Refer red To Contact Physical Therapy Diagnoses LOW BACK PAIN Chao Huggins, [employer] [facility] [address] [address] [address] [place] [address] [place] [address] Fax: Referral ID Status Reason Start Date Expiration Date Visits Requ ested Visits Authorized [id number] Closed 08/30/2017 11/29/2018 40 40 Encounter Details Date Type Department Care Team Description 12/05/2017 Therapy Physicians Neck and Back Macy Curiel , Lumbar radiculopathy Center [facility] [address] [place] [address] Social History Tobacco Use Types Packs/Day Years Used Date Smoking Tobacco: Never Assessed Sex Assigned at Date Recorded Not on file documented as of this encounter Progress Notes Macy Curiel, PILOT SUBMERSIBLE - 12/05/2017 12:45 PM CDT 12/05/2017 Visit # 21 Protocol: Back and Disc Start: 12:57 End: 1:36 (PILOT SUBMERSIBLE Visit # 3 Subjective: No new c/o's today. Cervical Not performed today. Objective Tests & Measures: Opted 120# on L-ext one more time. Tests performed today (see reviewflowsheet for score and outcomes): : None Performed Today Warm Up: Movement Specific Training: Completed none today - just came from yoga. ICE: Back Lumbar Lumbar & Torso 12/05/2017 Set 1 Ext % Max 100 Set 1 Ext ROM 0-42 Set 1 Ext Wgt 120 Set 1 Ext Reps 20 Set 1 Ext Tul 86 Set 1 Ext Zina RPE 10 Set 2 Ext % Max 100 Set 2 Ext ROM 0-42 Set 2 Ext Wgt 22 Set 2 Ext Reps 20 Set 2 Ext Tul --- Set 2 Zina RPE 10 Left Rot % Max 60 Left Rot ROM 30 Left Rot Wgt 36 Left Rot Reps 20 Left Rot Abilio RPE 3 Right Rot % Max 60 Right Rot ROM 30 Right Rot Wgt 36 Right Rot Reps 20 Right Rot Zina RPE 3 Therapeutic Exercise (29 min): Patient performed isolated lumbar extension exercise and auxillary exercises to improve muscle strength and to improve muscle endurance to increase tolerance for sleeping, driving, personal care tasks and household tasks. Monitored for safe rep speed and proper form on all exercises. No cues needed today. Neuromuscular Re-Education (10 min): Patient performed isolated torso rotation decrease substitution patterns and normalize movement patterns and to improve movement patterns in an isolated plane to increase tolerance for personal care tasks. 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 Patient Education: Patient was instructed in POC for today. Assessment: No new functional changes since last Rx. Very good fatigue on L-ext. Pt will benefit from [...] better, now has leg pain 11/28 ? [employer] Goals (>6 weeks): 1. Patient will be independent with home exercise program after discontinued from Physical Therapy Core trial and then bill chair at the gym or home 11/28 2. Pt will be able to ride her bike 15 miles/1hour without any low back or LE??symptoms other than slight?? MET 11/28 3. Pt will able to sit in her car 1-2 hours with no greater than slight symptoms Can tolerate 20' 11/28/17 4. Pt will be able to sleep uninterrupted by low back/LE??symptoms other than slight and less often than weekly Sleeping and taking Flexeril; doesn't wake up 11/28 ? Precautions/Other Information: Disc monitor left LE??symptoms. ??Flare 10/15 Recommendations/Communication: 60-80% T-roto, 60% L-ext. HEP as needed. Total timed code min: 39 Total treatment time: 39 Macy Curiel PTA 12/05/2017, 1:45 PM documented in this encounter Plan of Treatment Not on filedocumented as of this encounter Visit Diagnoses Diagnosis Lumbar radiculopathy Thoracic or lumbosacral neuritis or radi culitis, unspecified documented in this encounter
--- OUTSIDE RECORDS SUMMARY | 2022-03-28 18:28 | XMS_ITS | Clinical Summary ---
:1980 Author Organization [facility] [place] [address] Care Team Providers Name Role Phone Chao Huggins MD Primary Care Provider Juan Viveros MD Unavailable Allergies No known active allergies Medications Medication Sig Dispensed Refills Start Date End Date Status cholecalciferol (VITAMIN Take 1 capsule 0 03/20/2014 Active D-3) 2,000 unit capsule by mouth once daily. spironolactone Take 100 mg by 0 03/20/2014 Active (ALDACTONE) 50 mg tablet mouth once daily. ibuprofen (ADVIL; Take 200 mg by 0 Active MOTRIN) 200 mg tablet mouth 4 times daily if needed. cyclobenzaprine Take 5 mg by 0 A ctive (FLEXERIL) 5 mg tablet mouth at bedtime if needed for Muscle Spasm. multivitamin (MVI) Take 1 tablet by 0 Active tablet mouth once daily. oxyCODONE (ROXICODONE) 5 Take 1-2 tablets 40 tablet 0 03/23/20 20 Active mg immediate release by mouth every 4 tabletIndications: Acute hours if needed post-operative pain for Pain Max of 10 tablets/day. Active Problems Problem Noted Date Lumbar disc herniation with radiculopathy 11/26/2014 Overview: November 2014: 1 year of low back pain and l eft leg symptoms Since December 2013 with L5-S1 disc herniation most likely cause. ~ November 2014:L5-S1 TF [place] by Dr. Whittaker. May 2015: left L5-S1 TFESI by Dr. Betty wild JAMMIE (obstructive sleep apnea) 11/09/2014 Overview: approximately 2013 diagnosis. On CPAP. Nonsustained ventricular tachycardia 06/15/2014 Hypertension 03/20/2014 Hyperlipidemia 03/20/2014 Palpitations 03/20/2014 Plantar fasciitis 11/07/2011 BRONCHITIS - ACUTE 06/14/2005 HYPOTHYROIDISM MIGRAINE NOT INTRACTABLE Resolved Problems Problem Noted Date Resolved Date Headache 03/20/2014 03/20/2014 Encounters Date Type Specialty Care Team Description 02/10/2022 Lab Requisition Mechelle Wheeler NP from Last 3 Months Immunizations Name Administration Dates Next Due Influenza, IIV3 (Age >=3 years) 03/01/2004 Social History Tobacco Use Types Packs/Day Years Used Date Never Smoker 0 Smokeless Tobacco: Never Used Alcohol Use Standard Drinks/Week Comments No 0 (1 standard drink = 0.6 oz pure alcoho l) Sex Assigned at Date Recorded Not on file Obstetrics History Last Filed Vital Signs Vital Sign Reading Time Taken Comments Blood Pressure 146/83 03/23/2020 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 Pulse 92 03/23/2020 3:39 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 Temperature 36.9 ??C (98.5 ??F) 03/23/2020 3:39 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 Respiratory Rate 18 03/23/2020 3:39 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 Oxygen Saturation 95% 03/23/2020 3:39 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 Inhaled Oxygen Concentration - - Weight 98.9 kg (218 lb) 03/22/2020 2:23 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 Height 162.6 cm (5' 4) 03/22/2020 2:23 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 Body Mass Index 37.42 03/22/2020 2:23 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 Plan of Treatment Health Maintenance Due Date Last Done Comments COVID-19 vaccine series (#1) 1978 Tdap 1989 Depression screening for age 12+ 1990 Hepatitis C screening for age 18-79 1996 Tetanus booster 1998 BMI (ht and wt on same day) for age 0105/20/2016 05/20/2015 18+ Pap test for age 21-65 07/15/2021 07/15/2018, 07/12/2018, 11/22/2001 Influenza for age 9-49 01/05/2022 03/01/2004 Procedures Procedure Name Priority Date/Time Associated Diagnosis Comme nts LAB TRACKING EVENT Routine 02/09/2022 1:31 PM CDT PATH TISSUE EXAM Routine 02/09/2022 1:31 PM Resul ts for this CDT procedure are i n the results section. from Last 3 Months Results LAB TRACKING EVENT (02/09/2022 1:31 PM CDT) Specimen Anatomical Collection Method Collection Time Receive d Time (Source) Location / / Volume Laterality Other (Other) Client Collect / 02/09/2022 1:31 PM 11/2021 4:47 Unknown CDT PM CDT Mechelle Wheeler NP LAB BILL ONLY Performing Organization Address City/State/ZIP Code Phon e Number [email or web address] [address] [place] [address] LABORATORY-CENTRAL 2000 LABORATORY PATH TISSUE EXAM (02/09/2022 1:31 PM CDT) Component Value Ref Test Analysis Performed At [facility] gist Range Method Time Signature Case Report Pathology Report ?Case: [id number] ? 02/13/2022 [facility] Authorizing Provider: ??Mechelle Falcon NP ?? Collected: ? 02/09/2022 1331 ? 12:04 PM HEALTH Ordering Location: ? [facility] LAB ?Received: ?02/10/2022 1721 ? CDT OBDULIO SPAIN Pathologist: ? Johnny Willams MD ? ENTRAL Specimen: ?Endometrial B iopsy ? LABORATORY Final A) ENDOMETRIUM, POLYPECTOMY: 02/13/2022 [facility] Electronically Diagnosis 1. Proliferative endometrium 12:04 PM H [facility] signed by 2. Negative for chronic endometritis CDT LABORATORY-C Johnny Willams 3. Negative for hyperplasia, atypia, and malignancy ENTRJEAN-CLAUDE Blake MD on 4. Small fragments of benign endocervix LABORATORY 02/13/2022 at 12:04 PM Clinical Abnormal uterine 02/13/2022 [facility] Information bleeding 12:04 PM HEALTH CDT LABORATORY-C ENTRAL LABORATORY Gross A) Received in formalin, lab eled with the patient's name and date of , is a 3.0 x 2.0 x 0.1 cm aggregate of pink-fletcher mucosa admixed with clotted blood and mucous. The specimen is entirely submitted in 1 cassette. 02/13/2022 [facility] Description 12:04 PM HEALTH SSS 02/10/2022 CDT LABORATORY-C ENTRAL LABORATORY Microscopic The final 02/13/2022 [facility] Description diagnosis is 12:04 PM HEALTH based on CDT LABORATORY-C microscopic ENTRAL examination of LABORATORY appropriate sections of all specimens. Additional 02/13/2022 [facility] Information Interpreted at [facility], Central Laboratory - [address], [place] [address] 12:04 PM HEALTH CDT LABORATORY-C ENTRAL LABORATORY Specimen Anatomical Collection Method Collection Time Receive d Time (Source) Location / / Volume Laterality Other 02/09/2022 1:31 PM 2 5:21 (Endometrial CDT PM CDT Biopsy) Mechelle Wheeler NP PATHOLOGY/CYTOLOGY Performing Organization Address City/State/ZIP Code Phon e Number [email or web address] [address] [place] [address] LABORATORY-CENTRAL 2000 LABORATORY from Last 3 Months Insurance Payer Benefit Plan / Subscriber ID Effective Dates Phone Addre ss Type Group [employer] [place] [place] [id number] 2017-Present [address] [place] [address] [employer] OF [id number] 2020-Presen [address] [facility] [place] [address] Advance Directives Latest Code Status on File Code Status Date Activated Date Inactivated Comments Full Code 03/23/2020 11:13 AM 03/23/2020 6:03 PM Code Status Discussion: Discussed Care Teams Feather Trimmer Relationship Specialty Start Date End Date Chao Huggins, PCP - General Family Practice 03/09/14 [address] [place] [address] Juan Viveros MD Consulting Physician Cardiovascular Disease 02/26/15 [place] [address]
--- OUTSIDE RECORDS SUMMARY | 2022-03-28 18:28 | XMS_ITS | Encounter Summary ---
:1980 Author Organization [facility] Address [address] [place] [address] Care Team Providers Name Role Phone Unavailable Primary Care Provider Unavailable Encounter Details Date Type Department Care Team Description 08/16/2020 Orders Only Department of April Quezada Mass Neck (P rimary Otorhinolaryngology in B, R.N. Dx) [place], [place] [address] [facility] [address] [place] [phone] Social History Tobacco Use Types Packs/Day Years Used Date Smoking Tobacco: Never Assessed Alcohol Habits Answer Date Recorded How often [...] or relatives? How often do you attend hoahaoism or Never 2020 yazidism services? Do you belong to any clubs or Yes 10/01/2020 organizations such as hoahaoism groups, unions, fraternal or athletic groups, or [...] place to sleep or slept in a detention (including now)? Sex Assigned at Date Recorded Not on file documented as of this encounter Plan of Treatment Not on filedocumented as of this encounter Results Interpretation of Outside CT Neck (08/16/2020 7:37 AM CDT) Anatomical Region Laterality Modality Neck, Neuroradiology RST LOS, Neuroradiology ARZ LOS, N/A Computed Tomography Neuroradiology FLA LOS, Other Specimen (Source) Anatomical Collection Method Collection Time Re ceived Time Location / / Volume Laterality 08/16/2020 8:57 AM CDT Impressions 08/16/2020 12:30 PM CDT 1. Asymmetric enhancement and enlargement of left submandibular gland is indeterminate. This could represent sial adenitis, however there is no definite calculus. Salivary gland tumor is a less likely consideration given the rapid change in size and absence of discrete m ass. 2. Interval mild enlargement of a few le ft cervical lymph nodes. Narrative 08/16/2020 12:30 PM CDT EXAM: ??INTERPRETATION OF OUTSIDE CT NECK COMPARISON: ??Outside CT neck 02/18/2020 FINDINGS: ??OUTSIDE CT NECK WITH IV CONT RAST DATED 07/29/2020. Since the prior CT, asymmetric increased size and enhancement of the left submandibular gland, measuring approxima tely 2.2 x 2.4 x 2.3 cm (series 3 image 35 and series 4 image 21). No definite c alculus in the submandibular duct. There is mild stranding in the fat overlying t he submandibular gland. Increased size of a 1.7 cm left level I lymph node from 1.6 cm previously (series 3 image 40). Symmetric prominenc e of level II lymph nodes, with slightly increased prominence of a left level II node measuring 1.1 cm (series 3 image 31). Increased prominence of a left leve l IV lymph node measuring 1.1 cm from 1 cm previously. The pharyngeal and laryngeal soft tissue s are unremarkable. Hypertrophic osteophytic bridging anteri bunny at C5 and C6. Procedure Note Anita Calderon M.D. - 08/16/2020Form atting of this note might be different from the original. EXAM: INTERPRETATION OF OUTSIDE CT NECK COMPARISON: Outside CT neck 02/18/2020 FINDINGS: OUTSIDE CT NECK WITH IV CONTRA ST DATED 07/29/2020. Since the prior CT, asymmetric increased size and enhancement of the left submandibular gland, measuring approxima tely 2.2 x 2.4 x 2.3 cm (series 3 image 35 and series 4 image 21). No definite c alculus in the submandibular duct. There is mild stranding in the fat overlying t he submandibular gland. Increased size of a 1.7 cm left level I lymph node from 1.6 cm previously (series 3 image 40). Symmetric prominenc e of level II lymph nodes, with slightly increased prominence of a left level II node measuring 1.1 cm (series 3 image 31). Increased prominence of a left leve l IV lymph node measuring 1.1 cm from 1 cm previously. The pharyngeal and laryngeal soft tissue s are unremarkable. Hypertrophic osteophytic bridging anteri bunny at C5 and C6. IMPRESSION: 1. Asymmetric enhancement and enlargemen t of left submandibular gland is indeterminate. This could represent sial adenitis, however there is no definite calculus. Salivary gland tumor is a less likely consideration given the rapid change in size and absence of discrete m ass. 2. Interval mild enlargement of a few le ft cervical lymph nodes. Kumar Milan M.D. IMG CT PROCEDURES documented in this encounter Visit Diagnoses Diagnosis Mass Neck - Primary Mass Neck documented in this encounter Additional Health Concerns Infection Onset Date Last Indicated Resolved Time COVID19 Pending 08/17/2020 08/17/2020 08/17/2020 11:18 AM CDT documented as of this encounter
--- OUTSIDE RECORDS SUMMARY | 2022-03-28 18:28 | XMS_ITS | Encounter Summary ---
:1980 Author Organization [facility] Address [address] [place] [address] Care Team Providers Name Role Phone Unavailable Primary Care Provider Unavailable Reason for Referral Outpatient (Routine) - Closed Specialty Diagnoses / Procedures Referred By Contact Refer red To Contact Otorhinolaryngology Diagnoses Mass Salivary Gland Tanner White Lester Derrick Norman [address] [place] [address] Referral ID Status Reason Start Date Expiration Date Visits Requ ested Visits Authorized [id number] Closed 08/03/2020 08/03/2021 1 1 Encounter Details Date Type Department Care Team Description 08/03/2020 [facility] Cindy, Mass Salivary Gland AND CLINICS Tanner Pace M.D. (Primary Dx) [address] [facility] [address] [place] [address] [place], [place] [phone] Social History Tobacco Use Types Packs/Day Years [...] or relatives? How often do you attend sabianism or Never 2020 sabianism services? Do you belong to any clubs or Yes 10/01/2020 organizations such as sabianism groups, unions, fraternal or athletic groups, or [...] place to sleep or slept in a halfway (including now)? Sex Assigned at Date Recorded Not on file documented as of this encounter Plan of Treatment Scheduled Referrals Name Type Priority Associated Order Schedule Diagnoses Otolaryngology Referral Outpatient Referral Routine Mass Saliv kendall Expected: Gland 08/03/2020 (Approximate), Expires: 08/04/2023 documented as of this encounter Visit Diagnoses Diagnosis Mass Salivary Gland - Primary documented in this encounter Additional Health Concerns Infection Onset Date Last Indicated Resolved Time COVID19 Pending 08/17/2020 08/17/2020 08/17/2020 11:18 AM CDT COVID19 Pending 10/05/2020 10/05/2020 10/05/2020 1:16 PM CDT documented as of this encounter
--- OUTSIDE RECORDS SUMMARY | 2022-03-28 18:28 | XMS_ITS | Encounter Summary ---
:1980 Author Organization [facility] Address [address] [place] [address] Care Team Providers Name Role Phone Unavailable Primary Care Provider Unavailable Encounter Details Date Type Department Care Team Description 08/16/2020 Ancillary Procedure Department of Radiology Josh Milan, Mass Neck in [facility] marko Norman [address] [facility] [address] [place] [phone] (Wo rk) Social History Tobacco Use Types [...] or relatives? How often do you attend yarsanism or Never 2020 islam services? Do you belong to any clubs or Yes 10/01/2020 organizations such as yarsanism groups, unions, fraternal or athletic groups, or [...] place to sleep or slept in a jail (including now)? Sex Assigned at Date Recorded Not on file documented as of this encounter Plan of Treatment Not on filedocumented as of this encounter Procedures Procedure Name Priority Date/Time Associated Comments Diagnosis INTERPRETATION OF RAD - Routine 08/16/2020 7:37 Mass Neck Result s for OUTSIDE CT NECK (most inpatients AM CDT this pro cedure and all are in the outpatients) results section. documented in this encounter Results Interpretation of Outside CT [...] few le ft cervical lymph nodes. Kumar KAPLAN CT PROCEDURES documented in this encounter Visit Diagnoses Diagnosis Mass Neck documented in this encounter
== END 2022-03-28 19:10 | disposition home or self-care (01) ==
PROVIDERS: Emergency Provider Emergency Medicine Emergency Medical Services; PCP Physician Assistant Medical
DX: S93.402A Sprain of unspecified ligament of left ankle, initial encounter (principal); W00.0XXA Fall on same level due to ice and snow, initial encounter; Y93.9 Activity, unspecified; Y92.9 Unspecified place or not applicable; Y99.9 Unspecified external cause status
CPT/HCPCS: 73610; 99283; 99284

== ENCOUNTER 2023-03-08 09:42 | Outpatient (CLI) | payer BC, OTHER, SELFPAY ==
--- OUTSIDE RECORDS SUMMARY | 2023-03-08 09:45 | XMS_ITS | Continuity of Care Document ---
Author Name Unknown Organization [facility] Address [address] [place] [address] Phone Care Team Providers Care Pasteuriser Operator Name Role Phone Dakota Butler MD Unavailable Unavailable Allergies, Adverse Reactions, Alerts Substance Reaction Status Criticality No Known Allergies Active No Inform ation Medications Medication Instructions Dosage Effective Dates (start - stop) Status Comments KAPSPARGO SPRINKLE (unknown strength) Not Available - Active CAROSPIR (unknown strength) Not Available - Active TRAMADOL HCL ER (unknown strength) Not Available - Active Procedures Procedure Date OFFICE/OUTPATIENT VISIT EST Phone Office/Outpatient Visit,Est, Mod 2021 Office/Outpatient Visit,Est, Mod 2020 Postop Followup Visit Lami, Facetectomy/Foraminotomy, Lumbar ( Stenosis) Lami, Facetectomy/Foraminotomy, Lumbar ( Stenosis) Office/Outpatient Visit,Est, Low 2019 Office/Outpatient Visit,Est, Mod 2019 Postop Followup Visit Lami, Facetectomy/Foraminotomy, Lumbar ( For Bone Pathology) Lami, Facetectomy/Foraminotomy, Lumbar ( For Bone Pathology) Office/Outpatient Visit,Est, Mod 2018 Office/Outpatient Visit,New, Mod 2018 Advance Directives Directive Yes / No Effective Date File Name No Information Encounters Encounter Description Practice Location Reason(s) For Visit Diagnoses Date Provider Providers Copied on Encounter OFFICE/OUTPAT IENT VISIT EST Phone [facility], [address], [facility] [place] [id number], [place] tel:[phone] [facility] No Information Carrie Duncan. [facility], [address] [place] [address] [address], [facility], [id number], [place]. tel:[phone] Referring Provider: Chao Roper, [facility] [address] [place] [address], [address]. tel:[phone] Office/Outpat ient Visit,Est, Mod [facility], [address], [facility] [place] [id number], [place] tel:[phone] [facility] Spinal stenosis, lumbar region with neurogenic claudication Carrie Duncan. [facility], [address] [place] [address] [address], [facility] [place], [address], [place]. tel:[phone] Referring Provider: Chao Roper, [facility] [address] [place] [address], [address]. tel:[phone] Office/Outpat ient Visit,Est, Mod [facility], [address], [facility] [place], [id number], [place] tel:[phone] [facility] - [facility] Spinal stenosis, lumbar region with neurogenic claudication Carrie Duncan. [facility], [address] [place] [address] [address], [facility], [id number], [place]. tel:[phone] Referring Provider: Chao Roper, [facility] [address] [place] [address], [address]. tel:[phone] [facility], [address], [facility] [place], [id number], [place] tel:[phone] [facility] Encounter for other specified surgical aftercare Kal Tubbs. [facility], [address] [place] [address] [address], [place], [id number], [place]. tel:[phone] Referring Provider: Chao Roper, [facility] [address] [place] [address], [address]. tel:[phone] [facility], [address], [place], [id number], [place] tel:[phone] [facility] No Information Kal Tubbs. [facility], [address], [place], [address], [place]. tel:[phone] Referring Provider: Chao Roper, [address], [address]. tel:[phone] [facility], [address], [place], [address], [place] tel:[phone] [facility] No Information Carrie Duncan. [facility], [address] [place] [address] [address], [place], [address], [place]. tel:[phone] Referring Provider: Chao Roper, [address], [address]. tel:[phone] Office/Outpat ient Visit,Est, Low [facility], [address], [place], [id number], [place] tel:[phone] [facility] - [facility] Spinal stenosis, lumbar region with neurogenic claudication Carrie Duncan. [facility], [address] [place] [address] [address], [place], [address], [place]. tel:[phone] Referring Provider: Chao Roper, [facility] [address] [place] [address], [address]. tel:[phone] Office/Outpat ient Visit,Est, Mod [facility], [address], [place], [address], [place] tel:[phone] [facility] - [facility] Spinal stenosis, lumbar region with neurogenic claudication Carrie Duncan. [facility], [address], [place], [address], [place]. tel:[phone] Referring Provider: Chao Roper, [facility] [address] [place] [address], [address]. tel:[phone] [facility], [address], [place], [address], [place] tel:[phone] [facility] - [facility] Arthrodesis status Carrie Duncan. [facility], [address] [place] [address] [address], [place], [address], [place]. tel:[phone] Referring Provider: Chao Roper, [address], [address]. tel:[phone] [facility], [address], [place], [address], [place] tel:[phone] [facility] No Information Kal Tubbs. [facility], [address] [place] [address] [address], [place], [address], [place]. tel:[phone] Referring Provider: Chao Roper, [address], [place], [address]. tel:[phone] [facility], [address], [place], [address], [place] tel:[phone] [facility] No Information Carrie Duncan. [facility], [address], [place], [address], [place]. tel:[phone] Referring Provider: Chao Roper [facility] [address] [place] [address], [facility]. tel:[phone] Office/Outpat ient Visit,Est, Mod [facility], [address], [place], [place], [address], [place] tel:[phone] [facility] Spinal stenosis, lumbar region NOS Carrie Duncan. [facility], [address] [place] [address] [address], [place], [place], [address], [place]. tel:[phone] Referring Provider: Chao Roper, [address], [facility]. tel:[phone] Office/Outpat ient Visit,New, Mod [facility], [address], [place], [place], [address], [place] tel:[phone] [facility] - [facility] Spinal stenosis, lumbar region NOS Carrie Duncan. [facility], [address] [place] [address] [address], [place], [place], [address], [place]. tel:[phone] Referring Provider: Chao Roper, [address], [facility]. tel:[phone] Family History Family Member Type Diagnosis Age At Onset No Information Payers Payer name Insurance type Covered democrat ID Elaine diop(s) [facility] [id number] [id number] [id number] Social History Type Description Quantity Date Captured Comments Alcohol Use Details Unknown Caffeine Use Details Unknown Tobacco Use Status No Information Smoking Status No Information Sex Female Chief Complaint And Reason For Visit No Information Reason For Referral Reason For Referral No Information History Of Present Illness Encounter Date Complaint History Of Prese nt Illness No Information Functional Status Date Functional Assessmen t No Information Instructions Date Instruction Additional Infor mation No Information Assessments Type Assessment Date No Information Patient Care Teams Name Effective Dates (start - stop) Status Members No Information
[2023-03-08 17:06] LABS: Chlamydia DNA Amplified* NOT DETECTED (No Detected); GC DNA Amplified* NOT DETECTED (No Detected)
== END 2023-03-08 09:43 | disposition home or self-care (01) ==
LOC: FRMREF 09:43
PROVIDERS: PCP Physician Assistant Medical; Visit Provider Registered Nurse
DX: E66.9 Obesity, unspecified (principal); E55.9 Vitamin D deficiency, unspecified; Z11.3 Encounter for screening for infections with a predominantly sexual mode of transmission; Z13.6 Encounter for screening for cardiovascular disorders
CPT/HCPCS: 80053; 80061; 82306; 84443; 87491; 87591

== ENCOUNTER 2023-05-04 10:31 | Outpatient (CLI) | payer BC, OTHER, SELFPAY ==
--- OUTSIDE RECORDS SUMMARY | 2023-05-04 10:33 | XMS_ITS | Continuity of Care Document ---
Author Name Unknown Organization [facility] Address [address] [place] [address] Phone Care Team Providers Care Weigher And Mixer Name Role Phone Dakota Butler MD Unavailable Unavailable Allergies, Adverse Reactions, Alerts Substance Reaction Status Criticality No Known Allergies Active No Inform ation Medications Medication Instructions Dosage Effective Dates (start - stop) Status Comments TRAMADOL HCL ER (unknown strength) Not Available - Active CAROSPIR (unknown strength) Not Available - Active KAPSPARGO SPRINKLE (unknown strength) Not Available - Active Procedures [...] EST Phone [facility], [address], [facility] [place], [id number], [place] tel:[phone] [facility] No Information Carrie Duncan. [facility] [place], [address] [place] [address] [address], [facility], [place], [id number], [place]. tel:[phone] Referring Provider: Chao Roper, [facility] [address] [place] [address], [address]. tel:[phone] Office/Outpat ient Visit,Est, Mod [facility], [address], [facility] [place], [id number], [place] tel:[phone] [facility] Spinal stenosis, lumbar region with neurogenic claudication Carrie Duncan. [facility], [address] [place] [address] [address], [facility] [place], [address], [place]. tel:[phone] Referring Provider: Chao Roper, [facility] [address] [place] [address], [address]. tel:[phone] Office/Outpat ient Visit,Est, Mod [facility], [address], [facility] [place], [address], [place] tel:[phone] [facility] - [facility] Spinal stenosis, lumbar region with neurogenic claudication Carrie Duncan. [facility] [place], [address] [place] [address] [address], [facility], [place], [address], [place]. tel:[phone] Referring Provider: Chao Roper, [facility] [address] [place] [address], [address]. tel:[phone] [facility], [address], [facility] [place], [address], [place] tel:[phone] [facility] Encounter for other specified surgical aftercare Kal Tubbs. [facility], [address] [place] [address] [address], [place], [address], [place]. tel:[phone] Referring Provider: Chao Roper, [facility] [address] [place] [address], [address]. tel:[phone] [facility], [address], [place], [address], [place] tel:[phone] [facility] No Information Kal Tubbs. [facility], [address], [place], [address], [place]. tel:[phone] Referring Provider: Chao Roper, [address], [address]. tel:[phone] [facility], [address], [place], [address], [place] tel:[phone] [facility] No Information Carrie Duncan. [facility] [place], [address] [place] [address] [address], [place], [address], [place]. tel:[phone] Referring Provider: Chao Roper, [address], [address]. tel:[phone] Office/Outpat ient Visit,Est, Low [facility], [address], [place], [address], [place] tel:[phone] [facility] - [facility] Spinal stenosis, lumbar region with neurogenic claudication Carrie Duncan. [facility] [place], [address] [place] [address] [address], [place], [address], [place]. tel:[phone] Referring Provider: Chao Roper, [facility] [address] [place] [address], [address]. tel:[phone] Office/Outpat ient Visit,Est, Mod [facility], [address], [place], [address], [place] tel:[phone] [facility] - [facility] Spinal stenosis, lumbar region with neurogenic claudication Carrie Duncan. [facility], [address], [place], [address], [place]. tel:[phone] Referring Provider: Chao Roper, [facility] [address] [place] [address], [address]. tel:[phone] [facility], [address], [place], [address], [place] tel:[phone] [facility] - [facility] Arthrodesis status Carrie Duncan. [facility] [place], [address] [place] [address] [address], [place], [address], [place]. tel:[phone] Referring Provider: Chao Roper, [address], [address]. tel:[phone] [facility], [address], [place], [address], [place] tel:[phone] [facility] No Information Kal Tubbs. [facility] [place], [address] [place] [address] [address], [place], [address], [place]. tel:[phone] Referring Provider: Chao Roper, [address], [place], [address]. tel:[phone] [facility], [address], [place], [address], [place] tel:[phone] [facility] No Information Carrie Duncan. [facility] [place], [address], [place], [address], [place]. tel:[phone] Referring Provider: Chao Roper [facility] [address] [place] [address], [facility]. tel:[phone] Office/Outpat ient Visit,Est, Mod [facility], [address], [place], [place], [address], [place] tel:[phone] [facility] Spinal stenosis, lumbar region NOS Carrie Duncan. [facility] [place], [address] [place] [address] [address], [place], [place], [address], [place]. tel:[phone] Referring Provider: Chao Roper, [address], [facility]. tel:[phone] Office/Outpat ient Visit,New, Mod [facility], [address], [place], [place], [address], [place] tel:[phone] [facility] - [facility] Spinal stenosis, lumbar region NOS Carrie Duncan. [facility], [address] [place] [address] [address], [place], [place], [address], [place]. tel:[phone] Referring Provider: Chao Roper, [address], [facility]. tel:[phone] Family History Family Member Type Diagnosis Age At Onset No Information Payers Payer name Insurance type Covered constitution party ID Elaine diop(s) [facility] [id number] [id number] [id number] Social History Type Description Quantity Date Captured [...]
--- NOTE | 2023-05-04 10:34 | CRLHL7_ITS ---
For Patients: As a result of the Century Cures Act, medical imaging exams and procedure reports are released immediately into your electronic medical record. You may view this report before your referring provider. If you have questions, please contact your health care provider. BILATERAL SCREENING MAMMOGRAM WITH COMPUTER-AIDED DETECTION AND TOMOSYNTHESIS TECHNIQUE: CC and MLO views were obtained. These mammographic images have been obtained using full-field digital technique. These mammographic images were interpreted with the benefit of computer-aided detection. Breast Tomosynthesis was used in this interpretation. COMPARISON FILM: 12/26/21, 08/13/18. FINDINGS: There are scattered areas of fibroglandular density IMPRESSION: There is no radiographic evidence for malignancy. ASSESSMENT: BI-RADS Category 1: Negative RECOMMENDATION: Routine screening mammogram in 1 year. A lay language report of this examination will be provided to the patient. Robert Resendez M.D. Diagnostic Radiologist [email or web address] WENDI/Dictated by: Robert Resendez MD @ 05/04/2023 12:43:00 PM (Electronically Signed)
== END 2023-05-04 10:32 | disposition home or self-care (01) ==
LOC: MAMMO 10:31
PROVIDERS: PCP Physician Assistant Medical; Visit Provider Registered Nurse
DX: Z12.31 Encounter for screening mammogram for malignant neoplasm of breast (principal)
CPT/HCPCS: 77063; 77067

== ENCOUNTER 2023-06-11 07:27 | Outpatient (CLI) | payer BC, OTHER, SELFPAY ==
--- OUTSIDE RECORDS SUMMARY | 2023-06-11 07:30 | XMS_ITS | Clinical Summary ---
Author Name Unknown Organization [facility] Address [address] [place] [address] Care Team Providers Care Barrel Line Operator Name Role Phone Unavailable Primary Care Provider Unavailabl e Source Comments Patient records contain information from all sites at [facility]. For routine questions regarding patient records, call [phone] during business hours, M-F 8:00 AM - 5:00 PM Central Time. Record requests for emergency care only can be directed to [phone] at any time.[facility] Allergies No known active allergies Medications Medication Sig Dispensed Refills Start Date End Date Status ibuprofen (ADVIL,MOTRIN) 600 mg tablet Every 6 Hours as needed 0 Active cholecalciferol, vitamin D3, 25 mcg (1,000 Unit) tablet Daily 0 Activ e spironolactone (ALDACTONE) 100 mg tablet Daily 0 09/03/2019 Active lisinopriL (PRINIVIL,ZESTRIL) 10 mg tablet Take 10 mg by mouth daily. 0 02/21/2023 Active Active Problems Problem Noted Date Diagnosed Date Lymphadenitis Cervical 03/26/2023 Encounters Date Type Department Care Team Description 03/26/2023 7:30 AM TEST DEVELOPER Office Visit Department of Otorhinolaryngology in [place], [place] [address] [place] [address] Amy Valverde, WALDEMAR, C.N.P. Lymphadenitis Cervical (Primary Dx) 03/25/2023 2:26 PM TEST DEVELOPER - 03/25/2023 11:59 PM TEST DEVELOPER Hospital Encounter Department of Radiology, [facility], in [place], [place] [address] [place] [address] Keven Talbert M.D., Ph.D. [place] Discharge Disposition: Home or Self Care 03/21/2023 8:00 AM TEST DEVELOPER Clinical Communication Virtual Review in [place], [place] [address] [place] [address] Blood Pressure from Last 3 Months Family History Medical History Relation Name Comments Hyperlipidemia Father Robert Migraines Mother Melba Relation Name Status Comments Father Robert Mother Melba Social History Tobacco Use Types Packs/Day Years Used Date Smoking Tobacco: Never Smokeless Tobacco: Never Comments:Just in high school . Alcohol Use Standard Drinks/Week Comments Never 0 (1 standard drink = 0.6 oz pur e alcohol) Social Connection and Isolat ion Panel [NHANES] Answer Date Recorded In a typical week, how many times do you talk on the phone with family, friends, or neighbors? More than three times a week 10/01/2020 How often do you get togethe r with friends or relatives? Three times a week 10/01/2020 How often do you attend chur ch or yarsanism services? Never 10/01/2020 Do you belong to any clubs o r organizations such as judaism groups, unions, fraternal or athletic groups, or school groups? Yes 10/01/2020 How often do you attend meet ings of the clubs or organizations you belong to? More than 4 times per year 10/01/2020 Are you , , di vorced, , never , or living with a partner? 10/01/2020 AUDIT-C Answer Date Recorded Q1: How often do you have a drink containing alc ohol? Monthly or less 10/01/2020 Q2: How many drinks containi ng alcohol do you have on a typical day when you are drinking? 1 or 2 10/01/2020 Q3: How often do you have si x or more drinks on one occasion? Never 10/01/2020 Overall Financial Resource Strain (CARDIA) Answe r Date Recorded How hard is it for you to pa y for the very basics like food, housing, medical care, and heating? Not very hard 03/19/2023 [facility] [place] of Occupat ional Health - Occupational Stress Questionnaire Answer Date Recorded Do you feel stress - tense, restless, nervous, or anxious, or unable to sleep at night because your mind is troubled all the time - these days? Not at all 10/01/2020 Exercise Vital Sign Answer Date Recorde d On average, how many days pe r week do you engage in moderate to strenuous exercise (like a brisk walk)? 2 days 03/19/2023 On average, how many minutes do you engage in exercise at this level? 30 min 03/19/2023 Hunger Vital Sign Answer Date Recorded Within the past 12 months, y ou worried that your food would run out before you got the money to buy more. Never true 03/19/20 Within the past 12 months, t he food you bought just didn't last and you didn't have money to get more. Never true 03/19/2023 PRAPARE - Transportation Answer Date Re corded In the past 12 months, has l ack of transportation kept you from medical appointments or from getting medications? No 03/07 In the past 12 months, has l ack of transportation kept you from meetings, work, or from getting things needed for daily living? No 03/19/2023 Nutrition Answer Date Recorded Nutrition: EVOO Fat Source No 03/19 On average, how many serving s of fruits and vegetables do you eat per day (serving size is equal to 1 cup or approximately the size of a tennis ball)? 3-5 03/19/2023 Dental Answer Date Recorded Dental: Regular Dentist Yes 05/28/19 Employment Answer Date Recorded Employment status Employed and actively working without restrictions 03/19/2023 Housing Stability Answer Date Recorded What is your living situation today? [facility] 03/19/2023 Education Answer Date Recorded What is the highest level of school you have completed or the highest degree you have received? Professional school degree (e.g., , DDS, DVM, LUDA) 10/01/2020 Sex and Gender Information Value Date Recorded Sex Assigned at Female 03/19/2023 10:51 AM TEST DEVELOPER Gender Identity Female 03/19/2023 10:51 AM TEST DEVELOPER Sexual Orientation Straight 03/19/2023 10 :51 AM TEST DEVELOPER Plan of Treatment Health Maintenance Due Date Last Done Comments CT Colonography 1978 Cologuard 1978 Colonoscopy 1978 Colorectal Cancer Screening 1978 FIT 1978 HIV Screening 1978 Hepatitis B Vaccines (1 of 3 - 3-dose series) 1978 Hepatitis C Screening 1978 Lipid (Cholesterol) Screening 1978 Mammogram 1978 Potassium Level 10/21/2019 10/20/2018 Sodium Level 10/21/2019 10/20/2018 Fasting Glucose for Diabetes Screening 10/20/2021 10/20/2018 COVID-19 Vaccine (3 - season) 2023 08/22/2020, 07/25/2020 Depression Screening (Annual PHQ-2) 05/07/2023 Creatinine Level (Kidney Function Test) 03/25/2024 03/25/2023, 10/20/2018 Cervical Cancer Screening 03/08/2026 03/08/2023 DTaP,Tdap,and Td Vaccines (3 - Td or Tdap) 08/27/2028 08/27/2018, 03/31/2008 Influenza Vaccine Completed 02/01/2023, , 12/28/2021, Additional history exists HPV Vaccines Aged Out No longer eligi ble based on patient's age to complete this topic Pneumococcal vaccine (0-64 years) Aged Out No longer eligible based on patient's age to complete this topic Procedures Procedure Name Priority Date/Time Associated Diagnosis Comments CT NECK SOFT TISSUE WITH IV CONTRAST RAD - Routine (most inpatients and all outpatients) 03/25/2023 2:48 PM TEST DEVELOPER [place] CREATININE WITH EGFR, S/P Routine 03/25/2023 12:08 PM TEST DEVELOPER [place] from Last 3 Months Results * CT Neck Soft Tissue with IV Contrast (03/25/2023 2:48 PM TEST DEVELOPER) Anatomical Region Laterality Modality Neck, Neuroradiology RST LOS , Neuroradiology ARZ [facility], Neuroradiology FLA [facility] N/A Computed Tomography, Compute d Tomography 03/25/2023 2:49 PM TEST DEVELOPER Impressions 03/26/2023 8:12 AM TEST DEVELOPER Compared to 07/29/2020, similar size/appearance of an asymmetrically prominent left level 1 lymph node. No substantial new/enlarging cervical adenopathy. Narrative 03/26/2023 8:12 AM TEST DEVELOPER EXAM: CT NECK SOFT TISSUE WITH IV CONTRAST COMPARISON: CT neck soft tissue 07/29/2020 FINDINGS: Compared to 07/29/2020, similar size/appearance of an asymmetrically prominent left level 1 lymph node measuring up to 1.6 cm. No substantial new/enlarging cervical adenopathy. Normal appearance of the visualized upper aerodigestive tract. Similar minimal questionable hyperenhancement of the left submandibular gland compared to the contralateral side. Normal appearance of the remaining major salary glands. No substantial abnormality of the thyroid. Normal appearance of the orbits and globes. Paranasal sinuses and mastoids are largely clear. Visualized lung apices are clear. No substantial abnormality of the visualized intracranial structures. Cervical vasculature is patent. Mild cervical spondylosis. Procedure Note Juan Bailey D.O. - 03/26/2023 EXAM: CT NECK SOFT TISSUE WITH IV CONTRAST COMPARISON: CT neck soft tissue 07/29/2020 FINDINGS: Compared to 07/29/2020, similar size/appearance of anasymmetrically prominent left level 1 lymph node measuring up to 1.6 cm.No substantial new/enlarging cervical adenopathy. Normal appearance of thevisualized upper aerodigestive tract. Similar minimal questionable hyperenhancement of the left submandibulargland compared to the contralateral side. Normal appearance of theremaining major salary glands. No substantial abnormality of the thyroid.Normal appearance of the orbits and globes. Paranasal sinuses and mastoids are largely clear. Visualized lungapices are clear. No substantial abnormality of the visualizedintracranial structures. Cervical vasculature is patent. Mild cervicalspondylosis. IMPRESSION: Compared to 07/29/2020, similar size/appearance of an asymmetricallyprominent left level 1 lymph node. No substantial new/enlarging cervicaladenopathy. Keven Talbert M.D., Ph.D. IMG CT PROCE DURES * Creatinine with Estimated GFR (03/25/2023 12:08 PM TEST DEVELOPER) Creatinine 0.83 0.59 - 1.04 mg/dL 03/25/2023 12:56 PM TEST DEVELOPER DTL Estimated GFR (eGFR) 89 >=60 mL/min/BSA 03/25/2023 12:56 PM TEST DEVELOPER DTL Comment: Estimated GFR calculated using the 2020 CKD_EPI creatinine equation. Blood (Blood, Venous) 03/25/2023 12:08 PM TEST DEVELOPER 03/25/2023 12:33 PM TEST DEVELOPER Keven Talbert M.D., Ph.D. LAB BLOOD AD D[facility] [address] [place] [address], [place] [facility] [address] [place] [address] from Last 3 Months
--- OUTSIDE RECORDS SUMMARY | 2023-06-11 07:31 | XMS_ITS | Referral Summary ---
Author Name Unknown Organization [facility] Address [facility] [place] [address] Care Team Providers Care Architectural Modeler Name Role Phone Chao Huggins Primary Care Provider [phone] Allergies No known active allergies Medications Medication Sig Dispensed Refills Start Date End Date Status Verapamil HCl 240 MG (CO) TB24 Take by mouth. 0 Active omeprazole (PRILOSEC) 20 MG capsule Take 20 mg by mouth daily. 0 Active hydrochlorothiazide (HYDRODIURIL) 25 MG tabletIndications:HTN (hypertension) Take 1 tablet by mouth daily. 30 tablet 0 07/20/2011 Active Active Problems Problem Noted Date Diagnosed Date HTN (hypertension) 05/13/2012 GERD (gastroesophageal reflux disease) 3 CARDIOVASCULAR SCREENING; LDL GOAL LESS THAN 130 05/13/2012 Resolved Problems Problem Noted Date Diagnosed Date Resolved Date Status post lumbar spine hannah yves for decompression of spinal cord 05/10/2020 07/14/2020 Immunizations Name Administration Dates Next Due Influenza (IIV3) PF 01/12/2012 Social History Tobacco Use Types Packs/Day Years Used Date Smoking Tobacco: Never Alcohol Use Standard Drinks/Week Comments Yes 0 (1 standard drink = 0.6 oz pur e alcohol) rarely Adolescent Education Answer Date Record ed Getting School Help Needed Not on file 02/04 Sex and Gender Information Value Date Recorded Sex Assigned at Not on file Gender Identity Not on file Sexual Orientation Not on file Last Filed Vital Signs Vital Sign Reading Time Taken Comments Blood Pressure 142/82 07/03/2019 6:04 AM SUPERVISOR PREPRESS Pulse 72 07/03/2019 6:04 AM SUPERVISOR PREPRESS Temperature 36.6 ??C (97.8 ??F) 07/03/2019 3:05 AM CS T Respiratory Rate 18 07/03/2019 3:05 AM SUPERVISOR PREPRESS Oxygen Saturation 98% 07/03/2019 6:04 AM SUPERVISOR PREPRESS Inhaled Oxygen Concentration - - Weight 90.7 kg (200 lb) 07/03/2019 3:05 AM SUPERVISOR PREPRESS Height 167.6 cm (5' 6) 07/03/2019 3:05 AM SUPERVISOR PREPRESS Body Mass Index 32.28 07/03/2019 3:05 AM SUPERVISOR PREPRESS Plan of Treatment Not on file Care Teams Architectural Modeler Relationship Specialty Start Date End Date Chao Huggins [address] [place] [address] PCP - General Family Medicine 05/10/20
--- OUTSIDE RECORDS SUMMARY | 2023-06-11 07:31 | XMS_ITS | Encounter Summary ---
Author Name Unknown Organization [facility] Address [address] [place] [address] Care Team Providers Care Consumer Credit Counselor Name Role Phone Unavailable Primary Care Provider Unavailabl e Reason for Referral * Outpatient (Routine) - Closed Specialty Diagnoses / Procedures Referred By Leny burk Referred To Contact Otorhinolaryngology Diagnoses dx Keven Talbert M.D., Ph.D. [address] [place] [phone] Amy Valverde, [employer]ER, C.N.P. [address] [place] [phone] Referral ID Status Reason Start Date Expiration Date Visits Re quested Visits Authorized [id number] Closed 02/01/2023 02/01/2024 1 1 * MRI/CAT/PET Scan (Routine) - Closed Specialty Diagnoses / Procedures Referred By Leny burk Referred To Contact Radiology Diagnoses [place] Procedures CT Neck Soft Tissue with IV Contrast Keven Talbert M.D., Ph.D. [address] [place] [phone] [facility] Referral ID Status Reason Start Date Expiration Date Visits Re quested Visits Authorized [id number] Closed 03/07/2023 03/08/2024 1 1 Encounter Details Date Type Department Care Team (Latest Contact Info) Description 02/09/2023 Orders Only Department of Otorhinolaryngology in [place], [place] [address] [place] [address] Keven Talbert M.D., Ph.D. [address] [place] [address] Mass Neck (Primary Dx) Social History Tobacco Use Types Packs/Day Years [...] 10/01/2020 How often do you attend chur or congregation services? Never 10/01/2020 Do you belong to any clubs o r organizations such as yazdanism groups, unions, fraternal or athletic groups, or [...] food, housing, medical care, and heating? Not hard at all 10/01/2020 [facility] of Occupat ional Health - Occupational Stress [...] to strenuous exercise (like a brisk walk)? 5 days 10/01/2020 On average, how many minutes do you engage in exercise at this level? 40 min 10/01/2020 Hunger Vital Sign Answer Date Recorded Within the past 12 months, y ou worried that your food would run out before you got the money to buy more. Never true 10/02/19 21 Within the past 12 months, t he food you bought just didn't last and you didn't have money to get more. Never true 10/01/2020 PRAPARE - Transportation Answer Date Re corded In the past 12 months, has l ack of transportation kept you from medical appointments or from getting medications? No 09/05 In the past 12 months, has l ack of transportation kept you from meetings, work, or from getting things needed for daily living? No 10/01/2020 Housing Stability Vital Sign Answer Juan e Recorded In the last 12 months, was t here a time when you were not able to pay the mortgage or rent on time? No 10/01/2020 In the last 12 months, how many places have you lived? 1 10/01/2020 In the last 12 months, was t here a time when you did not have a steady place to sleep or slept in a custodial (including now)? No 10/01/2020 Nutrition Answer Date Recorded Nutrition: EVOO Fat Source No 10/01 On average, how many serving s of fruits and vegetables do you eat per day (serving size is equal to 1 cup or approximately the size of a tennis ball)? 2-3 10/01/2020 Dental Answer Date Recorded Dental: Regular Dentist Yes 05/28/19 Employment Answer Date Recorded Employment status Employed and actively working without restrictions 10/01/2020 Education Answer Date Recorded What is the highest level of school you have completed or the highest degree you have received? Professional school degree (e.g., , DDS, DVM, LUDA) 10/01/2020 Sex and Gender Information Value Date Recorded Sex Assigned at Female 03/19/2023 10:51 AM ORTHOPAEDIC TECHNOLOGIST Gender Identity Female 03/19/2023 10:51 AM ORTHOPAEDIC TECHNOLOGIST Sexual Orientation Straight 03/19/2023 10 :51 AM ORTHOPAEDIC TECHNOLOGIST documented as of this encounter Plan of Treatment Scheduled Referrals Name Type Priority Associated Diagnoses Order Schedule Otorhinolaryngology office visit (clinic) Outpatient Referral Routine Expected: 02/09/2023 (Approximate), Expires: 05/12/2024 documented as of this encounter Results * CT Neck Soft Tissue with IV Contrast (03/25/2023 2:48 PM ORTHOPAEDIC TECHNOLOGIST) Anatomical Region Laterality Modality Neck, Neuroradiology RST LOS , Neuroradiology ARZ LOS, Neuroradiology FLA LOS N/A Computed Tomography, Compute d Tomography 03/25/2023 2:49 PM ORTHOPAEDIC TECHNOLOGIST Impressions 03/26/2023 8:12 AM ORTHOPAEDIC TECHNOLOGIST Compared to 07/29/2020, similar size/appearance of an asymmetrically prominent left level 1 lymph node. No substantial new/enlarging cervical adenopathy. Narrative 03/26/2023 8:12 AM ORTHOPAEDIC TECHNOLOGIST EXAM: CT NECK SOFT TISSUE WITH IV [...] Creatinine with Estimated GFR (03/25/2023 12:08 PM ORTHOPAEDIC TECHNOLOGIST) Creatinine 0.83 0.59 - 1.04 mg/dL 03/25/2023 12:56 PM ORTHOPAEDIC TECHNOLOGIST DTL Estimated GFR (eGFR) 89 >=60 mL/min/BSA 03/25/2023 12:56 PM ORTHOPAEDIC TECHNOLOGIST DTL Comment: Estimated GFR calculated using the 2020 CKD_EPI creatinine equation. Blood (Blood, Venous) 03/25/2023 12:08 PM ORTHOPAEDIC TECHNOLOGIST 03/25/2023 12:33 PM ORTHOPAEDIC TECHNOLOGIST Keven Talbert M.D., Ph.D. LAB BLOOD AD [facility] [address] [place] [address], [facility] DTL [facility] [address] [place] [address] documented in this encounter Visit Diagnoses Diagnosis Mass Neck- Primary Mass Neck documented in this encounter
--- OUTSIDE RECORDS SUMMARY | 2023-06-11 07:31 | XMS_ITS ---
Author Name Unknown Organization [facility] Address [address] [place] [address] Care Team Providers Care Evaluation Manager Name Role Phone Unavailable Unavailable Unavailable Surgery Details Not on file Complications Check Surgery Details section. Procedure Estimated Blood Loss Check Surgery Details section. Procedure Findings Check Surgery Details section. Procedure Specimens Taken Check Surgery Details section.
--- OUTSIDE RECORDS SUMMARY | 2023-06-11 07:31 | XMS_ITS | Clinical Summary ---
Author Name Unknown Organization [place] Address [facility] [place] [address] Care Team Providers Care Retirement Specialist Name Role Phone Chao Huggins Primary Care [...] Comments Blood Pressure 142/82 07/03/2019 6:04 AM PACKAGER HAND Pulse 72 07/03/2019 6:04 AM PACKAGER HAND Temperature 36.6 ??C (97.8 ??F) 07/03/2019 3:05 AM CS T Respiratory Rate 18 07/03/2019 3:05 AM PACKAGER HAND Oxygen Saturation 98% 07/03/2019 6:04 AM PACKAGER HAND Inhaled Oxygen Concentration - - Weight 90.7 kg (200 lb) 07/03/2019 3:05 AM PACKAGER HAND Height 167.6 cm (5' 6) 07/03/2019 3:05 AM PACKAGER HAND Body Mass Index 32.28 07/03/2019 3:05 AM PACKAGER HAND Plan of Treatment Health Maintenance Due Date Last Done Comments ADVANCE CARE PLANNING 1978 ANNUAL REVIEW OF HM ORDERS 1978 CT COLONOGRAPHY 1978 FIT 1978 FLEX SIG 1978 HEPATITIS B IMMUNIZATION (1 of 3 - 3-dose series) 1978 MAMMO SCREENING 1978 YEARLY PREVENTIVE VISIT 1978 sDNA (Cologuard) 1978 COVID-19 Vaccine (#1) 1978 COLONOSCOPY 1988 COLORECTAL CANCER SCREENING 1988 HIV SCREENING 1993 HEPATITIS C SCREENING 1996 DTAP/TDAP/TD IMMUNIZATION (1 - Tdap) 2003 LIPID 2018 PAP 07/15/2021 07/15/2018, 03/0 12/2018, 04/15/2012 GLUCOSE 10/20/2021 10/20/2018, 02/05, 06/30/2010 INFLUENZA VACCINE (#1) 2023 6, 02/22/2015, 02/11/2013, Additional history exists PHQ-2 (once per calendar year) 2023 HPV IMMUNIZATION Aged Out No longer e ligible based on patient's age to complete this topic IPV IMMUNIZATION Aged Out No longer e ligible based on patient's age to complete this topic MENINGITIS IMMUNIZATION Aged Out No l onger eligible based on patient's age to complete this topic Pneumococcal Vaccine: Pediatrics (0 to 5 Years) and At-Risk Patients (6 to 64 Years) Aged Out No longer eligible based on patient's age to complete this topic RSV MONOCLONAL ANTIBODY Aged Out No l onger eligible based on patient's age to complete this topic Care Teams Retirement Specialist Relationship Specialty Start Date End Date Chao Huggins [facility] [address] [place] [id number] PCP - General Family Medicine 05/10/20
--- OUTSIDE RECORDS SUMMARY | 2023-06-11 07:31 | XMS_ITS | Referral Summary ---
Author Name Unknown Organization [facility] Address [address] [place] [address] Care Team Providers Care Mail Technician Name Role Phone Unavailable Primary Care Provider Unavailabl e Source Comments Patient records contain information from all sites at [facility]. For routine questions regarding patient records, call [phone] during business hours, M-F 8:00 AM - 5:00 PM Central Time. Record requests for emergency care only can be directed to [phone] at any time.[facility] Encounters Date Type Department Care Team Description 03/26/2023 7:30 AM MANAGER REGISTRATION Office Visit Department of Otorhinolaryngology in [place], [place] [address] [place] [phone] Amy Valverde, WALDEMAR, C.N.P. Lymphadenitis Cervical (Primary Dx) 03/25/2023 2:26 PM MANAGER REGISTRATION - 03/25/2023 11:59 PM MANAGER REGISTRATION Hospital Encounter Department of Radiology, [facility], in [address] [address] Keven Talbert M.D., Ph.D. [place] Neck Discharge Disposition: Home or Self Care 03/21/2023 8:00 AM MANAGER REGISTRATION Clinical Communication Virtual Review in [place], [place] 200 [place] [address] Blood Pressure from Last 3 Months Allergies No known active allergies Medications Medication [...] Noted Date Diagnosed Date Lymphadenitis Cervical 03/26/2023 Social History Tobacco Use Types Packs/Day Years [...] often do you attend chur ch or bahai services? Never 10/01/2020 Do you belong to any clubs o r organizations such as orthodox groups, unions, fraternal or athletic groups, or [...] care, and heating? Not very hard 03/19/2023 [facility] [place] of Occupat ional Health - Occupational Stress [...] your living situation today? I have a [facility] place to live 03/19/2023 Education Answer Date Recorded What is the highest level of school you have completed or the highest degree you have received? Professional school degree (e.g., MD, DDS, DVM, LUDA) 10/01/2020 Sex and Gender Information Value Date Recorded Sex Assigned at Female 03/19/2023 10:51 AM MANAGER REGISTRATION Gender Identity Female 03/19/2023 10:51 AM MANAGER REGISTRATION Sexual Orientation Straight 03/19/2023 10 :51 AM MANAGER REGISTRATION Plan of Treatment Not on file Procedures Procedure Name Priority Date/Time Associated Diagnosis Comments CT NECK SOFT TISSUE WITH IV CONTRAST RAD - Routine (most inpatients and all outpatients) 03/25/2023 2:48 PM MANAGER REGISTRATION [place] Neck CREATININE WITH EGFR, S/P Routine 03/25/2023 12:08 PM MANAGER REGISTRATION [place] Neck from Last 3 Months Results * CT Neck Soft Tissue with IV Contrast (03/25/2023 2:48 PM MANAGER REGISTRATION) Anatomical Region Laterality Modality Neck, Neuroradiology RST LOS , Neuroradiology ARZ LOS, Neuroradiology FLA LOS N/A Computed Tomography, Compute d Tomography 03/25/2023 2:49 PM MANAGER REGISTRATION Impressions 03/26/2023 8:12 AM MANAGER REGISTRATION Compared to 07/29/2020, similar size/appearance of an asymmetrically prominent left level 1 lymph node. No substantial new/enlarging cervical adenopathy. Narrative 03/26/2023 8:12 AM MANAGER REGISTRATION EXAM: CT NECK SOFT TISSUE WITH IV [...] Creatinine with Estimated GFR (03/25/2023 12:08 PM MANAGER REGISTRATION) Creatinine 0.83 0.59 - 1.04 mg/dL 03/25/2023 12:56 PM MANAGER REGISTRATION DTL Estimated GFR (eGFR) 89 >=60 mL/min/BSA 03/25/2023 12:56 PM MANAGER REGISTRATION DTL Comment: Estimated GFR calculated using the 2020 CKD_EPI creatinine equation. Blood (Blood, Venous) 03/25/2023 12:08 PM MANAGER REGISTRATION 03/25/2023 12:33 PM MANAGER REGISTRATION Keven Talbert M.D., Ph.D. LAB BLOOD AD D-ON [facility] [address] [place] [address], [place] DTL [facility] [address] [place] [address] from Last 3 Months
--- OUTSIDE RECORDS SUMMARY | 2023-06-11 07:31 | XMS_ITS | Encounter Summary ---
Author Name Unknown Organization [facility] Address 200 [place] [address] Care Team Providers Care Finish Mixer Name Role Phone Unavailable Primary Care Provider Unavailabl e Reason for Referral * MRI/CAT/PET Scan (Routine) - Closed Specialty Diagnoses / Procedures Referred By Contac t Referred To Contact Radiology Diagnoses [place] Neck Procedures CT Neck Soft Tissue with IV Contrast Keven Talbert M.D., Ph.D. 200 [place] [address] [facility] Referral ID Status Reason Start Date Expiration Date Visits Re quested Visits Authorized [id number] Closed 03/07/2023 03/08/2024 1 1 RVISOR OF INSTRUCTION Reason for Visit * MRI/CAT/PET Scan (Routine) - Closed Specialty Diagnoses / Procedures Referred By Leny burk Referred To Contact Radiology Diagnoses Mass Neck Procedures CT Neck Soft Tissue with IV Contrast Keven Talbert M.D., Ph.D. 200 [place] [address] [facility] Referral ID Status Reason Start Date Expiration Date Visits Re quested Visits Authorized [id number] Closed 03/07/2023 03/08/2024 1 1 Encounter Details Date Type Department Care Team (Latest Contact Info) Description 03/25/2023 2:26 PM SUPERVISOR OF INSTRUCTION - 03/25/2023 11:59 PM SUPERVISOR OF INSTRUCTION Hospital Encounter Department of Radiology, [facility], in [place], [place] [address] [place] [address] Keven Talbert M.D., Ph.D. 200 [place] [address] Mass Neck Discharge Disposition: Home or Self Care Social History Tobacco Use Types Packs/Day Years [...] How often do you attend chur or temple services? Never 10/01/2020 Do you belong to any clubs o r organizations such as cheondoism groups, unions, fraternal or athletic groups, or [...] care, and heating? Not very hard 03/19/2023 [facility] [place] of Occupat ional Health - Occupational Stress [...] your living situation today? I have a [facility] place to live 03/19/2023 Education Answer Date Recorded What is the highest level of school you have completed or the highest degree you have received? Professional school degree (e.g., MD, DDS, DVM, LUDA) 10/01/2020 Sex and Gender Information Value Date Recorded Sex Assigned at Female 03/19/2023 10:51 AM SUPERVISOR OF INSTRUCTION Gender Identity Female 03/19/2023 10:51 AM SUPERVISOR OF INSTRUCTION Sexual Orientation Straight 03/19/2023 10 :51 AM SUPERVISOR OF INSTRUCTION documented as of this encounter Medications at Time of Discharge Medication Sig Dispensed Refills Start Date End Date cholecalciferol, vitamin D3, 25 mcg (1,000 Unit) tablet Daily 0 ibuprofen (ADVIL,MOTRIN) 600 mg tablet Every 6 Hours as needed 0 lisinopriL (PRINIVIL,ZESTRIL) 10 mg tablet Take 10 mg by mouth daily. 0 02/21/2023 spironolactone (ALDACTONE) 100 mg tablet Daily 0 09/03/2019 documented as of this encounter Plan of Treatment Not on file documented as of this encounter Procedures Procedure Name Priority Date/Time Associated Diagnosis Comments CT NECK SOFT TISSUE WITH IV CONTRAST RAD - Routine (most inpatients and all outpatients) 03/25/2023 2:48 PM SUPERVISOR OF INSTRUCTION [place] Neck documented in this encounter Results * CT Neck Soft Tissue with IV Contrast (03/25/2023 2:48 PM SUPERVISOR OF INSTRUCTION) Anatomical Region Laterality Modality Neck, Neuroradiology RST LOS , Neuroradiology ARZ LOS, Neuroradiology FLA LOS N/A Computed Tomography, Compute d Tomography 03/25/2023 2:49 PM SUPERVISOR OF INSTRUCTION Impressions 03/26/2023 8:12 AM SUPERVISOR OF INSTRUCTION Compared to 07/29/2020, similar size/appearance of an asymmetrically prominent left level 1 lymph node. No substantial new/enlarging cervical adenopathy. Narrative 03/26/2023 8:12 AM SUPERVISOR OF INSTRUCTION EXAM: CT NECK SOFT TISSUE WITH IV [...] Keven Talbert M.D., Ph.D. IMG CT PROCE SONJA documented in this encounter Visit Diagnoses Diagnosis [place]ck documented in this encounter Administered Medications Inactive Administered Medications - up to 3 most recent administrations Medication Order MAR Action Action Date Dose Rate Site iohexoL 300 mg iodine/mL solution 1-200 mL (OMNIPAQUE) 1-200 mL, intravenous, Once in imaging, contrast, Starting on 03/25/23 at 1433, For 1 dose, Imaging Protocol Orders, Dose per Radiant Medication Guidelines Given 03/25/2023 2:48 PM SUPERVISOR OF INSTRUCTION 120 mL sodium chloride (PF) 0.9 % injection 1-100 mL 1-100 mL, intravenous, Once, On 03/25/23 at 1500, For 1 dose, Imaging Protocol Orders Given 03/25/2023 2:48 PM SUPERVISOR OF INSTRUCTION 35 mL documented in this encounter
--- OUTSIDE RECORDS SUMMARY | 2023-06-11 07:31 | XMS_ITS | Continuity of Care Document ---
Author Name Unknown Organization [facility] Address [address] [place] [address] Phone Care Team Providers Care Dredge Master Name Role Phone Dakota Butler MD Unavailable [...] EST Phone [facility], [address], [facility] [place], [id number], [place] tel:[phone] [facility] - [facility] No Information Carrie Duncan. [facility] [place], [address] [place] [address] [address], [facility] [place], [id number], [place]. tel:[phone] Referring Provider: Chao Roper, [facility] [address] [place] [address], [address]. tel:[phone] Office/Outpat ient Visit,Est, Mod [facility], [address], [facility] [place], [id number], [place] tel:[phone] [facility] Spinal stenosis, lumbar region with neurogenic claudication Carrie Duncan. [facility], [address] [place] [address] [address], [facility] [place], [id number], [place]. tel:[phone] Referring Provider: Chao Roper, [facility] [address] [place] [address], [address]. tel:[phone] Office/Outpat ient Visit,Est, Mod [facility], [address], [facility] [place], [id number], [place] tel:[phone] [facility] - Les Spinal stenosis, lumbar region with neurogenic claudication Carrie Duncan. [facility] [place], [address] [place] [address] [address], [facility], [place], [id number], [place]. tel:[phone] Referring Provider: Chao Roper, [facility] [address] [place] [address], [address]. tel:[phone] [facility], [address], [facility] [place], [id number], [place] tel:[phone] [facility] - [facility] Encounter for other specified surgical aftercare Kal Tubbs. [facility], [address] [place] [address] [address], [place], [id number], [place]. tel:[phone] Referring Provider: Chao Roper, [facility] [address] [place] [address], [address]. tel:[phone] [facility], [address], [place], [id number], [place] tel:[phone] [facility] No Information Kal Tubbs. [facility], [address], [place], [id number], [place]. tel:[phone] Referring Provider: Chao Roper, [address], [address]. tel:[phone] [facility], [address], [place], [id number], [place] tel:[phone] [facility] No Information Carrie Duncan. [facility] [place], [address] [place] [address] [address], [place], [id number], [place]. tel:[phone] Referring Provider: Chao Roper, [address], [address]. tel:[phone] Office/Outpat ient Visit,Est, Low [facility], [address], [place], [id number], [place] tel:[phone] [facility] - [facility] Spinal stenosis, lumbar region with neurogenic claudication Carrie Duncan. [facility] [place], [address] [place] [address] [address], [place], [id number], [place]. tel:[phone] Referring Provider: Chao Roper, [facility] [address] [place] [address], [address]. tel:[phone] Office/Outpat ient Visit,Est, Mod [facility], [address], [place], [id number], [place] tel:[phone] [facility] - [facility] Spinal stenosis, lumbar region with neurogenic claudication Carrie Duncan. [facility], [address], [place], [id number], [place]. tel:[phone] Referring Provider: Chao Roper, [facility] [address] [place] [address], [address]. tel:[phone] [facility], [address], [place], [id number], [place] tel:[phone] [facility] - [facility] Arthrodesis status Carrie Duncan. [facility] [place], [address] [place] [address] [address], [place], [id number], [place]. tel:[phone] Referring Provider: Chao Roper, [address], [address]. tel:[phone] [facility], [address], [place], [id number], [place] tel:[phone] [facility] No Information Kal Tubbs. [facility] [place], [address] [place] [address] [address], [place], [id number], [place]. tel:[phone] Referring Provider: Chao Roper, [address], [place], [address]. tel:[phone] [facility], [address], [place], [id number], [place] tel:[phone] [facility] No Information Carrie Duncan. [facility] [place], [address] [facility] [address], [place], [id number], [place]. tel:[phone] Referring Provider: Chao Roper [facility] [address] [place] [address], [facility]. tel:[phone] Office/Outpat ient Visit,Est, Mod [facility], [address], [place], [place], [id number], [place] tel:[phone] [facility] - [facility] Spinal stenosis, lumbar region NOS Carrie Duncan. [facility] [place], [address] [place] [address] [address], [place], [place], [id number], [place]. tel:[phone] Referring Provider: Chao Roper, [address], [facility]. tel:[phone] Office/Outpat ient Visit,New, Mod [facility], [address], [place], [place], [id number], [place] tel:[phone] [facility] - [facility] Spinal stenosis, lumbar region NOS Carrie Duncan. [facility], [address] [place] [address] [address], [place], [place], [id number], [place]. tel:[phone] Referring Provider: Chao Roper, [address], [facility]. tel:[phone] Family History Family Member Type Diagnosis Age At Onset No Information Payers Payer name Insurance type Covered green party ID Elaine diop(s) [facility] [id number] [id number] [id number] Social History Type Description Quantity Date Captured [...]
--- OUTSIDE RECORDS SUMMARY | 2023-06-11 07:31 | XMS_ITS | Clinical Summary ---
Author Name Unknown Organization [employer] [facility] Address [place], [place] [address] Care Team Providers Care Tobacco Cloth Reclaimer Name Role Phone Chao Huggins MD Primary Care Provider [phone] Juan Viveros MD Unavailable [phone] Allergies No known active allergies Medications Medication Sig Dispensed Refills Start Date End Date Status cholecalciferol (VITAMIN D-3) 2,000 unit capsule Take 1 capsule by mouth once daily. 0 03/20/2014 Active spironolactone (ALDACTONE) 50 mg tablet Take 100 mg by mouth once daily. 0 03/20/2014 Active ibuprofen (ADVIL; MOTRIN) 200 mg tablet Take 200 mg by mouth 4 times daily if needed. 0 Active cyclobenzaprine (FLEXERIL) 5 mg tablet Take 5 mg by mouth at bedtime if needed for Muscle Spasm. 0 Active multivitamin (MVI) tablet Take 1 tablet by mouth once daily. 0 Active oxyCODONE (ROXICODONE) 5 mg immediate release tabletIndications:Acu te post-operative pain Take 1-2 tablets by mouth every 4 hours if needed for Pain Max of 10 tablets/day. 40 tablet 0 03/23/2020 Active Active Problems Problem Noted Date Diagnosed Date Lumbar disc herniation with radiculopathy 2014 Overview: November 2014: 1 year of low back pain and left leg symptoms Since December 2013 with L5-S1 disc herniation most likely cause. ~ November 2014:L5-S1 TF [place] by Dr. Whittaker. May 2015: left L5-S1 TFESI by Dr. Whittaker. JAMMIE (obstructive sleep apnea) 11/09/2014 Overview: approximately 2013 diagnosis. On CPAP. Nonsustained ventricular tachycardia 06/15/2014 Hypertension 03/20/2014 Hyperlipidemia 03/20/2014 Palpitations 03/20/2014 Plantar fasciitis 11/07/2011 BRONCHITIS - ACUTE 06/14/2005 HYPOTHYROIDISM MIGRAINE NOT INTRACTABLE Resolved Problems Problem Noted Date Diagnosed Date Resolved Date Headache 03/20/2014 03/20/2014 Immunizations Name Administration Dates Next Due Influenza, IIV3 (Age >=3 years) 03/01/2004 Social History Tobacco Use Types Packs/Day Years Used Date Smoking Tobacco: Never Smokeless Tobacco: Never Alcohol Use Standard Drinks/Week Comments No 0 (1 standard drink = 0.6 oz pur e alcohol) Sex and Gender Information Value Date Recorded Sex Assigned at Not on file Gender Identity Not on file Sexual Orientation Not on file Obstetrics History Last Filed Vital Signs Vital Sign Reading Time Taken Comments Blood Pressure 146/83 03/23/2020 2:31 PM SQL ENGINEER Pulse 92 03/23/2020 3:39 PM SQL ENGINEER Temperature 36.9 ??C (98.5 ??F) 03/23/2020 3:39 PM CS T Respiratory Rate 18 03/23/2020 3:39 PM SQL ENGINEER Oxygen Saturation 95% 03/23/2020 3:39 PM SQL ENGINEER Inhaled Oxygen Concentration - - Weight 98.9 kg (218 lb) 03/22/2020 2:23 PM SQL ENGINEER Height 162.6 cm (5' 4) 03/22/2020 2:23 PM SQL ENGINEER Body Mass Index 37.42 03/22/2020 2:23 PM SQL ENGINEER Plan of Treatment Health Maintenance Due Date Last Done Comments COVID-19 vaccine series (#1) 1978 Tdap 1989 Depression screening for age 12+ 1990 HIV for age 15-65 1993 Hepatitis C screening for age 18-79 1996 Tetanus booster 1998 BMI (ht and wt on same day) for age 18+ 05/20/2016 05/20/2015 Influenza for age 9-49 01/05/2023 03/01/2004 Colonoscopy through age 75 2023 Lipids for age 45-75 2023 02/25/2015, 03/27/2014, 02/10/2002, Additional history exists Mammogram for age 45-75 2023 Pap test for age 21-65 03/08/2026 3, 03/08/2023, 07/15/2018, Additional history exists Pneumococcal series for age 6-64 Aged Out No longer eligible based on patient's age to complete this topic Advance Directives Latest Code Status on File Code Status Date Activated Date Inactivated Comments Full Code 03/23/2020 11:13 AM 03/23/2020 6:03 PM Question Answer Comments Code Status Discussion: Discussed Care Teams Tobacco Cloth Reclaimer Relationship Specialty Start Date End Date Chao Huggins MD [address] [place] [address] PCP - General Family Practice 03/09/14 Juan Viveros MD [address] [place] [address] Consulting Physician Cardiovascular Disease 02/26/15
--- OUTSIDE RECORDS SUMMARY | 2023-06-11 07:31 | XMS_ITS | Clinical Summary ---
Author Name Unknown Organization [facility] Address [address] [place] [address] Care Team Providers Care Caterer Helper Name Role Phone Unavailable Primary Care Provider Unavailabl e Source Comments You are receiving this document as you are listed as the primary care provider,follow-up provider, or the patient has been referred to you for consultation.This is in compliance with the Medicare andMedicaid EHR Incentive Program,which states Providers who transition their patient to another setting of careor provider of care or refers their patient to another provider of care shouldprovide summary care record for each transition of care or referral. [facility] Medications Medication Sig Dispensed Refills Start Date End Date Status cyclobenzaprine (FLEXERIL) 5 MG tabletIndications:Lumb ar radiculitis Take 1 Tab by mouth at bedtime as needed for Muscle Spasms. 30 Tab 1 10/24/2017 Active Resolved Problems Problem Noted Date Diagnosed Date Resolved Date Mechanical low back pain 06/11/201908/2019 Weakness 06/11/2019 12/09/2019 Lumbar radiculopathy 09/03/2017 018 Social History Tobacco Use Types Packs/Day Years Used Date Smoking Tobacco: Never Assessed Sex and Gender Information Value Date Recorded Sex Assigned at Not on file Gender Identity Not on file Sexual Orientation Not on file Plan of Treatment Health Maintenance Due Date Last Done Comments Cervical Cancer Screening Due 1978 Colon Cancer Screening Plan Due 1978 Hep C Screening (Preventive Services) 1978 HepB (1) 1978 HIV Screening (Preventive Services) 1994 Adult Preventive Visit 1996 COVID-19 Vaccine ( season) 2023 08/22/2020, 07/25/2020 Influenza (#1) 2023 03/18/2019, 11/2018, 02/07/2016, Additional history exists Cholesterol 2023 Zoster/Shingles (1 of 2) 2028 DTaP/Tdap/Td (3 - Tdap) 08/27/2028 08/27/2018, 03/31 HPV Vaccine Aged Out No longer eligi ble based on patient's age to complete this topic HepA Aged Out No longer eligi ble based on patient's age to complete this topic Hib Aged Out No longer eligi ble based on patient's age to complete this topic IPV (Polio) Aged Out No longer eligi ble based on patient's age to complete this topic MCV4 Aged Out No longer eligi ble based on patient's age to complete this topic Pneumococcal Aged Out No longer eligi ble based on patient's age to complete this topic Chery Osborne Personal/Family [place] 1980 [place] [address]
--- OUTSIDE RECORDS SUMMARY | 2023-06-11 07:31 | XMS_ITS | Encounter Summary ---
Author Name Unknown Organization [facility] Address [address] [place] [address] Care Team Providers Care Funeral Workers Name Role Phone Unavailable Primary Care Provider Unavailabl e Reason for Visit * Reason Onset Date Comments Medical Information 02/06/2023 Encounter Details Date Type Department Care Team (Latest Contact Info) Description 02/06/2023 Clinical Communication Department of Otorhinolaryngology in [place], [place] [address] [place] [address] Prescheduling, Provider Medical Information Social History Tobacco Use Types Packs/Day Years [...] How often do you attend chur or voodoo services? Never 10/01/2020 Do you belong to any clubs o r organizations such as anglican groups, unions, fraternal or athletic groups, or [...] and heating? Not hard at all 10/01/2020 [facility] - Occupational Stress Questionnaire Answer Date Recorded [...] place to sleep or slept in a mcfp (including now)? No 10/01/2020 Nutrition Answer Date [...] Sex Assigned at Female 03/19/2023 10:51 AM PULP PILER Gender Identity Female 03/19/2023 10:51 AM PULP PILER Sexual Orientation Straight 03/19/2023 10 :51 AM PULP PILER documented as of this encounter Plan of Treatment Not on file documented as of this encounter Visit Diagnoses Not on filedocumented in this encounter
--- OUTSIDE RECORDS SUMMARY | 2023-06-11 07:31 | XMS_ITS | Encounter Summary ---
Author Name Unknown Organization [facility] Address [address] [place] [address] Care Team Providers Care Grain Trader Name Role Phone Unavailable Primary Care Provider Unavailabl e Reason for Visit * Outpatient (Routine) - Closed Specialty Diagnoses / Procedures Referred By Leny burk Referred To Contact Otorhinolaryngology Diagnoses dx Keven Talbert M.D., Ph.D. [address] [place] [phone] Amy Valverde, WALDEMAR, C.N.P. [address] [place] [phone] Referral ID Status Reason Start Date Expiration Date Visits Re quested Visits Authorized [id number] Closed 02/01/2023 02/01/2024 1 1 Encounter Details Date Type Department Care Team (Latest Contact Info) Description 03/26/2023 7:30 AM JUNIOR HIGH SCHOOL PRINCIPAL Office Visit Department of Otorhinolaryngology in [place], [place] [address] [place] [phone] Amy Valverde APRN, C.N.P. [address] [place] [phone] Lymphadenitis Cervical (Primary Dx) Social History Tobacco Use Types [...] often do you attend chur ch or confucianism services? Never 10/01/2020 Do you belong to any clubs o r organizations such as muslim groups, unions, fraternal or athletic groups, or [...] care, and heating? Not very hard 03/19/[address] [facility] of Occupat ional Health - Occupational Stress [...] money to buy more. Never true 03/19/20 23 Within the past 12 months, t he [...] Sex Assigned at Female 03/19/2023 10:51 AM JUNIOR HIGH SCHOOL PRINCIPAL Gender Identity Female 03/19/2023 10:51 AM JUNIOR HIGH SCHOOL PRINCIPAL Sexual Orientation Straight 03/19/2023 10 :51 AM JUNIOR HIGH SCHOOL PRINCIPAL documented as of this encounter Progress Notes * Amy Valverde, WALDEMAR, C.N.P. - 03/26/2023 7:30 AM CST Date of visit: 03/26/2023 Patient name: Chery Osborne : 1980 Subjective Chief complaint: 1. Left neck abnormality, previous biopsy reveals reactive lymph node August, 2. Reassessment with imaging HPI: Chery Osborne is a 42 y.o. female who presents for evaluation and follow-up related to a left level 1 lymph node that was previously identified and for which she was evaluated for in 2020. She was taken to the operating room December 29, 2016 elsewhere were part of her submandibular gland was removed with no abnormal lymphadenopathy seen. She was seen at [facility] ENT by Dr. Milan and myself August of 2020. We recommended ultrasound-guided biopsy. This returned as negative for malignancy, reactive lymph node. It was not causing her significant symptoms and she did not desire repeat surgery. Today she presents to clinic noting that she was curious to know if the left neck mass has changed.She also appreciates some increased pressure in the left ear and that continued abnormal sensation in the left side of her throat, saying she feels like she is ???lop sided?? . Overall she denies throat pain, dysphagia, odynophagia, otalgia, hemoptysis or hematemesis. CT imaging completed yesterday not yet with radiology review complete CURRENT MEDICATIONS: Reviewed and updated in the EMR. No Known Allergies. Past Medical History: Diagnosis Date Gallbladder Disorder Removed Headache Unspecified Hypertension NOS 2009 Migraine Headache 1994 Sleep Apnea 2009 Past Surgical History: Procedure Laterality Date GALLBLADDER SURGERY SPINE SURGERY 04/2019,& 03/2020 Objective Physical exam: General: 42 y.o. year old female, in no acute distress. Skin: No rashes or lesions. Ears: Bilateral canals and TM's normal, no cerumen or middle ear effusion Nose: [place] and moist Oral Cavity: [place] and moist. Mucous membranes intact. Cachil Dehe dentition noted. Floor of mouth, oral tongue, base of tongue soft to palpation. No submucosal nodularity or friability. Clear saliva from bilateral submandibular glands Neck: It is difficult to palpate this left level 1 lymph node on exam. I can not appreciate any additional lymphadenopathy Prior scope exam was completed and within normal limits in August of 2020. She had no new throat complaints and we did not complete a scope exam. DIAGNOSTICS: I reviewed the imaging studies and the interpretation as recorded. I reviewed the pertinent laboratory and diagnostic data. I reviewed the CT images with the patient and compared them to her images from 2020. It does not appear so there has been any significant change in this lymph node. We will await final radiology review Assessment/Plan #1 Lymphadenitis Cervical Chery Osborne is a 42 y.o. female who presents for persistent left level 1 lymphadenopathy. She had some discomfort in the left ear an abnormal sensation in her throat which is similar today complaints she had when we initially evaluated her in 2020. Our plan will be as follows: We will await final radiology review of the CT scan and I will call her with the results. We discussed potential surgical excision which would require a general anesthetic and a neck incision. We also discussed possible continued observation. We will discuss this further once we have radiology results PATIENT EDUCATION Ready to learn, no apparent learning barriers were identified; learning preferences include listening. Explained diagnosis and treatment plan; patient expressed understanding of the content. OR HIGH SCHOOL PRINCIPAL documented in this encounter Plan of Treatment Not on file documented as of this encounter Visit Diagnoses Diagnosis Lymphadenitis Cervical- Primary documented in this encounter
--- OUTSIDE RECORDS SUMMARY | 2023-06-11 07:31 | XMS_ITS | Encounter Summary ---
Author Name Unknown Organization [facility] Address [address] [place] [address] Care Team Providers Care Sprayer Operator Name Role Phone Unavailable Primary Care Provider Unavailabl e Reason for Visit * Reason Onset Date Comments Blood Pressure 03/21/2023 Encounter Details Date Type Department Care Team (Latest Contact Info) Description 03/21/2023 8:00 AM PAYROLL AND BENEFITS ANALYST Clinical Communication Virtual Review in [place], [place] [address] [place] [address] Blood Pressure Social History Tobacco Use Types Packs/Day Years [...] How often do you attend chur or congregational services? Never 10/01/2020 Do you belong to any clubs o r organizations such as religion groups, unions, fraternal or athletic groups, or [...] care, and heating? Not very hard 03/19/2023 [facility] - Occupational Stress Questionnaire Answer Date Recorded [...] your living situation today? I have a [facility] place to live 03/19/2023 Education Answer Date Recorded What is the highest level of school you have completed or the highest degree you have received? Professional school degree (e.g., , DDS, DVM, LUDA) 10/01/2020 Sex and Gender Information Value Date Recorded Sex Assigned at Female 03/19/2023 10:51 AM PAYROLL AND BENEFITS ANALYST Gender Identity Female 03/19/2023 10:51 AM PAYROLL AND BENEFITS ANALYST Sexual Orientation Straight 03/19/2023 10 :51 AM PAYROLL AND BENEFITS ANALYST documented as of this encounter Plan of Treatment Not on file documented as of this encounter Visit Diagnoses Not on filedocumented in this encounter
--- OUTSIDE RECORDS SUMMARY | 2023-06-11 07:31 | XMS_ITS | Encounter Summary ---
Author Name Unknown Organization [facility] Address [address] [place] [address] Care Team Providers Care Log Operations Coordinator Name Role Phone Unavailable Primary Care Provider Unavailabl e Encounter Details Date Type Department Care Team (Latest Contact Info) Description 02/07/2023 Clinical Communication Department of Otorhinolaryngology in [place], [place] [address] [place] [address] Kumar Milan M.D. [address] [place] [phone] Social History Tobacco Use Types Packs/Day Years [...] often do you attend chur ch or cheondoism services? Never 10/01/2020 Do you belong to any clubs o r organizations such as alevism groups, unions, fraternal or athletic groups, or [...] and heating? Not hard at all 10/01/2020 [facility] [place] [facility] of Occupat ional Health - Occupational Stress [...] place to sleep or slept in a group home (including now)? No 10/01/2020 Nutrition Answer Date [...] Sex Assigned at Female 03/19/2023 10:51 AM FRONT DESK MONITOR Gender Identity Female 03/19/2023 10:51 AM FRONT DESK MONITOR Sexual Orientation Straight 03/19/2023 10 :51 AM FRONT DESK MONITOR documented as of this encounter Plan of Treatment Not on file documented as of this encounter Visit Diagnoses Not on filedocumented in this encounter
--- NOTE | 2023-06-11 08:27 | W.ANESCHARGE ---
Anesthesia Charges Start Date/Time Anesthesia Start Date: 06/11/23 Anesthesia Start Time: 08:00 Stop Date/Time Anesthesia Stop Date: 06/11/23 Anesthesia Stop Time: 08:28
== END 2023-06-11 07:28 | disposition home or self-care (01) ==
LOC: OP CLINIC 07:29
PROVIDERS: PCP Physician Assistant Medical; Visit Provider Internal Medicine
DX: Z12.11 Encounter for screening for malignant neoplasm of colon (principal)
CPT/HCPCS: 00812; 45378; J2704

== ENCOUNTER 2024-03-26 10:48 | Outpatient (CLI) | payer BC, OTHER, SELFPAY ==
--- OUTSIDE RECORDS SUMMARY | 2024-03-30 02:37 | XMS_ITS | Clinical Summary ---
Author Organization [facility] Address [address] [facility] [place] [address] Care Team Providers Care Mail Order Clerk Name Role Phone Chao Huggins Primary Care Provider [phone] Allergies No known active allergies Medications Verapamil HCl 240 MG (CO) TB24 Take by mouth. Active omeprazole (PRILOSEC) 20 MG capsule Take 20 mg by mouth daily. Active hydrochlorothiaz christina (HYDRODIURIL) 25 MG tabletIndication s:HTN (hypertension) Take 1 tablet by mouth daily. [...] School Help Needed Not on file 02/04 Comments No Sex and Gender Information Value Date Recorded Sex Assigned at Not on file Legal Sex Female 3:26 AM DIESEL ENGINE PIPE FITTER Gender Identity Not on file Sexual Orientation Not on file Last Filed Vital Signs Vital Sign Reading Time Taken Comments Blood Pressure 142/82 07/03/2019 6:04 AM DIESEL ENGINE PIPE FITTER Pulse 72 07/03/2019 6:04 AM DIESEL ENGINE PIPE FITTER Temperature 36.6 C (97.8 F) 07/03/2019 3:05 AM DIESEL ENGINE PIPE FITTER Respiratory Rate 18 07/03/2019 3:05 AM DIESEL ENGINE PIPE FITTER Oxygen Saturation 98% 07/03/2019 6:04 AM DIESEL ENGINE PIPE FITTER Inhaled Oxygen Concentration - - Weight 90.7 kg (200 lb) 07/03/2019 3:05 AM DIESEL ENGINE PIPE FITTER Height 167.6 cm (5' 6) 07/03/2019 3:05 AM DIESEL ENGINE PIPE FITTER Body Mass Index 32.28 07/03/2019 3:05 AM DIESEL ENGINE PIPE FITTER Plan of Treatment Not on file Insurance [facility] Care Teams Mail Order Clerk Relationship Specialty Start Date End Date Chao Huggins [place] [address] [place] [address] PCP - General Family Medicine 05/10/20
--- OUTSIDE RECORDS SUMMARY | 2024-03-30 02:37 | XMS_ITS | Continuity of Care Document ---
Author Organization [facility] Address [address] [place] [address] Phone Care Team Providers Care Die Cutting Machine Operator Name Role Phone Dakota Butler MD [...] EST Phone [facility], [address], [place], [id number], [place] tel:[phone] [facility] No Information Carrie [place]. [facility] , [address] [place] [address] , [place], [address], [place]. tel:[phone] Referring Provider: Chao Roper, [place] [address] [facility], [place], [address]. tel:[phone] Office/Outpat ient Visit,Est, Mod [facility], [address], [place], [id number], [place] tel:[phone] [facility] Spinal stenosis, lumbar region with neurogenic claudication Carrie [place]. [facility] , [address] [place] [address] , [place], [address], [place]. tel:[phone] Referring Provider: Chao Roper, [facility] [address] [facility], [place], [address]. tel:[phone] Office/Outpat ient Visit,Est, Mod [facility], [address], [place], [place], [id number], [place] tel:[phone] [facility] Spinal stenosis, lumbar region with neurogenic claudication Carrie [place]. [facility] , [address] [place] [address] , [place], [address], [place]. tel:[phone] Referring Provider: Chao Roper, [facility] [address] [facility], [facility] [place], [address]. tel:[phone] [facility], [address], [place], [place], [id number], [place] tel:[phone] [facility] Encounter for other specified surgical aftercare Kal Tubbs. [facility] [place], [address], [place], [place], [id number], [place]. tel:[phone] Referring Provider: Chao Roper [address], [place], [address]. tel:[phone] [facility], [address], [place], [id number], [place] tel:[phone] [facility] No Information Kal Tubbs. [facility], [address], [place], [place], [id number], [place]. tel:[phone] Referring Provider: Chao Roper [address], [place], [address]. tel:[phone] [facility], [address], [place], [id number], [place] tel:[phone] [facility] No Information Carrie [place]. [facility] , [address], [place], [address], [place]. tel:[phone] Referring Provider: Chao Roper, [address], [place], [address]. tel:[phone] Office/Outpat ient Visit,Est, Low [facility], [address], [place], [id number], [place] tel:[phone] [facility] Spinal stenosis, lumbar region with neurogenic claudication Carrie [place]. [facility] , [address], [place], [address], [place]. tel:[phone] Referring Provider: Chao Roper, [address], [place], [address]. tel:[phone] Office/Outpat ient Visit,Est, Mod [facility], [address], [place], [id number], [place] tel:[phone] [facility] Spinal stenosis, lumbar region with neurogenic claudication Carrie [place]. [facility] , [address], [place], [address], [place]. tel:[phone] Referring Provider: Chao Roper, [place] [address] [facility], [place], [address]. tel:[phone] [facility], [address], [place], [id number], [place] tel:[phone] [facility] Arthrodesis status Carrie [place]. [facility] , [address], [place], [address], [place]. tel:[phone] Referring Provider: Chao Roper, [place] [address] [facility], [place], [address]. tel:[phone] [facility], [address], [place], [id number], [place] tel:[phone] [facility] No Information Kal Tubbs. [facility], [address], [place], [place], [id number], [place]. tel:[phone] Referring Provider: Chao Roper, [place] [address] [facility], [place], [address]. tel:[phone] [facility], [address], [place], [id number], [place] tel:[phone] [facility] No Information Carrie [place]. [facility] , [address], [place], [address], [place]. tel:[phone] Referring Provider: Chao Roper, [place] [address] [facility], [place], [address]. tel:[phone] Office/Outpat ient Visit,Est, Mod [facility], [address], [place], [id number], [place] tel:[phone] [facility] Spinal stenosis, lumbar region NOS Carrie [place]. [facility] , [address] [place] [address] , [place], [address], [place]. tel:[phone] Referring Provider: Chao Roper, [facility] [address] [facility], [place], [address]. tel:[phone] Office/Outpat ient Visit,New, Mod [facility], [address], [place], [id number], [place] tel:[phone] [facility] Spinal stenosis, lumbar region NOS Carrie [place]. [facility] , [address] [place] [address] [place], [address], [place]. tel:[phone] Referring Provider: Chao Roper, [facility] [address] [place], [address]. tel:[phone] Family History Family Member Type Diagnosis Age At Onset No Information Payers Payer name Insurance type Covered democrat ID Elaine diop(s) [facility] [id number] [id number] [id number] Social History Type Description Quantity Date Captured [...]
--- OUTSIDE RECORDS SUMMARY | 2024-03-30 02:37 | XMS_ITS | Encounter Summary ---
Author Organization [facility] Address [address] [place] [address] Phone [email or web address] [email or web address] Care Team Providers Care Safety Spec Name Role Phone Unavailable Primary Care Provider Unavailabl e Encounter Details Date Type Department Care Team (Late st Contact Info) Description 02/14/2024 Claims Summary [facility] [address] [place] [address] Provider, Claims Summary External, [address] [place] [address] Social History Tobacco Use Types Packs/Day Years Used Date Smoking Tobacco: Never Assessed Comments Unknown Sex and Gender Information Value Date Recorded Sex Assigned at Not on file Legal Sex Female 1:53 PM RUBY ON RAILS WEB DEVELOPER Gender Identity Not on file Sexual Orientation Not on file documented as of this encounter Plan of Treatment Not on file documented as of this encounter Visit Diagnoses Not on filedocumented in this encounter
--- OUTSIDE RECORDS SUMMARY | 2024-03-30 02:37 | XMS_ITS | Encounter Summary ---
Author Organization [facility] Address [address] [place] [address] Phone [email or web address] [email or web address] Care Team Providers Care Corporate Logistics Manager Name Role Phone Unavailable Primary Care Provider Unavailabl e Encounter Details Date Type Department Care Team (Late st Contact Info) Description 01/16/2024 Claims Summary [facility] [address] [place] [address] Provider, Claims Summary External, [address] [place] [address] Social History Tobacco Use Types Packs/Day Years Used Date Smoking Tobacco: Never Assessed Comments Unknown Sex and Gender Information Value Date Recorded Sex Assigned at Not on file Legal Sex Female 1:53 PM STAFF RESEARCH ASSOCIATE Gender Identity Not on file Sexual Orientation Not on file documented as of this encounter Plan of Treatment Not on file documented as of this encounter Visit Diagnoses Not on filedocumented in this encounter
--- OUTSIDE RECORDS SUMMARY | 2024-03-30 02:37 | XMS_ITS ---
Author Organization [facility] Address [address] [place] [address] Care Team Providers Care Professor Of Engineering Name Role Phone Unavailable Unavailable Unavailable Surgery Details Not on file Complications Check Surgery Details section. Procedure Estimated Blood Loss Check Surgery Details section. Procedure Findings Check Surgery Details section. Procedure Specimens Taken Check Surgery Details section.
--- OUTSIDE RECORDS SUMMARY | 2024-03-30 02:37 | XMS_ITS | Clinical Summary ---
Author Organization [facility] Address [address] [place] [address] Care Team Providers Care Research Food Technologist Name Role Phone Unavailable Primary Care Provider Unavailabl e Source Comments Patient records contain information from all sites at [facility]. For routine questions regarding patient records, call [phone] during business hours, M-F 8:00 AM - 5:00 PM Central Time. Record requests for emergency care only can be directed to [phone] at any time.[facility] Allergies No known active allergies Medications ibuprofen (ADVIL,MOTRIN) 600 mg tablet Every 6 Hours as needed Active cholecalciferol, vitamin D3, 25 mcg (1,000 Unit) tablet Daily Active spironolactone (ALDACTONE) 100 mg tablet Daily 09/03/2019 Active lisinopriL (PRINIVIL,ZESTRI L) 10 mg tablet Take 10 mg by mouth daily. 02/21/2023 Active Active Problems Problem Noted Date Diagnosed Date Lymphadenitis Cervical 03/26/2023 Family History Medical History Relation Name Comments [...] week 10/01/2020 How often do you attend caro center or uatsdin services? Never 10/01/2020 Do you belong to any clubs o r organizations such as episcopal groups, unions, fraternal or athletic groups, or [...] care, and heating? Not very hard 03/19/2023 [facility] of Occupat ional [facility] - Occupational Stress Questionnaire Answer [...] your living situation today? I have a [facility] place to live 03/19/2023 Education Answer Date Recorded What is the highest level of school you have completed or the highest degree you have received? Professional school degree (e.g., MD, DDS, DVM, LUDA) 10/01/2020 Comments Unknown Sex and Gender Information Value Date Recorded Sex Assigned at Female 03/19/2023 10:51 AM BURIAL VAULT SETTER Legal Sex Female 3:36 PM CDT Gender Identity Female 03/19/2023 10:51 AM BURIAL VAULT SETTER Sexual Orientation Straight 03/19/2023 10 :51 AM BURIAL VAULT SETTER Plan of Treatment Health Maintenance Due Date Last Done Comments CT Colonography 1978 Cologuard 1980 Colonoscopy 1980 Colorectal Cancer Screening 1980 FIT 1980 HIV Screening 1980 Hepatitis C Screening 1980 Lipid (Cholesterol) Screening 1978 Mammogram 1980 Hepatitis B Vaccines (1 of 3 - 19+ 3-dose series) 1997 Potassium Level 10/21/2019 10/20/2018 Sodium Level 10/21/2019 10/20/2018 Fasting Glucose for Diabetes Screening 10/20/2021 10/20/2018 Depression Screening (Annual PHQ-2) 05/07/2023 COVID-19 Vaccine ( season) 2024 08/22/2020, 07/25/2020 Influenza Vaccine (#1) 2024 , 12/29/2021, 12/28/2021, Additional history exists Creatinine Level (Kidney Function Test) 03/25/2024 03/25/2023, 10/20/2018 Cervical/Vaginal Cancer Screening 03/08/2026 03/08/2023 DTaP,Tdap,and Td Vaccines (3 - Td or Tdap) 08/27/2028 08/27/2018, 03/31/2008 HPV Vaccines Aged Out No longer eligi ble based on patient's age to complete this topic IPV Vaccines Aged Out No longer eligi ble based on patient's age to complete this topic Pneumococcal vaccine (0-64 years) Aged Out No longer eligible based on patient's age to complete this topic Procedures Procedure Name Priority Date/Time Associated Diagnosis Comments CREATININE WITH EGFR, S/P Routine 03/25/2023 12:08 PM BURIAL VAULT SETTER [place]ck from Last 3 Months or Most Recently Relevant to Health Maintenance Results * Creatinine with Estimated GFR (03/25/2023 12:08 PM BURIAL VAULT SETTER) Creatinine 0.83 0.59 - 1.04 mg/dL 03/25/2023 12:56 PM BURIAL VAULT SETTER DTL Estimated GFR (eGFR) 89 >=60 mL/min/BSA 03/25/2023 12:56 PM BURIAL VAULT SETTER DTL Comment: Estimated GFR calculated using the 2020 CKD_EPI creatinine equation. Blood (Blood, Venous) 03/25/2023 12:08 PM BURIAL VAULT SETTER 03/25/2023 12:33 PM BURIAL VAULT SETTER Keven Talbert M.D., Ph.D. LAB BLOOD ADD-ON Fin al Result [facility] [address] [place] [address], [facility] DTL [facility] [address] [place] [address] from Last 3 Months or Most Recently Relevant to Health Maintenance Insurance [facility]
--- OUTSIDE RECORDS SUMMARY | 2024-03-30 02:37 | XMS_ITS | Clinical Summary ---
Author Organization [facility] Address [address] [place] [address] Care Team Providers Care Laryngologist Name Role Phone Unavailable Primary Care Provider [...] for each transition of care or referral. [facility] Medic[facility] Medication Sig Dispensed Refills Start Date [...] 1978 Hep C Screening (Preventive Services) 1978 Mammogram 1978 HIV Screening (Preventive Services) 1994 Adult Preventive Visit 1996 HepB (1) 1997 Cholesterol 2023 COVID-19 Vaccine ( season) 2024 08/22/2020, 07/25/2020 Influenza (#1) 2024 03/18/2019, 11/2018, 02/07/2016, Additional history exists Zoster/Shingles (1 of [...] patient's age to complete this topic RSV Aged Out No longer eligi ble based on patient's age to complete this topic MCV4 Aged Out No longer eligi ble based on patient's age to complete this topic Pneumococcal Aged Out No longer eligi ble based on patient's age to complete this topic Chery Osborne Personal/Family Self 1980 [place] [address]
--- OUTSIDE RECORDS SUMMARY | 2024-03-30 02:37 | XMS_ITS | Referral Summary ---
Author Organization [facility] Address [address] [facility] [address] Care Team Providers Care Sales Development Executive Name Role Phone Chao Huggins Primary Care Provider [phone] Allergies No known active allergies Medications Verapamil [...] on file Legal Sex Female 3:26 AM APPLICATION PACKAGER Gender Identity Not on file Sexual Orientation Not on file Last Filed Vital Signs Vital Sign Reading Time Taken Comments Blood Pressure 142/82 07/03/2019 6:04 AM APPLICATION PACKAGER Pulse 72 07/03/2019 6:04 AM APPLICATION PACKAGER Temperature 36.6 C (97.8 F) 07/03/2019 3:05 AM APPLICATION PACKAGER Respiratory Rate 18 07/03/2019 3:05 AM APPLICATION PACKAGER Oxygen Saturation 98% 07/03/2019 6:04 AM APPLICATION PACKAGER Inhaled Oxygen Concentration - - Weight 90.7 kg (200 lb) 07/03/2019 3:05 AM APPLICATION PACKAGER Height 167.6 cm (5' 6) 07/03/2019 3:05 AM APPLICATION PACKAGER Body Mass Index 32.28 07/03/2019 3:05 AM APPLICATION PACKAGER Plan of Treatment Not on file Insurance [facility] BLUE PLUS Care Teams Sales Development Executive Relationship Specialty Start Date End Date Chao Huggins [address] [id number] PCP - General Family Medicine 05/10/20
--- OUTSIDE RECORDS SUMMARY | 2024-03-30 02:37 | XMS_ITS | Encounter Summary ---
Author Organization [facility] Address [address] [place] [address] Phone [email or web address] Care Team Providers Care Office Clinician Name Role Phone Unavailable Primary Care Provider Unavailabl e Encounter Details Date Type Department Care Team (Late st Contact Info) Description 03/19/2024 Claims Summary [facility] [address] [place] [address] Provider, Claims Summary External, [address] [place] [id number] Social History Tobacco Use Types Packs/Day Years Used Date Smoking Tobacco: Never Assessed Stress Answer Date Recorded Stress in your Life Not on file 03/15/2024 Dealing with Stress 3 03/15/2024 Comments Unknown Sex and Gender Information Value Date Recorded Sex Assigned at Not on file 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
--- OUTSIDE RECORDS SUMMARY | 2024-03-30 02:37 | XMS_ITS | Encounter Summary ---
Author Organization [facility] Address [address] [place] [address] Phone [email or web address] Care Team Providers Care Program Evaluator Name Role Phone Unavailable Primary Care Provider Unavailabl e Encounter Details Date Type Department Care Team (Late st Contact Info) Description 12/05/2023 Claims Summary [facility] [address] [place] [address] Provider, Claims Summary External, [address] [place] [address] Social History Tobacco Use Types Packs/Day Years Used Date Smoking Tobacco: Never Assessed Comments Unknown Sex and Gender Information Value Date Recorded Sex Assigned at Not on file 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
--- OUTSIDE RECORDS SUMMARY | 2024-03-30 02:37 | XMS_ITS | Referral Summary ---
Author Organization [facility] Address [address] [place] [address] Care Team Providers Care Aba Therapist Name Role Phone Unavailable Primary Care Provider Unavailabl e Source Comments Patient records contain information from all sites at [facility]. For routine questions regarding patient records, call [phone] during business hours, M-F 8:00 AM - 5:00 PM Central Time. Record requests for emergency care only can be directed to [phone] at any time.[facility] Allergies No known active allergies Medications ibuprofen [...] any clubs o r organizations such as roman catholic groups, unions, fraternal or athletic groups, or [...] care, and heating? Not very hard 03/19/2023 [facility] - Occupational Stress [...] living situation today? I have a [facility] place to live 03/19/2023 Education Answer Date Recorded What is the highest level of school you have completed or the highest degree you have received? Professional school degree (e.g., MD, DDS, DVM, LUDA) 10/01/2020 Comments Unknown Sex and Gender Information Value Date Recorded Sex Assigned at Female 03/19/2023 10:51 AM STEM CRUSHER Legal Sex Female 3:36 PM CDT Gender Identity Female 03/19/2023 10:51 AM STEM CRUSHER Sexual Orientation Straight 03/19/2023 10 :51 AM STEM CRUSHER Plan of Treatment Not on file Procedures Procedure Name Priority Date/Time Associated Diagnosis Comments CREATININE WITH EGFR, S/P Routine 03/25/2023 12:08 PM STEM CRUSHER Mass Neck from Last 3 Months or Most Recently Relevant to Health Maintenance Results * Creatinine with Estimated GFR (03/25/2023 12:08 PM STEM CRUSHER) Creatinine 0.83 0.59 - 1.04 mg/dL 03/25/2023 12:56 PM STEM CRUSHER DTL Estimated GFR (eGFR) 89 >=60 mL/min/BSA 03/25/2023 12:56 PM STEM CRUSHER DTL Comment: Estimated GFR calculated using the 2020 CKD_EPI creatinine equation. Blood (Blood, Venous) 03/25/2023 12:08 PM STEM CRUSHER 03/25/2023 12:33 PM STEM CRUSHER us Keven Talbert M.D., Ph.D. LAB BLOOD ADD-ON Fin al Result [facility] [address] [place] [address], [place] DTL [facility] [address] [place] [address] from Last 3 Months or Most Recently Relevant to Health Maintenance Insurance [facility]
--- OUTSIDE RECORDS SUMMARY | 2024-03-30 02:37 | XMS_ITS | Clinical Summary ---
Author Organization [facility] Address [address] [place] [address] Phone [email or web address] Care Team Providers Care Ornament Maker Hand Name Role Phone Unavailable Primary Care Provider Unavailabl e Encounters Date Type Department Care Team Description 03/19/2024 Claims Summary [facility] [address] [place] [address] Provider, Claims Summary MD [place] 02/14/2024 Claims Summary [facility] [address] [place] [address] Provider, Claims Summary MD [place] 01/16/2024 Claims Summary [facility] [address] [place] [address] Provider, Claims Summary MD [place] from Last 3 Months Social History Tobacco Use Types Packs/Day Years Used Date Smoking Tobacco: Never Assessed Stress Answer Date Recorded Stress in your Life Not on file 03/15/2024 Dealing with Stress 3 03/15/2024 Comments Unknown Sex and Gender Information Value Date Recorded Sex Assigned at Not on file 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
--- OUTSIDE RECORDS SUMMARY | 2024-03-30 02:37 | XMS_ITS | Clinical Summary ---
Author Organization [facility] Address [place], [place] [address] Care Team Providers Care Utility Assembler Name Role Phone Chao Huggins MD Primary Care Provider [phone] Juan Viveros MD Unavailable [phone] Allergies No known active allergies Medications Medication Sig Dispensed Refills Start Date End Date Status cholecalciferol (VITAMIN D-3) 2,000 unit capsule Take 1 capsule by mouth once daily. 0 03/20/2014 Active spironolactone (ALDACTONE) 50 mg tablet Take 100 mg by mouth once daily. 0 03/20/2014 Active ibuprofen (ADVIL; MOTRIN) 200 mg tablet Take 200 mg by mouth 4 times daily if needed. Active cyclobenzaprine (FLEXERIL) 5 mg tablet Take 5 mg by mouth at bedtime if needed for Muscle Spasm. Active multivitamin (MVI) tablet Take 1 tablet by mouth once daily. Active oxyCODONE (ROXICODONE) 5 mg immediate release tabletIndications:Acu te post-operative pain Take 1-2 tablets by mouth every 4 hours if needed for Pain Max of 10 tablets/day. 40 tablet 03/23/2020 Active Active Problems Problem Noted Date Diagnosed Date Lumbar disc herniation with radiculopathy 2014 Overview (05/19/2015): November 2014: 1 year of low back pain and left leg symptoms Since December 2013 with L5-S1 disc herniation most likely cause. ~ November 2014:L5-S1 TF [place] by Dr. Whittaker. May 2015: left L5-S1 TFESI by Dr. Whittaker. JAMMIE (obstructive sleep apnea) 11/09/2014 Overview (11/09/2014): approximately 2012 diagnosis. On CPAP. Nonsustained ventricular tachycardia 06/15/2014 [...] Comments Blood Pressure 146/83 03/23/2020 2:31 PM INSIDE TESTER Pulse 92 03/23/2020 3:39 PM INSIDE TESTER Temperature 36.9 C (98.5 F) 03/23/2020 3:39 PM INSIDE TESTER Respiratory Rate 18 03/23/2020 3:39 PM INSIDE TESTER Oxygen Saturation 95% 03/23/2020 3:39 PM INSIDE TESTER Inhaled Oxygen Concentration - - Weight 98.9 kg (218 lb) 03/22/2020 2:23 PM INSIDE TESTER Height 162.6 cm (5' 4) 03/22/2020 2:23 PM INSIDE TESTER Body Mass Index 37.42 03/22/2020 2:23 PM INSIDE TESTER Plan of Treatment Health Maintenance Due Date Last Done Comments Tdap 1989 Depression screening for age 12+ 1990 HIV for age 15-65 1993 Hepatitis C screening for age 18-79 1996 Tetanus booster 1998 BMI (ht and wt on same day) for age 18+ 05/20/2016 05/20/2015 Colonoscopy through age 75 2023 Lipids for age 45-75 2023 02/25/2015, 03/27/2014, 02/10/2002, Additional history exists Mammogram for age 45-75 2023 COVID-19 vaccine series (2023- season) 2024 Influenza for age 9-49 01/06/2024 03/01/2004 Pap test for age 21-65 03/08/2026 , 03/08/2023, 07/15/2018, Additional history exists Pneumococcal series for age 6-64 Aged Out No longer eligible based on patient's age to complete this topic Procedures Procedure Name Priority Date/Time Associated Diagnosis Comments HPV HIGH RISK Routine 03/08/2023 9:30 AM CDT LIPID PANEL W REFLEX MEASURED LDL Routine 02/25/2015 8:30 AM CDT Palpitations Nonsustained ventricular tachycardia (HC) from Last 3 Months or Most Recently Relevant to Health Maintenance Results * HPV HIGH RISK (03/08/2023 9:30 AM CDT) TYPE 16 Negative Negative 03/12/2023 2:25 PM INSIDE TESTER [facility] TYPE 18 Negative Negative 03/12/2023 2:25 PM INSIDE TESTER [facility] OTHER HIGH RISK TYPES Negative Negative 03/12/2023 2:25 PM INSIDE TESTER [facility] Other (Cervical) 03/08/2023 9:30 AM CDT 03/08/2023 4:57 PM CDT Narrative [facility] - 03/12/2023 2:25 PM INSIDE TESTER HPV types 16, 18, 31, 33, 35, 39, 45, 51, 52, 56, 58, 59, 66 and 68 DNA were undetectable or below the pre-set threshold. Methodology: Nate Millie 4800 HPV Test Mechelle Wheeler NP MICROBIOLOGY [facility] [address] [place] [address], * (ABNORMAL) LIPID PANEL W REFLEX MEASURED LDL (02/25/2015 8:30 AM CDT) CHOLESTEROL,TOTAL 188 100 - 199 mg/dL 02/25/2015 12:59 PM CDT [facility] TRIGLYCERIDES 162(H) <150 mg/dL 02/25/2015 12:59 PM CDT [facility] HDL CHOLESTEROL 44 >40 mg/dL 02/25/2015 12:59 PM CDT [facility] NON-HDL CHOLESTEROL 144 <145 mg/dl 02/25/2015 12:59 PM CDT [facility] CHOL/HDL RATIO 4.27 <4.50 02/25/2015 12:59 PM CDT [facility] LDL CHOLESTEROL 112 <=130 mg/dL 02/25/2015 12:59 PM CDT [facility] PATIENT STATUS FASTING 02/25/2015 12:59 PM CDT [facility] Blood specimen (specimen) BLOOD SPECIMEN / Unknown Venipuncture / Unknown 02/25/2015 8:30 AM CDT 02/25/2015 8:31 AM CDT Juan Viveros MD CHEMISTRY [facility] [place]ENDOUT [place] [address] [id number] [address] [place] [address] from Last 3 Months or Most Recently Relevant to Health Maintenance Advance Directives * Full Code (Latest Code Status on File) Date Activated Date Inactivated Comments 03/23/2020 11:13 AM 03/23/2020 6:03 PM Question Answer Comments Code Status Discussion: Discussed Care Teams Utility Assembler Relationship Specialty Start Date End Date Chao Huggins MD [address] [place] [id number] PCP - General Family Practice 03/09/14 Juan Viveros MD [address] [place] [address] Consulting Physician Cardiovascular Disease 02/26/15
== END 2024-03-26 10:49 | disposition home or self-care (01) ==
LOC: NFLDREF 03-30 02:35
PROVIDERS: PCP Physician Assistant Medical; Referring Provider Physician Assistant Medical; Visit Provider Registered Nurse
DX: Z00.00 Encounter for general adult medical examination without abnormal findings (principal); E55.9 Vitamin D deficiency, unspecified; I10 Essential (primary) hypertension; E66.9 Obesity, unspecified; N93.9 Abnormal uterine and vaginal bleeding, unspecified; L70.0 Acne vulgaris
CPT/HCPCS: 80048; 80061; 82306; 84443

== ENCOUNTER 2024-08-20 08:04 | Outpatient (CLI) | payer BC, OTHER, SELFPAY | END 2024-08-20 08:05 | disposition home or self-care (01) | LOC: RAD 08:04 | PROVIDERS: PCP Physician Assistant Medical; Visit Provider Physician Assistant Medical | DX: R06.02 Shortness of breath (principal); I51.7 Cardiomegaly; R00.2 Palpitations | CPT/HCPCS: 93306; 96374 ==

== ENCOUNTER 2024-08-29 13:57 | Outpatient (CLI) | payer BC, OTHER, SELFPAY ==
--- NOTE | 2024-08-29 14:00 | CRLHL7_ITS ---
For Patients: As a result of the Century Cures Act, medical imaging exams and procedure reports are released immediately into your electronic medical record. You may view this report before your referring provider. If you have questions, please contact your health care provider. INDICATION: BILATERAL SCREENING MAMMOGRAM, ASYMTOMATIC 44 Y/O F COMPARISON: 05/04/23, 12/26/21, 08/13/18 TECHNIQUE: CC and MLO views were obtained. These mammographic images have been obtained using full-field digital technique. These mammographic images were interpreted with the benefit of computer aided detection and tomosynthesis. BREAST COMPOSITION: There are scattered areas of fibroglandular density. FINDINGS: No suspicious findings. ASSESSMENT: BI-RADS 1 Negative RECOMMENDATION: Annual screening mammogram. A lay language report of this examination will be provided to the patient. Dictated by: Robert Resendez MD @ 09/08/2024 08:45:09 (Electronically Signed)
== END 2024-08-29 13:58 | disposition home or self-care (01) ==
LOC: MAMMO 13:58
PROVIDERS: PCP Physician Assistant Medical; Visit Provider Physician Assistant Medical
DX: Z12.31 Encounter for screening mammogram for malignant neoplasm of breast (principal)
CPT/HCPCS: 77063; 77067

== ENCOUNTER 2024-10-14 12:46 | Outpatient (CLI) | payer BC, OTHER, SELFPAY ==
[2024-10-14 13:59] VITALS: BP 132/76; PULSE 95; RESP 16
--- NOTE | 2024-10-14 14:04 | W.PM.STED ---
Stress Test Note Date Date of test: 10/14/24 Providers Primary care provider: Marga Olguin Stress test physician: Richardson Clark Stress Test Note Stress test ordered: Stress Echo Indication for test: Palpitations, shortness of breath Results discussion: This pleasant 44-year-old female presents for the above test after discussion the risks benefits and side effects she would like to proceed, cardiac stress test medical history form is reviewed in detail. Pretest EKG shows normal sinus rhythm with a ventricular rate of 70 and a blood pressure 132/82. Standard Yung protocol is employed over a time course of 9 minutes, achieved a metabolic equivalent of 10.5 Mets with a maximum heart rate of 159. This is 107% of the target. Maximum blood pressure was 144/90. Test is terminated because of fulfillment of protocol, she did have some mild fatigue, but no chest pain shortness of breath or anginal equivalent symptoms. No specific ST wave changes suggestive of ischemia, there is no dysrhythmias. Impression: Negative electrographic portion of stress echo, subjective Follow up suggested: Await these return read of echo imaging. This will be done by Cardiology, clinical correlation with this will be needed, her conditioning was felt to be good.
== END 2024-10-14 12:47 | disposition home or self-care (01) ==
LOC: STRESS 12:47
PROVIDERS: PCP Physician Assistant Medical; Visit Provider Internal Medicine
DX: R00.2 Palpitations (principal); R93.1 Abnormal findings on diagnostic imaging of heart and coronary circulation
CPT/HCPCS: 93016; 93325; 93351